=== PATIENT | male | born 1965 | race Hispanic/Latino ===

== ENCOUNTER 2018-06-22 09:31 | Emergency (ER) | payer OTHER, SELFPAY ==
--- OUTSIDE RECORDS SUMMARY | 2018-06-22 09:34 | XMS REPORT | Clinical Summary ---
:1965 Author Organization [facility] Address [address] [place] [address] Care Team Providers Name Role Phone Fadumo Primary Care Provider Allergies No Known Allergies Medications Medication Sig Dispensed Refills Start Date End Date Status calcium carbonate Take 2 tablets by 0 Active (CALCIUM CARBONATE) mouth 2 (two) times 300 mg Chew daily . lisinopril Take 2.5 mg by 0 Active (PRINIVIL,ZESTRIL) mouth daily. 2.5 MG tablet amLODIPine (NORVASC) Take 10 mg by mouth 0 Active 10 MG tablet daily. glyBURIDE (DIABETA) Take 5 mg by mouth 0 Active 1.25 MG tablet daily with breakfast. carvedilol (COREG) Take 6.25 mg by 0 Active 6.25 MG tablet mouth 2 (two) times daily with breakfast and dinner. 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, 2017 unspecified vessel or lesion type Hypertension, unspecified type 10/21/2017 ESRD (end stage renal disease) 10/21/2017 Other specified diabetes mellitus with diabetic chronic kidney disease, 2017 unspecified CKD stage, unspecified whether intermediate manager insulin use Pre-transplant evaluation for ESRD (end stage renal disease) 01/13/2017 Encounters Date Type Specialty Care Team Description 03/31/2018 Orders Only Transplant Galina Soriano, Awaiting RN transplantation of kidney (Primary Dx) 11/06/2017 Documentation Transplant Hussein Estrada 11/03/2017 Orders Only Transplant Galina Soriano, Coronary artery disease involving cabazon heart with angina pectoris, unspecified vessel or lesion type ( HCC) (Primary Dx); RN ESRD (end stage renal disease) (HCC); Pre-transplant evaluation for ESRD (end stage renal disease); Patient awaiting renal transplant 10/28/2017 Documentation Transplant Chiqui Neely 10/27/2017 [facility] Charge Visit Transplant Brianne Osorio II, MD Provider, [facility] Generic 10/27/2017 Documentation Transplant Galina Soriano RN 10/22/2017 Telephone Transplant PatrickMariel Kidney Transplant Y RN Pre-evaluation 10/22/2017 Orders Only Transplant Patrick, Mariel ESRD (end stage renal disease) (HCC) (Primary Dx); Y RN Pre-transplant evaluation for ESRD (end stage renal disease); Hypertension, unspecified type; Other specified diabetes mellitus with diabetic chronic kidney disease , unspecified CKD stage, unspecified whether intermediate manager insulin use (HCC); Coronary artery disease involving cabazon heart with angina pectoris, unspecified vessel or lesion type (HCC) 10/21/2017 Orders Only Transplant Patrick, Mariel Pre-transplant evaluation for ESRD (end stage renal disease) (Primary Dx); Y, RN Other specified diabetes mellitus with diabetic chronic kidney disease, unspecified CKD stage, unspecified whether intermediate manager insulin use (HCC); ESRD (end stage renal disease) (HCC); Hypertension, unspecified type 09/23/2017 Surgery Gastroenterology Hunter, COLONOSCOPY,POLYPECT MD JANNET Ravi 09/23/2017 Anesthesia Event Gastroenterology Vishal Jesus MD 09/23/2017 Hospital Encounter Gastroenterology Nuria Harrison MD 09/15/2017 Hospital Encounter Pre-Admission Testing Resource, [facility] Preadmit Phone 09/01/2017 Evaluation Transplant Jo, ESRD (end stage Brianne Dia II, renal disease) (HCC) (Primary Dx) 09/01/2017 Follow-Up Transplant Brianne Osorio II, MD 08/17/2017 Telephone Transplant Mich Na Y Appointment 08/14/2017 Orders Only Transplant Yovana ESRD (end stage renal disease) ( HCC) (Primary Dx); LISA Rice Pre-transplant evaluation for chronic kidney disease 07/08/2017 Orders Only Transplant Yovana ESRD (end stage renal disease) ( HCC) (Primary Dx); LISA Rice Pre-transplant evaluation for chronic kidney disease; Anemia of renal disease 07/08/2017 Telephone Transplant Sim, Na Y Follow-up after 06/21/2017 Family History Medical History Relation Name Comments Heart disease Father Diabetes Mother Hypertension Mother Liver disease Other step brother Diabetes Sister Relation Name Status Comments Father Alive Mother Alive Other step brother Alive Sister Alive Social History Tobacco Use Types Packs/Day Years Used Date Former Smoker Smokeless Tobacco: Never Used Comments: exposure to second hand smoke. Alcohol Use Drinks/Week oz/Week Comments No Sex Assigned at Date Recorded Not on file Job Start Date Occupation Industry Not on file Not on file Not on file Travel History Travel Start Travel End No recent travel history available. Last Filed Vital Signs Vital Sign Reading Time Taken Blood Pressure 139/70 09/23/2017 9:43 AM CDT Pulse 82 09/23/2017 9:43 AM CDT Temperature 36.7 C (98 F) 09/23/2017 9:43 AM CDT Respiratory Rate 18 09/23/2017 9:43 AM CDT Oxygen Saturation 97% 09/23/2017 9:43 AM CDT Inhaled Oxygen Concentration - - Weight 77.6 kg (171 lb) 09/23/2017 7:16 AM CDT Height 162.6 cm (5' 4") 09/23/2017 7:16 AM CDT Body Mass Index 29.35 09/23/2017 7:16 AM CDT Plan of Treatment Not on file Procedures Procedure Name Priority Date/Time Associated Comments Diagnosis FLOW PRA CLASS II WITH Routine 03/04/2018 11:20 Coronary artery Results for this REFLEX TO ANTIBODY AM [employer]PER disease involving procedure are in SPECIFICITY cabazon heart with the results angina pectoris, section. unspecified vessel or lesion type (HCC) ESRD (end stage renal disease) (HCC) Pre-transplant evaluation for ESRD (end stage renal disease) Patient awaiting renal transplant FLOW PRA CLASS I WITH Routine 03/04/2018 11:20 Coronary artery Results for this REFLEX TO ANTIBODY AM [employer]PER disease involving procedure are in SPECIFICITY cabazon heart with the results angina pectoris, section. unspecified vessel or lesion type (HCC) ESRD (end stage renal disease) (HCC) Pre-transplant evaluation for ESRD (end stage renal disease) Patient awaiting renal transplant FLOW PRA CLASS II WITH Routine 12/03/2017 3:17 Coronary artery Results for this REFLEX TO ANTIBODY PM CDT disease involving procedure are in SPECIFICITY cabazon heart with the results angina pectoris, section. unspecified vessel or lesion type (HCC) ESRD (end stage renal disease) (HCC) Pre-transplant evaluation for ESRD (end stage renal disease) Patient awaiting renal transplant FLOW PRA CLASS I WITH Routine 12/03/2017 3:17 Coronary artery Results for this REFLEX TO ANTIBODY PM CDT disease involving procedure are in SPECIFICITY cabazon heart with the results angina pectoris, section. unspecified vessel or lesion type (HCC) ESRD (end stage renal disease) (HCC) Pre-transplant evaluation for ESRD (end stage renal disease) Patient awaiting renal transplant FLOW PRA CLASS II WITH Routine 11/06/2017 2:08 Coronary artery Results for this REFLEX TO ANTIBODY PM CDT disease involving procedure are in SPECIFICITY cabazon heart with the results angina pectoris, section. unspecified vessel or lesion type (HCC) ESRD (end stage renal disease) (HCC) Pre-transplant evaluation for ESRD (end stage renal disease) Patient awaiting renal transplant FLOW PRA CLASS I WITH Routine 11/06/2017 2:08 Coronary artery Results for this REFLEX TO ANTIBODY PM CDT disease involving procedure are in SPECIFICITY cabazon heart with the results angina pectoris, section. unspecified vessel or lesion type (HCC) ESRD (end stage renal disease) (HCC) Pre-transplant evaluation for ESRD (end stage renal disease) Patient awaiting renal transplant REPORT OF PROCEDURE - 09/23/2017 9:21 ENDOSCOPY URL AM CDT TISSUE EXAM AP Routine 09/23/2017 9:18 Results for this AM CDT procedure are in the results section. COLONOSCOPY,POLYPECTOMY 09/23/2017 9:00 Screen for colon AM CDT cancer POCT-POTASSIUM Routine 09/23/2017 7:45 Results for this AM CDT procedure are in the results section. PSA Routine 09/01/2017 2:42 ESRD (end stage Results for this PM CDT renal disease) procedure are in (HCC) the results Pre-transplant section. evaluation for chronic kidney disease Anemia of renal disease HEPATITIS B SURFACE Routine 09/01/2017 2:42 ESRD (end stage Results for this ANTIGEN PM CDT renal disease) procedure are in (HCC) the results Pre-transplant section. evaluation for chronic kidney disease Anemia of renal disease HEPATITIS B SURFACE Routine 09/01/2017 2:42 ESRD (end stage Results for this ANTIBODY PM CDT renal disease) procedure are in (HCC) the results Pre-transplant section. evaluation for chronic kidney disease Anemia of renal disease GAMMA GLUTAMYL Routine 09/01/2017 2:42 ESRD (end stage Results for this TRANSFERASE (GGT) PM CDT renal disease) procedure are in ([facility]) the results Pre-transplant section. evaluation for chronic kidney disease Anemia of renal disease T SPOT TB Routine 09/01/2017 2:42 ESRD (end stage Results for this PM CDT renal disease) procedure are in ([facility]) the results Pre-transplant section. evaluation for chronic kidney disease Anemia of renal disease RPR Routine 09/01/2017 2:42 ESRD (end stage Results for this PM CDT renal disease) procedure are in ([facility]) the results Pre-transplant section. evaluation for chronic kidney disease Anemia of renal disease HIV-1 ANTIGEN WITH Routine 09/01/2017 2:42 ESRD (end stage Results for this HIV-1/2 ANTIBODY PM CDT renal disease) procedure are in ([facility]) the results Pre-transplant section. evaluation for chronic kidney disease Anemia of renal disease HEPATITIS C ANTIBODY Routine 09/01/2017 2:42 ESRD (end stage Results for this PM CDT renal disease) procedure are in ([facility]) the results Pre-transplant section. evaluation for chronic kidney disease Anemia of renal disease HEPATITIS B CORE Routine 09/01/2017 2:42 ESRD (end stage Results for this ANTIBODY, IGM PM CDT renal disease) procedure are in ([facility]) the results Pre-transplant section. evaluation for chronic kidney disease Anemia of renal disease EBV ANTIBODY, IGM Routine 09/01/2017 2:42 ESRD (end stage Results for this PM CDT renal disease) procedure are in ([facility]) the results Pre-transplant section. evaluation for chronic kidney disease Anemia of renal disease EBV ANTIBODY, IGG Routine 09/01/2017 2:42 ESRD (end stage Results for this PM CDT renal disease) procedure are in ([facility]) the results Pre-transplant section. evaluation for chronic kidney disease Anemia of renal disease CYTOMEGALOVIRUS Routine 09/01/2017 2:42 ESRD (end stage Results for this ANTIBODY, IGM PM CDT renal disease) procedure are in ([facility]) the results Pre-transplant section. evaluation for chronic kidney disease Anemia of renal disease CYTOMEGALOVIRUS Routine 09/01/2017 2:42 ESRD (end stage Results for this ANTIBODY, IGG PM CDT renal disease) procedure are in ([facility]) the results Pre-transplant section. evaluation for chronic kidney disease Anemia of renal disease after 06/21/2017 Results FLOW PRA CLASS II WITH REFLEX TO ANTIBODY SPECIFICITY (03/04/2018 11:20 AM [employer] HELPER) Only the most recent of3 resultswithin the time period is included. Flow Class II Percent Positive 0 [facility] Flow Class Report Comments [facility] Specimen Blood Narrative Performed At Disclaimer: [facility] This test was developed and its performance characteristics determined by the [facility]. It has not been cleared or approved by the U.S. Food and Drug Administration. The FDA has determined that such clearance or approval is not necessary. This test is used for clinical purposes. It should not be regarded as investigational or for research. This laboratory is certified under the Clinical Laboratory Improvement Amendments of 1988 (CLIA-88) as qualified to perform high complexity clinical laboratory testing. Performing Organization Address City/State/[facility] Phone Number [facility] [address] [place], [place]: ALEXA PERAZA [address] [id number], CLIA#[id number] CAP#[id number] [facility]#[id number] FLOW PRA CLASS I WITH REFLEX TO ANTIBODY SPECIFICITY (03/04/2018 11:20 AM [employer]PERSMITH HELPER) Only the most recent of3 resultswithin the time period is included. Flow Class I Percent Positive 0 [facility] Flow Class Report Comments [facility] Specimen Blood Narrative Performed At Disclaimer: [facility] This test was developed and its performance characteristics determined by the [facility]. It has not been cleared or approved by the U.S. Food and Drug Administration. The FDA has determined that such clearance or approval is not necessary. This test is used for clinical purposes. It should not be regarded as investigational or for research. This laboratory is certified under the Clinical Laboratory Improvement Amendments of 1988 (CLIA-88) as qualified to perform high complexity clinical laboratory testing. Performing Organization Address City/State/Zipcode Phone Number [facility] [place], [place]: ALEXA PERAZA [address] [id number], CLIA#[id number] CAP#[id number] [facility]#[id number] REPORT OF PROCEDURE - ENDOSCOPY URL (09/23/2017 9:21 AM CDT) Narrative Performed At Tissue Exam (09/23/2017 9:18 AM CDT) Case Report Surgical Pathology Report Case: [id number] [facility] Authorizing Provider:Nuria Harrison MD Collected: 09/23/2017 Count includes the [facility] Ordering Location: [facility] Endoscopy Received: 09/23/2017 1144 Services Pathologist: Andrea Faust MD Specimen:Polyp, Colon - Left/Descending, taken via hot snare DIAGNOSIS COLON, LEFT/DESCENDING, POLYPECTOMY [facility] - TUBULAR ADENOMA (MULTIPLE PIECES) [facility] Signing Pathologist Direct Phone Line: [phone] CPT Code(s) 85136 [facility] CLINICAL HISTORY Screening for colon cancer [facility] SPECIMEN SOURCE Left descending colon polyp [facility] GROSS DESCRIPTION The specimen is received in [facility] a formalin-filled container [facility] labeled with the patient's information and labeled "left descending colon polyp" and consists of a gann-red polyp measuring 0.5 cm in greatest dimension. The resection margin is inked blue. The specimen is bisected and submitted in A1. CG/ew MICROSCOPIC DESCRIPTION There is no high grade dysplasia or carcinoma. [facility] Specimen Tissue - Polyp, Colon - Left/Descending Performing Organization Address City/[facility]/Zipcode Phone Number [address] [address] [phone] [place] POC-Potassium (09/23/2017 7:45 AM CDT) POC-Potassium 4.8Comment: TESTED AT [facility] 3.6 - 5.5 meq/L [address] [address] Specimen Blood Performing Organization Address City/[facility]/Zipcode Phone Number [address] [address] [place] T Spot TB (09/01/2017 2:42 PM CDT) T-Spot TB Negative [facility] Neg Ctrl Spot Count 0 [facility] Panel A Spot 0 [facility] Panel B Spot 0 [facility] Pos Ctrl Spot Ct 0 [facility] Scan Result [facility] Specimen Blood Narrative Performed At Performing Organization Address City/State/Zipcode Phone Number [facility] [address] [facility], [place] [address] LABORATORIES [address] HIV-1 Antigen with HIV-1/2 Antibody (09/01/2017 2:42 PM CDT) HIV-1 Antigen with HIV 1&2 NON-REACTIVE Nonreactive [facility] Specimen Blood Performing Organization Address City/State/Zipcode Phone Number [address] [phone] CENTER Hepatitis C Antibody (09/01/2017 2:42 PM CDT) Hepatitis C Ab NON-REACTIVE Nonreactive [facility] Specimen Blood Performing Organization Address City/[facility]/Zipcode Phone Number [address] [id number] [phone] CENTER Cytomegalovirus antibody, IgM (09/01/2017 2:42 PM CDT) CMV IgM Negative [facility] Specimen Blood Performing Organization Address City/[facility]/Zipcode Phone Number [address] [address] CENTER Hepatitis B core antibody, IgM (09/01/2017 2:42 PM CDT) Hep B C IgM NON-REACTIVE Nonreactive [facility] Specimen Blood Performing Organization Address City/[facility]/Zipcode Phone Number [address] [phone] CENTER EBV-VCA antibody, IgM (09/01/2017 2:42 PM CDT) EBV VCA IgM Positive [facility] Specimen Blood Performing Organization Address City/[facility]/Zipcode Phone Number [address] [address] [phone] CENTER EBV-VCA antibody, IgG (09/01/2017 2:42 PM CDT) EBV VCA IgG Positive [facility] Specimen Blood Performing Organization Address City/[facility]/Zipcode Phone Number [address] [address] [place] RPR (09/01/2017 2:42 PM CDT) RPR Nonreactive Nonreactive [facility] Specimen Blood Performing Organization Address City/[facility]/Zipcode Phone Number [address] [address] [place] Hepatitis B surface antibody (09/01/2017 2:42 PM CDT) Hep B S Ab 22.0 (H) <8.0 mIU/mL [facility] Specimen Blood Performing Organization Address [facility] Centercode Phone Number [address] [address] [phone] [place] Hepatitis B surface antigen (09/01/2017 2:42 PM CDT) hepatitis B Surface Ag NON-REACTIVE Nonreactive [facility] Specimen Blood Performing Organization Address [facility] Centercode Phone Number [address] [address] [place] Cytomegalovirus antibody, IgG (09/01/2017 2:42 PM CDT) CMV IgG Negative [facility] Specimen Blood Performing Organization Address City/[facility] Centercode Phone Number [address] [address] CENTER PSA (09/01/2017 2:42 PM CDT) PSA 0.3 0.0 - 4.0 ng/mL [facility] Specimen Blood Performing Organization Address [facility] Centercode Phone Number [address] [address] [phone] CENTER Gamma Glutamyl Transferase (GGT) (09/01/2017 2:42 PM CDT) GGT 53 9 - 64 U/L [facility] Specimen Blood Performing Organization Address City/State/Zipcode Phone Number [facility] [address] [place] [address] CENTER after 06/21/2017 Insurance Payer Benefit Plan / Group Subscriber ID Type Phone Address MEDICARE MEDICARE A B xxxxxxxxxx Medicare Advance Directives For more information, please contact:[facility] [place], [place] [phone] Code Status Date Activated Date Inactivated Comments Full Code 01/13/2017 2:16 PM 01/13/2017 8:13 PM This code status was determined by: Patient Full Code 01/13/2017 8:44 AM 01/13/2017 2:16 PM This code status was determined by: Patient
--- OUTSIDE RECORDS SUMMARY | 2018-06-22 09:34 | XMS REPORT ---
:1965 [facility] [address] [place] [address] Care Team Providers Name Role Phone DEUCE WARNER Unavailable Unavailable TODD LOAIZA Unavailable Unavailable HOLDEN VILLEDA Unavailable Unavailable Problems This patient has no known problems. Allergies, Adverse Reactions, Alerts This patient has no known allergies or adverse reactions. Medications This patient has no known medications. Results Test Description Test Time Test Comments Text Results Atomic Results Result Comments TISSUE EXAM 2017-09-24 19:11:00 Surgical Pathology Report Case: [id number] Authorizing Provider: Deuce Warner MD Collected: 09/23/2017 0918 Ordering Location: [facility] Endoscopy Received: 09/23/2017 1144 Services Pathologist: Andrea Faust MD Specimen: Polyp, Colon - Left/Descending, taken via hot snare COLON, LEFT/DESCENDING, POLYPECTOMY- TUBULAR ADENOMA (MULTIPLE PIECES) Signing Pathologist Direct Phone Line: [phone] signed by Andrea Faust MD on 09/24/2017 at 7:11 [id number] for colon cancer Left descending colon polyp The specimen is received in a formalin-filled container labeled with the patient's information and labeled "left descending colon polyp" and consists of a gann-red polyp measuring 0.5 cm in greatest dimension. The resection margin is inked blue. The specimen is bisected and submitted in A1. CG/ew There is no high grade dysplasia or carcinoma. POCT-POTASSIUM 2017-09-23 07:55:00 Test Item Value Reference Range Comments POC-POTASSIUM (BEAKER) (test 4.8 meq/L 3.6-5.5 TESTED AT [facility] [address] brtx=[facility]) [facility] [address] CYTOMEGALOVIRUS ANTIBODY, [id number] 08:36:00 Test Item Value Reference Range Comments CYTOMEGALOVIRUS IGG ANTIBODY (BEAKER) (test Negative qmpi=482) CYTOMEGALOVIRUS ANTIBODY, [id number] 08:36:00 Test Item Value Reference Range Comments CYTOMEGALOVIRUS IGM ANTIBODY (BEAKER) (test Negative olyy=701) EBV-VCA ANTIBODY, [id number] 08:36:00 Test Item Value Reference Range Comments LANETTE-CENTENO VCA IGG (BEAKER) (test axyh=276) Positive EBV-VCA ANTIBODY, [id number] 08:36:00 Test Item Value Reference Range Comments LANETTE-CENTENO VCA IGM (BEAKER) (test csao=351) Positive [id number] 02:48:00 Test Item Value Reference Range Comments RPR SCREEN (BEAKER) (test thzf=325) Nonreactive Nonreactive [id number] 15:45:00 Test Item Value Reference Range Comments PROSTATE SPECIFIC ANTIGEN (BEAKER) (test eopq=486) 0.3 ng/mL 0.0-4.0 HEPATITIS B SURFACE [id number] 15:43:00 Test Item Value Reference Range Comments HEPATITIS B SURFACE ANTIGEN (2) (BEAKER) (test Nonreactive Nonreactive rwtq=3858) HEPATITIS B SURFACE [id number] 15:43:00 Test Item Value Reference Range Comments HEPATITIS B SURFACE ANTIBODY (BEAKER) (test 22.0 mIU/mL <8.0 zrik=279) HEPATITIS B CORE ANTIBODY, [id number] 15:43:00 Test Item Value Reference Range Comments HEPATITIS B CORE IGM ANTIBODY (BEAKER) (test Nonreactive Nonreactive svkl=396) HEPATITIS C [id number] 15:43:00 Test Item Value Reference Range Comments HEPATITIS C ANTIBODY (BEAKER) (test jsaj=657) Nonreactive Nonreactive HIV-1 ANTIGEN WITH HIV-1/2 [id number] 15:43:00 Test Item Value Reference Range Comments HIV-1 ANTIGEN WITH HIV 1\\T\\2 ANTIBODY (2) Nonreactive Nonreactive (BEAKER) (test xtaj=4036) GAMMA GLUTAMYL TRANSFERASE (GGT)2017-09-01 15:21:00 Test Item Value Reference Range Comments GAMMA GLUTAMYL TRANSFERASE (BEAKER) (test olnv=594) 53 U/L 9-64 BASIC METABOLIC [id number] 11:03:00 Test Item Value Reference Range Comments SODIUM (BEAKER) (test 140 meq/L 136-145 bjii=946) POTASSIUM (BEAKER) (test 3.4 meq/L 3.5-5.1 hfbm=965) CHLORIDE (BEAKER) (test 101 meq/L 98-107 qrde=143) CO2 (BEAKER) (test 29 meq/L 22-29 xpww=580) BLOOD UREA NITROGEN 26 mg/dL 7-21 (BEAKER) (test czdy=370) CREATININE (BEAKER) (test 5.09 mg/dL 0.57-1.25 fmyl=234) GLUCOSE RANDOM (BEAKER) 135 mg/dL 70-105 (test xkak=996) CALCIUM (BEAKER) (test 8.8 mg/dL 8.4-10.2 icad=670) EGFR (BEAKER) (test 12 mL/min/1.73 sq m ESTIMATED GFR IS NOT ylgt=9013) ACCURATE CREATININE CLEARANCE IN PREDICTING GLOMERULAR FILTRATION RATE. ESTIMATED GFR IS NOT APPLICABLE FOR DIALYSIS PATIENTS. [id number] 10:46:00 Test Item Value Reference Range Comments PROTIME (BEAKER) (test vvwz=486) 13.9 seconds 11.7-14.7 INR (BEAKER) (test bupm=685) 1.1 <=5.9 PARTIAL THROMBOPLASTIN TIME (BEAKER) (test 36.1 seconds 22.5-36.0 nqxk=488) RECOMMENDED COUMADIN/WARFARIN INR THERAPY RANGESSTANDARD DOSE: 2.0 - 3.0 Includes: PROPHYLAXIS forvenous thrombosis, systemic embolization; TREATMENT for venous thrombosis and/or pulmonary embolus.HIGH RISK: Target INR is 2.5-3.5 for patients with mechanical heart valves.CBC W/PLT COUNT & AUTO [id number] 10:36:00 Test Item Value Reference Range Comments WHITE BLOOD CELL COUNT (BEAKER) (test smzo=563) 4.9 K/ L 3.5-10.5 RED BLOOD CELL COUNT (BEAKER) (test kndm=261) 3.51 M/ L 4.63-6.08 HEMOGLOBIN (BEAKER) (test adov=706) 11.3 GM/DL 13.7-17.5 HEMATOCRIT (BEAKER) (test nulo=969) 34.0 % 40.1-51.0 MEAN CORPUSCULAR VOLUME (BEAKER) (test ilkj=896) 96.9 fL 79.0-92.2 MEAN CORPUSCULAR HEMOGLOBIN (BEAKER) (test 32.2 pg 25.7-32.2 avkm=971) MEAN CORPUSCULAR HEMOGLOBIN CONC (BEAKER) (test 33.2 GM/DL 32.3-36.5 cdho=116) RED CELL DISTRIBUTION WIDTH (BEAKER) (test 13.8 % 11.6-14.4 zkgh=452) PLATELET COUNT (BEAKER) (test jdoc=756) 190 K/CU MM 150-450 MEAN PLATELET VOLUME (BEAKER) (test eatb=876) 10.5 fL 9.4-12.4 NUCLEATED RED BLOOD CELLS (BEAKER) (test 0 /100 WBC 0-0 waoc=911) NEUTROPHILS RELATIVE PERCENT (BEAKER) (test 55 % hwoh=361) LYMPHOCYTES RELATIVE PERCENT (BEAKER) (test 23 % tifq=021) MONOCYTES RELATIVE PERCENT (BEAKER) (test 14 % hpgc=038) EOSINOPHILS RELATIVE PERCENT (BEAKER) (test 6 % xeyv=693) BASOPHILS RELATIVE PERCENT (BEAKER) (test 1 % srsj=043) NEUTROPHILS ABSOLUTE COUNT (BEAKER) (test 2.69 K/ L 1.78-5.38 twue=467) LYMPHOCYTES ABSOLUTE COUNT (BEAKER) (test 1.14 K/ L 1.32-3.57 wnlr=295) MONOCYTES ABSOLUTE COUNT (BEAKER) (test 0.70 K/ L 0.30-0.82 eihe=171) EOSINOPHILS ABSOLUTE COUNT (BEAKER) (test 0.30 K/ L 0.04-0.54 uhlg=663) BASOPHILS ABSOLUTE COUNT (BEAKER) (test 0.05 K/ L 0.01-0.08 hmuo=808) IMMATURE GRANULOCYTES-RELATIVE PERCENT (BEAKER) 0 % 0-1 (test lhnq=4526) FLOW PRA CLASS I AND [id number] 09:50:00 Test Item Value Reference Range Comments DATE OF SERUM (BEAKER) (test zbut=9237) [id number] SERUM # (BEAKER) (test selm=1787) [id number] FLOW PRA CLASS I AND II (test kqon=1886) See Scanned Report HLA [id number] 13:18:00 Test Item Value Reference Range Comments HLA RESULT (BEAKER) (test hnrn=4352) See Scanned Report HLA-A AG1 (BEAKER) (test bqqk=5419) HLA-A AG2 (BEAKER) (test tqgj=2919) HLA-B AG1 (BEAKER) (test kkcd=7907) HLA-B AG2 (BEAKER) (test nsne=4366) HLA-C AG1 (BEAKER) (test bikz=0266) HLA-C AG2 (BEAKER) (test mvlr=1500) HLA-DR AG1 (BEAKER) (test ivvu=5101) HLA-DR AG2 (BEAKER) (test tabw=0719) HLA-DQ AG1 (BEAKER) (test rgyg=8648) HLA-DQ AG2 (BEAKER) (test xwgm=7579) HLA-DRW (BEAKER) (test rims=8610) OCCULT BLOOD, [id number] 16:23:00 Test Item Value Reference Range Comments FECAL OCCULT BLOOD (BEAKER) (test jmkj=094) Positive Negative OCCULT BLOOD, [id number] 16:14:00 Test Item Value Reference Range Comments FECAL OCCULT BLOOD (BEAKER) (test zubc=445) Negative Negative HEMOGLOBIN [id number] 15:13:00 Test Item Value Reference Range Comments HEMOGLOBIN A1C (BEAKER) (test fols=929) 7.1 % 4.3-6.1 GAMMA GLUTAMYL TRANSFERASE (GGT)2016-08-14 12:11:00 Test Item Value Reference Range Comments GAMMA GLUTAMYL TRANSFERASE (BEAKER) (test bafz=177) 70 U/L 9-64 VARICELLA ZOSTER ANTIBODY, [id number] 17:30:00 Test Item Value Reference Range Comments VARICELLA ZOSTER IGG (AL) (BEAKER) (test lefk=2098) 6.3 Al VARICELLA ZOSTER RESULT INTERPRETATIONS: <=0.8 Al Nonreactive: Presumed non-immune to VZV 0.9-1.0 Al Equivocal >=1.1 Al Reactive: Presumed immune to VZV
[2018-06-22 10:22] LABS: Absolute Lymphocytes (CBC) 0.7 K/uL (0.7-4.9); Absolute Monocytes 0.6 K/uL (0.1-1.3); Basophils % 0.7 % (0-1.3); Eosinophils % 0.5 % (0-4.4); Hematocrit 36.2 % (39.6-49.0); Lymphocytes % 6.9 % (15.3-44.8); MPV 8.1 fL (7.6-11.3); Monocytes % 5.5 % (3.3-12.3); RBC Red Blood Cell Count 3.74 M/uL (4.33-5.43)
[2018-06-22 10:52] LABS: Albumin 3.6 g/dL (3.4-5.0); Bilirubin Direct 0.3 mg/dL (0-0.2); Potassium 4.1 mmol/L (3.5-5.1); Protein, Total 8.4 g/dL (6.4-8.2)
[2018-06-22 11:10] LABS: Blood Morphology Comment NOT SEEN (NOT SEEN); Platelet Estimate ADEQ; Urine White Blood Cell Casts OK
--- NOTE | 2018-06-22 11:30 | RAD REPORT ---
EXAM DESCRIPTION: RAD - Abdomen Acute Series - 06/22/2018 11:18 am CLINICAL HISTORY: ABD PAIN COMPARISON: Chest Single View dated 11/23/2015; Chest Single View dated 11/23/2015; Chest Pa And Lat ( 2 Views) dated 11/21/2015; Chest Single View dated 11/14/2015 FINDINGS: The lungs are clear. The heart is normal in size. No evidence of subdiaphragmatic free air is present. Moderate stool is present in the colon. No bowel obstruction is seen. Cholecystectomy clips evident. No fracture evident. IMPRESSION: No acute finding is evident.
--- NOTE | 2018-06-22 11:59 | ER ---
Nurse's Notes [facility] Name: Art Trinidad Jr Age: 53 yrs Sex: Male : 1965 Arrival Date: 06/22/2018 Time: 09:34 Bed 16 Private MD: Diagnosis: Unspecified abdominal pain;Nausea and vomiting;Constipation Presentation: 06/22 10:01 Presenting complaint: Patient states: i started vomiting at 430 this morning, i had tw2 dialysis yesterday and then last week after dialysis i did the same thing. Transition of care: patient was not received from another setting of care. Onset of symptoms was June 22, 2018. Risk Assessment: Do you want to hurt yourself or someone else? Patient reports no desire to harm self or others. Initial Sepsis Screen: Does the patient meet any 2 criteria? No. Patient's initial sepsis screen is negative. Does the patient have a suspected source of infection? No. Patient's initial sepsis screen is negative. Care prior to arrival: None. 10:01 Method Of Arrival: Ambulatory tw2 10:01 Acuity: DIVINA 3 tw2 10:09 Note pt has Dialysis MWF at [facility] here in [place]. tw2 Historical: - Allergies: 10:04 No Known Drug Allergies; tw2 - PMHx: 10:04 Diabetes - NIDDM; Hypertension; tw2 - PSHx: 10:04 Appendectomy; Cholecystectomy; tw2 - Immunization history:: Adult Immunizations. - Social history:: Smoking status: Patient uses tobacco products, smokes one pack cigarettes per day. - Ebola Screening: : Patient denies travel to an Ebola-affected area in the 21 days before illness onset. Screenin:05 Abuse screen: Denies threats or abuse. Nutritional screening: No deficits noted. tw2 Tuberculosis screening: No symptoms or risk factors identified. Fall Risk None identified. Assessment: 09:55 General: Appears in no apparent distress. Behavior is calm, cooperative, appropriate tw2 for age. Pain: Complains of pain in right lower quadrant and left lower quadrant. Neuro: Level of Consciousness is awake, alert, obeys commands, Oriented to person, place, time, situation. Cardiovascular: Heart tones S1 S2 Patient's skin is warm and dry. Respiratory: Airway is patent Respiratory effort is even, unlabored, Respiratory pattern is regular, symmetrical, Breath sounds are clear bilaterally. GI: Abdomen is round non-distended, Bowel sounds present X 4 quads. Abd is soft X 4 quads. : No signs and/or symptoms were reported regarding the genitourinary system. EENT: No signs and/or symptoms were reported regarding the EENT system. Derm: No signs and/or symptoms reported regarding the dermatologic system. Musculoskeletal: Range of motion: intact in all extremities. 11:38 Reassessment: Patient appears in no apparent distress at this time. No changes from tw2 previously documented assessment. Patient and/or family updated on plan of care and expected duration. Pain level reassessed. Patient is alert, oriented x 3, equal unlabored respirations, skin warm/dry/pink. 12:36 Reassessment: Patient appears in no apparent distress at this time. No changes from tw2 previously documented assessment. Patient and/or family updated on plan of care and expected duration. Pain level reassessed. Patient is alert, oriented x 3, equal unlabored respirations, skin warm/dry/pink. provider at bedside at this time. Vital Signs: 10:02 BP 173 / 90; Pulse 99; Resp 18; Temp 97.9(O); Pulse Ox 98% on R/A; Weight 79 kg (R); tw2 Pain 6/10; 10:43 BP 173 / 80; Pulse 85; Resp 17; Pulse Ox 98% on R/A; tw2 11:38 BP 159 / 79; Pulse 88; Resp 17; Pulse Ox 98% on R/A; tw2 12:36 BP 139 / 79; Pulse 88; Resp 17; Pulse Ox 97% on R/A; tw2 ED Course: 09:34 Patient arrived in ED. rg4 09:53 [facility] snw 09:53 Ismael Watson MD is Attending Physician. snw 09:56 Karishma Beltran, LISA is Primary Nurse. tw2 10:02 Triage completed. tw2 10:02 Arm band placed on. tw2 10:05 Bed in low position. Call light in reach. bingo clerk on. Pulse ox on. NIBP on. tw2 10:13 Initial lab(s) drawn, by me, sent to lab. Inserted saline lock: 22 gauge in right jb1 antecubital area, using aseptic technique. Blood collected. 11:01 EKG done, by diamond powder technician. reviewed by Carmen WHITE. at1 11:17 X-ray completed. Patient tolerated procedure well. Patient moved back from radiology. jb2 11:18 XRAY Abdomen Acute Series In Process Unspecified. EDMS 12:53 No provider procedures requiring assistance completed. IV discontinued, intact, tw2 bleeding controlled, No redness/swelling at site. Pressure dressing applied. Administered Medications: 12:05 Drug: Bisacodyl 10 mg Route: PO; tw2 12:35 Follow up: Response: No adverse reaction tw2 Outcome: 11:59 Discharge ordered by . snsanto 12:53 Discharged to home ambulatory, with family. tw2 12:53 Condition: stable 12:53 Discharge instructions given to patient, family, Instructed on discharge instructions, follow up and referral plans. medication usage, Demonstrated understanding of instructions, follow-up care, medications, Prescriptions given X 1. 12:54 Patient left the ED. tw2 Signatures: Dispatcher [employer] EDMS Moncho Deleon jb1 Carmen Gonzalez FNP-C FNP-Mickey Melendrez jb2 Judith Ramirez, certification officer EKG Tat1 Karishma Beltran RN RN tw2 Jailene Tsai rg4 Corrections: (The following items were deleted from the chart) 12:53 10:13 Inserted saline lock: 24 gauge in right antecubital area, using aseptic tw2 technique. Blood collected. jb1
--- NOTE | 2018-06-22 12:00 | EDPHYS ---
Physician Documentation [facility] Name: Art Trinidad Jr Age: 53 yrs Sex: Male : 1965 Arrival Date: 06/22/2018 Time: 09:34 Bed 16 Private MD: ED Physician Ismael Watson HPI: 06/22 10:47 This 53 yrs old Male presents to ER via Ambulatory with complaints of snw Abdominal Pain, Vomiting. 10:47 The patient presents with abdominal pain in the epigastric area. Onset: The snw symptoms/episode began/occurred suddenly, 1 week(s) ago, and improved and then recurred. The symptoms do not radiate. Associated signs and symptoms: Pertinent positives: nausea and vomiting, Pertinent negatives: fever. The symptoms are described as crampy. Severity of pain: At its worst the pain was moderate in the emergency department the pain has resolved. The patient has experienced a previous episode. dialysis Mon, Thu, Thursday. Pt states he never allows more than 2.4 removed. 1.8 removed yest, + vomiting at 0400. Historical: - Allergies: 10:04 No Known Drug Allergies; tw2 - PMHx: 10:04 Diabetes - NIDDM; Hypertension; tw2 - PSHx: 10:04 Appendectomy; Cholecystectomy; tw2 - Immunization history:: Adult Immunizations. - Social history:: Smoking status: Patient uses tobacco products, smokes one pack cigarettes per day. - Ebola Screening: : Patient denies travel to an Ebola-affected area in the 21 days before illness onset. ROS: 10:46 Constitutional: Negative for fever, chills, and weight loss, Eyes: Negative for injury, snw pain, redness, and discharge, ENT: Negative for injury, pain, and discharge, Neck: Negative for injury, pain, and swelling, Cardiovascular: Negative for chest pain, palpitations, and edema, Respiratory: Negative for shortness of breath, cough, wheezing, and pleuritic chest pain, Back: Negative for injury and pain, : Negative for injury, bleeding, discharge, and swelling, MS/Extremity: Negative for injury and deformity, Skin: Negative for injury, rash, and discoloration, Neuro: Negative for headache, weakness, numbness, tingling, and seizure, Psych: Negative for depression, anxiety, suicide ideation, homicidal ideation, and hallucinations. 10:46 Abdomen/GI: Positive for abdominal pain, nausea and vomiting. Exam: 10:44 Constitutional: This is a well developed, well nourished patient who is awake, alert, snw and in no acute distress. Head/Face: Normocephalic, atraumatic. Eyes: Pupils equal round and reactive to light, extra-ocular motions intact. Lids and lashes normal. Conjunctiva and sclera are non-icteric and not injected. Cornea within normal limits. Periorbital areas with no swelling, redness, or edema. ENT: Nares patent. No nasal discharge, no septal abnormalities noted. Tympanic membranes are normal and external auditory canals are clear. Oropharynx with no redness, swelling, or masses, exudates, or evidence of obstruction, uvula midline. Mucous membranes moist. Neck: Trachea midline, no thyromegaly or masses palpated, and no cervical lymphadenopathy. Supple, full range of motion without nuchal rigidity, or vertebral point tenderness. No Meningismus. Chest/axilla: Normal chest wall appearance and motion. Nontender with no deformity. No lesions are appreciated. Cardiovascular: Regular rate and rhythm with a normal S1 and S2. No gallops, murmurs, or rubs. Normal PMI, no JVD. No pulse deficits. Respiratory: Lungs have equal breath sounds bilaterally, clear to auscultation and percussion. No rales, rhonchi or wheezes noted. No increased work of breathing, no retractions or nasal flaring. Back: No spinal tenderness. No costovertebral tenderness. Full range of motion. Skin: Warm, dry with poorturgor. Grayish color with no rashes, no lesions, and no evidence of cellulitis. MS/ Extremity: Pulses equal, no cyanosis. Neurovascular intact. Full, normal range of motion. Neuro: Awake and alert, GCS 15, oriented to person, place, time, and situation. Cranial nerves II-XII grossly intact. Motor strength 5/5 in all extremities. Sensory grossly intact. Cerebellar exam normal. Normal gait. Psych: Awake, alert, with orientation to person, place and time. Behavior, mood, and affect are within normal limits. 10:44 Abdomen/GI: Inspection: abdomen appears normal, Bowel sounds: normal, Palpation: abdomen is soft and non-tender, in all quadrants. Vital Signs: 10:02 BP 173 / 90; Pulse 99; Resp 18; Temp 97.9(O); Pulse Ox 98% on R/A; Weight 79 kg (R); tw2 Pain 6/10; 10:43 BP 173 / 80; Pulse 85; Resp 17; Pulse Ox 98% on R/A; tw2 11:38 BP 159 / 79; Pulse 88; Resp 17; Pulse Ox 98% on R/A; tw2 12:36 BP 139 / 79; Pulse 88; Resp 17; Pulse Ox 97% on R/A; tw2 MDM: 10:44 Patient medically screened. snw 12:00 Data reviewed: vital signs, nurses notes. Data interpreted: Pulse oximetry: on room air snw is 98 %. Interpretation: normal. Counseling: I had a detailed discussion with the patient and/or guardian regarding: the historical points, exam findings, and any diagnostic results supporting the discharge/admit diagnosis, the presence of at least one elevated blood pressure reading (>120/80) during this emergency department visit, lab results, radiology results, the need for outpatient follow up, to return to the emergency department if symptoms worsen or persist or if there are any questions or concerns that arise at home. Special discussion: Based on the patient's Hx, exam, and Dx evaluation, there is no indication for emergent surgery or inpatient Tx. It is understood by the patient/guardian that if the Sx's persist or worsen they need to return immediately for re-evaluation. I have referred the patient to see his PCP for further evaluation of high blood pressure. Based on the history and exam findings, there is no indication for further emergent testing or inpatient evaluation. I discussed with the patient/guardian the need to see the primary care provider for further evaluation of the symptoms. 06/22 09:54 Order name: Basic Metabolic Panel; Complete Time: 11: snw 06/22 09:54 Order name: CBC with Diff; Complete Time: 11: snw 06/22 09:54 Order name: Creatinine for Radiology; Complete Time: 10:44 snw 06/22 09:54 Order name: Hepatic Function; Complete Time: 11: snw 06/22 09:54 Order name: Lipase; Complete Time: 11:w 06/22 09:54 Order name: EKG; Complete Time: 09:54 snw 06/22 09:54 Order name: EKG - Nurse/Tech; Complete Time: 10:27 snw 06/22 09:54 Order name: IV Saline Lock; Complete Time: 10:27 snw 06/22 09:54 Order name: Labs collected and sent; Complete Time: 10:27 snw 06/22 10:24 Order name: CBC Smear Scan; Complete Time: 11:11 EDMI 06/22 10:43 Order name: XRAY Abdomen Acute Series; Complete Time: 11:31 snw Administered Medications: 12:05 Drug: Bisacodyl 10 mg Route: PO; tw2 12:35 Follow up: Response: No adverse reaction tw2 Disposition: 18:14 Co-signature as Attending Physician, Ismael Watson MD I agree with the assessment and wa plan of care. Disposition: 06/22/18 11:59 Discharged to Home. Impression: Unspecified abdominal pain, Nausea and vomiting, Constipation. - Condition is Stable. - Discharge Instructions: Abdominal Pain, Adult, Constipation, Adult, High-Fiber Diet, Rehydration, Adult. - Prescriptions for Miralax 17 gram/dose Oral - take 1 packet by ORAL route once daily dilute powder in 8 ounces of water or juice; 1 box. - Work release form, Medication Reconciliation Form, Thank You Letter, Antibiotic Education, Prescription Opioid Use form. - Follow up: Private Physician; When: 1 - 2 days; Reason: Recheck today's complaints, Continuance of care, Re-evaluation by your physician. Follow up: Emergency Department; When: As needed; Reason: Worsening of condition. Signatures: Dispatcher [employer] [facility] Carmen Gonzalez FNP-C MEMBER OF TECHNICAL STAFF-Priscilaw Karishma Beltran, RN RN tw2 Ismael Watson MD MD wa Corrections: (The following items were deleted from the chart) 12:54 11:59 06/22/2018 11:59 Discharged to Home. Impression: Unspecified abdominal pain; tw2 Nausea and vomiting; Constipation. Condition is Stable. Forms are Medication Reconciliation Form, Thank You Letter, Antibiotic Education, Prescription Opioid Use. Follow up: Private Physician; When: 1 - 2 days; Reason: Recheck today's complaints, Continuance of care, Re-evaluation by your physician. Follow up: Emergency Department; When: As needed; Reason: Worsening of condition. snw
[2018-06-22] MEDS ORDERED: BISACODYL E.C. 5 MG TAB PO ONE (12:14)
[2018-06-22 12:59] VITALS: TEMP 97.9
[2018-06-22 13:02] VITALS: BP 139/79; O2SAT 97
--- NOTE | 2018-06-22 17:16 | EKG ---
Test Date: 2018-06-22 Test Time: 10:53:20 Fur Dry Cleaner: MONIE MEASUREMENT RESULTS: Intervals: Rate: 88 HI: 144 QRSD: 88 QT: 396 QTc: 479 [place]: P: 55 HI: 144 QRS: 64 T: 37 INTERPRETIVE STATEMENTS: Normal sinus rhythm Normal ECG Compared to ECG 11/13/2015 06:25:00 Sinus tachycardia no longer present Electronically Signed On 06-22-18 17:14:19 CDT by Juve Long
== END 2018-06-22 12:54 | disposition home or self-care (01) ==
LOC: ER 09:31
DX: R10.13 Epigastric pain (principal); R11.2 Nausea with vomiting, unspecified; K59.00 Constipation, unspecified; E11.9 Type 2 diabetes mellitus without complications; I10 Essential (primary) hypertension; F17.210 Nicotine dependence, cigarettes, uncomplicated
CPT/HCPCS: 36415; 74022; 80048; 80076; 83690; 85025; 93005; 99285

== ENCOUNTER 2018-08-11 11:52 | Observation (INO) | payer OTHER ==
--- OUTSIDE RECORDS SUMMARY | 2018-08-11 11:55 | XMS REPORT ---
:1965 [facility] Address [address] [place] [address] Care Team Providers Name Role Phone DEUCE [...] EXAM 2017-09-24 19:11:00 Surgical Pathology Report Case: [id number] Authorizing Provider: Deuce Warner MD Collected: 09/23/[id number] Ordering Location: [facility] Endoscopy Received: 09/23/2017 1144 Services Pathologist: Andrea Faust MD Specimen: Polyp, Colon - Left/Descending, taken via hot snare COLON, LEFT/DESCENDING, POLYPECTOMY- TUBULAR ADENOMA (MULTIPLE PIECES) Signing Pathologist Direct Phone Line: [phone] signed by Andrea Faust MD on 09/24/2017 at 7:11 [id number] for colon cancer Left descending colon polyp [...] (BEAKER) (test 4.8 meq/L 3.6-5.5 TESTED AT [facility] [address] [facility] gwvy[facility]) [facility] [address] CYTOMEGALOVIRUS ANTIBODY, [id number] 08:36:00 Test Item Value Reference Range Comments CYTOMEGALOVIRUS IGG ANTIBODY (BEAKER) (test Negative bdal=903) CYTOMEGALOVIRUS ANTIBODY, [id number] 08:36:00 Test Item Value Reference Range Comments CYTOMEGALOVIRUS IGM ANTIBODY (BEAKER) (test Negative mbzh=658) EBV-VCA ANTIBODY, [id number] 08:36:00 Test Item Value Reference Range Comments LANETTE-CENTENO VCA IGG (BEAKER) (test qrsc=849) Positive EBV-VCA ANTIBODY, [id number] 08:36:00 Test Item Value Reference Range Comments LANETTE-CENTENO VCA IGM (BEAKER) (test vele=332) Positive [id number] 02:48:00 Test Item Value Reference Range Comments RPR SCREEN (BEAKER) (test xduf=106) Nonreactive Nonreactive [id number] 15:45:00 Test Item Value Reference Range Comments PROSTATE SPECIFIC ANTIGEN (BEAKER) (test vzxa=979) 0.3 ng/mL 0.0-4.0 HEPATITIS B SURFACE [id number] 15:43:00 Test Item Value Reference Range Comments HEPATITIS B SURFACE ANTIGEN (2) (BEAKER) (test Nonreactive Nonreactive hetw=9168) HEPATITIS B SURFACE [id number] 15:43:00 Test Item Value Reference Range Comments HEPATITIS B SURFACE ANTIBODY (BEAKER) (test 22.0 mIU/mL <8.0 xpih=347) HEPATITIS B CORE ANTIBODY, [id number] 15:43:00 Test Item Value Reference Range Comments HEPATITIS B CORE IGM ANTIBODY (BEAKER) (test Nonreactive Nonreactive ipxk=246) HEPATITIS C [id number] 15:43:00 Test Item Value Reference Range Comments HEPATITIS C ANTIBODY (BEAKER) (test xpqg=317) Nonreactive Nonreactive HIV-1 ANTIGEN WITH HIV-1/2 [id number] 15:43:00 Test Item Value Reference Range Comments HIV-1 ANTIGEN WITH HIV 1\\T\\2 ANTIBODY (2) Nonreactive Nonreactive (BEAKER) (test xicn=2983) GAMMA GLUTAMYL TRANSFERASE (GGT)2017-09-01 15:21:00 Test Item Value Reference Range Comments GAMMA GLUTAMYL TRANSFERASE (BEAKER) (test ular=932) 53 U/L 9-64 BASIC METABOLIC [id number] 11:03:00 Test Item Value Reference Range Comments SODIUM (BEAKER) (test 140 meq/L 136-145 eeft=352) POTASSIUM (BEAKER) (test 3.4 meq/L 3.5-5.1 mijo=457) CHLORIDE (BEAKER) (test 101 meq/L 98-107 kjyz=833) CO2 (BEAKER) (test 29 meq/L 22-29 mcyw=684) BLOOD UREA NITROGEN 26 mg/dL 7-21 (BEAKER) (test vpoi=699) CREATININE (BEAKER) (test 5.09 mg/dL 0.57-1.25 vqzi=713) GLUCOSE RANDOM (BEAKER) 135 mg/dL 70-105 (test skju=659) CALCIUM (BEAKER) (test 8.8 mg/dL 8.4-10.2 bhpc=713) EGFR (BEAKER) (test 12 mL/min/1.73 sq m ESTIMATED GFR IS NOT zomi=9986) ACCURATE CREATININE CLEARANCE IN PREDICTING GLOMERULAR FILTRATION RATE. ESTIMATED GFR IS NOT APPLICABLE FOR DIALYSIS PATIENTS. [id number] 10:46:00 Test Item Value Reference Range Comments PROTIME (BEAKER) (test libu=962) 13.9 seconds 11.7-14.7 INR (BEAKER) (test kgmn=280) 1.1 <=5.9 PARTIAL THROMBOPLASTIN TIME (BEAKER) (test 36.1 seconds 22.5-36.0 uwcs=170) RECOMMENDED COUMADIN/WARFARIN INR THERAPY RANGESSTANDARD DOSE: 2.0 - 3.0 Includes: PROPHYLAXIS forvenous thrombosis, systemic embolization; TREATMENT for venous thrombosis and/or pulmonary embolus.HIGH RISK: Target INR is 2.5-3.5 for patients with mechanical heart valves.CBC W/PLT COUNT & AUTO [id number] 10:36:00 Test Item Value Reference Range Comments WHITE BLOOD CELL COUNT (BEAKER) (test ygyx=742) 4.9 K/ L 3.5-10.5 RED BLOOD CELL COUNT (BEAKER) (test vtdi=659) 3.51 M/ L 4.63-6.08 HEMOGLOBIN (BEAKER) (test bcxk=047) 11.3 GM/DL 13.7-17.5 HEMATOCRIT (BEAKER) (test vfrt=431) 34.0 % 40.1-51.0 MEAN CORPUSCULAR VOLUME (BEAKER) (test qzhp=364) 96.9 fL 79.0-92.2 MEAN CORPUSCULAR HEMOGLOBIN (BEAKER) (test 32.2 pg 25.7-32.2 zchm=787) MEAN CORPUSCULAR HEMOGLOBIN CONC (BEAKER) (test 33.2 GM/DL 32.3-36.5 rwds=856) RED CELL DISTRIBUTION WIDTH (BEAKER) (test 13.8 % 11.6-14.4 ggkq=716) PLATELET COUNT (BEAKER) (test jzqb=128) 190 K/CU MM 150-450 MEAN PLATELET VOLUME (BEAKER) (test uqxx=027) 10.5 fL 9.4-12.4 NUCLEATED RED BLOOD CELLS (BEAKER) (test 0 /100 WBC 0-0 xqym=133) NEUTROPHILS RELATIVE PERCENT (BEAKER) (test 55 % zjra=897) LYMPHOCYTES RELATIVE PERCENT (BEAKER) (test 23 % wjne=351) MONOCYTES RELATIVE PERCENT (BEAKER) (test 14 % msmg=879) EOSINOPHILS RELATIVE PERCENT (BEAKER) (test 6 % gzoa=187) BASOPHILS RELATIVE PERCENT (BEAKER) (test 1 % leir=069) NEUTROPHILS ABSOLUTE COUNT (BEAKER) (test 2.69 K/ L 1.78-5.38 ccwm=250) LYMPHOCYTES ABSOLUTE COUNT (BEAKER) (test 1.14 K/ L 1.32-3.57 yrgq=565) MONOCYTES ABSOLUTE COUNT (BEAKER) (test 0.70 K/ L 0.30-0.82 taos=134) EOSINOPHILS ABSOLUTE COUNT (BEAKER) (test 0.30 K/ L 0.04-0.54 wwjy=296) BASOPHILS ABSOLUTE COUNT (BEAKER) (test 0.05 K/ L 0.01-0.08 btte=000) IMMATURE GRANULOCYTES-RELATIVE PERCENT (BEAKER) 0 % 0-1 (test kjdx=3310) FLOW PRA CLASS I AND [id number] 09:50:00 Test Item Value Reference Range Comments DATE OF SERUM (BEAKER) (test yhut=6921) [id number] SERUM # (BEAKER) (test ppew=1128) [id number] FLOW PRA CLASS I AND II (test izpe=1113) See Scanned Report HLA [id number] 13:18:00 Test Item Value Reference Range Comments HLA RESULT (BEAKER) (test keuf=7497) See Scanned Report HLA-A AG1 (BEAKER) (test aypq=9820) HLA-A AG2 (BEAKER) (test lqhu=0479) HLA-B AG1 (BEAKER) (test zegi=1831) HLA-B AG2 (BEAKER) (test qbru=1823) HLA-C AG1 (BEAKER) (test ritb=3560) HLA-C AG2 (BEAKER) (test jcux=1306) HLA-DR AG1 (BEAKER) (test xmwk=9912) HLA-DR AG2 (BEAKER) (test qptx=9604) HLA-DQ AG1 (BEAKER) (test xffy=1110) HLA-DQ AG2 (BEAKER) (test ahoy=7061) HLA-DRW (BEAKER) (test bhyx=9828) OCCULT BLOOD, [id number] 16:23:00 Test Item Value Reference Range Comments FECAL OCCULT BLOOD (BEAKER) (test ogwi=068) Positive Negative OCCULT BLOOD, [id number] 16:14:00 Test Item Value Reference Range Comments FECAL OCCULT BLOOD (BEAKER) (test nogv=006) Negative Negative HEMOGLOBIN [id number] 15:13:00 Test Item Value Reference Range Comments HEMOGLOBIN A1C (BEAKER) (test dzrd=598) 7.1 % 4.3-6.1 GAMMA GLUTAMYL TRANSFERASE (GGT)2016-08-14 12:11:00 Test Item Value Reference Range Comments GAMMA GLUTAMYL TRANSFERASE (BEAKER) (test yztr=609) 70 U/L 9-64 VARICELLA ZOSTER ANTIBODY, [id number] 17:30:00 Test Item Value Reference Range Comments VARICELLA ZOSTER IGG (AL) (BEAKER) (test akuf=0594) 6.3 Al VARICELLA ZOSTER RESULT INTERPRETATIONS: <=0.8 Al Nonreactive: Presumed non-immune to VZV 0.9-1.0 Al Equivocal >=1.1 Al Reactive: Presumed immune to VZV
--- OUTSIDE RECORDS SUMMARY | 2018-08-11 11:55 | XMS REPORT | Clinical Summary ---
:1965 Author Organization [facility] Address [address] [place] [address] Care Team Providers Name Role Phone Fadumo [...] Problem Noted Date Coronary artery disease involving [place] heart with angina pectoris, 2017 unspecified vessel or lesion type Hypertension, unspecified type 10/21/2017 ESRD (end stage renal disease) 10/21/2017 Other specified diabetes mellitus with diabetic chronic kidney disease, 2017 unspecified CKD stage, unspecified whether residential insulin use Pre-transplant evaluation for ESRD (end stage renal disease) 01/13/2017 Encounters Date Type Specialty Care Team Description 03/31/2018 Orders Only Transplant Galina Soriano, Awaiting RN transplantation of kidney (Primary Dx) 11/06/2017 Documentation Transplant Hussein Estrada 11/03/2017 Orders Only Transplant Galina Soriano, Coronary artery disease involving [place] heart with angina pectoris, unspecified vessel or lesion type ( HCC) (Primary Dx); RN ESRD (end stage renal disease) (HCC); Pre-transplant evaluation for ESRD (end stage renal disease); Patient awaiting renal transplant 10/28/2017 Documentation Transplant Chiqui Neely 10/27/2017 [facility] Charge Visit Transplant Brianne Osorio II, MD Provider, [facility] Registry Generic 10/27/2017 Documentation Transplant Galina Soriano RN 10/22/2017 Telephone Transplant PatrickMariel Kidney Transplant Y, RN Pre-evaluation 10/22/2017 Orders Only Transplant Patrick Mariel ESRD (end stage renal disease) (HCC) (Primary Dx); Y RN Pre-transplant evaluation for ESRD (end stage renal disease); Hypertension, unspecified type; Other specified diabetes mellitus with diabetic chronic kidney disease , unspecified CKD stage, unspecified whether residential insulin use (HCC); Coronary artery disease involving [place] heart with angina pectoris, unspecified vessel or lesion type (HCC) 10/21/2017 Orders Only Transplant PatrickHarrisonva Pre-transplant evaluation for ESRD (end stage renal disease) (Primary Dx); Y, RN Other specified diabetes mellitus with diabetic chronic kidney disease, unspecified CKD stage, unspecified whether intermediate project manager insulin use (HCC); ESRD (end stage renal disease) (HCC); Hypertension, unspecified type 09/23/2017 Surgery Gastroenterology Hunter, COLONOSCOPY,POLYPECT MD JANNET Ravi 09/23/2017 Anesthesia Event Gastroenterology Vishal Jesus MD 09/23/2017 Hospital Encounter Gastroenterology Nuria Harrison MD 09/15/2017 Hospital Encounter Pre-Admission Testing Resource, [facility] Preadmit Phone 09/01/2017 Evaluation Transplant Jo, ESRD (end stage Brianne Dia II, renal disease) (HCC) (Primary Dx) 09/01/2017 Follow-Up Transplant Brianne Osorio II, MD 08/17/2017 Telephone Transplant Mich Na Y Appointment 08/14/2017 Orders Only Transplant Yovana ESRD (end stage renal disease) ( HCC) (Primary Dx); LISA Rice Pre-transplant evaluation for chronic kidney disease after 08/10/2017 Family History Medical History Relation Name Comments [...] file Procedures Procedure Name Priority Date/Time Associated Diagnosis Comments FLOW PRA CLASS II WITH Routine 06/29/2018 11:11 Awaiting Results for REFLEX TO ANTIBODY AM CDT transplantation of this procedure SPECIFICITY kidney are in the results section. FLOW PRA CLASS I WITH Routine 06/29/2018 11:11 Awaiting Results for REFLEX TO ANTIBODY AM CDT transplantation of this procedure SPECIFICITY kidney are in the results section. FLOW PRA CLASS II WITH Routine 03/04/2018 11:20 Coronary artery Results for REFLEX TO ANTIBODY AM LOSS PREVENTION OPERATIONS MANAGER disease involving this procedure SPECIFICITY [place] heart with are in the angina pectoris, results unspecified vessel or section. lesion type (HCC) ESRD (end stage renal disease) (HCC) Pre-transplant evaluation for ESRD (end stage renal disease) Patient awaiting renal transplant FLOW PRA CLASS I WITH Routine 03/04/2018 11:20 Coronary artery Results for REFLEX TO ANTIBODY AM LOSS PREVENTION OPERATIONS MANAGER disease involving this procedure SPECIFICITY [place] heart with are in the angina pectoris, results unspecified vessel or section. lesion type (HCC) ESRD (end stage renal disease) (HCC) Pre-transplant evaluation for ESRD (end stage renal disease) Patient awaiting renal transplant FLOW PRA CLASS II WITH Routine 12/03/2017 3:17 Coronary artery Results for REFLEX TO ANTIBODY PM CDT disease involving this procedure SPECIFICITY [place] heart with are in the angina pectoris, results unspecified vessel or section. lesion type (HCC) ESRD (end stage renal disease) (HCC) Pre-transplant evaluation for ESRD (end stage renal disease) Patient awaiting renal transplant FLOW PRA CLASS I WITH Routine 12/03/2017 3:17 Coronary artery Results for REFLEX TO ANTIBODY PM CDT disease involving this procedure SPECIFICITY [place] heart with are in the angina pectoris, results unspecified vessel or section. lesion type (HCC) ESRD (end stage renal disease) (HCC) Pre-transplant evaluation for ESRD (end stage renal disease) Patient awaiting renal transplant FLOW PRA CLASS II WITH Routine 11/06/2017 2:08 Coronary artery Results for REFLEX TO ANTIBODY PM CDT disease involving this procedure SPECIFICITY [place] heart with are in the angina pectoris, results unspecified vessel or section. lesion type (HCC) ESRD (end stage renal disease) (HCC) Pre-transplant evaluation for ESRD (end stage renal disease) Patient awaiting renal transplant FLOW PRA CLASS I WITH Routine 11/06/2017 2:08 Coronary artery Results for REFLEX TO ANTIBODY PM CDT disease involving this procedure SPECIFICITY [place] heart with are in the angina pectoris, results unspecified vessel or section. lesion type (HCC) ESRD (end stage renal disease) (HCC) Pre-transplant evaluation for ESRD (end stage renal disease) Patient awaiting renal transplant REPORT OF PROCEDURE - 09/23/2017 9:21 ENDOSCOPY URL AM CDT TISSUE EXAM AP Routine 09/23/2017 9:18 Results for AM CDT this procedure are in the results section. COLONOSCOPY,POLYPECTOM 09/23/2017 9:00 Screen for colon Y AM CDT cancer POCT-POTASSIUM Routine 09/23/2017 7:45 Results for AM CDT this procedure are in the results section. PSA Routine 09/01/2017 2:42 ESRD (end stage renal Results for PM CDT disease) (HCC) this procedure Pre-transplant are in the evaluation for results chronic kidney section. disease Anemia of renal disease HEPATITIS B SURFACE Routine 09/01/2017 2:42 ESRD (end stage renal Results for ANTIGEN PM CDT disease) (HCC) this procedure Pre-transplant are in the evaluation for results chronic kidney section. disease Anemia of renal disease HEPATITIS B SURFACE Routine 09/01/2017 2:42 ESRD (end stage renal Results for ANTIBODY PM CDT disease) ([facility]) this procedure Pre-transplant are in the evaluation for results chronic kidney section. disease Anemia of renal disease GAMMA GLUTAMYL Routine 09/01/2017 2:42 ESRD (end stage renal Results for TRANSFERASE (GGT) PM CDT disease) ([facility]) this procedure Pre-transplant are in the evaluation for results chronic kidney section. disease Anemia of renal disease T SPOT TB Routine 09/01/2017 2:42 ESRD (end stage renal Results for PM CDT disease) ([facility]) this procedure Pre-transplant are in the evaluation for results chronic kidney section. disease Anemia of renal disease RPR Routine 09/01/2017 2:42 ESRD (end stage renal Results for PM CDT disease) ([facility]) this procedure Pre-transplant are in the evaluation for results chronic kidney section. disease Anemia of renal disease HIV-1 ANTIGEN WITH Routine 09/01/2017 2:42 ESRD (end stage renal Results for HIV-1/2 ANTIBODY PM CDT disease) ([facility]) this procedure Pre-transplant are in the evaluation for results chronic kidney section. disease Anemia of renal disease HEPATITIS C ANTIBODY Routine 09/01/2017 2:42 ESRD (end stage renal Results for PM CDT disease) ([facility]) this procedure Pre-transplant are in the evaluation for results chronic kidney section. disease Anemia of renal disease HEPATITIS B CORE Routine 09/01/2017 2:42 ESRD (end stage renal Results for ANTIBODY, IGM PM CDT disease) ([facility]) this procedure Pre-transplant are in the evaluation for results chronic kidney section. disease Anemia of renal disease EBV ANTIBODY, IGM Routine 09/01/2017 2:42 ESRD (end stage renal Results for PM CDT disease) ([facility]) this procedure Pre-transplant are in the evaluation for results chronic kidney section. disease Anemia of renal disease EBV ANTIBODY, IGG Routine 09/01/2017 2:42 ESRD (end stage renal Results for PM CDT disease) ([facility]) this procedure Pre-transplant are in the evaluation for results chronic kidney section. disease Anemia of renal disease CYTOMEGALOVIRUS Routine 09/01/2017 2:42 ESRD (end stage renal Results for ANTIBODY, IGM PM CDT disease) ([facility]) this procedure Pre-transplant are in the evaluation for results chronic kidney section. disease Anemia of renal disease CYTOMEGALOVIRUS Routine 09/01/2017 2:42 ESRD (end stage renal Results for ANTIBODY, IGG PM CDT disease) (HCC) this procedure Pre-transplant are in the evaluation for results chronic kidney section. disease Anemia of renal disease after 08/10/2017 Results FLOW PRA CLASS II WITH REFLEX TO ANTIBODY SPECIFICITY (06/29/2018 11:11 AM CDT) Only the most recent of4 resultswithin the time period is included. Flow Class II Percent Positive 0 [facility] Flow Class Report Comments [facility] Specimen Blood Narrative Performed At Disclaimer: [facility] This test was developed and its performance characteristics determined by the [facility] Laboratory. It has not been [...] complexity clinical laboratory testing. Performing Organization Address City/State/[facility] Phone Number [facility] ONE [place], [place]: [place] [address] [id number], CLIA#[id number] CAP#[id number] [facility]#[id number] FLOW PRA CLASS I WITH REFLEX TO ANTIBODY SPECIFICITY (06/29/2018 11:11 AM CDT) Only the most recent of4 resultswithin the time period is included. Flow Class I Percent Positive 0 [facility] Flow Class Report Comments [facility] Specimen Blood Narrative Performed At Disclaimer: [facility] This test was developed and its performance characteristics determined by the [facility] Laboratory. It has not been [...] testing. Performing Organization Address City/State/Zipcode Phone Number [facility] ONE [place], [place]: [place] [address] [id number], CLIA#[id number] CAP#[id number] [facility]#[id number] REPORT OF PROCEDURE - ENDOSCOPY URL (09/23/2017 9:21 AM CDT) Narrative Performed At Tissue Exam (09/23/2017 9:18 AM CDT) Case Report Surgical Pathology Report Case: [id number] [facility] Authorizing Provider:Nuria Harrison MD Collected: 09/23/[address] [place] [address] Ordering Location: [facility] Endoscopy Received: 09/23/2017 1144 Services Pathologist: Andrea Faust MD Specimen:Polyp, Colon - Left/Descending, taken via hot snare DIAGNOSIS COLON, LEFT/DESCENDING, POLYPECTOMY [facility] - TUBULAR ADENOMA (MULTIPLE PIECES) [facility] [place] Signing Pathologist Direct Phone Line: [phone] CPT Code(s) 25521 [facility] CLINICAL HISTORY Screening for colon cancer [facility] SPECIMEN SOURCE Left descending colon polyp [facility] GROSS DESCRIPTION The specimen is received in [facility] a formalin-filled container [facility] labeled with the patient's information and labeled "left descending colon polyp" and consists of a gann-red polyp measuring 0.5 cm in greatest dimension. The resection margin is inked blue. The specimen is bisected and submitted in A1. CG/ew MICROSCOPIC DESCRIPTION There is no high grade dysplasia or carcinoma. [facility] Specimen Tissue - Polyp, Colon - Left/Descending Performing Organization Address City/[facility]/Zipcode Phone Number [address] [address] [phone] [place] POC-Potassium (09/23/2017 7:45 AM CDT) POC-Potassium 4.8Comment: TESTED AT [facility] 3.6 - 5.5 meq/L [address] [address] Specimen Blood Performing Organization Address [facility]/Zipcode Phone Number [address] [address] [phone] [place] T Spot TB (09/01/2017 2:42 PM CDT) T-Spot TB Negative [facility] Neg Ctrl Spot Count 0 [facility] Panel A Spot 0 [facility] Panel B Spot 0 [facility] Pos Ctrl Spot Ct 0 [facility] Scan Result [facility] Specimen Blood Narrative Performed At Performing Organization Address City/State/Zipcode Phone Number [facility] [address] [place] [address] LAB[address]ATOR[address] HIV-1 Antigen with HIV-1/2 Antibody (09/01/2017 2:42 PM CDT) HIV-1 Antigen with HIV 1&2 NON-REACTIVE Nonreactive [facility] Specimen Blood Performing Organization Address City/State/Zipcode Phone Number [address] [phone] CENTER Hepatitis C Antibody (09/01/2017 2:42 PM CDT) Hepatitis C Ab NON-REACTIVE Nonreactive [facility] Specimen Blood Performing Organization Address [facility] Phone Number [address] [phone] CENTER Cytomegalovirus antibody, IgM (09/01/2017 2:42 PM CDT) CMV IgM Negative [facility] Specimen Blood Performing Organization Address [facility] Phone Number [address] [phone] CENTER Hepatitis B core antibody, IgM (09/01/2017 2:42 PM CDT) Hep B C IgM NON-REACTIVE Nonreactive [facility] Specimen Blood Performing Organization Address City/[facility]/Zipcode Phone Number [address] [phone] CENTER EBV-VCA antibody, IgM (09/01/2017 2:42 PM CDT) EBV VCA IgM Positive [facility] Specimen Blood Performing Organization Address City/[facility]/Zipcode Phone Number [address] [phone] CENTER EBV-VCA antibody, IgG (09/01/2017 2:42 PM CDT) EBV VCA IgG Positive [facility] Specimen Blood Performing Organization Address [facility] Phone Number [address] [address] [phone] CENTER RPR (09/01/2017 2:42 PM CDT) RPR Nonreactive Nonreactive [facility] Specimen Blood Performing Organization Address City/[facility] Phone Number [address] [address] [place] Hepatitis B surface antibody (09/01/2017 2:42 PM CDT) Hep B S Ab 22.0 (H) <8.0 mIU/mL [facility] Specimen Blood Performing Organization Address [facility] Phone Number [address] [address] [phone] [place] Hepatitis B surface antigen (09/01/2017 2:42 PM CDT) hepatitis B Surface Ag NON-REACTIVE Nonreactive [facility] Specimen Blood Performing Organization Address [facility] Phone Number [address] [address] [place] Cytomegalovirus antibody, IgG (09/01/2017 2:42 PM CDT) CMV IgG Negative [facility] Specimen Blood Performing Organization Address City/[facility] Phone Number [address] [address] CENTER PSA (09/01/2017 2:42 PM CDT) PSA 0.3 0.0 - 4.0 ng/mL [facility] Specimen Blood Performing Organization Address [facility] Phone Number [address] [address] CENTER Gamma Glutamyl Transferase (GGT) (09/01/2017 2:42 PM CDT) GGT 53 9 - 64 U/L [facility] Specimen Blood Performing Organization Address City/State/Zipcode Phone Number [facility] [address] [place] [address] CENTER after 08/10/2017 Insurance Payer Benefit Plan / Group Subscriber ID Type Phone Address MEDICARE MEDICARE A B xxxxxxxxxx Medicare Advance Directives For more information, please contact:[facility] [place], [place] [phone] Code Status Date Activated Date Inactivated Comments Full Code 01/13/2017 2:16 PM 01/13/2017 8:13 PM This code status was determined by: Patient Full Code 01/13/2017 8:44 AM 01/13/2017 2:16 PM This code status was determined by: Patient
[2018-08-11] MEDS ORDERED: MORPHINE 2 MG/ML SYR ONE (12:37)
[2018-08-11] MEDS ORDERED: ONDANSETRON 4 MG/2 ML VIAL ONE ×2 (12:37→13:32)
[2018-08-11 12:39] LABS: Absolute Lymphocytes (CBC) 0.9 K/uL (0.7-4.9); Absolute Monocytes 0.7 K/uL (0.1-1.3); Absolute Neutrophil 9.1 K/uL (1.8-8.0); Basophils % 0.7 % (0-1.3); Hematocrit 36.8 % (39.6-49.0); Lymphocytes % 7.9 % (15.3-44.8); Monocytes % 6.3 % (3.3-12.3); RBC Red Blood Cell Count 3.73 M/uL (4.33-5.43)
[2018-08-11 12:59] LABS: Potassium 3.9 mmol/L (3.5-5.1)
--- NOTE | 2018-08-11 14:28 | RAD REPORT ---
EXAM DESCRIPTION: CT - Stone Protocol - 08/11/2018 2:10 pm CLINICAL HISTORY: Flank pain. ABD PAIN COMPARISON: Biopsy Renal dated 11/15/2015 TECHNIQUE: Axial images were obtained without oral or IV contrast. Lack of contrast limits solid org an and vascular assessment. The [id number] spans the entirety of the system partially obscuring uppermost abdomen and lung bases. Coronal reformatted images were obtained and reviewed. All CT scans are performed using dose optimization technique as appropriate and may include automated exposure control or mA/KV adjustment according to patient size. FINDINGS: The lower lung lawrence are clear. Imaged portions of the liver and spleen show no suspicious findings on non-contrast imaging.Cholecyst ectomy clips. The pancreas and adrenal glands are normal. No pathologic lymphadenopathy in the abdome n or pelvis. Mild right hydronephrosis and hydroureter is present. The ureter is dilated mildly to the level of th e right iliac vessels. The inferior aspects of the dilated right ureter show mild surrounding inflamm ation. A stone is not present seen in this region or elsewhere. No left-sided hydronephrosis or hydro ureter. No bowel obstruction, free air, free fluid or abscess. The appendix is not identified as a discrete s tructure, however, no secondary findings of appendicitis are identified. No significant bony abnormality. IMPRESSION: Mild right hydronephrosis and hydroureter is seen with caliber of change of the ureter n oted at the level of the iliac vessels on the right. This may be related to a stricture in this regio n or inflammation/debris in this region. A discrete stone is not seen.
[2018-08-11] MEDS ORDERED: PROMETHAZINE 25 MG/ML VIAL ONE ×2 (14:36→15:24)
--- NOTE | 2018-08-11 15:41 | ER ---
Nurse's Notes [facility] Name: Art Trinidad Jr Age: 53 yrs Sex: Male : 1965 Arrival Date: 08/11/2018 Time: 11:53 Bed 17 Private MD: Diagnosis: Nausea and vomiting-intractable;Lower abdominal pain, unspecified;Hydroureter Presentation: 08/11 12:03 Presenting complaint: Patient states: I tried to go to dialysis today and only barely la1 got started and then I got sick with vomiting and abd pain so they sent me here, did not complete dialysis. Transition of care: patient was not received from another setting of care. Onset of symptoms was August 11, 2018. Risk Assessment: Do you want to hurt yourself or someone else? Patient reports no desire to harm self or others. Initial Sepsis Screen: Does the patient meet any 2 criteria? No. Patient's initial sepsis screen is negative. Does the patient have a suspected source of infection? No. Patient's initial sepsis screen is negative. Care prior to arrival: None. 12:03 Method Of Arrival: Wheelchair la1 12:03 Acuity: DIVINA 3 la1 Triage Assessment: 12:46 General: Appears in no apparent distress. uncomfortable, Behavior is calm, cooperative, hj appropriate for age. Pain: Complains of pain in back and abdomen. GI: Reports lower abdominal pain, upper abdominal pain, vomiting. Historical: - Allergies: 12:04 No Known Allergies; la1 - PMHx: 12:04 Diabetes - NIDDM; Hypertension; Dialysis; la1 - Immunization history:: Adult Immunizations up to date. - Social history:: Smoking status: Patient/guardian denies using tobacco. - Ebola Screening: : No symptoms or risks identified at this time. Screenin:46 Abuse screen: Denies threats or abuse. Denies injuries from another. Nutritional hj screening: No deficits noted. Tuberculosis screening: No symptoms or risk factors identified. Fall Risk None identified. Assessment: 12:30 Reassessment: Pt ambulated to restroom, unable to obtain urine specimen at this time, aa5 pt states "It's going to be a while before I can pee again because I just went before coming here" . 12:35 Reassessment: Patient is alert, oriented x 3, equal unlabored respirations, skin aa5 warm/dry/pink. Pt vomited once, 100cc of bile noted. . 12:46 GI: Bowel sounds present X 4 quads. Abd is soft. hj 12:47 General: Appears in no apparent distress. uncomfortable, Behavior is cooperative, hj appropriate for age, agitated, anxious. Pain: Complains of pain in abdomen and back. Neuro: Level of Consciousness is awake, alert, obeys commands, Oriented to person, place, time, situation, Appropriate for age. Cardiovascular: Capillary refill < 3 seconds Patient's skin is warm and dry. Respiratory: Airway is patent Respiratory effort is even, unlabored, Respiratory pattern is regular, symmetrical. : No signs and/or symptoms were reported regarding the genitourinary system. EENT: No signs and/or symptoms were reported regarding the EENT system. Derm: No signs and/or symptoms reported regarding the dermatologic system. Musculoskeletal: No signs and/or symptoms reported regarding the musculoskeletal system. 14:14 Reassessment: Patient and/or family updated on plan of care and expected duration. Pain hj level reassessed. Patient is alert, oriented x 3, equal unlabored respirations, skin warm/dry/pink. wheeled from CT for CT stone protocol;. 15:07 Reassessment: Patient and/or family updated on plan of care and expected duration. Pain hj level reassessed. Patient is alert, oriented x 3, equal unlabored respirations, skin warm/dry/pink. awaiting POC; pt still nauseous; provider aware;. 15:48 Reassessment: Patient and/or family updated on plan of care and expected duration. Pain hj level reassessed. Patient is alert, oriented x 3, equal unlabored respirations, skin warm/dry/pink. for admit, awaiting room placement;. 15:53 Reassessment: hospitalist in room;. hj 17:53 Reassessment: Patient and/or family updated on plan of care and expected duration. Pain hj level reassessed. Patient is alert, oriented x 3, equal unlabored respirations, skin warm/dry/pink. awaiting floor nurse to call back for report;. Vital Signs: 12:04 BP 142 / 115; Pulse 97; Resp 16; Temp 97.3; Pulse Ox 98% on R/A; Weight 79 kg; Height 5 la1 ft. 3 in. (160.02 cm); Pain 6/10; 13:57 BP 155 / 94; Pulse 88; Resp 18; Pulse Ox 98% on R/A; hj 14:42 BP 154 / 81; Pulse 96; Resp 18; Pulse Ox 98% on R/A; hj 15:06 BP 173 / 105; Pulse 98; Resp 18; Pulse Ox 98% on R/A; hj 15:48 BP 170 / 95; Pulse 106; Resp 18; Pulse Ox 98% on R/A; hj 16:53 BP 130 / 76; Pulse 102; Resp 18; Pulse Ox 100% on R/A; hj 17:53 BP 139 / 85; Pulse 101; Resp 18; Pulse Ox 99% on R/A; hj 12:04 Body Mass Index 30.85 (79.00 kg, 160.02 cm) la1 ED Course: 11:53 Patient arrived in ED. rg4 11:58 Nolvia Barfield FNP-C is [facility]. kb 11:58 Zenon Galdamez MD is Attending Physician. kb 12:04 Triage completed. la1 12:05 Arm band placed on left wrist. la1 12:21 Initial lab(s) drawn, by mt, sent to lab. Inserted saline lock: 22 gauge in right jb1 antecubital area, using aseptic technique. Blood collected. 12:39 Charlie Vasquez, LISA is Primary Nurse. hj 12:46 Patient has correct armband on for positive identification. Bed in low position. Call hj light in reach. Side rails up X 1. Adult w/ patient. 14:11 CT Stone Protocol In Process Unspecified. EDMS 15:39 Mike Liz DO is Hospitalizing Provider. kb 18:18 No provider procedures requiring assistance completed. Patient admitted, IV remains in hj place. intact. Administered Medications: 12:35 Drug: Zofran 4 mg Route: IVP; Site: right antecubital; aa5 12:47 Follow up: Response: No adverse reaction hj 12:35 Drug: morphine 2 mg Route: IVP; Site: right antecubital; aa5 12:47 Follow up: Response: No adverse reaction hj 13:22 Drug: Zofran 4 mg Route: IVP; Site: right antecubital; hj 13:22 Follow up: Response: No adverse reaction; Nausea is decreased hj 14:22 Drug: Phenergan 12.5 mg Route: IVP; Site: right antecubital; 14:29 Follow up: Response: No adverse reaction; Nausea is decreased 15:15 Drug: Phenergan 12.5 mg Route: IVP; Site: right antecubital; 15:15 Follow up: Response: No adverse reaction Outcome: 15:39 Decision to Hospitalize by Provider. kb 18:18 Admitted to Tele accompanied by tech, family with patient, via stretcher, room 403, with chart, Report called to LISA Jansen 18:18 Condition: stable 18:18 Instructed on the need for admit, Demonstrated understanding of instructions. 18:24 Patient left the ED. Signatures: Dispatcher [employer] EDMS Moncho Deleon jb1 Nolvia Barfield, PAIRER INSPECTOR-C PAIRER INSPECTOR-CkBia Huizar, RN RN aa5 Juaquin Avila RN RN la1 Charlie Vasquez RN RN Jailene Tsai rg4 Corrections: (The following items were deleted from the chart) 12:41 12:35 morphine 2 mg IVP in right forearm aa5 aa5 12:41 12:35 Zofran 4 mg IVP in right forearm aa5 aa5 15:53 15:06 BP 173 / 105; Pulse 96bpm; Resp 18bpm; Pulse Ox 98% RA; [facility] 15:53 15:48 BP 170 / 95; Pulse 90bpm; Resp 18bpm; Pulse Ox 98% RA; [facility]
--- NOTE | 2018-08-11 15:42 | EDPHYS ---
Physician Documentation [facility] Name: Art Trinidad Jr Age: 53 yrs Sex: Male : 1965 Arrival Date: 08/11/2018 Time: 11:53 Bed 17 Private MD: ED Physician Zenon Galdamez HPI: 08/11 16:38 This 53 yrs old Male presents to ER via Wheelchair with complaints of kb Abdominal Pain, Back Pain, Vomiting. 16:38 The patient presents with abdominal pain in the lower abdomen. Onset: The kb symptoms/episode began/occurred today. The symptoms radiate to back. Associated signs and symptoms: Pertinent positives: nausea and vomiting, Pertinent negatives: constipation, diarrhea, fever. The symptoms are described as constant. Modifying factors: The symptoms are alleviated by nothing, the symptoms are aggravated by nothing. Severity of pain: At its worst the pain was moderate in the emergency department the pain is unchanged. The patient has not experienced similar symptoms in the past. The patient has not recently seen a physician. Pt reports he went to dialysis and started vomiting and having abd pain. STopped the dialysis to come to ER. Historical: - Allergies: 12:04 No Known Allergies; la1 - PMHx: 12:04 Diabetes - NIDDM; Hypertension; Dialysis; la1 - Immunization history:: Adult Immunizations up to date. - Social history:: Smoking status: Patient/guardian denies using tobacco. - Ebola Screening: : No symptoms or risks identified at this time. ROS: 16:38 Constitutional: Negative for fever, chills, and weight loss, ENT: Negative for injury, kb pain, and discharge, Neck: Negative for injury, pain, and swelling, Cardiovascular: Negative for chest pain, palpitations, and edema, Respiratory: Negative for shortness of breath, cough, wheezing, and pleuritic chest pain, : Negative for injury, bleeding, discharge, and swelling, MS/Extremity: Negative for injury and deformity, Skin: Negative for injury, rash, and discoloration, Neuro: Negative for headache, weakness, numbness, tingling, and seizure. 16:38 Abdomen/GI: Positive for abdominal pain, nausea and vomiting. Exam: 16:38 Constitutional: This is a well developed, well nourished patient who is awake, alert, kb and in no acute distress. Head/Face: Normocephalic, atraumatic. Chest/axilla: Normal chest wall appearance and motion. Nontender with no deformity. No lesions are appreciated. Cardiovascular: Regular rate and rhythm with a normal S1 and S2. No gallops, murmurs, or rubs. Normal PMI, no JVD. No pulse deficits. Respiratory: Lungs have equal breath sounds bilaterally, clear to auscultation and percussion. No rales, rhonchi or wheezes noted. No increased work of breathing, no retractions or nasal flaring. Back: No spinal tenderness. No costovertebral tenderness. Full range of motion. Skin: Warm, dry with normal turgor. Normal color with no rashes, no lesions, and no evidence of cellulitis. MS/ Extremity: Pulses equal, no cyanosis. Neurovascular intact. Full, normal range of motion. Neuro: Awake and alert, GCS 15, oriented to person, place, time, and situation. Cranial nerves II-XII grossly intact. Motor strength 5/5 in all extremities. Sensory grossly intact. Cerebellar exam normal. Normal gait. 16:38 Abdomen/GI: Inspection: abdomen appears normal, Bowel sounds: normal, in all quadrants, Palpation: soft, in all quadrants, moderate abdominal tenderness, in the right lower quadrant and left lower quadrant. Vital Signs: 12:04 BP 142 / 115; Pulse 97; Resp 16; Temp 97.3; Pulse Ox 98% on R/A; Weight 79 kg; Height 5 la1 ft. 3 in. (160.02 cm); Pain 6/10; 13:57 BP 155 / 94; Pulse 88; Resp 18; Pulse Ox 98% on R/A; hj 14:42 BP 154 / 81; Pulse 96; Resp 18; Pulse Ox 98% on R/A; hj 15:06 BP 173 / 105; Pulse 98; Resp 18; Pulse Ox 98% on R/A; hj 15:48 BP 170 / 95; Pulse 106; Resp 18; Pulse Ox 98% on R/A; hj 16:53 BP 130 / 76; Pulse 102; Resp 18; Pulse Ox 100% on R/A; hj 17:53 BP 139 / 85; Pulse 101; Resp 18; Pulse Ox 99% on R/A; hj 12:04 Body Mass Index 30.85 (79.00 kg, 160.02 cm) la1 MDM: 12:05 Patient medically screened. kb 15:33 Data reviewed: vital signs, nurses notes. Data interpreted: Pulse oximetry: on room air kb is 98 %. Interpretation: normal. Counseling: I had a detailed discussion with the patient and/or guardian regarding: the historical points, exam findings, and any diagnostic results supporting the discharge/admit diagnosis, lab results, radiology results, the need for further work-up and treatment in the hospital. ED course: Pt still complaining of nausea after four doses of nausea medication. Unable to tolerate PO. Will admit for intractable vomiting. 15:38 Physician consultation: Mike Liz DO was contacted at 15:38, regarding admission, kb to the medical/surgical unit. patient's condition, and will see patient in ED, shortly. 08/11 12:11 Order name: CBC with Diff; Complete Time: 12:48 kb 08/11 12:11 Order name: Basic Metabolic Panel; Complete Time: 13:51 kb 08/11 13:50 Order name: CT Stone Protocol; Complete Time: 14:29 kb 08/11 17:13 Order name: Urine Dipstick--Ancillary (enter results) bd 08/11 12:11 Order name: IV Start; Complete Time: 12:21 kb 08/11 12:11 Order name: Urine Dipstick-Ancillary (obtain specimen); Complete Time: 16:15 kb Administered Medications: 12:35 Drug: Zofran 4 mg Route: IVP; Site: right antecubital; aa5 12:47 Follow up: Response: No adverse reaction hj 12:35 Drug: morphine 2 mg Route: IVP; Site: right antecubital; aa5 12:47 Follow up: Response: No adverse reaction hj 13:22 Drug: Zofran 4 mg Route: IVP; Site: right antecubital; hj 13:22 Follow up: Response: No adverse reaction; Nausea is decreased hj 14:22 Drug: Phenergan 12.5 mg Route: IVP; Site: right antecubital; hj 14:29 Follow up: Response: No adverse reaction; Nausea is decreased hj 15:15 Drug: Phenergan 12.5 mg Route: IVP; Site: right antecubital; hj 15:15 Follow up: Response: No adverse reaction hj Disposition: 18:47 Co-signature as Attending Physician, Zenon Galdamez MD. rn Disposition: 08/11/18 15:39 Hospitalization ordered by Mike Liz for Observation. Preliminary diagnosis are Nausea and vomiting - intractable, Lower abdominal pain, unspecified, Hydroureter. - Bed requested for Telemetry/MedSurg (observation). - Status is Observation. hj - Condition is Stable. - Problem is new. - Symptoms are unchanged. UTI on Admission? No Signatures: Dispatcher [employer] EDMS Nolvia Barfield, LEATHER LEVELER-C LEATHER LEVELER-Ckb Zenon Galdamez MD MD rn Calderon, Audri RN RN aa5 Juaquin Avila RN RN la1 Charlie Vasquez RN RN hj Corrections: (The following items were deleted from the chart) 17:46 15:39 Hospitalization Ordered by Mike Liz DO for Observation. Preliminary la1 diagnosis is Nausea and vomiting - intractable; Lower abdominal pain, unspecified; Hydroureter. Bed requested for Telemetry/MedSurg (observation). Status is Observation. Condition is Stable. Problem is new. Symptoms are unchanged. UTI on Admission? No. kb 18:24 17:46 08/11/2018 15:39 Hospitalization Ordered by Mike Liz DO for Observation. hj Preliminary diagnosis is Nausea and vomiting - intractable; Lower abdominal pain, unspecified; Hydroureter. Bed requested for Telemetry/MedSurg (observation). Status is Observation. Condition is Stable. Problem is new. Symptoms are unchanged. UTI on Admission? No. la1
--- NOTE | 2018-08-11 16:41 | P.HP ---
Certification for Inpatient Patient admitted to: Observation With expected LOS: <2 Midnights Patient will require the following post-hospital care: None Practitioner: I am a practitioner with admitting privileges, knowledge of patient current condition, hospital course, and medical plan of care. Services: Services provided to patient in accordance with Admission requirements found in Title 42 Section 412.3 of the Code of Federal Regulations Patient History Date of Service: 08/11/18 Primary Care Provider: none; Nephrology-Dr. Baxter Reason for admission: Nausea, vomiting and abdominal pain History of Present Illness: 53-year-old male presented to the emergency room with nausea, vomiting and umbilical abdominal pain. Patient with history of hypertension, diabetes, end-stage renal disease on hemodialysis and GERD. Patient went to dialysis today. He reported some nausea prior to dialysis. He was only able to complete about 30 min when he start to have increasing umbilical abdominal pain with worsening nausea and vomiting. Patient denied any fever, chills. Patient still produces urine about 4 times a day. He came to the ER for further evaluate. In the ER patient evaluated. CBC and BMP reviewed. CT scan revealed right hydronephrosis and hydroureter. This appears to be new. Patient admitted for further evaluation. When I saw the patient ER, he appeared stable but reported nausea. Pain better controlled with medication. Patient reports having an evaluation for kidney transplant in the last year. Allergies No Known Drug Allergies Allergy (Verified 11/12/15 14:52) Unknown No Known Allergies Allergy (Uncoded 11/12/15 14:47) Unknown Home medications list reviewed: Yes Home Medications: Amlodipine [Norvasc*] 10 mg PO DAILY #30 tab 11/23/15 Calcitrol [Rocaltrol*] 1 mcg PO DAILY #30 cap 11/23/15 Calcium Carbonate [Oscal*] 1,000 mg PO BID #60 tab 11/23/15 Carvedilol [Coreg*] 25 mg PO BID 6AM 6PM #60 tab 11/23/15 Hydralazine [Apresoline*] 100 mg PO TID #90 tab 11/23/15 Lisinopril [Prinivil*] 20 mg PO BID #60 tab 11/23/15 Pantoprazole Sodium [Protonix] 40 mg PO DAILY #30 11/23/15 Spironolactone [Aldactone*] 50 mg PO BID #60 tab 11/23/15 cloNIDine HCl [Catapres*] 0.1 mg PO TID #90 tab 11/23/15 - Past Medical/Surgical History Diabetic: Yes -: Diabetes mellitus -: Hypertension -: End-stage renal disease on hemodialysis -: GERD -: Cholecystectomy -: Appendectomy Psychosocial/ Personal History: He is . He has 2 children. 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 - Family History Father -: Heart disease, Hypertension, Diabetes Mother -: Diabetes Sister -: Hypertension - Social History Smoking Status: Never smoker Alcohol use: Yes CD- Drugs: No Caffeine use: Yes Place of Residence: Home Review of Systems General: As per HPI Eyes: Unremarkable ENT: Unremarkable Respiratory: Unremarkable Cardiovascular: Unremarkable Gastrointestinal: Nausea, Vomiting, Abdominal Pain, As per HPI Genitourinary: Unremarkable Musculoskeletal: Unremarkable Integumentary: Unremarkable Neurological: Unremarkable Lymphatics: Unremarkable Physical Examination - Physical Exam General: Alert, In no apparent distress, Oriented x3, Cooperative HEENT: Atraumatic, Normocephalic, Mucous membr. moist/pink Neck: Supple, No Thyromegaly Respiratory: Clear to auscultation bilaterally, Normal air movement Cardiovascular: Normal pulses, Regular rate/rhythm Gastrointestinal: Normal bowel sounds, Soft and benign, No masses, No rebound, No guarding, Distended (Minimal distention noted), Tenderness (Pain to the umbilical region and to the right lower quadrant) Musculoskeletal: No erythema, No tenderness, No warmth Integumentary: No erythema, No warmth, No cyanosis Neurological: Normal speech, Normal strength at 5/5 x4 extr, Normal tone, Normal affect - Studies Laboratory Data (last 24 hrs) 08/11/18 12:10: Sodium 139, Potassium 3.9, BUN 39 H, Creatinine 6.91 H*, Glucose 204 H 08/11/18 12:10: WBC 10.8, Hgb 12.7 L, Hct 36.8 L, Plt Count 238 Assessment and Plan - Plan Impression: Nausea, vomiting with abdominal pain secondary to right hydronephrosis and hydroureter suspect stricture or inflammatory process End-stage renal disease on hemodialysis Hypertension Diabetes mellitus type 2 GERD Plan: Nausea, vomiting with abdominal pain secondary to right hydronephrosis and hydroureter suspect stricture or inflammatory process: Patient will be admitted for further evaluation. Case discussed with nephrology and urology. Urology plans for cystoscopy and ureteroscopy with possible stent placement. Will start with liquid diet. Will provide medication for pain and nausea. Will monitor closely. Suspect improvement over the next 24 hr if stent placed. Likely discharge in the next 24-48 hr End-stage renal disease on hemodialysis: Nephrology consulted. Patient will need dialysis. Hypertension: Obtain and restart home medication. Diabetes mellitus type 2: Continue sliding scale GERD: Will provide medication. - Advance Directives Does patient have a Living Will: No Does patient have a Durable POA for Healthcare: No - Code Status/Comfort Care Code Status Assessed: Yes (Patient full code.) Time Spent Managing Pts Care (In Minutes): 55
[2018-08-11 18:34] LABS: Urine Blood 2+ (NEG); Urine Glucose 2+ (NEG); Urine Protein 3+ (NEG); Urine Specific Gravity 1.015 (1.005-1.030); Urine pH 6.5 (5.0-7.0)
[2018-08-11] MEDS ORDERED: D50W 25 GM/50 ML SYRINGE IV PRN (18:41)
[2018-08-11] MEDS ORDERED: ONDANSETRON 4 MG/2 ML VIAL IV PRN (18:41)
[2018-08-11] MEDS ORDERED: GLUCAGON 1 MG/VIAL IM PRN (18:41)
[2018-08-11] MEDS ORDERED: ACETAMINOPHEN 500 MG TAB PO PRN (18:41)
[2018-08-11] MEDS ORDERED: MORPHINE 2 MG/ML SYR IV PRN (18:41)
[2018-08-11] MEDS ORDERED: HYDRALAZINE HCL 20 MG/ML VIAL IV PRN (18:41)
--- NOTE | 2018-08-11 20:14 | CON ---
A 53-year-old came in with nausea, vomiting, intractable lower midline abdominal pain, just started this morning, came into the ER. CAT scan revealed new finding, perinephric fat stranding on the right with minimal hydronephrosis , ureteronephrosis down to the right iliac vessels apparently this is a new finding as compared to CT scan done 2 or 3 years ago. He said he has seen a urologist at [facility] before, but that was for the transplantation workup. He was never told that his kidney was blocked or any hydronephrosis or any kidney issues like that. He does have end-stage renal disease and is on dialysis. Past Medical History: Non-insulin dependent diabetes, hypertension, on dialysis , analgesic abuse in the past. Allergies: NO KNOWN DRUG ALLERGIES. Immunizations: Up to date. Review of Systems: A 10-point review of systems otherwise as mentioned above. Physical Examination: Vital Signs: BP 142/115, pulse 97, respirations 16, temperature 97. HEENT: Atraumatic and normocephalic. The patient is resting in bed. Mom is present in the room. Chest: Clear. Heart: S1, S2. Abdomen: Soft, nontender, points to the suprapubic area where the pain is coming from. He has normal range of motion. Says he voids every day. Imaging: CAT scan as mentioned, findings as above, suspicious for some type of obstruction by the iliac vessel could be scar tissue, could be tumor. Laboratory: Shows white count 10.8, H and H are 12.7 and 36.8, platelet count 238. Chemistry: Sodium 139, potassium 3.9, chloride 103, carbon dioxide 24, BUN 37, creatinine 6.91. GFR estimated to be 8, glucose 204. We will make him n.p.o. after midnight. Assessment: Right hydroureter to iliac vessels, new finding. Plan: To do a cysto, retrograde, possible stent placement tomorrow. Thank you very much. ARNALDO/DEJAH Voice ID: [id number] Report ID: [id number] MTDD
[2018-08-11] MEDS ORDERED: FAMOTIDINE 20 MG/2 ML VIAL IV SCH (21:00)
[2018-08-11] MEDS: INSULIN -REGULAR HUMAN 50 UNIT/0.5 ML ML SQ SCH (21:00)
[2018-08-11 22:01] VITALS: BMI 29.0
[2018-08-12 06:40] LABS: Absolute Lymphocytes (CBC) 1.4 K/uL (0.7-4.9); Absolute Monocytes 0.7 K/uL (0.1-1.3); Absolute Neutrophil 5.1 K/uL (1.8-8.0); Basophils % 0.7 % (0-1.3); Eosinophils % 1.9 % (0-4.4); Hematocrit 33.6 % (39.6-49.0); Lymphocytes % 18.8 % (15.3-44.8); MPV 8.9 fL (7.6-11.3); Monocytes % 9.4 % (3.3-12.3); RBC Red Blood Cell Count 3.38 M/uL (4.33-5.43)
[2018-08-12 07:04] LABS: Magnesium 2.4 mg/dL (1.8-2.4); Potassium 3.8 mmol/L (3.5-5.1)
[2018-08-12] MEDS: INSULIN -REGULAR HUMAN 50 UNIT/0.5 ML ML SQ SCH ×3 (07:30→16:30)
[2018-08-12] MEDS ORDERED: NA CHLORIDE 0.9% 500 ML ONE (13:02)
--- NOTE | 2018-08-12 13:19 | P.CNS ---
Date of Consult: 08/12/18 Reason for Consult: esrd to resume HD Primary Care Provider: none; Nephrology-Dr. Baxter Chief Complaint: Nausea, vomiting and abdominal pain History of Present Illness: A 53 Y/o man with PMHx of ESRD on MWF from [facility] , HTN and DM Pt presented for Abd pain nausea and vomiting , during HD pt developed symptoms ~30minutes after starting HD no chset pain, palpitation , headache or dizziness Ct scan with rt hydronephrosis , no stone Allergies No Known Drug Allergies Allergy (Verified 11/12/15 14:52) Unknown No Known Allergies Allergy (Uncoded 11/12/15 14:47) Unknown Home Medications: Calcium Carbonate 1,000 mg PO BID 08/12/18 Clonidine HCl [Catapres] 0.1 mg PO BID 08/12/18 - Past Medical/Surgical History Diabetic: Yes -: Diabetes mellitus -: Hypertension -: End-stage renal disease on hemodialysis -: GERD -: Cholecystectomy -: Appendectomy -: cysts removal from back of neck Psychosocial/ Personal History: He is . He has 2 children. 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 - Family History Father Medical History: Heart disease, Hypertension, Diabetes Mother Medical History: Diabetes Sister Medical History: Hypertension - Social History Smoking Status: Current every day smoker Alcohol use: Yes CD- Drugs: No Caffeine use: Yes Place of Residence: Home Physical Examination Temp Pulse Resp BP Pulse Ox 98.3 F 82 18 125/66 94 08/12/18 12:00 08/12/18 12:00 08/12/18 12:00 08/12/18 12:00 08/12/18 12:00 General: In no apparent distress, Oriented x3 HEENT: Atraumatic Neck: Supple, Without JVD or thyroid abnormality Respiratory: Clear to auscultation bilaterally, Normal air movement Cardiovascular: No edema, Normal pulses, Regular rate/rhythm, Normal S1 S2, No rubs, No murmurs Gastrointestinal: Normal bowel sounds, Soft and benign Integumentary: No rashes Laboratory Data (last 24 hrs) 08/11/18 12:10: Sodium 139, Potassium 3.9, BUN 39 H, Creatinine 6.91 H*, Glucose 204 H - Problems (1) Abdominal pain Current Visit: Yes Status: Acute Conclusions/Impression: ESRD on HD MWF HD today renal dose meds HTN controlled DM as per PCP Abd pain CT with Rt hydronephrosis plan for cystoscopy today
[2018-08-12] MEDS ORDERED: FENTANYL CITR 100 MCG/2 ML ONE (13:27)
[2018-08-12] MEDS ORDERED: LIDOCAINE 1% MPF 5 ML VIAL ONE (13:27)
[2018-08-12] MEDS ORDERED: PROPOFOL 200 MG/20 ML VIAL IV ONE (13:27)
[2018-08-12] MEDS ORDERED: CEFAZOLIN/SWI 1gm 1 GM/10 ML SYR ONE (13:29)
[2018-08-12] MEDS ORDERED: MIDAZOLAM HCL 2 MG/2 ML INJ ONE (13:29)
[2018-08-12] MEDS ORDERED: ONDANSETRON 4 MG/2 ML VIAL ONE (13:52)
--- NOTE | 2018-08-12 14:10 | RAD REPORT ---
EXAM DESCRIPTION: RAD - Urethrocystogrphy Retrograde - 08/12/2018 2:02 pm CLINICAL HISTORY: ICD N 20.0 FINDINGS: Sixteen fluoroscopic spot images obtained. Fluoroscopy time 1.1 minutes Right ureter was cannulated and contrast administered. A filling defect was visualized within the mid to distal right ureter likely representing a blood clot. The filling defect resolved. Examination is formed by Dr. Trevino
[2018-08-12 14:33] VITALS: O2SAT 95
--- NOTE | 2018-08-12 14:41 | P.DS ---
Admission Date: 08/11/18 Discharge Date: 08/12/18 Primary Care Provider: none; Nephrology-Dr. Baxter Disposition: ROUTINE DISCHARGE Discharge Condition: GOOD Reason for Admission: Nausea, vomiting and abdominal pain Consultations: Nephrology-Dr. Valadez Urology-Dr. Trevino Procedures: CT scan: FINDINGS: The lower lung lawrence are clear. Imaged portions of the liver and spleen show no suspicious findings on non- contrast imaging.Cholecystectomy clips. The pancreas and adrenal glands are normal. No pathologic lymphadenopathy in the abdomen or pelvis. Mild right hydronephrosis and hydroureter is present. The ureter is dilated mildly to the level of the right iliac vessels. The inferior aspects of the dilated right ureter show mild surrounding inflammation. A stone is not present seen in this region or elsewhere. No left-sided hydronephrosis or hydroureter. No bowel obstruction, free air, free fluid or abscess. The appendix is not identified as a discrete structure, however, no secondary findings of appendicitis are identified. No significant bony abnormality. IMPRESSION: Mild right hydronephrosis and hydroureter is seen with caliber of change of the ureter noted at the level of the iliac vessels on the right. This may be related to a stricture in this region or inflammation/debris in this region. A discrete stone is not seen. Retrograde Urethrocystography and Cystoscopy: FINDINGS: Sixteen fluoroscopic spot images obtained. Fluoroscopy time 1.1 minutes Right ureter was cannulated and contrast administered. A filling defect was visualized within the mid to distal right ureter likely representing a blood clot. The filling defect resolved. Examination is formed by Dr. Trevino Medical Problem List: Nausea, vomiting with abdominal pain secondary to right hydronephrosis and hydroureter secondary to blood clot status post retrograde urethrocystography and cystoscopy with removal of clots End-stage renal disease on hemodialysis Hypertension Brief History of Present Illness: 53-year-old male presented to the emergency room with nausea, vomiting and umbilical abdominal pain. Patient with history of hypertension, diabetes, end-stage renal disease on hemodialysis and GERD. Patient went to dialysis today. He reported some nausea prior to dialysis. He was only able to complete about 30 min when he start to have increasing umbilical abdominal pain with worsening nausea and vomiting. Patient denied any fever, chills. Patient still produces urine about 4 times a day. He came to the ER for further evaluate. In the ER patient evaluated. CBC and BMP reviewed. CT scan revealed right hydronephrosis and hydroureter. This appears to be new. Patient admitted for further evaluation. When I saw the patient ER, he appeared stable but reported nausea. Pain better controlled with medication. Patient reports having an evaluation for kidney transplant in the last year. Hospital Course: Patient presented with nausea, vomiting and abdominal pain. Patient found to have right hydronephrosis and hydroureter. Patient was admitted for further evaluation. Patient seen evaluated by nephrology and urology. Cystoscopy and retrograde urethrocystography performed. Blood clots were identified in the ureter. Blood clots removed. Cytology was sent for analysis. At discharge patient will follow up with urology in 1 week to follow up cytology results and follow up this hospitalization. Patient with end-stage renal disease on hemodialysis. Patient will continue with dialysis as directed. Patient with hypertension. At discharge he will continue with clonidine 0.1 mg 1 pill twice daily. He is to hold medication if blood pressure less than 110 systolic. Further adjustment in medication can be done by nephrology. Vital Signs/Physical Exam: Temp Pulse Resp BP Pulse Ox 97.1 F 89 16 120/69 94 08/12/18 14:30 08/12/18 14:30 08/12/18 14:30 08/12/18 14:30 08/12/18 12:00 General: Alert, In no apparent distress, Oriented x3, Cooperative HEENT: Atraumatic Neck: Supple Respiratory: Clear to auscultation bilaterally, Normal air movement Cardiovascular: Normal pulses, Regular rate/rhythm Gastrointestinal: Normal bowel sounds, Soft and benign, Non-distended, No tenderness, No masses, No rebound, No guarding Musculoskeletal: No erythema, No tenderness, No warmth Integumentary: No tenderness/swelling, No erythema, No warmth, No cyanosis Neurological: Normal speech, Normal strength at 5/5 x4 extr, Normal tone, Normal affect Laboratory Data at Discharge: WBC 7.4 K/uL (4.3-10.9) D 08/12/18 05:31 Hgb 11.4 g/dL (13.6-17.9) L 08/12/18 05:31 Hct 33.6 % (39.6-49.0) L 08/12/18 05:31 Plt Count 233 K/uL (152-406) 08/12/18 05:31 Sodium 143 mmol/L (136-145) 08/12/18 05:31 Potassium 3.8 mmol/L (3.5-5.1) 08/12/18 05:31 BUN 47 mg/dL (7-18) H 08/12/18 05:31 Creatinine 8.79 mg/dL (0.55-1.3) H* D 08/12/18 05:31 Glucose 86 mg/dL (74-106) 08/12/18 05:31 Magnesium 2.4 mg/dL (1.8-2.4) 08/12/18 05:31 Home Medications: Calcium Carbonate 1,000 mg PO BID 08/12/18 Clonidine HCl [Catapres] 0.1 mg PO BID 08/12/18 Patient Discharge Instructions: 1. Recommend to establish care with a PCP to follow up this hospitalization. 2. Patient presented with nausea, vomiting and abdominal pain. Patient found to have right hydronephrosis and hydroureter. Patient was admitted for further evaluation. Patient seen evaluated by nephrology and urology. Cystoscopy and retrograde urethrocystography performed. Blood clots were identified in the ureter. Blood clots removed. Cytology was sent for analysis. At discharge patient will follow up with urology in 1 week to follow up cytology results and follow up this hospitalization. 3. Patient with end-stage renal disease on hemodialysis. Patient will continue with dialysis as directed. 4. Patient with hypertension. At discharge he will continue with clonidine 0.1 mg 1 pill twice daily. He is to hold medication if blood pressure less than 110 systolic. Further adjustment in medication can be done by nephrology. Diet: Renal Activity: Fall precautions Time spent managing pt's care (in minutes): 55
[2018-08-12 17:25] VITALS: BP 141/81; TEMP 96.8
[2018-08-12] MEDS ORDERED: CALCIUM CARBONATE CHEW 500MG TAB PO SCH (21:00)
--- NOTE | 2018-08-13 01:27 | OP ---
Date of Procedure: 08/12/2018 Surgeon: Madina Trevino MD Preoperative Diagnosis: Obstructed right ureter to the area of the iliac, unknown cause. Postoperative Diagnosis: Most likely clot formation in the area, which floated out after we placed a guidewire up to the area, a lots of dried-looking old clots. No fresh bleeding. Operation: Cystoscopy, retrograde pyelogram. Cytology Sent: Clot sent for analysis. Anesthesia: General. Ebl: Minimal. Replacement: See record. Path Specimen: Urine for cytology. Findings: Preoperatively, there was a hydroureter to the right iliac vessel. Once in the operation which was a retrograde pyelogram, it seemed that the area was opened up in fact immediately. When we did the cystoscopy, we could see 2 small dry clots appearing in the bladder, that was flushed. One of them broke up when they were touched. The other one was sent for analysis. On retrograde pyelogr am, the ureter seemed to be open. There was no hydroureter seen. We filled up the entire right uret er in the renal pelvis. It drained well. There was no further hydroureter to the iliac vessels. We could see good efflux of contrast coming from the right orifice. In case the patient is on dialysis , he does not make much urine, so mainly what we put in we saw came out. I did not see the need to l eave a stent since the ureter was open and not blocked anymore. Drains: None. Condition: Transferred to recovery room. Disposition: To the floor. Indications: A 53-year-old gentleman, who came in with the above diagnosis. He was given all the ge neral information, alternatives, and risks before proceeding with a cysto retrograde, possible stent placement and further on ureteroscopy later down the road to investigate this area. Procedure In Detail: He was taken to the operative suite, properly identified. Informed consent was verified. A time-out was performed successfully. Area was prepped and draped into the urethra with a 21-Bengali scope and 30-degree lens. The penile urethra was normal. Bulbar urethra was normal. P rostate appears to have a slightly obstructive posterior median lobe area. Bladder was scoped with a 30 and 70 degree lens. Two small clots were seen. Two dried old clots were seen in the bladder, po ssible passed from the right orifice, and doing retrograde pyelogram in the right ureter, dye went st raight up to the renal pelvis. There was no blockage seen. Once the catheter was removed, we saw a lot of dried blood coming out. We then placed a guidewire inside and then a lot more dry blood float ed up. The urethra seemed open. The contrast was able to exit the ureter easily. There was no furt her hydroureter seen to the area of the iliac vessels. Did a retrograde pyelogram 2 or 3 times confi rming the same thing. Did not see an obstruction and did not see the need to place a stent. So, nicholas e urine was collected from the bladder that came from the right ureter area, which showed a lot of da rk sediments resembling normal blood clots and this was sent for cytological examination. The proced ure was terminated. No stent was placed. No Littlejohn catheter was placed. The patient went to recover y room in stable condition. ARNALDO/DEJAH Voice ID: [id number] Report ID: [id number]
--- NOTE | 2018-08-13 08:33 | EKG ---
Test Date: 2018-08-12 Test Time: 07:57:51 Plant Wrapper: MONIE MEASUREMENT RESULTS: Intervals: Rate: 81 AR: 144 QRSD: 96 QT: 406 QTc: 471 [place]: P: 38 AR: 144 QRS: 7 T: 50 INTERPRETIVE STATEMENTS: Normal sinus rhythm Incomplete right bundle branch block Borderline ECG Compared to ECG 06/22/2018 10:53:20 Incomplete right bundle-branch block now present Electronically Signed On 08-13-18 08:32:09 CDT by Juve Long
== END 2018-08-12 17:30 | disposition home or self-care (01) ==
LOC: ER 11:52 → ERHOLD 16:21 → 4TH 18:17
PROVIDERS: ADMIT Family Medicine; ATTEND Family Medicine
PROC: BT1DYZZ Fluoroscopy of Right Kidney, Ureter and Bladder using Other Contrast (ICD-10-PCS; 2018-08-12)
PROC: 0TJB8ZZ Inspection of Bladder, Via Natural or Artificial Opening Endoscopic (ICD-10-PCS; principal; 2018-08-12 13:00)
DX: N13.30 Unspecified hydronephrosis (principal); N13.4 Hydroureter; E11.22 Type 2 diabetes mellitus with diabetic chronic kidney disease; I12.0 Hypertensive chronic kidney disease with stage 5 chronic kidney disease or end stage renal disease; N18.6 End stage renal disease; K21.9 Gastro-esophageal reflux disease without esophagitis; Z99.2 Dependence on renal dialysis
CPT/HCPCS: 93005; 87040 ×2; 85025 ×2; 80048 ×2; 36415; 88108; 83735; 82962 ×5; 88304; 81003; 76377; 74176; 74450; 51610; 96375; 96374; 99285; 52005; J2704; J2550 ×2; J2250; J3010; J2270; J0690; J2405 ×3; G0378 ×2; 88305

== ENCOUNTER 2019-09-11 12:01 | Emergency (ER) | payer OTHER ==
--- OUTSIDE RECORDS SUMMARY | 2019-09-11 12:04 | XMS REPORT | Clinical Summary ---
:1965 Author Organization [facility] Address [address] [place] [address] Care Team Providers Name Role Phone Pcp Primary Care Provider Unavailable Allergies No Known Allergies Medications Medication Sig Dispensed Refills Start Date End Date Status calcium carbonate Take 2 tablets 0 Active (CALCIUM by mouth 2 CARBONATE) 300 mg (two) times Chew daily . carvedilol (COREG) Take 6.25 mg by 0 Active 6.25 MG tablet mouth 2 (two) times daily with breakfast and dinner. atorvastatin Take 20 mg by 0 Act julián (LIPITOR) 20 MG mouth daily. tablet glipiZIDE Take 5 mg by 0 Active (GLUCOTROL) 5 MG mouth 2 (two) tablet times daily before meals. lisinopril Take 2.5 mg by 0 12/07/2018 Dis continued (PRINIVIL,ZESTRIL) mouth daily. 2.5 MG tablet amLODIPine Take 10 mg by 0 12/07/2018 Disc ontinued (NORVASC) 10 MG mouth daily. tablet glyBURIDE Take 5 mg by 0 12/07/2018 Discon tinued (DIABETA) 1.25 MG mouth daily tablet with breakfast. 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, 10/21/2017 unspecified CKD stage, unspecified whether long-term i nsulin use Pre-transplant evaluation for ESRD (end stage renal di sease) 01/13/2017 Encounters Date Type Specialty Care Team Description 08/05/2019 Orders Only Cardiology Iglesia Redmond MD Pre-transpl ant evaluation for ESRD (end stage renal disease) (Primary Dx); Coronary artery disease involving yuhaaviatam coronary artery of yuhaaviatam heart without angina pectoris; Essential hyper tension 07/06/2019 Documentation Transplant Chiqui Neely 04/12/2019 Orders Only Transplant Galina Soriano RN Awaiting tr ansplantation of kidney (Prim chuck Dx) 04/05/2019 Orders Only Elena Cortes Awaiting transplantation MD Desire of kidney (Prim chuck Dx) 01/13/2019 Documentation Transplant Galina Soriano, LISA 12/23/2018 Hospital Encounter Radiology Rianna Ambrose ESR D (end stage renal disease) on dialysis ([facility]); MD Iris Renal mass; Awaiting transp lantation of kidney 12/22/2018 Outside Orders Rianna Ambrose MD 12/09/2018 Telephone Transplant Chiqui Neely Appointment (CT Abd) 12/08/2018 Orders Only Transplant Galina Soriano RN ESRD (end s tage renal disease) on dialysis ([facility]) (Primary Dx); Renal mass; Awaiting transp lantation of kidney 12/07/2018 Evaluation Transplant Rianna Ambrose ESRD (end stage renal SMadison MD disease) on dialysis Jenise Cosby MD ([facility]) (Primary Dx) 12/07/2018 Hospital Encounter Radiology Rianna Ambrose ESR D (end stage renal disease) on dialysis ([facility]); MD Iris Awaiting transp lantation of kidney; Pre-transplant evaluation for chronic kidney disease 12/07/2018 Hospital Encounter Cardiology Rianna Ambrose ESR D (end stage renal disease) on dialysis ([facility]); MD Iris Coronary artery disease involving yuhaaviatam coronary artery of yuhaaviatam heart with angina pectoris ([facility]); Pre-transplant evaluation for chronic kidney disease; Aortic calcific ation ([facility]) 11/19/2018 Telephone Transplant Chiqui Neely Appointment 10/11/2018 Documentation Transplant Chiqui Neely 09/22/2018 Orders Only Transplant Galina Soriano RN ESRD (end s tage renal disease) on dialysis ([facility]) (Primary Dx); Awaiting transp lantation of kidney; Pre-transplant evaluation for chronic kidney disease after 09/10/2018 Family History Medical History Relation Name Comments Heart disease Father Diabetes Mother Hypertension Mother Liver disease Other step brother Diabetes Sister Relation Name Status Comments Father Alive Mother Alive Other step brother Alive Sister Alive Social History Tobacco Use Types Packs/Day Years Used Date Former Smoker 12/07/1985 - 0 12/08/1987 Smokeless Tobacco: Never Used Comments: exposure to second hand smoke. Alcohol Use Drinks/Week oz/Week Comments No Sex Assigned at Date Recorded Not on file Job Start Date Occupation Industry Not on file Not on file Not on file Travel History Travel Start Travel End No recent travel history available. Last Filed Vital Signs Vital Sign Reading Time Taken Blood Pressure 120/74 12/07/2018 1:13 PM CDT Pulse 93 12/07/2018 1:13 PM CDT Temperature 36.4 C (97.5 F) 12/07/2018 1:13 PM CDT Respiratory Rate 20 12/07/2018 1:13 PM CDT Oxygen Saturation 97% 12/07/2018 9:00 AM CDT Inhaled Oxygen Concentration - - Weight 80.9 kg (178 lb 4.8 oz) 12/07/2018 1:13 PM CDT Height 161.2 cm (5' 3.48") 12/07/2018 1:13 PM CDT Body Mass Index 31.1 12/07/2018 1:13 PM CDT Plan of Treatment Date Type Specialty Care Team Description 11/24/2019 Appointment Radiology Iglesia Redmond MD [address] [facility] [address] [place] [address] [phone] 11/24/2019 Appointment Cardiology Iglesia Redmond MD [address] [facility] [address] [place] [address] [phone] Health Maintenance Due Date Last Done Comments PNEUMOCOCCAL VACCINE 2-64 YEARS AT RISK (1 02/01/1970 of 3 - PCV13) DIABETIC EYE EXAM 02/01/1974 DIABETIC FOOT EXAM 02/01/1974 MEDICARE ANNUAL WELLNESS (YEAR 2 or FIRST 01/29/2017 YEAR if no IPPE) HEMOGLOBIN A1C 10/21/2017 08/14/2016, 05/06/2016 INFLUENZA VACCINE (Season Ended) 2019 COLON CANCER SCREENING COLONOSCOPY 09/24/2027 09/23/2017 Procedures Procedure Name Priority Date/Time Associated Diagnosis Comme nts CT ABDOMEN WITH & Routine 12/23/2018 9:40 ESRD (end stage walt al Results for this WITHOUT IV CONTRAST AM CDT disease) on dialysis procedure are in (HCC) the results Renal mass section. Awaiting transplantation of kidney FLOW PRA CLASS II Routine 12/07/2018 11:54 Awaiting Result s for this WITH REFLEX TO AM CDT transplantation of procedu re are in ANTIBODY kidney the results SPECIFICITY section. FLOW PRA CLASS I Routine 12/07/2018 11:54 Awaiting Results for this WITH REFLEX TO AM CDT transplantation of procedu re are in ANTIBODY kidney the results SPECIFICITY section. US ABDOMEN COMPLETE Routine 12/07/2018 11:09 ESRD (end stage r enal Results for this AM CDT disease) on dialysis procedu re are in (HCC) the results Awaiting section. transplantation of kidney Pre-transplant evaluation for chronic kidney disease 2D ECHO W/ DOPPLER Routine 12/07/2018 7:53 ESRD (end stage re nal Results for this (CW/PW/COLOR) AM CDT disease) on dialysis proced ure are in (HCC) the results Coronary artery disease sect ion. involving yuhaaviatam coronary artery of yuhaaviatam heart with angina pectoris (HCC) Pre-transplant evaluation for chronic kidney disease Aortic calcification (HCC) STRESS ECHO Routine 12/07/2018 7:36 ESRD (end stage renal AM CDT disease) on dialysis (HCC) Coronary artery disease involving yuhaaviatam coronary artery of yuhaaviatam heart with angina pectoris (HCC) Pre-transplant evaluation for chronic kidney disease Aortic calcification (HCC) FLOW PRA CLASS II Routine 09/28/2018 2:00 Awaiting Result s for this WITH REFLEX TO PM CDT transplantation of procedu re are in ANTIBODY kidney the results SPECIFICITY section. FLOW PRA CLASS I Routine 09/28/2018 2:00 Awaiting Results for this WITH REFLEX TO PM CDT transplantation of procedu re are in ANTIBODY kidney the results SPECIFICITY section. after 09/10/[address] abdomen without & with IV contrast (12/23/2018 9:40 AM CDT) Specimen Narrative Performed At FINAL REPORT [facility] INDICATION: Indeterminate right kidney lesion on ult rasound performed before renal transplant. COMPARISON: Abdomen ultrasound December 07, 2018 TECHNIQUE: CT of the Abdomen WITHOUT and WITH intra venous contrast. Enteric contrast was not used. The exam was performed according to our department dose-optimization protocol, which includes automated expos ure control, adjustments of mA and kV according to patient size. Ite rative reconstructions are also sometimes employed. FINDINGS: There is no renal mass. In retrospect fi nding on ultrasound was artifact. The kidneys are slightly small with cortical thinning, in keeping with chronic kidney disease. No urinary stone or hydronephrosis. Liver, pancreas, spleen, adrenal glands, and visualized bowel loops unremarkable. Calcified plaque of the di stal abdominal aorta and iliac arteries without aneurysm. Left el ng base subsegmental atelectasis noted. No suspicious osseous lesion demonstrated. IMPRESSION: No renal mass. In retrospect, ultrasound finding was artifact. Slightly small kidneys with cortical thi nning, in keeping with chronic kidney disease. Signed: Ottoniel Lee MD Report Verified Date/Time:12/23/2018 11:16:06 Reading Location: [facility] C013 CT Body [facility] Procedure Note Interface, External Ris In - 12/23/2018 11:18 AM CDT FINAL REPORT INDICATION: Indeterminate right kidney lesion on ult rasound performed before renal transplant. COMPARISON: Abdomen ultrasound December 07, 2018 TECHNIQUE: CT of the Abdomen WITHOUT and WITH intra venous contrast. Enteric contrast was not used. The exam was performed according to our department dose-optimization protocol, which includes automated expos ure control, adjustments of mA and kV according to patient size. Ite rative reconstructions are also sometimes employed. FINDINGS: There is no renal mass. In retrospect fi nding on ultrasound was artifact. The kidneys are slightly small with cortical thinning, in keeping with chronic kidney disease. No urinary stone or hydronephrosis. Liver, pancreas, spleen, adrenal glands, and visualized bowel loops unremarkable. Calcified plaque of the di stal abdominal aorta and iliac arteries without aneurysm. Left el ng base subsegmental atelectasis noted. No suspicious osseous lesion demonstrated. IMPRESSION: No renal mass. In retrospect, ultrasound finding was artifact. Slightly small kidneys with cortical thi nning, in keeping with chronic kidney disease. Signed: Ottoniel Lee MD Report Verified Date/Time: 12/23/2018 1 1:16:06 Reading Location: [facility] C013Y CT Body R [facility] Room Performing Organization Address [place]/[facility] [place] Number GE RIS FLOW PRA CLASS II WITH REFLEX TO ANTIBODY SPECIFICITY (12/07/2018 11:54 AM CDT) Only the most recent of2 resultswithin the time period is included. Flow Class II Percent Positive 0 [facility] Specimen Blood Narrative Performed At Disclaimer: [facility] This test was developed and its performance characteri stics determined by the [facility]. It has not been coleen red or approved by the U.S. Food and Drug Administration. The FDA has determined that such clearance or approval is not nece ssary. This test is used for clinical purposes. It should not be r egarded as investigational or for research. This laboratory is ce rtified under the Clinical Laboratory Improvement Amendments o f 1988 (CLIA-88) as qualified to perform high complexity clin ical laboratory testing. Performing Organization Address [facility] [place] Phone Number [facility] [address], [place]: [place] [id number], CLIA#[id number] CAP#[id number] UNOS#[id number] FLOW PRA CLASS I WITH REFLEX TO ANTIBODY SPECIFICITY (12/07/2018 11:54 AM CDT) Only the most recent of2 resultswithin the time period is included. Flow Class I Percent Positive 0 BA [facility] Specimen Blood Narrative Performed At Disclaimer: [facility] This test was developed and its performance characteri stics determined by the [facility]. It has not been coleen red or approved by the U.S. Food and Drug Administration. The FDA has determined that such clearance or approval is not nece ssary. This test is used for clinical purposes. It should not be r egarded as investigational or for research. This laboratory is ce rtified under the Clinical Laboratory Improvement Amendments o f 1988 (CLIA-88) as qualified to perform high complexity clin ical laboratory testing. Performing Organization Address City/[facility] Phone Number [facility] [address], [place]: [place] [address] [id number], CLIA#[id number] CAP#[id number] UNOS#[id number] US abdomen complete (12/07/2018 11:09 AM CDT) Specimen Narrative Performed At FINAL REPORT [facility] History: End-stage renal disease. Pretra nsplant evaluation. Findings Correlation is made with patient's previ ous study performed May 06, 2016. Real-time sonographic examination of the abdomen reveals a normal-size liver measuring up to 12.8 c m in length. Hepatic echogenicity is normal. There are no son ographically detectable masses or focal intrahepatic The gallbladder is absent, consistent wi prior cholecystectomy. There is no evidence for intra or extrah epatic biliary ductal dilatation. The common bile duct was not visualized. The portal vein measures 11 mm in diameter and appears p atent by Limited color Doppler examination. The spleen is normal size and echogenici ty measuring up to 11.3 cm in length. There are no focal splenic abnor malities. The right kidney is normal size measurin g up to 9.5 x 4.3 x 5.1 cm in greatest dimensions. There is a focal ar ea of heterogeneity in the midpole of the right kidney for which a mass cannot be completely excluded. This is a new finding since th e previous study. Contrast-enhanced CT or MRI would be use ful for further evaluation and characterization. The left kidney is normal size measuring up to 10.1 x 3.7 x 4.7 cm in greatest dimensio ns. Left renal echogenicity appears normal. There are no visible cys ts, stones or evidence for obstruction. The pancreas is not well seen secondary to overlying bowel gas. Aorta and IVC are unremarkable where vis ible. No ascites or abdominal fluid collection s. IMPRESSION: 1. Approximately 2.5 cm heterogeneously echogenic but ill-defined area in the midpole of the right kidney for which a renal mass cannot be completely excluded. This was not see n on the patient's prior examination. Contrast-enhanced CT or MRI would be useful for further evaluation. 2. Status post cholecystectomy. No acute biliary abnormalities. 3. Incomplete evaluation of the pancreas . Signed: José Jackson MD Report Verified Date/Time:12/07/2018 15:46:25 Reading Location: [address] Radiol y Reading Room Procedure Note Interface, External Ris In - 12/07/2018 3:48 PM CDT FINAL REPORT History: End-stage renal disease. Pretra nsplant evaluation. Findings Correlation is made with patient's previ ous study performed May 06, 2016. Real-time sonographic examination of the abdomen reveals a normal-size liver measuring up to 12.8 c m in length. Hepatic echogenicity is normal. There are no son ographically detectable masses or focal intrahepatic The gallbladder is absent, consistent wi prior cholecystectomy. There is no evidence for intra or extrah epatic biliary ductal dilatation. The common bile duct was not visualized. The portal vein measures 11 mm in diameter and appears p atent by Limited color Doppler examination. The spleen is normal size and echogenici ty measuring up to 11.3 cm in length. There are no focal splenic abnor malities. The right kidney is normal size measurin g up to 9.5 x 4.3 x 5.1 cm in greatest dimensions. There is a focal ar ea of heterogeneity in the midpole of the right kidney for which a mass cannot be completely excluded. This is a new finding since e previous study. Contrast-enhanced CT or MRI would be use ful for further evaluation and characterization. The left kidney is normal size measuring up to 10.1 x 3.7 x 4.7 cm in greatest dimensio ns. Left renal echogenicity appears normal. There are no visible cys ts, stones or evidence for obstruction. The pancreas is not well seen secondary to overlying bowel gas. Aorta and IVC are unremarkable where vis ible. No ascites or abdominal fluid collection s. IMPRESSION: 1. Approximately 2.5 cm heterogeneously echogenic but ill-defined area in the midpole of the right kidney for which a renal mass cannot be completely excluded. This was not see n on the patient's prior examination. Contrast-enhanced CT or MRI would be useful for further evaluation. 2. Status post cholecystectomy. No acute biliary abnormalities. 3. Incomplete evaluation of the pancreas . Signed: José Jackson MD Report Verified Date/Time: 12/07/2018 1 5:46:25 Reading Location: [address] Radiolog y Reading Room Performing Organization Address City/State/Zipcode Phone Number [facility] 2D Echo W/Doppler(CW/PW/Color) (12/07/2018 7:53 AM CDT) Ejection Fraction [facility] ECHO HEAR TLAB [facility] Specimen Narrative Performed At Transthoracic Echocardiography Report (T TE) [facility] Demographics Patient ART Hernández Date of Study12/07/2018 SCOTT WELLER Male Visit [id number] Unknown Room NumberOP Number Date of 1965Referring Halie Simmons 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 Clinical History ESRD, CAD, HTN, DM Contrast Medium: Definity. Height: 64 inches Weight: 77.56 kg (171 lbs) BSA: 1.83 m^2 BMI: 29.35 kg/m^2 HR: 82 bpm BP: 152/84 mmHg Summary Unable to estimate peak systolic PA pressure; inadequate TR velocity signal. LV endocardium is adequately visualized with IV ultrasound enhancing agent. The left ventricle is chamber size (by vol index) is normal (male - LVED vol - 34-74ml/m2). Mild concentric LV hypertrophy. All of the LV segments contract normall y . Grade 1 diastolic dysfunction (impaired relaxation and low-normal LA pressure). LVEF by Redmond's method of disk assessment is normal (55-60%) . Otherwise, essentially normal exam. Signature Findings Left Ventricle LV endocardium is adequately visualized with IV ul trasound enhancing agent. Th e left ventricle is chamber size (by vol index) is normal (male - LVED vol - 34-74ml/m2). Mi ld concentric LV hypertrophy. Al l of the LV segments contract normally . Gr leif 1 diastolic dysfunction (impaired re laxation an d low-normal LA pressure). LV EF by Redmond's method of disk assessmen t is no rmal (55-60%) . Left AtriumLA size is moderately enlarged (42-48 ml/m2) . Right VentricleNormal RV size and systolic function. Aortic Valve Mild AoV cusp thickening. Ao V cusp mobility is normal . Mitral Valve Moderate mitral annular calcification. Tr ronn mitral regurgitation. Tricuspid ValveNormal TV structure and function. Un able to estimate peak systolic PA pressu re; in adequate TR velocity signal. Pulmonic Valve Normal PV structure and function. AortaAortic root size (SInus of Valsalva diameter) i s no rmal . PericardiumNo significant pericardial effusion is visualized. IVC/SVC/PA/PV/PleuralThe estimated RA pressure by IVC dynamics 0-5mmHg . Chambers/Structures Left Atrium LA Volume: 88.55 ml LA Area: 26.06 cm^2 LA Vol. Index: 48 ml/m^2 Left Ventricle LVIDd: 3.25 cm LVIDs: 1.93 cm LV Septum Diastolic: 1.27 cm LV PW Diastolic: 1.48 cmLV FS: 40.6 % LVEDV Redmond's:116.98 ml LVESV Redmond's:48.1 ml LVEDVI: 64 ml/m^2 LVEF Redmond's: 58.9 %LVESV I: 26 ml/m^2 LVOT Diameter: 2.36 cm Aorta Ao Root S of Ailyn.: 2.95 cm Doppler/Quantitative Measurements Aortic Valve Peak Velocity: 1.78 m/sMean Velocity: 1.26 m/s Peak Gradient: 12.68 mmHgMean Gradient: 7.03 mmHg AV Area (continuity): 2.55 cm^2 AV VTI: 36.69 cm AV DVI: 0.58 LVOT Peak Velocity: 1.07 m/s Peak Gradient: 4.61 mmHg Mean Velocity: 0.8 m/sMean Gradient: 2.77 mmHg LVOT Diameter: 2.36 cmLVOT VTI: 21.4 cm LVOT Area: 4.37 cm^2LVOT SV:93.56 ml LVOT CO: 7.67 l/min LVOT CI: 4.19 l/min/m^2 Procedure Note Interface, External Ris In - 12/08/2018 6:51 AM CDT Transthoracic Echocardiography Report (TTE) Demographics Patient Name ART TRINIDAD Date of Study 12/07/2018 SCOTT WELELR Genrosa r Male Visit Number [id number] Race Unknown Room Number OP Number Date of 1965 Refer ring Halie grimm Age 53 year(s) Sonog claudine Wilkinson ANIA Inter preting Keisha Ramirez MD Procedure Type of Study TTE procedure:2DECHO W DOPPLE R(CW/PW/COLOR) (Routine) Indications:Renal transplant evaluation . Clinical History ESRD, CAD, HTN, DM Contrast Medium: Definity. Height: 64 inches Weight: 77.56 kg (171 lbs) BSA: 1.83 m^2 BMI: 29.35 kg/m^2 HR: 82 bpm BP: 152/84 mmHg Summary Unable to estimate peak systolic PA pre ssure; inadequate TR velocity signal. LV endocardium is adequately visualized with IV ultrasound enhancing agent. The left ventricle is chamber size (by vol index) is normal (male - LVED vol - 34-74ml/m2). Mild concentric LV hypertrophy. All of the LV segments contract normall y . Grade 1 diastolic dysfunction (impaired relaxation and low-normal LA pressure). LVEF by Redmond's method of disk assess ment is normal (55-60%) . Otherwise, essentially normal exam. Signature Findings Left Ventricle LV endocardium i s adequately visualized with IV ultrasound enhan cing agent. The left ventric le is chamber size (by vol index) is normal (male - LVED vol - 34-74ml/m2). Mild concentric LV hypertrophy. All of the LV se gments contract normally . Grade 1 diastoli c dysfunction (impaired relaxation and low-normal L A pressure). LVEF by Redmond' s method of disk assessment is normal (55-60%) . Left Atrium LA size is moder ately enlarged (42-48 ml/m2) . Right Ventricle Normal RV size a nd systolic function. Aortic Valve Mild AoV cusp th ickening. AoV cusp mobilit y is normal . Mitral Valve Moderate mitral annular calcification. Trace mitral reg urgitation. Tricuspid Valve Normal TV struct ure and function. Unable to estima te peak systolic PA pressure; inadequate TR ve locity signal. Pulmonic Valve Normal PV struct ure and function. Aorta Aortic root size (SInus of Valsalva diameter) is normal . Pericardium No significant p ericardial effusion is visualized. IVC/SVC/PA/PV/Pleural The estimated RA pressure by IVC dynamics 0-5mmHg . Chambers/Structures Left Atrium LA Volume: 88.55 ml LA Area: 26.06 cm^2 LA Vol. Index: 48 ml/m^2 Left Ventricle LVIDd: 3.25 cm LVIDs: 1.93 cm LV Septum Diastolic: 1.27 cm LV PW Diastolic: 1.48 cm LV FS: 40.6 % LVEDV Redmond's:116.98 ml LVESV Redmond's:48.1 ml LVEDVI: 64 ml/m^2 LVEF Redmond's: 58.9 % LVESVI: 26 ml/m^2 LVOT Diameter: 2.36 cm Aorta Ao Root S of Ailyn.: 2.95 cm Doppler/Quantitative Measurements Aortic Valve Peak Velocity: 1.78 m/s Mean Velocity: 1.26 m/s Peak Gradient: 12.68 mmHg Mean Gradient: 7.03 mmHg AV Area (continuity): 2.55 cm^2 AV VTI: 36.69 cm AV DVI: 0.58 LVOT Peak Velocity: 1.07 m/s Pea k Gradient: 4.61 mmHg Mean Velocity: 0.8 m/s Abbey n Gradient: 2.77 mmHg LVOT Diameter: 2.36 cm LVO T VTI: 21.4 cm LVOT Area: 4.37 cm^2 LVO T SV:93.56 ml LVOT CO: 7.67 l/min LVO T CI: 4.19 l/min/m^2 Performing Organization Address City/State/Zipcode Phone Number [facility] ECHO HEARTLAB [facility] CPACS after 09/10/2018 Insurance Payer Benefit Plan / Group Subscriber ID Type Phone A ddress MEDICARE MEDICARE A B xxxxxxxxxxx Medicare Advance Directives For more information, please contact:[address] [phone] Code Status Date Activated Date Inactivated Comments Full Code 01/13/2017 2:16 PM 01/13/2017 8:13 PM This code status was determined by: Patient Full Code 01/13/2017 8:44 AM 01/13/2017 2:16 PM This code status was determined by: Patient
--- OUTSIDE RECORDS SUMMARY | 2019-09-11 12:05 | XMS REPORT | Continuity of Care Document ---
:1965 Author Organization [facility] t Address [address] [place] [address] Care Team Providers Name Role Phone Pcp Primary Care Physician Unavailable Ruy BRODERICK Attending Clinician Chin Attending Clinician Unavailable Bo GONZALEZ Attending Clinician Unavailable Desire Berrios MD Attending Clinician Halie BRODERICK, S. Attending Clinician Harjeet BRODERICK Attending Clinician Guy HARRISON Attending Clinician Unavailable South LOAIZA Attending Clinician Unavailable RUY Attending Clinician Unavailable Guy HARRISON Admitting Clinician Unavailable RUY Admitting Clinician Unavailable Payers Payer Name Policy Policy Number Effective Expiration Source Type Date Date MEDICAREMEDICARE A xxxxxxxxxxx [facility] Problems Condition Condition Condition Status Onset Resolution Last Treating Co mments Source Name Details Category Date Date Treatment Clinician Date Coronary Coronary Disease [facility] disease disease [facility]:00: Medical involving involving 00 [facility] [place] [facility] [facility] with heart with angina angina pectoris, pectoris, unspecifie unspecifie d vessel d vessel or lesion or lesion type type Hypertensi Hypertensi Disease Active [facility] on, on, 10-21 [facility] - unspecifie unspecifie 00:00: Me dical d type d type 00 Center ESRD (end ESRD (end Disease Active [facility] stage stage 7-25 [facility] - renal renal 00:00: Medical disease) disease) 00 Center Other Other Disease Active [facility] specified specified 10-21 [facility] - diabetes diabetes 00:00: Medica l mellitus mellitus 00 Center with with diabetic diabetic chronic chronic kidney kidney disease, disease, unspecifie unspecifie d CKD d CKD stage, stage, unspecifie unspecifie d whether d whether fci manager terminal insulin insulin use use Pre-transp Pre-transp Disease Active 2016-[address] lant lant 0-17 [facility] - evaluation evaluation 00:00: Me dical for ESRD for ESRD 00 Center (end stage (end stage renal renal disease) disease) Allergies, Adverse Reactions, Alerts This patient has no known allergies or adverse reactions. Family History Family Member Diagnosis Comments Start Date Stop Date Source Natural father Heart disease [facility] Natural mother Diabetes [facility] Natural mother Hypertension [facility] Other Liver disease [facility] Natural sister Diabetes [facility] Social History Social Habit Start Date Stop Date Quantity Comments Source Sex Assigned At [facility] Tobacco Comment 2017-09-15 2017-09-15 exposure to [facility] 00:00:00 00:00:00 second hand Medical Cent[facility] r smoke. History of 1985-12-07 1987-12-08 Current smoker [facility] tobacco use 00:00:00 00:00:00 Medical Cente r Smoking Status Start Date Stop Date Source Former smoker 2018-12-08 00:00:00 2018-12-08 00:00:00 [facility] Medications Ordered Filled Start Stop Current Ordering Indication Dosage Frequency Signature Comments Components Source Medication Medication Date Date Medication? Clinician (SIG) Name Name glipiZIDE Yes 5mg Take [address] (GLUCOTROL) 9-10 by mouth 2 Jacinta kes - 5 MG tablet 14:30: (two) Medic al 44 times Center daily before meals. atorvastati Yes 20mg QD Take [address] n (LIPITOR) 9-10 by mouth [facility] - 20 MG 14:30: daily. Medical tablet 43 Center lisinopril 2019- No 2.5mg QD Take 2.[address] (PRINIVIL,Z 12-07-10 mg by [facility] - ESTRIL) 2.5 14:30: 00:00 mouth Medi shraddha MG tablet 41 :00 daily. [place] amLODIPine 2018- No 10mg QD Take [address] (NORVASC) 12-07 by mouth [facility] - 10 MG 14:30: 00:00 daily. Medical tablet 26 :00 [place] glyBURIDE 2018- No 5mg Take [address] (DIABETA) 12-07 by mouth [facility] - 1.25 MG 14:29: 00:00 daily with Med ical tablet 37 :00 breakfast. [place] carvedilol Yes 6.25mg Take 6.[address] (COREG) 6-19 mg by [facility] - 6.25 MG 16:59: mouth 2 Medical tablet 38 (two) Center times daily with breakfast and dinner. calcium Yes 2{tbl} Q.5D Take [address] carbonate 6-05 tablets by [facility] - (CALCIUM 14:56: mouth 2 Medica l CARBONATE) 23 (two) Center 300 mg Chew times daily . Vital Signs Vital Name Observation Time Observation Value Comments Source Systolic blood 2018-12-07 13:13:00 120 mm[Hg] [facility] Diastolic blood 2018-12-07 13:13:00 74 mm[Hg] [facility] Heart rate 2018-12-07 13:13:00 93 /min [facility] Body temperature 2018-12-07 13:13:00 36.39 Roxane [facility] Respiratory rate 2018-12-07 13:13:00 20 /min [facility] Body height 2018-12-07 13:13:00 161.2 cm [facility] Body weight Measured 2018-12-07 13:13:00 80.876 kg [facility] BMI 2018-12-07 13:13:00 31.10 kg/m2 [facility] Oxygen saturation in 2018-12-07 09:00:00 97 /min [facility] Arterial blood by Medical Ce nter Pulse oximetry Procedures Procedure Date / Time Performed Performing Clinician Sour e CT ABDOMEN WITH & 2018-12-23 09:40:[address] [facility] - WITHOUT IV CONTRAST Medical [facility] er FLOW PRA CLASS I WITH 2018-12-07 11:54:00 OElena Del Real [facility] - REFLEX [facility]TIBODY [facility] SPECIFICITY FLOW PRA CLASS II WITH 2018-12-07 11:54:[address] [facility] - REFLEX [facility] ANTIBODY [facility] SPECIFICITY US ABDOMEN COMPLETE 2018-12-07 11:09:00 Rianna Ambrose CH, I [facility] 2D ECHO W/ DOPPLER 2018-12-07 07:53:49 Rianna Ambrose [facility] (CW/PW/COLOR) [facility] STRESS ECHO 2018-12-07 07:36:[address] [facility] Center FLOW PRA CLASS I WITH 2018-09-28 14:00:00 Elena Ber[address] [facility] - REFLEX [facility] ANTIBODY [facility] SPECIFICITY FLOW PRA CLASS II WITH 2018-09-28 14:00:[address] [facility] - REFLEX TO ANTIBODY [facility] SPECIFICITY Plan of Care Planned Activity Planned Date Details Comments Source Future Scheduled 2027-09-24 COLON CANCER SCREENING [facility] Test 00:00:00 COLONOSCOPY [code = Medical Center COLON CANCER SCREENING COLONOSCOPY] Future Scheduled 2019-11-[address] [facility] - Test 00:00:00 (Season Ended) [code = [facility] INFLUENZA VACCINE (Season Ended)] Future Scheduled 2017-10-21 HEMOGLOBIN A1C [code = [facility] - Test 00:00:00 HEMOGLOBIN A1C] Medical Cent er Future Scheduled 2017-01-[address] [facility] - Test 00:00:00 WELLNESS (YEAR 2 or Medical Center FIRST YEAR if no IPPE) [code = MEDICARE ANNUAL WELLNESS (YEAR 2 or FIRST YEAR if no IPPE)] Future Scheduled 1974-02-[address] EYE EXAM [facility] - Test 00:00:00 [code = DIABETIC EYE Medical Center EXAM] Future Scheduled 1974-02-[address] [facility] - Test 00:00:00 examination Medical Center (regime/therapy) [code = 123574418] Future Scheduled 1970-02-[address] [facility] - Test 00:00:00 2-64 YEARS AT RISK (1 Medica l Center of 3 - PCV13) [code = PNEUMOCOCCAL VACCINE 2-64 YEARS AT RISK (1 of 3 - PCV13)] Results Test Description Test Time Test Comments Results Result Sour e Comments CT, ABDOMEN, 2018-11-29 Esrd,on FINAL REPORT PATIENT WITHOUT 6 dialysis, ID: [id number] 11:16:00 awaiting kidney INDICATION:Indetermin transplant. ate right kidney See ultrasound lesion on ultrasound abd 12/07/18 performed before renal transplant. COMPARISON: Abdomen ultrasound December 07, 2018 TECHNIQUE: CT of the Abdomen WITHOUT and WITH intravenous contrast. Enteric contrast was not used. The exam was performed according to our department dose-optimization protocol, which includes automated exposure control, adjustments of mA and kV according to patient size. Iterative reconstructions are also sometimes employed. FINDINGS:There is no renal mass. In retrospect finding on ultrasound was artifact. The kidneys are slightly small with cortical thinning, in keeping with chronic kidney disease. No urinary stone or hydronephrosis. Liver, pancreas, spleen, adrenal glands, and visualized bowel loops unremarkable. Calcified plaque of the distal abdominal aorta and iliac arteries without aneurysm. Left lung base subsegmental atelectasis noted. No suspicious osseous lesion demonstrated. IMPRESSION: No renal mass. In retrospect, ultrasound finding was artifact. Slightly small kidneys with cortical thinning, in keeping with chronic kidney disease. Signed: Ottoniel Lee MDReport Verified Date/Time: 12/23/2018 11:16:06 Reading Location: [address] Body Reading Room abdomen 2018-11-29 Interface, External [facility] without & with 6 Ris In - 12/23/2018 [facility] - IV contrast 11:16:00 11:18 AM CDTFINAL Medica l REPORT PATIENT ID: Center [id number] INDICATION:Indetermin ate right kidney lesion on ultrasound performed before renal transplant. COMPARISON: Abdomen ultrasound December 07, 2018 TECHNIQUE: CT of the Abdomen WITHOUT and WITH intravenous contrast. Enteric contrast was not used. The exam was performed according to our department dose-optimization protocol, which includes automated exposure control, adjustments of mA and kV according to patient size. Iterative reconstructions are also sometimes employed. FINDINGS:There is no renal mass. In retrospect finding on ultrasound was artifact. The kidneys are slightly small with cortical thinning, in keeping with chronic kidney disease. No urinary stone or hydronephrosis. Liver, pancreas, spleen, adrenal glands, and visualized bowel loops unremarkable. Calcified plaque of the distal abdominal aorta and iliac arteries without aneurysm. Left lung base subsegmental atelectasis noted. No suspicious osseous lesion demonstrated. IMPRESSION: No renal mass. In retrospect, ultrasound finding was artifact. Slightly small kidneys with cortical thinning, in keeping with chronic kidney disease. 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 LV endocardium is adequately visualized with IV ultrasound enhancing agent. The left ventricle is chamber size (by vol index) is normal (male - LVED vol - 34-74ml/m2). Mild concentric LV hypertrophy. All of the LV segments contract normally . Grade 1 diastolic dysfunction (impaired relaxation and low-normal LA pressure). LVEF by Redmond's method of disk assessment is normal (55-60%) . Otherwise, essentially normal exam. Signature - - Findings Left Ventricle LV endocardium is adequately visualized with IV ultrasound enhancing agent. The left ventricle is chamber size (by vol index) is normal (male - LVED vol - 34-74ml/m2). Mild concentric LV hypertrophy. All of the LV segments contract normally . Grade 1 diastolic dysfunction (impaired relaxation and low-normal LA pressure). LVEF by Redmond's method of disk assessment is normal (55-60%) . Left Atrium LA size is moderately enlarged (42-48 ml/m2) . Right Ventricle Normal RV size and systolic function. Aortic Valve Mild AoV cusp thickening. AoV cusp mobility is normal . Mitral Valve Moderate mitral annular calcification. Trace mitral regurgitation. Tricuspid Valve Normal TV structure and function. Unable to estimate peak systolic PA pressure; inadequate TR velocity signal. Pulmonic Valve Normal PV structure and function. Aorta Aortic root size (SInus of Valsalva diameter) is normal . Pericardium No significant pericardial effusion is visualized. IVC/SVC/PA/PV/Pleural The estimated RA [...] Peak Gradient: 4.61 mmHg Mean Velocity: 0.8 m/s Mean Gradient: 2.77 mmHg LVOT Diameter: 2.36 cm LVOT VTI: 21.4 cm LVOT Area: 4.37 cm^2 LVOT SV:93.56 ml LVOT CO: 7.67 l/min LVOT CI: 4.19 l/min/m^2 U/S, ABDOMINAL, 2018-11-28 Reason for FINAL REPORT PATIENT COMPLETE 0 Exam:->pre ID: [id number] 15:46:00 transplant History: End-stage evaluation for renal disease. kidney Pretransplant transplant evaluation. Findings Correlation is made with patient's previous study performed May 06, 2016. Real-time sonographic examination of the abdomen reveals a normal-size liver measuring up to 12.8 cm in length. Hepatic echogenicity is normal. There are no sonographically detectable masses or focal intrahepatic The gallbladder is absent, consistent with prior cholecystectomy. There is no evidence for intra or extrahepatic biliary ductal dilatation. The common bile duct was not visualized. The portal vein measures 11 mm in diameter and appears patent by Limited color Doppler examination. The spleen is normal size and echogenicity measuring up to 11.3 cm in length. There are no focal splenic abnormalities. The right kidney is normal size measuring up to 9.5 x 4.3 x 5.1 cm in greatest dimensions. There is a focal area of heterogeneity in the midpole of the right kidney for which a mass cannot be completely excluded. This is a new finding since the previous study. Contrast-enhanced CT or MRI would be useful for further evaluation and characterization. The left kidney is normal size measuring up to 10.1 x 3.7 x 4.7 cm in greatest dimensions. Left renal echogenicity appears normal. There are no visible cysts, stones or evidence for obstruction. The pancreas is not well seen secondary to overlying bowel gas. Aorta and IVC are unremarkable where visible. No ascites or abdominal fluid collections. IMPRESSION: 1. Approximately 2.5 cm heterogeneously echogenic but ill-defined area in the midpole of the right kidney for which a renal mass cannot be completely excluded. This was not seen on the patient's prior examination. Contrast-enhanced CT or MRI would be useful for further evaluation. 2. Status post cholecystectomy. No acute biliary abnormalities. 3. Incomplete evaluation of the pancreas. Signed: José Jackson MDReport Verified Date/Time: 12/07/2018 15:46:25 Reading Location: [address] Radiology Reading Room abdomen 2018-11-28 Interface, External [facility] complete 0 Ris In - 12/07/2018 [facility] 15:46:00 3:48 PM CDTFINAL Medical REPORT PATIENT ID: Center [id number] History: End-stage renal disease. Pretransplant evaluation. Findings Correlation is made with patient's previous study performed May 06, 2016. Real-time sonographic examination of the abdomen reveals a normal-size liver measuring up to 12.8 cm in length. Hepatic echogenicity is normal. There are no sonographically detectable masses or focal intrahepatic The gallbladder is absent, consistent with prior cholecystectomy. There is no evidence for intra or extrahepatic biliary ductal dilatation. The common bile duct was not visualized. The portal vein measures 11 mm in diameter and appears patent by Limited color Doppler examination. The spleen is normal size and echogenicity measuring up to 11.3 cm in length. There are no focal splenic abnormalities. The right kidney is normal size measuring up to 9.5 x 4.3 x 5.1 cm in greatest dimensions. There is a focal area of heterogeneity in the midpole of the right kidney for which a mass cannot be completely excluded. This is a new finding since the previous study. Contrast-enhanced CT or MRI would be useful for further evaluation and characterization. The left kidney is normal size measuring up to 10.1 x 3.7 x 4.7 cm in greatest dimensions. Left renal echogenicity appears normal. There are no visible cysts, stones or evidence for obstruction. The pancreas is not well seen secondary to overlying bowel gas. Aorta and IVC are unremarkable where visible. No ascites or abdominal fluid collections. IMPRESSION: 1. Approximately 2.5 cm heterogeneously echogenic but ill-defined area in the midpole of the right kidney for which a renal mass cannot be completely excluded. This was not seen on the patient's prior examination. Contrast-enhanced CT or MRI would be useful for further evaluation. 2. Status post cholecystectomy. No acute biliary abnormalities. 3. Incomplete evaluation of the pancreas. Signed: José Jackson MDReport Verified Date/Time: 12/07/2018 15:46:25 Reading Location: [address] Radiology Reading Room UE EXAM 2017-08-29 Surgical Pathology 8 Report 19:11:00 Case: [id number] Authorizing Provider: Nuria Harrison MD Collected: 09/23/2017 0918 Ordering Location: [facility] Endoscopy Received: 09/23/2017 1144 Services Pathologist: Andrea Faust MD Specimen: Polyp, Colon - Left/Descending, taken via hot snare COLON, LEFT/DESCENDING, POLYPECTOMY- TUBULAR ADENOMA (MULTIPLE PIECES) Signing Pathologist Direct Phone Line: [phone] errol signed by Andrea Faust MD on 09/24/2017 at 7:11 [id number] for colon cancer Left descending colon polyp [...] 2017-09-23 07:55:00 Test Item Value Reference Range Interpretation Comme nts POC-POTASSIUM (BEAKER) (test code = 4.8 meq/L 3.6-5.5 TESTED AT [facility] [address] [facility] 1540) [facility] 7703 0 CYTOMEGALOVIRUS ANTIBODY, [id number] 08:36:00 Test Item Value Reference Range Interpretation Comments CYTOMEGALOVIRUS IGG ANTIBODY Negative (BEAKER) (test code = 790) CYTOMEGALOVIRUS ANTIBODY, [id number] 08:36:00 Test Item Value Reference Range Interpretation Comments CYTOMEGALOVIRUS IGM ANTIBODY Negative (BEAKER) (test code = 816) EBV-VCA ANTIBODY, [id number] 08:36:00 Test Item Value Reference Range Interpretation Comments LANETTE-CENTENO VCA IGG (BEAKER) (test Positive code = 983) EBV-VCA ANTIBODY, [id number] 08:36:00 Test Item Value Reference Range Interpretation Comments LANETTE-CENTENO VCA IGM (BEAKER) (test Positive code = 984) [id number] 02:48:00 Test Item Value Reference Range Interpretation Comments RPR SCREEN (BEAKER) (test code = Nonreactive Nonreactive 420) [id number] 15:45:00 Test Item Value Reference Range Interpretation Comments PROSTATE SPECIFIC ANTIGEN (BEAKER) 0.3 ng/mL 0.0-4.0 (test code = 844) HEPATITIS B SURFACE [id number] 15:43:00 Test Item Value Reference Range Interpretation Comments HEPATITIS B SURFACE ANTIGEN (2) Nonreactive Nonreactive (BEAKER) (test code = 2585) HEPATITIS B SURFACE [id number] 15:43:00 Test Item Value Reference Range Interpretation Comments HEPATITIS B SURFACE ANTIBODY 22.0 mIU/mL <8.0 H (BEAKER) (test code = 647) HEPATITIS B CORE ANTIBODY, [id number] 15:43:00 Test Item Value Reference Range Interpretation Comments HEPATITIS B CORE IGM ANTIBODY Nonreactive Nonreactive (BEAKER) (test code = 645) HEPATITIS C [id number] 15:43:00 Test Item Value Reference Range Interpretation Comments HEPATITIS C ANTIBODY (BEAKER) Nonreactive Nonreactive (test code = 367) HIV-1 ANTIGEN WITH HIV-1/2 [id number] 15:43:00 Test Item Value Reference Range Interpretation Comments HIV-1 ANTIGEN WITH HIV 1\\T\\2 Nonreactive Nonreactive ANTIBODY (2) (BEAKER) (test code = 2586) GAMMA GLUTAMYL TRANSFERASE (GGT)2017-09-01 15:21:00 Test Item Value Reference Range Interpretation Comments GAMMA GLUTAMYL TRANSFERASE (BEAKER) 53 U/L 9-64 (test code = 364) BASIC METABOLIC [id number] 11:03:00 Test Item Value Reference Range Interpretation Comments SODIUM (BEAKER) 140 meq/L 136-145 (test code = 381) POTASSIUM (BEAKER) 3.4 meq/L 3.5-5.1 L (test code = 379) CHLORIDE (BEAKER) 101 meq/L 98-107 (test code = 382) CO2 (BEAKER) (test 29 meq/L 22-29 code = 355) BLOOD UREA NITROGEN 26 mg/dL 7-21 H (BEAKER) (test code = 354) CREATININE (BEAKER) 5.09 mg/dL 0.57-1.25 H (test code = 358) GLUCOSE RANDOM 135 mg/dL 70-105 H (BEAKER) (test code = 652) CALCIUM (BEAKER) 8.8 mg/dL 8.4-10.2 (test code = 697) EGFR (BEAKER) (test 12 mL/min/1.73 ESTIMA JAKE GFR IS code = 1092) sq m NOT ACCURATE CREATININE CLEARANCE IN PREDICTING GLOMERULAR FILTRATION RATE . ESTIMATED GFR I S NOT APPLICABLE FOR DIALYSIS PATIEN TS. [id number] 10:46:00 Test Item Value Reference Range Interpretation Comments PROTIME (BEAKER) (test code = 13.9 seconds 11.7-14.7 759) INR (BEAKER) (test code = 370) 1.1 <=5.9 PARTIAL THROMBOPLASTIN TIME 36.1 seconds 22.5-36.0 H (BEAKER) (test code = 760) RECOMMENDED COUMADIN/WARFARIN INR THERAPY RANGESSTANDARD DOSE: 2.0 - 3.0 Includes: PROPHYLAXIS forvenous thrombosis, systemic embolization; TREATMENT for venous thrombosis and/or pulmonary embolus.HIGH RISK: Target INR is 2.5-3.5 for patients with mechanical heart valves.CBC W/PLT COUNT & AUTO DIFFERENTIAL 2017-01-13 10:36:00 Test Item Value Reference Range Interpretation Comments WHITE BLOOD CELL COUNT (BEAKER) 4.9 K/ L 3.5-10.5 (test code = 775) RED BLOOD CELL COUNT (BEAKER) 3.51 M/ L 4.63-6.08 L (test code = 761) HEMOGLOBIN (BEAKER) (test code = 11.3 GM/DL 13.7-17.5 L 410) HEMATOCRIT (BEAKER) (test code = 34.0 % 40.1-51.0 L 411) MEAN CORPUSCULAR VOLUME (BEAKER) 96.9 fL 79.0-92.2 H (test code = 753) MEAN CORPUSCULAR HEMOGLOBIN 32.2 pg 25.7-32.2 (BEAKER) (test code = 751) MEAN CORPUSCULAR HEMOGLOBIN CONC 33.2 GM/DL 32.3-36.5 (BEAKER) (test code = 752) RED CELL DISTRIBUTION WIDTH 13.8 % 11.6-14.4 (BEAKER) (test code = 412) PLATELET COUNT (BEAKER) (test 190 K/CU MM 150-450 code = 756) MEAN PLATELET VOLUME (BEAKER) 10.5 fL 9.4-12.4 (test code = 754) NUCLEATED RED BLOOD CELLS 0 /100 WBC 0-0 (BEAKER) (test code = 413) NEUTROPHILS RELATIVE PERCENT 55 % (BEAKER) (test code = 429) LYMPHOCYTES RELATIVE PERCENT 23 % (BEAKER) (test code = 430) MONOCYTES RELATIVE PERCENT 14 % (BEAKER) (test code = 431) EOSINOPHILS RELATIVE PERCENT 6 % (BEAKER) (test code = 432) BASOPHILS RELATIVE PERCENT 1 % (BEAKER) (test code = 437) NEUTROPHILS ABSOLUTE COUNT 2.69 K/ L 1.78-5.38 (BEAKER) (test code = 670) LYMPHOCYTES ABSOLUTE COUNT 1.14 K/ L 1.32-3.57 L (BEAKER) (test code = 414) MONOCYTES ABSOLUTE COUNT (BEAKER) 0.70 K/ L 0.30-0.82 (test code = 415) EOSINOPHILS ABSOLUTE COUNT 0.30 K/ L 0.04-0.54 (BEAKER) (test code = 416) BASOPHILS ABSOLUTE COUNT (BEAKER) 0.05 K/ L 0.01-0.08 (test code = 417) IMMATURE GRANULOCYTES-RELATIVE 0 % 0-1 PERCENT (BEAKER) (test code = 2801) FLOW PRA CLASS I AND [id number] 09:50:00 Test Item Value Reference Range Interpretation Comments DATE OF SERUM (BEAKER) [id number] (test code = 2289) SERUM # (BEAKER) (test 288551 code = 2290) FLOW PRA CLASS I AND II See Scanned Report (test code = 2421) HLA [id number] 13:18:00 Test Item Value Reference Range Interpretation Comments HLA RESULT (BEAKER) (test See Scanned Report code = 2311) HLA-A AG1 (BEAKER) (test code = 2521) HLA-A AG2 (BEAKER) (test code = 2522) HLA-B AG1 (BEAKER) (test code = 2523) HLA-B AG2 (BEAKER) (test code = 2524) HLA-C AG1 (BEAKER) (test code = 2525) HLA-C AG2 (BEAKER) (test code = 2526) HLA-DR AG1 (BEAKER) (test code = 2518) HLA-DR AG2 (BEAKER) (test code = 2519) HLA-DQ AG1 (BEAKER) (test code = 2514) HLA-DQ AG2 (BEAKER) (test code = 2515) HLA-DRW (BEAKER) (test code = 2583) OCCULT BLOOD, [id number] 16:23:00 Test Item Value Reference Range Interpretation Comments FECAL OCCULT BLOOD (BEAKER) (test Positive Negative A code = 618) OCCULT BLOOD, [id number] 16:14:00 Test Item Value Reference Range Interpretation Comments FECAL OCCULT BLOOD (BEAKER) (test Negative Negative code = 618) HEMOGLOBIN [id number] 15:13:00 Test Item Value Reference Range Interpretation Comments HEMOGLOBIN A1C (BEAKER) (test code = 7.1 % 4.3-6.1 H 368) GAMMA GLUTAMYL TRANSFERASE (GGT)2016-08-14 12:11:00 Test Item Value Reference Range Interpretation Comments GAMMA GLUTAMYL TRANSFERASE (BEAKER) 70 U/L 9-64 H (test code = 364) VARICELLA ZOSTER ANTIBODY, [id number] 17:30:00 Test Item Value Reference Range Interpretation Comments VARICELLA ZOSTER IGG (AL) (BEAKER) 6.3 Al (test code = 3197) VARICELLA ZOSTER RESULT INTERPRETATIONS: <=0.8 Al Nonreactive: Presumed non-immune to VZV 0.9-1.0 Al Equivocal >=1.1 Al Reactive: Presumed immune to VZV
[2019-09-11] MEDS ORDERED: MORPHINE 2 MG/ML SYR ONE (13:04)
[2019-09-11] MEDS ORDERED: ONDANSETRON 4 MG/2 ML VIAL ONE (13:04)
[2019-09-11] MEDS ORDERED: NA CHLORIDE 0.9% 1,000 ML ONE (13:04)
--- NOTE | 2019-09-11 13:07 | RAD REPORT ---
EXAM DESCRIPTION: RAD - Chest Single View - 09/11/2019 12:54 pm CLINICAL HISTORY: ABDOMINAL DISTENTION COMPARISON: Chest exam May 2018 TECHNIQUE: AP portable chest image was obtained 09/11/2019 12:54 pm . FINDINGS: Lung volumes are low compared to prior study. No acute lung parenchymal process. No failur e, infiltrate or mass. Heart and vasculature are normal. No measurable pleural effusion and no pneumo thorax. No acute bony abnormality seen. No acute aortic findings suspected. IMPRESSION: No acute cardiopulmonary process. No suspicious change from comparison.
[2019-09-11 13:23] LABS: Absolute Lymphocytes (CBC) 0.6 K/uL (0.7-4.9); Basophils % 0.4 % (0-1.3); Hematocrit 34.2 % (39.6-49.0); Lymphocytes % 6.2 % (15.3-44.8); MPV 8.2 fL (7.6-11.3)
[2019-09-11 13:43] LABS: ALT/SGPT 23 U/L (12-78); AST/SGOT 9 U/L (15-37); Albumin 3.8 g/dL (3.4-5.0); Alkaline Phosphatase 135 U/L (45-117); BUN Blood Urea Nitrogen 48 mg/dL (7-18); Bicarbonate 24 mmol/L (21-32); Bilirubin Direct 0.3 mg/dL (0-0.2); Bilirubin Total 0.9 mg/dL (0.2-1.0); Glucose Level 176 mg/dL (74-106); Lipase 179 U/L (73-393); Magnesium 2.5 mg/dL (1.8-2.4); NT PRO-BNP 818 pg/mL (<125); Potassium 4.2 mmol/L (3.5-5.1); Protein, Total 8.2 g/dL (6.4-8.2); Sodium Level 137 mmol/L (136-145); Troponin (Emerg Dept Use Only) < 0.02 ng/mL (0.0-0.045)
--- NOTE | 2019-09-11 16:08 | RAD REPORT ---
EXAM DESCRIPTION: CT - Abdomen Pelvis Wo Contrast - 09/11/2019 3:58 pm CLINICAL HISTORY: ABD PAIN COMPARISON: Stone Protocol dated 08/11/2018 TECHNIQUE: Axial [address] imaging of the abdomen and pelvis was performed without IV contrast. No IV contrast was given because of allergy, abnormal renal function, patient refusal or physician re quest. Oral contrast was given. All CT scans are performed using dose optimization technique as appropriate and may include automated exposure control or mA/KV adjustment according to patient size. FINDINGS: No suspicious findings in the lung bases. The liver, spleen and pancreas show no suspicious findings on non-contrast imaging. Gallbladder and b iliary tree are also without suspicious finding. Bilateral perinephric stranding pattern is seen similar to prior imaging. No right-sided hydronephros is. Patient has mild left-sided hydronephrosis extending down to the distal ureter. No obstructing or nonobstructing calculi are identifiable. No finding on noncontrast imaging to suspect a ureter mass. No stone in the bladder. No significant adrenal finding. Isodense renal masses and pyelonephritis c annot be excluded in the absence of IV contrast. No bladder wall thickening or mass. No dilated bowel loops or bowel wall thickening. No appendicitis findings. No acute GI process is jey ntifiable. No free air, free fluid or pneumatosis. No mass or bulky lymphadenopathy. Phleboliths are present. No suspicious bony findings. IMPRESSION: Mild left-sided hydronephrosis down to the distal ureter near the UVJ. No obstructing ca lculus in the ureter or bladder. Etiology for the hydronephrosis is not evident. Patient may have recently passed a stone. Blood, smal l mass or inflammatory debris in the ureter can cause a non calculus obstruction. Isodense masses and pyelonephritis are not excluded on noncontrast protocol imaging.
--- NOTE | 2019-09-11 16:53 | EDPHYS ---
Physician Documentation [facility] Name: Art Trinidad Jr Age: 54 yrs Sex: Male : 1965 Arrival Date: 09/11/2019 Time: 12:02 Bed 7 Private MD: ED Physician Edmund Moeller HPI: 09/10 12:39 This 54 yrs old Male presents to ER via Ambulatory with complaints of hero Abdominal Problem, Nausea/Vomiting, Weakness. 12:39 The patient presents to the emergency department with nausea, vomiting, abdominal pain, hero of the right lower quadrant and left lower quadrant. Onset: The symptoms/episode began/occurred 1 day(s) ago. Possible causes: unknown. The symptoms are aggravated by. Associated signs and symptoms: The patient has no apparent associated signs or symptoms. Severity of symptoms: At their worst the symptoms were mild in the emergency department the symptoms are unchanged. The patient has not experienced similar symptoms in the past. Historical: - Allergies: 12:21 No Known Allergies; iw - PMHx: 12:21 Diabetes - NIDDM; Dialysis; Hypertension; iw - Immunization history:: Adult Immunizations up to date. - Social history:: Smoking status: Patient denies any tobacco usage or history of. ROS: 12:40 Constitutional: Negative for fever, chills, and weight loss, Eyes: Negative for injury, hero pain, redness, and discharge, ENT: Negative for injury, pain, and discharge, Neck: Negative for injury, pain, and swelling, Cardiovascular: Negative for chest pain, palpitations, and edema, Respiratory: Negative for shortness of breath, cough, wheezing, and pleuritic chest pain, Back: Negative for injury and pain, : Negative for injury, bleeding, discharge, and swelling, MS/Extremity: Negative for injury and deformity, Skin: Negative for injury, rash, and discoloration, Neuro: Negative for headache, weakness, numbness, tingling, and seizure, Psych: Negative for depression, anxiety, suicide ideation, homicidal ideation, and hallucinations, Allergy/Immunology: Negative for hives, rash, and allergies, Endocrine: Negative for neck swelling, polydipsia, polyuria, polyphagia, and marked weight changes, Hematologic/Lymphatic: Negative for swollen nodes, abnormal bleeding, and unusual bruising. 12:40 Abdomen/GI: Positive for abdominal pain, nausea and vomiting, of the right lower quadrant and left lower quadrant. Exam: 12:40 Constitutional: This is a well developed, well nourished patient who is awake, alert, hero and in no acute distress. Head/Face: Normocephalic, atraumatic. Eyes: Pupils equal round and reactive to light, extra-ocular motions intact. Lids and lashes normal. Conjunctiva and sclera are non-icteric and not injected. Cornea within normal limits. Periorbital areas with no swelling, redness, or edema. ENT: Nares patent. No nasal discharge, no septal abnormalities noted. Tympanic membranes are normal and external auditory canals are clear. Oropharynx with no redness, swelling, or masses, exudates, or evidence of obstruction, uvula midline. Mucous membranes moist. Neck: Trachea midline, no thyromegaly or masses palpated, and no cervical lymphadenopathy. Supple, full range of motion without nuchal rigidity, or vertebral point tenderness. No Meningismus. Chest/axilla: Normal chest wall appearance and motion. Nontender with no deformity. No lesions are appreciated. Cardiovascular: Regular rate and rhythm with a normal S1 and S2. No gallops, murmurs, or rubs. Normal PMI, no JVD. No pulse deficits. Respiratory: Lungs have equal breath sounds bilaterally, clear to auscultation and percussion. No rales, rhonchi or wheezes noted. No increased work of breathing, no retractions or nasal flaring. Back: No spinal tenderness. No costovertebral tenderness. Full range of motion. Male : Normal genitalia with no discharge or lesions. Skin: Warm, dry with normal turgor. Normal color with no rashes, no lesions, and no evidence of cellulitis. MS/ Extremity: Pulses equal, no cyanosis. Neurovascular intact. Full, normal range of motion. Neuro: Awake and alert, GCS 15, oriented to person, place, time, and situation. Cranial nerves II-XII grossly intact. Motor strength 5/5 in all extremities. Sensory grossly intact. Cerebellar exam normal. Normal gait. Psych: Awake, alert, with orientation to person, place and time. Behavior, mood, and affect are within normal limits. 12:40 Abdomen/GI: Inspection: distension, Bowel sounds: normal, Palpation: mild abdominal tenderness, in the suprapubic area, left upper quadrant and left lower quadrant, Liver: no appreciated palpable abnormalities, Hernia: not appreciated. 12:59 ECG was reviewed by the Attending Physician. [facility] Vital Signs: 12:19 BP 165 / 87; Pulse 88; Resp 18; Temp 97.8; Pulse Ox 98% on R/A; iw 13:09 BP 168 / 84; Pulse 95; Resp 17; Pulse Ox 94% ; bp 13:58 BP 166 / 86; Pulse 95; Resp 16; Pulse Ox 98% ; bp 14:56 BP 162 / 84; Pulse 96; Resp 15; Pulse Ox 98% ; bp 16:07 BP 139 / 85; Pulse 95; Resp 13; Pulse Ox 97% ; bp 17:17 BP 141 / 82; Pulse 94; Resp 15; Pulse Ox 97% ; jl7 MDM: 12:32 Patient medically screened. hero 12:41 Differential diagnosis: Nonspecific abd pain, gastritis, pancreatitis, diverticulitis, hero viral gastroenteritis, gastroenteritis. Data interpreted: case monitor: rate is 88 beats/min, Pulse oximetry: on room air is 98 %. Test interpretation: by ED physician or midlevel provider: ECG, plain radiologic studies. Counseling: I had a detailed discussion with the patient and/or guardian regarding: the historical points, exam findings, and any diagnostic results supporting the discharge/admit diagnosis, the presence of at least one elevated blood pressure reading (>120/80) during this emergency department visit, lab results, radiology results. Medication response: Zofran markedly relieved the patient's nausea. 12:42 Data reviewed: vital signs, nurses notes, lab test result(s), EKG, radiologic studies, [facility] CT scan, plain films. 16:47 ED course: ct left hydronephrosis, mild , no stone see,, patient is without fever, non hero toxic. will cover with augmentin and follow up dr chapin and dr trevino. 09/10 12:39 Order name: Basic Metabolic Panel; Complete Time: 13:48 [facility] 09/10 12:39 Order name: CBC with Diff [facility] 09/10 12:39 Order name: LFT's; Complete Time: 13:48 [facility] 09/10 12:39 Order name: Magnesium; Complete Time: 13:48 [facility] 09/10 12:39 Order name: NT PRO-BNP; Complete Time: 13:48 [facility] 09/10 12:39 Order name: Troponin (emerg Dept Use Only); Complete Time: 13:48 [facility] 09/10 12:39 Order name: XRAY Chest (1 view); Complete Time: 13:08 [facility] 09/10 12:39 Order name: Lipase; Complete Time: 13:48 [facility] 09/10 15:58 Order name: Abdomen ; Complete Time: 16:13 EDMS 09/10 16:45 Order name: Urine Culture [facility] 09/10 16:48 Order name: Urine Dipstick--Ancillary (enter results) 09/10 12:39 Order name: EKG; Complete Time: 12:40 [facility] 09/10 12:39 Order name: Cardiac monitoring; Complete Time: 12:47 [facility] 09/10 12:39 Order name: EKG - Nurse/Tech; Complete Time: 12:47 [facility] 09/10 12:39 Order name: IV Saline Lock; Complete Time: 13:08 [facility] 09/10 12:39 Order name: Labs collected and sent; Complete Time: 13:08 [facility] 09/10 12:39 Order name: O2 Per Protocol; Complete Time: 12:46 [facility] 09/10 12:39 Order name: O2 Sat Monitoring; Complete Time: 12:46 [facility] 09/10 12:39 Order name: Urine Dipstick-Ancillary (obtain specimen); Complete Time: 16:38 [facility] EC:59 Rate is 98 beats/min. QRS [place] is Normal. [place] interval is normal. QRS interval is hero normal. QT interval is prolonged at 392 msec. No Q waves. T waves are Normal. No ST changes noted. Clinical impression: NSR w/ Non-specific ST/T Changes. Interpreted by me. Reviewed by me. Administered Medications: 13:05 Drug: NS 0.9% 1000 ml Route: IV; Rate: 75 ml/hr; Site: right forearm; bp 13:05 Drug: morphine 2 mg Route: IVP; Site: right forearm; bp 13:59 Follow up: Response: Pain is decreased bp 13:05 Drug: Zofran (Ondansetron) 4 mg Route: IVP; Site: right forearm; bp 13:59 Follow up: Response: Nausea is decreased bp 16:56 CANCELLED (Duplicate Order): Rocephin - (cefTRIAXone) 2 grams IVPB once over 30 mins; hero (mix in 100 mL NS) 17:09 Drug: Rocephin 1 grams Route: IV; Rate: per protocol; Site: right antecubital; [facility] 17:12 Follow up: Response: No adverse reaction; IV Status: Completed infusion [facility] 17:10 Drug: Flomax 0.4 mg Route: PO; [facility] 17:17 Follow up: Response: Medication administered at discharge. [facility] Disposition: 09/11/19 16:52 Discharged to Home. Impression: Vomiting, End stage renal disease - on hd, Hydronephrosis with ureteral stricture, not elsewhere classified - uvj, no stone seen, Abdominal tenderness - resolved. - Condition is Stable. - Discharge Instructions: Abdominal Pain, Adult, Kidney Stones, Kidney Stones, [id number], Nausea and Vomiting, Adult, Diyq-dx-Hbax, Abdominal Pain, Adult, Jegh-kv-Mqgb, Dialysis, Hydronephrosis, Dialysis Diet, Gptm-jj-Nqgp. - Prescriptions for Cipro 250 mg Oral Tablet - take 1 tablet by ORAL route every 12 hours; 4 tablet. Zofran 4 mg Oral Tablet - take 1 tablet by ORAL route every 12 hours As needed; 20 tablet. Flomax 0.4 mg Oral Capsule, Sust. Release 24 hr - take 1 capsule by ORAL route once daily 1/2 hour following the same meal each day; 14 capsule. - Medication Reconciliation Form, Thank You Letter, Antibiotic Education, Prescription Opioid Use form. - Follow up: Private Physician; When: 1 - 2 days; Reason: Recheck today's complaints, Continuance of care, Re-evaluation by your physician. Follow up: Veronica Baxter MD; When: Tomorrow; Reason: Recheck today's complaints, Continuance of care, Re-evaluation by your physician. Follow up: Madina Trevino MD; When: 1 - 2 days; Reason: Recheck today's complaints, Re-evaluation by your physician. - Problem is new. - Symptoms have improved. Signatures: Dispatcher [employer] EDEdmund Garcia MD MD cha Williams, Irene, LISA GONZALEZ iw Benny Page RN RN jl7 Royal Clark, LISA RN bp Corrections: (The following items were deleted from the chart) 15:58 12:40 Abdomen Pelvis W Con+CT.RAD.BRZ ordered. EDOH EDOH 16:56 16:45 Rocephin - (cefTRIAXone) 2 grams IVPB once over 30 mins; (mix in 100 mL NS) hero ordered. hero 17:18 16:52 09/11/2019 16:52 Discharged to Home. Impression: Vomiting; End stage renal jl7 disease - on hd; Hydronephrosis with ureteral stricture, not elsewhere classified - uvj, no stone seen; Abdominal tenderness - resolved. Condition is Stable. Forms are Medication Reconciliation Form, Thank You Letter, Antibiotic Education, Prescription Opioid Use. Follow up: Private Physician; When: 1 - 2 days; Reason: Recheck today's complaints, Continuance of care, Re-evaluation by your physician. Follow up: Veronica Baxter; When: Tomorrow; Reason: Recheck today's complaints, Continuance of care, Re-evaluation by your physician. Follow up: Madina Trevino; When: 1 - 2 days; Reason: Recheck today's complaints, Re-evaluation by your physician. Problem is new. Symptoms have improved. hero
--- NOTE | 2019-09-11 16:53 | ER ---
Nurse's Notes [facility] Name: Art Trinidad Jr Age: 54 yrs Sex: Male : 1965 Arrival Date: 09/11/2019 Time: 12:02 Bed 7 Private MD: Diagnosis: Vomiting;End stage renal disease-on hd;Hydronephrosis with ureteral stricture, not elsewhere classified-uvj, no stone seen;Abdominal tenderness-resolved Presentation: 09/10 12:19 Chief complaint: Patient states: lower abd pain this morning, took stool softener, had iw BM last night was normal, today had trouble going, also vomited 5 times, and feels tired and weak. Coronavirus screen: Proceed with normal triage. Patient denies a cough. Patient denies shortness of breath or difficulty breathing. Patient denies measured and/or subjective temperature greater than 100.4F prior to today's visit. Patient denies travel on a cruise ship or to a country the [facility] currently lists as an affected area. Patient denies contact with known and/or suspected case of COVID-19. Ebola Screen: Patient negative for fever greater than or equal to 101.5 degrees Fahrenheit, and additional compatible Ebola Virus Disease symptoms Patient denies exposure to infectious person. Patient denies travel to an Ebola-affected area in the 21 days before illness onset. No symptoms or risks identified at this time. Initial Sepsis Screen: Does the patient meet any 2 criteria? No. Patient's initial sepsis screen is negative. Does the patient have a suspected source of infection? No. Patient's initial sepsis screen is negative. Risk Assessment: Do you want to hurt yourself or someone else? Patient reports no desire to harm self or others. Onset of symptoms was September 11, 2019. 12:19 Method Of Arrival: Ambulatory iw 12:19 Acuity: DIVINA 3 iw Triage Assessment: 12:20 General: Appears in no apparent distress. uncomfortable, Behavior is cooperative, bp appropriate for age, anxious. Pain: Complains of pain in abdomen. EENT: No deficits noted. Neuro: No deficits noted. Cardiovascular: Rhythm is sinus rhythm. Respiratory: No deficits noted. GI: Reports lower abdominal pain, nausea, vomiting. : No signs and/or symptoms were reported regarding the genitourinary system. Derm: No deficits noted. Musculoskeletal: No deficits noted. Historical: - Allergies: 12:21 No Known Allergies; iw - PMHx: 12:21 Diabetes - NIDDM; Dialysis; Hypertension; iw - Immunization history:: Adult Immunizations up to date. - Social history:: Smoking status: Patient denies any tobacco usage or history of. Screenin:25 Abuse screen: Denies threats or abuse. Denies injuries from another. Nutritional bp screening: No deficits noted. Tuberculosis screening: No symptoms or risk factors identified. Fall Risk None identified. Assessment: 12:25 General: SEE TRIAGE NOTE. bp 13:09 Reassessment: PT DRINKING PO CONTRAST, MEDICATED FOR NAUSEA. bp 13:58 Reassessment: PO CONTRAST COMPLETED, CT NOTIFIED. bp 14:56 Reassessment: CT PENDING. VS STABLE, S/S LARGELY IMPROVED. bp 16:07 Reassessment: PT RETURNED FROM CT, ALL CURRENT ORDERS COMPLETED. bp Vital Signs: 12:19 BP 165 / 87; Pulse 88; Resp 18; Temp 97.8; Pulse Ox 98% on R/A; iw 13:09 BP 168 / 84; Pulse 95; Resp 17; Pulse Ox 94% ; bp 13:58 BP 166 / 86; Pulse 95; Resp 16; Pulse Ox 98% ; bp 14:56 BP 162 / 84; Pulse 96; Resp 15; Pulse Ox 98% ; bp 16:07 BP 139 / 85; Pulse 95; Resp 13; Pulse Ox 97% ; bp 17:17 BP 141 / 82; Pulse 94; Resp 15; Pulse Ox 97% ; jl7 ED Course: 12:02 Patient arrived in ED. ag5 12:20 Triage completed. iw 12:21 Royal Clark, RN is Primary Nurse. bp 12:25 Patient has correct armband on for positive identification. Bed in low position. Call bp light in reach. Side rails up X2. 12:30 Arm band placed on. bp 12:32 Edmund Moeller MD is Attending Physician. hero 12:54 XRAY Chest (1 view) In Process Unspecified. EDMS 12:58 Warm blanket given. radiation monitor on. Pulse ox on. NIBP on. mh5 12:58 EKG done, by ED staff, reviewed by Edmund Moeller MD. 5 13:05 Inserted saline lock: 20 gauge in right forearm, using aseptic technique. Blood bp collected. 15:58 CT completed. Patient tolerated procedure well. Patient moved back from CT. bq 15:59 Abdomen In Process Unspecified. EDMS 16:50 Veronica Baxter MD is Referral Physician. [facility] 16:50 Madina Trevino MD is Referral Physician. hero 17:17 No provider procedures requiring assistance completed. IV discontinued, intact, jl7 bleeding controlled, No redness/swelling at site. Pressure dressing applied. Administered Medications: 13:05 Drug: NS 0.9% 1000 ml Route: IV; Rate: 75 ml/hr; Site: right forearm; bp 13:05 Drug: morphine 2 mg Route: IVP; Site: right forearm; bp 13:59 Follow up: Response: Pain is decreased bp 13:05 Drug: Zofran (Ondansetron) 4 mg Route: IVP; Site: right forearm; bp 13:59 Follow up: Response: Nausea is decreased bp 16:56 CANCELLED (Duplicate Order): Rocephin - (cefTRIAXone) 2 grams IVPB once over 30 mins; hero (mix in 100 mL NS) 17:09 Drug: Rocephin 1 grams Route: IV; Rate: per protocol; Site: right antecubital; jl7 17:12 Follow up: Response: No adverse reaction; IV Status: Completed infusion jl7 17:10 Drug: Flomax 0.4 mg Route: PO; jl7 17:17 Follow up: Response: Medication administered at discharge. jl7 Outcome: 16:52 Discharge ordered by . hero 17:17 Discharged to home ambulatory. jl7 17:17 Condition: stable 17:17 Discharge instructions given to patient, Instructed on discharge instructions, follow up and referral plans. medication usage, Demonstrated understanding of instructions, follow-up care, medications, Prescriptions given X 3. 17:18 Patient left the ED. jl7 Signatures: Dispatcher [employer] EDMS Edmund Moeller MD MD cha Quilty, Betty bq Williams, Irene, Cherry Echavarria RN 5 Bneny Page RN RN jlRoyal Farfan RN RN Ariel Mart 5
[2019-09-11 17:00] LABS: Urine Blood 2+ (NEG); Urine Glucose TRACE (NEG); Urine Protein 3+ (NEG)
[2019-09-11] MEDS ORDERED: CEFTRIAXONE/SWI 1gm 1 GM/10 ML SYR ONE (17:17)
[2019-09-11] MEDS ORDERED: TAMSULOSIN 0.4 MG SR CAP ONE (17:17)
[2019-09-11 17:24] VITALS: TEMP 97.8
[2019-09-11 17:29] VITALS: O2SAT 97
[2019-09-11 17:30] VITALS: BP 141/82
[2019-09-11 18:03] LABS: Anisocytosis 1+; Blood Morphology Comment NOTED (NOT SEEN); Platelet Estimate ADEQ; Urine White Blood Cell Casts OK
[2019-09-11 18:04] LABS: Poikilocytosis 1+
== END 2019-09-11 17:18 | disposition home or self-care (01) ==
LOC: ER 12:01
DX: N13.1 Hydronephrosis with ureteral stricture, not elsewhere classified (principal); E11.22 Type 2 diabetes mellitus with diabetic chronic kidney disease; I12.0 Hypertensive chronic kidney disease with stage 5 chronic kidney disease or end stage renal disease; N18.6 End stage renal disease; Z99.2 Dependence on renal dialysis
CPT/HCPCS: 93005; 87088; 85025; 87086; 80048; 36415; 83735; 80076; 81003; 84484; 83690; 83880; 74176; 71045; 99285; J2270; J0696; J7030; J2405

== ENCOUNTER 2020-04-17 12:07 | Inpatient (IN) | payer MEDICARE, OTHER ==
--- OUTSIDE RECORDS SUMMARY | 2020-04-17 12:15 | XMS REPORT | Clinical Summary ---
:1965 Author Organization [facility] Address [address] [place] [address] Care Team Providers Name Role Phone Pcp, Primary Care Provider Unavailable Allergies No Known Allergies Medications Medication Sig Dispensed Refills Start Date End Date Status carvedilol Take 6.25 mg 0 Active (COREG) 6.25 MG by mouth 2 tablet (two) times daily with breakfast and dinner. atorvastatin Take 20 mg by 0 Act julián (LIPITOR) 20 MG mouth daily. tablet glipiZIDE Take 5 mg by 0 Active (GLUCOTROL) 5 MG mouth 2 (two) tablet times daily before meals. sevelamer Take 1,600 mg 0 Active (RENAGEL) 800 MG by mouth 2 tablet (two) times daily with breakfast and dinner. calcium carbonate Take 2 tablets 0 02 Discontinued (CALCIUM by mouth 2 0 (Alternat e CARBONATE) 300 mg (two) times therapy) Chew daily . 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, 10/21/2017 unspecified CKD stage, unspecified whether usp i nsulin use Pre-transplant evaluation for ESRD (end stage renal di sease) 01/13/2017 Encounters Date Type Specialty Care Team Description 01/10/2020 Evaluation Transplant Iglesia Redmond MD ESRD (end stage renal [place], disease) on jeff lysis Rianna Simmons MD ([facility]) (Prim chuck Dx) 01/10/2020 Hospital Encounter Cardiology Iglesia Redmond MD Pre-t ransplant evaluation for ESRD (end stage renal disease); Coronary artery disease involving yomba shoshone coronary artery of yomba shoshone heart without angina pectoris; Essential hyper tension 01/10/2020 Hospital Encounter Radiology Iglesia Redmond MD Pre-t ransplant evaluation for ESRD (end stage renal disease); Coronary artery disease involving yomba shoshone coronary artery of yomba shoshone heart without angina pectoris; Essential hyper tension 01/10/2020 Documentation Transplant Beatrice Del Cid RN 01/10/2020 Documentation Transplant Beatrice Del Cid RN 01/10/2020 Orders Only General Internal Medicine 01/09/2020 Telephone Transplant Chiqui Neely COVID-19 Pre screening 01/09/2020 Telephone Transplant Chiqui Neely COVID-19 Pre screening 01/09/2020 Documentation Transplant Chin Chiqui 01/05/2020 Social Work Transplant Hussein Rizvi LCSW 12/20/2019 Telephone Transplant Chiqui Neely Appointment 12/20/2019 Documentation Transplant Hussein Estrada 12/20/2019 Documentation Transplant Chin Chiqui 12/02/2019 Telephone Transplant Chin Chiqui Appointment 12/02/2019 Telephone Transplant Chin Chiqui Appointment 11/29/2019 Orders Only Transplant Galina Soriano, LISA Prostate ca ncer screening (Primary Dx); ESRD (end stage renal disease) on dialysis ([facility]); Awaiting transp lantation of kidney; Pre-transplant evaluation for chronic kidney disease 08/05/2019 Orders Only Cardiology Iglesai Redmond MD Pre-transpl ant evaluation for ESRD (end stage renal disease) (Primary Dx); Coronary artery disease involving yomba shoshone coronary artery of yomba shoshone heart without angina pectoris; Essential hyper tension 07/06/2019 Documentation Transplant Lor Neelyinda after 04/17/2019 Family History Medical History Relation Name Comments [...] Assigned at Date Recorded Not on file Last Filed Vital Signs Vital Sign Reading Time Taken Comments Blood Pressure 145/60 01/10/2020 12:49 PM CDT Pulse 88 01/10/2020 12:49 PM CDT Temperature 36.4 C (97.5 F) 01/10/2020 12:49 PM CDT Respiratory Rate 20 01/10/2020 12:49 PM CDT Oxygen Saturation - - Inhaled Oxygen Concentration - - Weight 80.8 kg (178 lb 3.2 oz) 01/10/2020 12:49 PM CDT Height 160 cm (5' 3") 01/10/2020 12:49 PM CDT Body Mass Index 31.57 01/10/2020 12:49 PM CDT Plan of Treatment Health Maintenance Due Date Last Done Comments PNEUMOCOCCAL VACCINE 0-64 YRS (1 of - 02/01/1970 PPSV23) DIABETIC EYE EXAM 02/01/1974 DIABETIC FOOT EXAM 02/01/1974 URINE MICROALBUMIN 02/01/1974 MEDICARE ANNUAL WELLNESS (YEAR 2 or FIRST 01/29/2017 YEAR if no IPPE) COLON CANCER SCREENING ANNUAL FOBT 08/14/2017 08/14/2016, 0 08/14/2016 HEMOGLOBIN A1C 10/21/2017 08/14/2016, 05/06/2016 LIPID PANEL 05/06/2019 05/06/2016 INFLUENZA VACCINE (#1) 2019 DEPRESSION SCREENING (12+) 03/30/2020 Procedures Procedure Name Priority Date/Time Associated Diagnosis Comme nts PSA Routine 01/10/2020 11:37 Prostate cancer Results for this AM CDT screening procedure are i n the results section. HC LAB HIV-1 AG Routine 01/10/2020 11:37 ESRD (end stage renal Results for this W/HIV-1&2 AB AM CDT disease) on dialysis procedu re are in ([facility]) the results Awaiting section. transplantation of kidney Pre-transplant evaluation for chronic kidney disease HEPATITIS C ANTIBODY Routine 01/10/2020 11:37 ESRD (end stage renal Results for this AM CDT disease) on dialysis procedu re are in ([facility]) the results Awaiting section. transplantation of kidney Pre-transplant evaluation for chronic kidney disease CYTOMEGALOVIRUS Routine 01/10/2020 11:37 ESRD (end stage renal Results for this ANTIBODY, IGG AM CDT disease) on dialysis proced ure are in ([facility]) the results Awaiting section. transplantation of kidney Pre-transplant evaluation for chronic kidney disease FLOW PRA CLASS II WITH Routine 01/10/2020 11:37 Awaiting R esults for this REFLEX TO ANTIBODY AM CDT transplantation of pro cedure are in SPECIFICITY kidney the results section. FLOW PRA CLASS I WITH Routine 01/10/2020 11:37 Awaiting Re sults for this REFLEX TO ANTIBODY AM CDT transplantation of pro cedure are in SPECIFICITY kidney the results section. 2D ECHO W/ DOPPLER Routine 01/10/2020 10:31 Pre-transplant Res ults for this (CW/PW/COLOR) AM CDT evaluation for ESRD procedu re are in (end stage renal the results disease) section. Coronary artery disease involving yomba shoshone coronary artery of yomba shoshone heart without angina pectoris Essential hypertension NM MYOCARDIAL Routine 01/10/2020 9:39 Pre-transplant Results for this PERFUSION PET/CT (REST AM CDT evaluation for ESR D procedure are in & STRESS) (end stage renal the results disease) section. Coronary artery disease involving yomba shoshone coronary artery of yomba shoshone heart without angina pectoris Essential hypertension TREADMILL Routine 01/10/2020 9:18 Results for this TOLERANCE(NON-NUCLEAR AM CDT proced ure are in TREADMILL) the results section. ECG 12-LEAD Routine 01/10/2020 9:11 Results for this AM CDT procedure are i n the results section. ECG 12-LEAD Routine 01/10/2020 9:11 AM CDT Procedure Note - Interface, External Ris In - 01/10/2020 9:30 AM CDT Ventricular Rate 84 BPM Atrial Rate 84 BPM P-R Interval 142 ms QRS Duration 96 ms Q-T Interval 414 ms QTC Calculation(Bazett) 489 ms P [place] 65 degrees R [place] 62 degrees T [place] 67 degrees Normal sinus rhythm Prolonged QT Abnormal ECG REPORT OF PROCEDURE - ENDOSCOPY 01/10/2020 Results for this procedure are in SCAN the results sec tion. after 04/17/2019 Results FLOW PRA CLASS II WITH REFLEX TO ANTIBODY SPECIFICITY (01/10/2020 11:37 AM CDT) Pathologist Sig nature Flow Class II Percent 4 [facility] HLA TESTING Positive Specimen Blood Performing Organization Address City/State/Zipcode Phone Number [facility] HLA TESTING ONE [facility] Fer, [place]: [place] [address] [id number], CLIA#[id number] CAP#[id number] UNOS#[id number] FLOW PRA CLASS I WITH REFLEX TO ANTIBODY SPECIFICITY (01/10/2020 11:37 AM CDT) Pathologist Sig nature Flow Class I Percent 0 [facility] HLA TESTING Positive Specimen Blood Performing Organization Address City/State/Zipcode Phone Number [facility] HLA TESTING ONE [place], [place]: [place] [address] [id number], CLIA#[id number] CAP#[id number] UNOS#[id number] HIV-1 Antigen with HIV-1/2 Antibody (01/10/2020 11:37 AM CDT) Pathologist Sig nature HIV-1 Antigen with Nonreactive Nonreactive [facility] HIV 1&2 Antibody [facility] Specimen Blood Narrative Performed At [employer] Registrar [facility] Performing Organization Address City/[facility] Phone Number [address] [address] [place] Hepatitis C antibody (01/10/2020 11:37 AM CDT) Pathologist Sig [facility] Hepatitis C Ab Nonreactive Nonreactive [facility] Specimen Blood Narrative Performed At [employer] Registrar [facility] Performing Organization Address City/[facility] Phone Number [facility] [address] [place] [address] [place] Cytomegalovirus antibody, IgG (01/10/2020 11:37 AM CDT) CYTOMEGALOVIRUS, Negative Negative, Equivocal [facility] Specimen Blood Narrative Performed At CMV IgG Result Interpretation: [facility] </= 0.8 Al Negative 0.9-1.0 Al Equivocal >/=1.1 Al Positive Performing Organization Address City/[facility] Phone Number [facility] [address] [place] [address] CENTER PSA (01/10/2020 11:37 AM CDT) Pathologist Sig nature PSA 0.3 0.0 - 4.0 ng/mL [facility] Specimen Blood Narrative Performed At [employer] Registrar ID - ROSIANG [facility] Performing Organization Address City/State/Zipcode Phone Number [facility] [address] [place] [address] CENTER 2D Echo W/Doppler(CW/PW/Color) (01/10/2020 10:31 AM CDT) Pathologist Sig nature Ejection Fraction [facility] ECHO [facility] Specimen Narrative Performed At Transthoracic Echocardiography Report (T TE) [facility] ECHO [facility] Demographics Patient Name ART TRINIDAD Date of Study 01/10/2020 SCOTT WELLER Gender Male Visit Number [id number] Race Room Number OP Number Date of 1965 Referring Ruy Parekh MD 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 Clinical History CAD, DM, ESRD, HTN s/P L Cath/angio (01/13/2017) Contrast Medium: Definity. Amount - 2 ml Height: 63 inches Weight: 66.68 kg (147 lbs) BSA: 1.7 m^2 BMI: 26.04 kg/m^2 HR: 85 bpm BP: 112/57 mmHg Summary Global LV systolic function normal . LV endocardium is adequately visualized with IV ultrasound enhancing agent. Mild concentric LV hypertrophy. Grade 1 diastolic dysfunction (impaired relaxation and low-normal LA pressure). LA size is moderately enlarged (42-48 m l/m2) . Moderate mitral annular calcification. Unable to estimate peak systolic PA pressure; inadequate TR velocity signal. The estimated RA pressure by IVC dynamics 5-10mmHg . Previous Study In comparison with the prior exam on 12/07/2018 there are no significant changes. Signature Findings Technical Quality: Technically adequate exam. Left Ventricle Global LV systolic function normal . LVEF by Redmond's method of disk assessment is normal (>60%) . Mild concentric LV hypertrophy. Grade 1 diastolic dysfunction (impaired relaxati on and low-normal LA pressure). The left ventricle is chamber size (by vol index) is normal (male - LVED vol - 34-74ml/m2). All of the LV segments contract normally . LV endocardium is adequately visualized with IV ultrasound enhancing agent. Left Atrium LA size is moderately enlarged (42-48 ml/m2) . Right Ventricle The right ventricular chamber size and systolic function are within normal limits. Right Atrium RA size is normal. Aortic Valve Mild AoV cusp thickening. Mitral Valve Moderate mitral annular calcification. Mild MV leaflet thickening. Tricuspid Valve TV structure is normal. Unable to estimate peak systolic PA pressure; inadequate TR velocity signal. Pulmonic Valve Normal PV structure appears normal by available view s. Aorta Aortic root size (SInus of Valsalva diameter) is norm al . Proximal ascending aorta size is normal . Pericardium No significant pericardial effusion is visualized. IVC/SVC/PA/PV/Pleural The estimated RA pressure by IVC dynamics 5-10mmHg . Chambers/Structures Left Atrium LA Volume: 72.15 ml LA Area: 18.38 cm^2 LA Vol. Index: 42 ml/m^2 Left Ventricle LVIDd: 4.67 cm LVEDV:98.46 ml LVIDs: 3.22 cm LVESV:27.61 ml LV Septum Diastolic: 1.27 cm LVEF 2D Cube: 72.1 % LV PW Diastolic: 1.25 cm LVEDV Redmond's:94.3 ml LV FS: 31.1 % LVESV Redmond's:24.7 ml LVEF Redmond's: 73.8 % LVEDVI: 55 ml/m^2 LVESVI: 15 ml/m^2 LVOT Diameter: 2.22 cm LVEF: 72 % Aorta Ascending Aorta: 2.67 cm Doppler/Quantitative Measurements Mitral Valve MV Peak E-Wave: 0.97 m/s MV Peak A-Wave: 1.1 m/s E/A Ratio: 0.88 Mean Velocity: 0.75 m/s Peak Gradient: 3.75 mmHg Mean Gradient: 2.6 mmHg Deceleration Time: 226.5 msec Area (continuity): 4.39 cm^2 MV VTI: 21.41 cm MV Ernie. Peak: 1.22 m/s Tissue Doppler E' Septal Velocity: 0.07 m/s E' Lateral Velocity: 0.09 m/s Aortic Valve Peak Velocity: 1.77 m/s Mean Velocity: 1.31 m/s Peak Gradient: 12.51 mmHg Mean Gradient: 7.78 mmHg AV Area (continuity): 2.28 cm^2 AV VTI: 41.26 cm AV DVI: 0.59 LVOT Peak Velocity: 1.17 m/s Peak Gradient: 5.47 mmHg Mean Velocity: 0.73 m/s Mean Gradient: 2.56 mmHg LVOT Diameter: 2.22 cm LVOT VTI: 24.31 cm LVOT Area: 3.87 cm^2 LVOT SV:94.05 ml LVOT CO: 7.99 l/min LVOT CI: 4.7 l/min/m^2 Procedure Note Interface, External Ris In - 01/10/2020 4:21 PM CDT Transthoracic Echocardiography Report (TTE) Demographics Patient Name ART TRINIDAD Date of Study 01/10/2020 SCOTT WELLER Gende r Male Visit Number [id number] Race Room Number OP Number Date of 1965 Refer ring Ruy grimm Age 54 year(s) Sonog rapheritika Stevenson, [facility] Inter preting MD Keisha Ruvalcaba Procedure Type of Study TTE procedure:2DECHO W DOPPLE R(CW/PW/COLOR) (Routine) Indications:Pre-surgical evaluation of o rgan transplant. Clinical History CAD, DM, ESRD, HTN s/P L Cath/angio (01/13/2017) Contrast Medium: Definity. Amount - 2 ml Height: 63 inches Weight: 66.68 kg (147 lbs) BSA: 1.7 m^2 BMI: 26.04 kg/m^2 HR: 85 bpm BP: 112/57 mmHg Summary Global LV systolic function normal . LV endocardium is adequately visualized with IV ultrasound enhancing agent. Mild concentric LV hypertrophy. Grade 1 diastolic dysfunction (impaired relaxation and low-normal LA pressure). LA size is moderately enlarged (42-48 m l/m2) . Moderate mitral annular calcification. Unable to estimate peak systolic PA pre ssure; inadequate TR velocity signal. The estimated RA pressure by IVC dynami cs 5-10mmHg . Previous Study In comparison with the prior exam on 12/2018 there are no significant changes. Signature Findings Technical Quality: Technically adequate exam. Left Ventricle Global LV systol ic function normal . LVEF by Redmond' s method of disk assessment is normal (>60%) . Mild concentric LV hypertrophy. Grade 1 diastoli c dysfunction (impaired relaxation and low-normal L A pressure). The left ventric le is chamber size (by vol index) is normal (male - LVED vol - 34-74ml/m2). All of the LV se gments contract normally . LV endocardium i s adequately visualized with IV ultrasound enhan cing agent. Left Atrium LA size is moder ately enlarged (42-48 ml/m2) . Right Ventricle The right ventri cular chamber size and systolic function are wit hin normal limits. Right Atrium RA size is sky l. Aortic Valve Mild AoV cusp th ickening. Mitral Valve Moderate mitral annular calcification. Mild MV leaflet thickening. Tricuspid Valve TV structure is normal. Unable to estima te peak systolic PA pressure; inadequate TR ve locity signal. Pulmonic Valve Normal PV struct ure appears normal by available views. Aorta Aortic root size (SInus of Valsalva diameter) is normal . Proximal ascendi ng aorta size is normal . Pericardium No significant p ericardial effusion is visualized. IVC/SVC/PA/PV/Pleural The estimated RA pressure by IVC dynamics 5-10mmHg . Chambers/Structures Left Atrium LA Volume: 72.15 ml LA Area: 18.38 cm^2 LA Vol. Index: 42 ml/m^2 Left Ventricle LVIDd: 4.67 cm LVEDV:98.46 ml LVIDs: 3.22 cm LVESV:27.61 ml LV Septum Diastolic: 1.27 cm LVEF 2D Cube: 72.1 % LV PW Diastolic: 1.25 cm LVEDV Redmond's:94.3 ml LV FS: 31.1 % LVESV Redmond's:24.7 ml LVEF Redmond's: 73.8 % LVEDVI: 55 ml/m^2 LVESVI: 15 ml/m^2 LVOT Diameter: 2.22 cm LVEF: 72 % Aorta Ascending Aorta: 2.67 cm Doppler/Quantitative Measurements Mitral Valve MV Peak E-Wave: 0.97 m/s M V Peak A-Wave: 1.1 m/s E /A Ratio: 0.88 Mean Velocity: 0.75 m/s P eak Gradient: 3.75 mmHg Mean Gradient: 2.6 mmHg D eceleration Time: 226.5 msec A kelsea (continuity): 4.39 cm^2 M V VTI: 21.41 cm MV Ernie. Peak: 1.22 m/s Tissue Doppler E' Septal Velocity: 0.07 m/s E' Lateral Velocity: 0.09 m/s Aortic Valve Peak Velocity: 1.77 m/s Mean Velocity: 1.31 m/s Peak Gradient: 12.51 mmHg Mean Gradient: 7.78 mmHg AV Area (continuity): 2.28 cm^2 AV VTI: 41.26 cm AV DVI: 0.59 LVOT Peak Velocity: 1.17 m/s Pea k Gradient: 5.47 mmHg Mean Velocity: 0.73 m/s Abbey n Gradient: 2.56 mmHg LVOT Diameter: 2.22 cm LVO T VTI: 24.31 cm LVOT Area: 3.87 cm^2 LVO T SV:94.05 ml LVOT CO: 7.99 l/min LVO T CI: 4.7 l/min/m^2 Performing Organization Address City/State/Zipcode Phone Number [facility] Myocardial Perfusion Pet/CT (Rest & Stress) (01/10/2020 9:39 AM CDT) Specimen Narrative Performed At FINAL REPORT [facility] PROCEDURE: MYOCARDIAL PERFUSION PET/CT I MAAME (Rest/Stress) CPT CODE: 25025 INDICATION: Pre-operative evaluation for renal transplant, history of CAD, risk stratification CARDIOVASCULAR PROFILE: CAD History: CAD Symptoms: Dyspnea Risk Factors: Diabetes, hypertension, hy perlipidemia, obesity BMI: 31.6 Medications: Atorvastatin, carvedilol STRESS PROTOCOL: Pharmacologic stress was achieved with a 10-second intravenous infusion of regadenoson 0.4 mg. The radi opharmaceutical was administered 30 seconds after the start of the regadenoson infusion. IMAGING PROTOCOL: Limited low-dose CT imaging was performe d for attenuation correction. 40.2 mCi of Rb-82 chloride was injected intravenously at rest, and gated PET images were obtained. Then, 40 .1 mCi of Rb-82 chloride was injected intravenously at peak stress, a nd gated PET images were obtained. Image quality is good. REST FINDINGS: HR: 83/min BP: 140/61 mmHg Prelim. EKG: Normal sinus rhythm. Perfusion: Normal. Wall Motion: Normal (LVEF 67%). LV Volume: Normal. STRESS FINDINGS: HR: 85/min (51% of MPHR) BP: 127/57 mmHg Prelim. EKG: No ischemic changes. Symptoms: None (treatment not required). Perfusion: Normal. Wall Motion: Normal (LVEF 69%). LV Volume: Not significantly changed fro m rest. IMPRESSION: 1. Normal study. 2. Normal myocardial perfusion. 3. Normal resting LVEF, which does not d eteriorate with pharmacologic stress. 4. Normal extracardiac tracer distributi on. 5. There is no prior study for compariso n. Signed: Ayan Ly MD Report Verified Date/Time: 01/10/2020 14:32:02 Reading Location: [address] Reading Room Procedure Note Interface, External Ris In - 01/10/2020 2:34 PM CDT FINAL REPORT PROCEDURE: MYOCARDIAL PERFUSION PET/CT Kymberly ISABEL (Rest/Stress) CPT CODE: 32144 INDICATION: Pre-operative evaluation for renal transplant, history of CAD, risk stratification CARDIOVASCULAR PROFILE: CAD History: CAD Symptoms: Dyspnea Risk Factors: Diabetes, hypertension, hy perlipidemia, obesity BMI: 31.6 Medications: Atorvastatin, carvedilol STRESS PROTOCOL: Pharmacologic stress was achieved with a 10-second intravenous infusion of regadenoson 0.4 mg. The radi opharmaceutical was administered 30 seconds after the start of the regadenoson infusion. IMAGING PROTOCOL: Limited low-dose CT imaging was performe d for attenuation correction. 40.2 mCi of Rb-82 chloride was injected intravenously at rest, and gated PET images were obtained. Then, 40 .1 mCi of Rb-82 chloride was injected intravenously at peak stress, a nd gated PET images were obtained. Image quality is good. REST FINDINGS: HR: 83/min BP: 140/61 mmHg Prelim. EKG: Normal sinus rhythm. Perfusion: Normal. Wall Motion: Normal (LVEF 67%). LV Volume: Normal. STRESS FINDINGS: HR: 85/min (51% of MPHR) BP: 127/57 mmHg Prelim. EKG: No ischemic changes. Symptoms: None (treatment not required). Perfusion: Normal. Wall Motion: Normal (LVEF 69%). LV Volume: Not significantly changed fro m rest. IMPRESSION: 1. Normal study. 2. Normal myocardial perfusion. 3. Normal resting LVEF, which does not d eteriorate with pharmacologic stress. 4. Normal extracardiac tracer distributi on. 5. There is no prior study for compariso n. Signed: Ayan Ly MD Report Verified Date/Time: 01/10/2020 1 4:32:02 Reading Location: [address] Reading Room Performing Organization Address City/State/Zipcode Phone Number GE RIS Treadmill tolerance(Non-Nuclear Treadmill) (01/10/2020 9:18 AM CDT) Specimen Narrative Performed At Protocol Name Janneth GE MUSE Time In Exercise Phase 00:01:00 Max. Systolic BP 127 mmHg Max Diastolic BP 57 mmHg Max Heart Rate 85 BPM Max Predicted Heart Rate 165 BPM Reason For Termination Predetermined end point Reason for Test CAD EVAL RENAL TRANSPLANT EVAL Target HR Formula (220 - Age)*100% Arrhythmias none Resting ECG Normal sinus rhythm ST Changes No Significant Changes Overall Impression Indeterminate due to pharmacological stress* Chest Pain none HR Response To Exercise BP Response To Exercise Atervastatin, Coreg Confirmed by fellow Minesh Howard ([id number]) on 01/10/2020 1:35:06 PM Confirmed by Ran Lovett [id number]) on 01/11/2020 5:19:04 PM Procedure Note Interface, External Ris In - 01/11/2020 5:19 PM CDT Protocol Name Regadenoson Time In Exercise Phase 00:01:00 Max. Systolic BP 127 mmHg Max Diastolic BP 57 mmHg Max Heart Rate 85 BPM Max Predicted Heart Rate 165 BPM Reason For Termination Predetermined end point Reason for Test CAD EVAL RENAL TRANSPLANT EVAL Target HR Formula (220 - Age)*100% Arrhythmias none Resting ECG Normal sinus rhythm ST Changes No Significant Changes Overall Impression Indeterminate due to pharmacological stress* Chest Pain none HR Response To Exercise BP Response To Exercise Atervastatin, Coreg Confirmed by fellow Minesh Howard ([id number]) on 01/10/2020 1:35:06 PM Confirmed by Ran Lovett [id number]) on 12/28 5:19:04 PM Performing Organization Address [place] Phone Number GE MUSE ECG 12 lead (01/10/2020 9:11 AM CDT) Specimen Narrative Performed At Ventricular Rate 84 BPM GE MUSE Atrial Rate 84 BPM P-R Interval 142 ms QRS Duration 96 ms Q-T Interval 414 ms QTC Calculation(Bazett) 489 ms P [place] 65 degrees R [place] 62 degrees T [place] 67 degrees Normal sinus rhythm RSR' pattern in V1 Prolonged QT Abnormal ECG 13 Jan 2017 R wave amplitude decreased in V2 Confirmed by MD XAVIER YOCHAI ([id number]) on 01/10/2020 1:35:53 PM Procedure Note Interface, External Ris In - 01/10/2020 1:36 PM CDT Ventricular Rate 84 BPM Atrial Rate 84 BPM P-R Interval 142 ms QRS Duration 96 ms Q-T Interval 414 ms QTC Calculation(Bazett) 489 ms P [place] 65 degrees R [place] 62 degrees T [place] 67 degrees Normal sinus rhythm RSR' pattern in V1 Prolonged QT Abnormal ECG 13 Jan 2017 R wave amplitude decreased in V2 Confirmed by MD XAVIER YOCHAI ([id number]) on 01/10/2020 1:35:53 PM Performing Organization Address City/State/Zipcode Phone Number GE MUSE EKG-SCANNED (01/10/2020) Narrative Performed At This result has an attachment that is no t available. Ordered by an unspecified provider. after 04/17/2019 Advance Directives For more information, please contact: [phone] Code Status Date Activated Date Inactivated Comments Full Code 01/13/2017 2:16 PM 01/13/2017 8:13 PM This code status was determined by: Patient Full Code 01/13/2017 8:44 AM 01/13/2017 2:16 PM This code status was determined by: Patient
--- OUTSIDE RECORDS SUMMARY | 2020-04-17 12:15 | XMS REPORT | Continuity of Care Document ---
:1965 Author Organization [facility] t Address [address] [place] [address] Care Team Providers Name Role Phone Pcp Primary Care Physician Unavailable Ruy BRODERICK Attending Clinician Halie BRODERICK SMadison Attending Clinician ANTONY ROBERTS Attending Clinician Unavailable Nehemias GONZALEZ Attending Clinician Unavailable Chin Attending Clinician Unavailable Dmitri FINNEY Attending Clinician Unavailable Natalie Attending Clinician Unavailable Bo GONZALEZ Attending Clinician Unavailable Guy HARRISON Attending Clinician Unavailable South LOAIZA Attending Clinician Unavailable RUY Attending Clinician Unavailable Guy HARRISON Admitting Clinician Unavailable RUY Admitting Clinician Unavailable Payers Payer Name Policy Type Policy Effective Date Expiration Date Sour ce Number MEDICAREMEDICARE A [id number] 2016 MACARIO Blanchard [id number] 2016- 00:00:00 - Medical PresentMedicare Center Problems Condition Condition Condition Status Onset Resolution Last Treating Co mments Source Name Details Category Date Date Treatment Clinician Date Coronary Coronary Disease Active MACARIO broussard artery artery 10-22 [place] - disease disease 00:00: Medical involving involving 00 [facility] with heart with angina angina pectoris, pectoris, unspecifie unspecifie d vessel d vessel or lesion or lesion type type Hypertensi Hypertensi Disease Active [facility], on, 10-21 [facility] unspecifie unspecifie 00:00: Me dical d type d type 00 Center ESRD (end ESRD (end Disease Active [facility] stage stage 7-25 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 - evaluation evaluation 00:00: Me dical for ESRD for ESRD 00 Center (end stage (end stage renal renal disease) disease) Allergies, Adverse Reactions, Alerts This patient has no known allergies or adverse reactions. Family History Family Member Diagnosis Comments Start Date Stop Date Source Natural father Heart disease [facility] Natural mother Diabetes [facility] Natural mother Hypertension [facility] Other Liver disease [facility] Natural sister Diabetes [facility] Social History Social Habit Start Date Stop Date Quantity Comments Source Sex Assigned At [facility] Tobacco use and 2020-01-10 2020-01-10 Never used [facility] - exposure 00:00:00 00:00:00 [facility] Alcohol intake 2020-01-10 2020-01-[address] [facility] - 00:00:00 00:00:00 non-drinker of Medical Ce nter alcohol (finding) Tobacco Comment 2017-09-15 2017-09-15 exposure to [facility] - 00:00:00 00:00:00 second hand Medical Cente r smoke. History of 1985-12-07 1987-12-08 Current smoker [facility] - tobacco use 00:00:00 00:00:00 Medical Cente r Smoking Status Start Date Stop Date Source Former smoker 2020-01-10 00:00:00 2020-01-10 00:00:00 [facility] Medications Ordered Filled Start Stop Current Ordering Indication Dosage Frequency Signature Comments Components Source Medication Medication Date Date Medication? Clinician (SIG) Name Name sevelamer 2019-03 Yes 1600mg Take 1,[address] (RENAGEL) 0-13 mg by [facility] - 800 MG 13:13: mouth 2 Medical tablet 47 (two) Center times daily with breakfast and dinner. calcium 2019-03 2020- No 2{tbl} Q.5D Take 2 [facility] carbonate 0-13 10-13 tablets by Dusty es - (CALCIUM 13:13: 00:00 mouth 2 Medic al CARBONATE) 02 :00 (two) Center 300 mg Chew times daily . carvedilol 2019-0 Yes 6.25mg Take 6.[address] (COREG) 9-10 mg by [facility] - 6.25 MG 14:30: mouth 2 Medical tablet 44 (two) Center times daily with breakfast and dinner. atorvastati 2019-0 Yes 20mg QD Take [address] n (LIPITOR) 9-10 by mouth Luke s - 20 MG 14:30: daily. Medical tablet 44 Center glipiZIDE 2019-0 Yes 5mg Take [address] (GLUCOTROL) 9-10 by mouth 2 Jacinta kes - 5 MG tablet 14:30: (two) Medic al 44 times Center daily before meals. Vital Signs Vital Name Observation Time Observation Value Comments Source Systolic blood 2020-01-10 12:49:00 145 mm[Hg] [facility] Diastolic blood 2020-01-10 12:49:00 60 mm[Hg] [facility] Heart rate 2020-01-10 12:49:00 88 /min [facility] Body temperature 2020-01-10 12:49:00 36.39 Roxane [facility] Respiratory rate 2020-01-10 12:49:00 20 /min [facility] Body height 2020-01-10 12:49:00 160 cm [facility] Body weight 2020-01-10 12:49:00 80.831 kg [facility] BMI 2020-01-10 12:49:00 31.57 kg/m2 [facility] Procedures Procedure Date / Time Performing Clinician Source Performed FLOW PRA CLASS I WITH 2020-01-10 11:37:[address] [facility] FLOW PRA CLASS II WITH 2020-01-10 11:37:[address] [facility] - REFLEX TO ANTIBODY Antony [facility] SPECIFICITY CYTOMEGALOVIRUS ANTIBODY, 2020-01-10 11:37:00 Rianna Ambrose [facility] - IGG [facility] HEPATITIS C ANTIBODY 2020-01-10 11:37:00 Rianna Ambrose [facility] HC LAB HIV-1 AG W/HIV-1&2 2020-01-10 11:37:00 Rianna Ambrose [facility] AB [facility] PSA 2020-01-10 11:37:00 Rianna Ambrose [facility] 2D ECHO W/ DOPPLER 2020-01-10 10:31:00 Iglesia Redmond [facility] k[facility] - (CW/PW/COLOR) [facility] NM MYOCARDIAL PERFUSION 2020-01-10 09:39:00 Iglesia Redmond [facility] - PET/CT (REST & STRESS) Medical C enter TREADMILL 2020-01-10 09:18:34 Unknown, Hl7 Doctor MACARIO Parkeres - TOLERANCE(NON-NUCLEAR Medical Ce nter TREADMILL) ECG 12-LEAD 2020-01-10 09:11:48 Unknown, Hl7 Doctor MACARIO Guerrero L ukes - [facility] REPORT OF PROCEDURE - 2020-01-10 00:00:00 Provider, Default [facility] St Workmankes - ENDOSCOPY SCAN Scanning [facility] Plan of Care Planned Activity Planned Date Details Comments Source Future Scheduled 2020-03-[address] [facility] - Test 00:00:00 (12+) [code = [facility] DEPRESSION SCREENING (12+)] Future Scheduled 2019-11-29 INFLUENZA VACCINE (#1) [facility] - Test 00:00:00 [code = INFLUENZA Medical Ce nter VACCINE (#1)] Future Scheduled 2019-05-[address] [facility] - Test 00:00:00 (procedure) [code = [facility] [id number]] Future Scheduled 2017-10-[address] Jacinta kes - Test 00:00:00 measurement [facility] (procedure) [code = [id number]] Future Scheduled 2017-08-[address] [facility] - Test 00:00:00 [facility] colon (procedure) [code = 444469275] Future Scheduled 2017-01-[address] [...] 00:00:00 examination Medical Center (regime/therapy) [code = 258235086] Future Scheduled 1974-02-01 Urine screening for [facility] - Test 00:00:00 protein (procedure) Medical Center [code = 218895556] Future Scheduled 1970-02-[address] [facility] - Test 00:00:00 0-64 YRS (1 of 1 - Medical C enter PPSV23) [code = PNEUMOCOCCAL VACCINE 0-64 YRS (1 of 1 - PPSV23)] Results Test Description Test Time Test Comments Results Result Sourc e Comments Treadmill 2019-12-29 Interface, External Ris C [facility] tolerance(Non-Nu 4 In - 01/11/2020 5:19 PM [facility] - clear Treadmill) 17:19:13 CDTProtocol Name Az azalia Regadenoson Time In Cente r Exercise Phase 00:01:00 Max. Systolic BP 127 mmHgMax Diastolic BP 57 mmHgMax Heart Rate 85 BPMMax Predicted Heart Rate 165 BPMReason For Termination Predetermined end point Reason for Test CAD EVAL RENAL TRANSPLANT EVALTarget HR Formula (220 - Age)*100% Arrhythmias none Resting ECG Normal sinus rhythm ST Changes No Significant Changes Overall Impression Indeterminate due to pharmacological stress* Chest Pain none HR Response To Exercise BP Response To Exercise Atervastatin, CoregConfirmed by fellow Minesh Gann ([id number]) on 01/10/2020 1:35:06 PMConfirmed by Ran Lovett ([id number]) on 01/11/2020 5:19:04 PM 2D Echo 2019-12-[address] W/Doppler(CW/PW/ 3 ECHO HEARTLAB MKCKESSON [facility] - Color) 16:21:40 CPACSInterface, External Medical Ris In - 01/10/2020 Cente r 4:21 PM CDTTransthoracic Echocardiography Report (TTE) Demographics Patient Name AMOS GUILLERMINA Date of Study 01/10/2020 SCOTT MORALESN [id number] Gender Male Visit Number [id number] Race Room Number OP Number Date of 1965 Referring Ruy Parekh MD Physician 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 Amount - 2 mlHeight: 63 inches Weight: 66.68 kg (147 lbs) BSA: 1.7 m^2 BMI: 26.04 kg/m^2HR: 85 bpm BP: 112/57 mmHg Summary Global LV systolic function normal . LV endocardium is adequately visualized with IV ultrasound enhancing agent. Mild concentric LV hypertrophy. Grade 1 diastolic dysfunction (impaired relaxation and low-normal LA pressure). LA size is moderately enlarged (42-48 ml/m2) . Moderate mitral annular calcification. Unable to [...] dysfunction (impaired relaxation and low-normal LA pressure). The left ventricle [...] Normal PV structure appears normal by available views. Aorta Aortic root size (SInus of Valsalva diameter) is normal . Proximal ascending aorta size is normal [...] CO: 7.99 l/min LVOT CI: 4.7 l/min/m^2 PET/CT, CARDIAC 2019-12-29 Reason for FINAL REPORT PATIENT ID: PERF REST AND 3 Exam:->renal [id number] PROCEDURE: STRESS 14:32:00 tx eval; cad MYOCARDIAL PERFUSION PET/CT IMAGING (Rest/Stress)CPT CODE: 84268 INDICATION: Pre-operative evaluation for renal transplant, history of CAD, risk stratification CARDIOVASCULAR PROFILE:CAD History: CADSymptoms: DyspneaRisk Factors: Diabetes, hypertension, hyperlipidemia, obesityBMI: 31.6Medications: Atorvastatin, carvedilol STRESS PROTOCOL:Pharmacologic stress was achieved with a 10-second intravenous infusion of regadenoson 0.4 mg. The radiopharmaceutical was administered 30 seconds after the start of the regadenoson infusion. IMAGING PROTOCOL:Limited low-dose CT imaging was performed for attenuation correction. 40.2 mCi of Rb-82 chloride was injected intravenously at rest, and gated PET images were obtained. Then, 40.1 mCi of Rb-82 chloride was injected intravenously at peak stress, and gated PET images were obtained. Image quality is good. REST FINDINGS:HR: 83/minBP: 140/61 mmHgPrelim. EKG: Normal sinus rhythm.Perfusion: Normal.Wall Motion: Normal (LVEF 67%).LV Volume: Normal. STRESS FINDINGS:HR: 85/min (51% of MPHR)BP: 127/57 mmHgPrelim. EKG: No ischemic changes.Symptoms: None (treatment not required).Perfusion: Normal.Wall Motion: Normal (LVEF 69%).LV Volume: Not significantly changed from rest. IMPRESSION:1. Normal study.2. Normal myocardial perfusion.3. Normal resting LVEF, which does not deteriorate with pharmacologic stress.4. Normal extracardiac tracer distribution.5. There is no prior study for comparison. Signed: Ayan Ly MDReport Verified Date/Time: 01/10/2020 14:32:02 Reading Location: [address] [facility] Reading Room Myocardial 2019-12-29 Interface, External Ris [facility] Perfusion Pet/CT 3 In - 01/10/2020 2:34 PM [facility] - (Rest & Stress) 14:32:00 CDTFINAL REPORT PATIENT Medical ID: [id number] Center PROCEDURE: MYOCARDIAL PERFUSION PET/CT IMAGING (Rest/Stress)CPT CODE: 59109 INDICATION: Pre-operative evaluation for renal transplant, history of CAD, risk stratification CARDIOVASCULAR PROFILE:CAD History: CADSymptoms: DyspneaRisk Factors: Diabetes, hypertension, hyperlipidemia, obesityBMI: 31.6Medications: Atorvastatin, carvedilol STRESS PROTOCOL:Pharmacologic stress was achieved with a 10-second intravenous infusion of regadenoson 0.4 mg. The radiopharmaceutical was administered 30 seconds after the start of the regadenoson infusion. IMAGING PROTOCOL:Limited low-dose CT imaging was performed for attenuation correction. 40.2 mCi of Rb-82 chloride was injected intravenously at rest, and gated PET images were obtained. Then, 40.1 mCi of Rb-82 chloride was injected intravenously at peak stress, and gated PET images were obtained. Image quality is good. REST FINDINGS:HR: 83/minBP: 140/61 mmHgPrelim. EKG: Normal sinus rhythm.Perfusion: Normal.Wall Motion: Normal (LVEF 67%).LV Volume: Normal. STRESS FINDINGS:HR: 85/min (51% of MPHR)BP: 127/57 mmHgPrelim. EKG: No ischemic changes.Symptoms: None (treatment not required).Perfusion: Normal.Wall Motion: Normal (LVEF 69%).LV Volume: Not significantly changed from rest. IMPRESSION:1. Normal study.2. Normal myocardial perfusion.3. Normal resting LVEF, which does not deteriorate with pharmacologic stress.4. Normal extracardiac tracer distribution.5. There is no prior study for comparison. Signed: Ayan Ly MDReport Verified Date/Time: 01/10/2020 14:32:02 Reading Location: [address] [facility] Med Reading Room MEGALOVIRUS ANTIBODY, IGG 2020-01-10 14:19:00 Test Item Value Reference Range Interpretation Comme nts CYTOMEGALOVIRUS, IGG (CLEMENTE) (test code = 3429) Negative Negat julián, Equivocal CMV IgG Result Interpretation: </= 0.8 Al Negative 0.9-1.0 Al Equivocal >/=1.1 Al PositiveECG 12 [id number] 13:35:58Interface, External Ris In - 01/10/2020 1:36 PM CDTVentricular Rate 84 BPMAtrial Rate 84 BPMP-R Interval 142 msQRS Duration 96 msQ-T Interval 414 msQTC Calculation(Bazett) 489 msP [place] 65 degreesR [place] 62 degreesT [place] 67 degreesNormal sinus rhythmRSR' pattern in D8Nzmpnyuvv QTAbnormal ECG13 Jan 2017R wave amplitude decreased in B6Gvrphtrow by MD DUC, [facility] ([id number]) on 01/10/2020 1:35:53 [facility] 13:20:00 Test Item Value Reference Range Interpretation Comments PROSTATE SPECIFIC ANTIGEN (CLEMENTE) 0.3 ng/mL 0.0-4.0 (test code = 844) Farm Crew Member ID - ROSIANGHEPATITIS C [id number] 13:20:00 Test Item Value Reference Range Interpretation Comments HEPATITIS C ANTIBODY (CLEMENTE) Nonreactive Nonreactive (test code = 367) Farm Crew Member ID - SAMANTHAGHIV-1 ANTIGEN WITH HIV-1/2 [id number] 13:20:00 Test Item Value Reference Range Interpretation Comments HIV-1 ANTIGEN WITH HIV 1\\T\\2 Nonreactive Nonreactive ANTIBODY (2) (CLEMENTE) (test code = 2586) Farm Crew Member ID - SAMANTHAGCT, ABDOMEN, [id number] 11:16:00Esrd,on dialysis, awaiting kidney transplant. See ultrasound abd 12/07/18FINAL REPORT INDICATION:Indeterminate right kidney lesion on ultrasound performed before renal transplant. COMPARISON: Abdomen ultrasound December 07, 2018 TECHNIQUE: CT of the Abdomen WITHOUT and WITH intravenous contrast. Enteric contrast was not used. The exam was performed according to our department dose- optimization protocol, which includes automated exposure control, adjustments [...] Slightly small kidneys with cortical thinning, in keepingwith chronic kidney disease. Signed: Ottoniel Lee MDReport Verified Date/Time: 12/23/2018 11:16:06 Reading Location: [facility] C013Y CT Body Reading Room U/S, ABDOMINAL, [id number] 15:46:00Reason for Exam:- >pre transplant evaluation for kidney transplantFINAL REPORT History: End-stage renal disease. Pretransplant evaluation. Findings Correlation is made with patient's previous study performed May 06, 2016. Real-time sonographic examination of the abdomen reveals a normal-size liver measuring up to 12.8 cm in length. Hepaticechogenicity is normal. There are no sonographically detectable masses or focal intrahepatic The gallbladder is absent, consistent with prior cholecystectomy. There is no evidence for intra or extrahepatic biliary ductal dilatation. The common bile duct was not visualized. The portal vein measures 11 mm in diameter and appears patent by Limited color Doppler examination. The spleen is normal size andechogenicity measuring up to 11.3 cm in length. There are no focal splenic abnormalities. The right kidney is normal size measuring up to 9.5 x 4.3 x 5.1 cm in greatest dimensions. There is a focal area of heterogeneity in the midpole of the right kidney for which a mass cannot be completely excluded.This is a new finding since the previous study. Contrast-enhanced CT or MRI would be useful for further evaluation and characterization. The left kidney is normal size measuring up to 10.1 x 3.7 x 4.7 cm in greatest dimensions. Left renal echogenicity appears normal. There are no visible cysts, stonesor evidence for obstruction. The pancreas is not [...] MDReport Verified Date/Time: 12/07/2018 15:46:25 Reading Location: [address] Radiology Reading Room TISSUE [id number] 19:11:00Surgical Pathology Report Case: [id number] Authorizing Provider: Nuria Harrison MD Collected: 09/23/2017 0918 Ordering Location: [facility] Endoscopy Received: 09/23/2017 1144 Services Pathologist: Andrea Faust MD Specimen: Polyp, Colon - Left/Descending, taken via hot snare COLON, LEFT/DESCENDING, POLYPECTOMY- TUBULAR ADENOMA (MULTIPLE PIECES) Signing Pathologist Direct Phone Line: [phone] signed by Andrea Faust MD on 09/24/2017 at 7:11 [id number] for colon cancer Left descending colon polyp The specimen is received in a formalin-filled container labeled with the patient's information and labeled "left descending colon polyp" and consists of a gann-red polyp measuring 0.5 cm in greatest dimension. The resection margin is inked blue. The specimen is bisected and submitted in A1. CG/ew There is no high grade dysplasia or carcinoma.[id number] 07:55:00 Test Item Value Reference Range Interpretation Comments POC-POTASSIUM 4.8 meq/L 3.6-5.5 TESTED AT [facility] C 6720 (BEANGÉLICA) (test code [facility] [address]31 = 1540) CYTOMEGALOVIRUS ANTIBODY, [id number] 08:36:00 Test Item Value Reference Range Interpretation Comments CYTOMEGALOVIRUS IGG ANTIBODY Negative (BEAKER) (test code = 790) CYTOMEGALOVIRUS ANTIBODY, [id number] 08:36:00 Test Item Value Reference Range Interpretation Comments CYTOMEGALOVIRUS IGM ANTIBODY Negative (BEAKER) (test code = 816) EBV-VCA ANTIBODY, [id number] 08:36:00 Test Item Value Reference Range Interpretation Comments LANETTE-CENTENO VCA IGG (BEAKER) (test Positive code = 983) EBV-VCA ANTIBODY, [id number] 08:36:00 Test Item Value Reference Range Interpretation Comments LANETTE-CENTENO VCA IGM (BEAKER) (test Positive code = 984) [id number] 02:48:00 Test Item Value Reference Range Interpretation Comments RPR SCREEN (BEAKER) (test code = Nonreactive Nonreactive 420) [id number] 15:45:00 Test Item Value Reference Range Interpretation Comments PROSTATE SPECIFIC ANTIGEN (BEAKER) 0.3 ng/mL 0.0-4.0 (test code = 844) HEPATITIS B SURFACE [id number] 15:43:00 Test Item Value Reference Range Interpretation Comments HEPATITIS B SURFACE ANTIGEN (2) Nonreactive Nonreactive (BEAKER) (test code = 2585) HEPATITIS B SURFACE [id number] 15:43:00 Test Item Value Reference Range Interpretation Comments HEPATITIS B SURFACE ANTIBODY 22.0 mIU/mL <8.0 H (BEAKER) (test code = 647) HEPATITIS B CORE ANTIBODY, [id number] 15:43:00 Test Item Value Reference Range Interpretation Comments HEPATITIS B CORE IGM ANTIBODY Nonreactive Nonreactive (BEAKER) (test code = 645) HEPATITIS C [id number] 15:43:00 Test Item Value Reference Range Interpretation Comments HEPATITIS C ANTIBODY (BEAKER) Nonreactive Nonreactive (test code = 367) HIV-1 ANTIGEN WITH HIV-1/2 [id number] 15:43:00 Test Item Value Reference Range Interpretation Comments HIV-1 ANTIGEN WITH HIV 1\\T\\2 Nonreactive Nonreactive ANTIBODY (2) (BEAKER) (test code = 2586) GAMMA GLUTAMYL TRANSFERASE (GGT)2017-09-01 15:21:00 Test Item Value Reference Range Interpretation Comments GAMMA GLUTAMYL TRANSFERASE (BEAKER) 53 U/L 9-64 (test code = 364) BASIC METABOLIC [id number] 11:03:00 Test Item Value Reference Range Interpretation [...] S NOT APPLICABLE FOR DIALYSIS PATIEN TS. [id number] 10:46:00 Test Item Value Reference Range Interpretation [...] = 2801) FLOW PRA CLASS I AND [id number] 09:50:00 Test Item Value Reference Range Interpretation Comments DATE OF SERUM (BEAKER) [id number] (test code = 2289) SERUM # (BEAKER) (test 963733 code = 2290) FLOW PRA CLASS I AND II See Scanned Report (test code = 2421) HLA [id number] 13:18:00 Test Item Value Reference Range Interpretation [...] (BEAKER) (test code = 2583) OCCULT BLOOD, [id number] 16:23:00 Test Item Value Reference Range Interpretation Comments FECAL OCCULT BLOOD (BEAKER) (test Positive Negative A code = 618) OCCULT BLOOD, [id number] 16:14:00 Test Item Value Reference Range Interpretation Comments FECAL OCCULT BLOOD (BEAKER) (test Negative Negative code = 618) HEMOGLOBIN [id number] 15:13:00 Test Item Value Reference Range Interpretation Comments HEMOGLOBIN A1C (BEAKER) (test code = 7.1 % 4.3-6.1 H 368) GAMMA GLUTAMYL TRANSFERASE (GGT)2016-08-14 12:11:00 Test Item Value Reference Range Interpretation Comments GAMMA GLUTAMYL TRANSFERASE (BEAKER) 70 U/L 9-64 H (test code = 364) VARICELLA ZOSTER ANTIBODY, [id number] 17:30:00 Test Item Value Reference Range Interpretation Comments VARICELLA ZOSTER IGG (AL) (BEAKER) 6.3 Al (test code = 3197) VARICELLA ZOSTER RESULT INTERPRETATIONS: <=0.8 Al Nonreactive: Presumed non-immune to VZV 0.9-1.0 Al Equivocal >=1.1 Al Reactive: Presumed immune to VZV
[2020-04-17 13:21] LABS: Absolute Lymphocytes (CBC) 0.6 K/uL (0.7-4.9); Basophils % 0.4 % (0-1.3); Hematocrit 28.9 % (39.6-49.0); Lymphocytes % 4.3 % (15.3-44.8); MPV 8.7 fL (7.6-11.3); RBC Red Blood Cell Count 2.94 M/uL (4.33-5.43)
[2020-04-17 13:35] LABS: Albumin 2.8 g/dL (3.4-5.0); Bilirubin Total 1.1 mg/dL (0.2-1.0); Potassium 3.4 mmol/L (3.5-5.1); Protein, Total 8.3 g/dL (6.4-8.2)
--- NOTE | 2020-04-17 13:39 | RAD REPORT ---
EXAM DESCRIPTION: RAD - Foot Right 3 View - 04/17/2020 12:59 pm CLINICAL HISTORY: pain, swelling COMPARISON: No comparisons FINDINGS: Soft tissue swelling is present in the distal third toe, site of known wound. Cortical dis ruption in bone loss changes are present in the third distal phalanx. The third middle and proximal p halanges are intact. IP joint space narrowing is seen with minimal spurring and no erosive change. Fi rst MTP joint space narrowing is present. Cortical bone loss changes present involving the base of th e first and second metatarsals and the medial and middle cuneiform bones. The lateral cuneiform third metatarsal joint space is narrowed with early lucent changes seen at the base of the third metatarsa l. Lateral view shows flattened plantar arch. Small plantar spur is present. Arterial tree calcificat ions are seen. No foreign body in the soft tissues. No air in the soft tissues. IMPRESSION: Osteomyelitis involving the third distal phalanx. No air in the soft tissues. Charcot joint changes involving extensively the first and second tarsal - metatarsal joint spaces wit h early changes developing in the third tarsal- metatarsal joint space.
--- NOTE | 2020-04-17 15:15 | EDPHYS ---
Physician Documentation [facility] [place] Name: Art Trinidad Jr Age: 55 yrs Sex: Male : 1965 Arrival Date: 04/17/2020 Time: 12:09 Bed 26 Private MD: ED Physician Edmund Moeller HPI: 04/17 12:56 This 55 yrs old Male presents to ER via Ambulatory with complaints of Foot jmm Pain, Wound Infection. 12:56 The patient presents with pain. Onset: The symptoms/episode began/occurred gradually. jmm Modifying factors: The symptoms are alleviated by nothing. the symptoms are aggravated by nothing. Associated signs and symptoms: Pertinent negatives fever. This is a 55 year old male with a history of DM, ESRD, HTN that presents to the ED with complaints of of swelling to the right 3rd toe beginning approx 3 week ago. Denies fever. . Historical: - Allergies: 12:22 No Known Allergies; aa5 - PMHx: 12:22 Diabetes - NIDDM; Dialysis; Hypertension; aa5 - PSHx: 12:22 L arm fistula; aa5 - Immunization history:: Adult Immunizations unknown. - Social history:: Smoking status: Patient denies any tobacco usage or history of. ROS: 12:56 Constitutional: Negative for fever, chills, and weight loss, Cardiovascular: Negative jmm for chest pain, palpitations, and edema, Respiratory: Negative for shortness of breath, cough, wheezing, and pleuritic chest pain. 12:56 MS/extremity: Positive for swelling. 12:56 All other systems are negative. Exam: 12:56 Constitutional: This is a well developed, well nourished patient who is awake, alert, jmm and in no acute distress. Head/Face: atraumatic. Eyes: EOMI, no conjunctival erythema appreciated ENT: Moist Mucus Membranes Neck: Trachea midline, Supple Chest/axilla: Normal chest wall appearance and motion. Cardiovascular: Regular rate and rhythm. No edema appreciated Respiratory: Normal respirations, no respiratory distress appreciated Abdomen/GI: Non distended, soft Back: Normal ROM Skin: General appearance color normal 12:56 Musculoskeletal/extremity: swelling noted to the right 3rd phalanx. Purulent drainage noted. 12:56 Skin: mild erythema noted to the right 3rd phalanx. 12:56 Neuro: Orientation: is normal, Mentation: is normal, Memory: is normal. 12:56 Psych: Behavior/mood is pleasant, cooperative. Vital Signs: 12:22 BP 119 / 69; Pulse 82; Resp 16; Temp 98.9(O); Pulse Ox 97% on R/A; Weight 73.94 kg (R); aa5 Height 5 ft. 3 in. (160.02 cm) (R); 13:50 BP 146 / 79; Pulse 85; Resp 16; Pulse Ox 99% on R/A; zb 14:52 BP 162 / 78; Pulse 81; Resp 16; Pulse Ox 100% on R/A; zb 15:50 BP 156 / 76; Pulse 82; Resp 18; Pulse Ox 98% on R/A; zb 16:30 BP 129 / 73; Pulse 81; Resp 16; Pulse Ox 99% on R/A; zb 17:30 BP 141 / 67; Pulse 83; Resp 16; Pulse Ox 98% on R/A; zb 18:30 BP 130 / 68; Pulse 81; Resp 16; Pulse Ox 99% ; zb 19:30 BP 132 / 72; Pulse 83; Resp 16; Pulse Ox 99% on R/A; zb 20:20 BP 132 / 59; Pulse 84; Resp 15; Pulse Ox 98% on R/A; zb 21:09 BP 132 / 65; Pulse 83; Resp 16; Pulse Ox 98% on R/A; zb 12:22 Body Mass Index 28.87 (73.94 kg, 160.02 cm) aa5 MDM: 12:36 Patient medically screened. [facility] 15:12 Data reviewed: vital signs, nurses notes. Counseling: I had a detailed discussion with [facility] the patient and/or guardian regarding: the historical points, exam findings, and any diagnostic results supporting the discharge/admit diagnosis, lab results, radiology results. ED course: I discussed the patient with Dr. Mackay and Dr. Liz whom accepted the admission. . 04/17 12:41 Order name: CBC with Diff; Complete Time: 17:18 [facility] 04/17 12:41 Order name: CMP; Complete Time: 13:49 [facility] 04/17 12:41 Order name: Procalcitonin; Complete Time: 13:49 [facility] 04/17 12:41 Order name: Lactate; Complete Time: 13:31 [facility] 04/17 12:51 Order name: Wound Culture [facility] 04/17 12:51 Order name: Blood Culture Adult (2) [facility] 04/17 12:41 Order name: Saline Lock; Complete Time: 13:11 [facility] 04/17 12:43 Order name: Foot Right 3 View XRAY; Complete Time: 13:49 [facility] 04/17 13:23 Order name: CBC Smear Scan; Complete Time: 17:18 [facility] 04/17 16:19 Order name: COVID-19 bd 04/17 18:18 Order name: CORONAVIRUS [facility] 04/17 19:12 Order name: SARS-COV-2 RT PCR; Complete Time: 19:16 EDMS Administered Medications: No medications were administered Disposition: 04/18 06:33 Co-signature as Attending Physician, Edmund Moeller MD I agree with the assessment and [facility] plan of care. Disposition: 04/17/20 15:14 Hospitalization ordered by Mike Liz for Inpatient Admission. Preliminary diagnosis is Osteomyelitis, unspecified. - Bed requested for Telemetry/MedSurg (Inpatient). - Status is Inpatient Admission. la1 - Condition is Stable. - Problem is new. - Symptoms are unchanged. Signatures: Dispatcher [employer] EDMS Julisa Newton Diana, RN Edmund Galeas MD MD cha Mickail, Joel, PA PA Bia Cortez RN RN aa5 Juaquin Avila, MANAGER USER INTERFACE-C MANAGER USER INTERFACE-Cla1 Corrections: (The following items were deleted from the chart) 04/17 18:54 15:14 Hospitalization Ordered by Mike Liz DO for Inpatient Admission. Preliminary bd diagnosis is Osteomyelitis, unspecified. Bed requested for Telemetry/MedSurg (Inpatient). Status is Inpatient Admission. Condition is Stable. Problem is new. Symptoms are unchanged. [facility] 20:10 18:54 04/17/2020 15:14 Hospitalization Ordered by Mike Liz DO for Inpatient dw Admission. Preliminary diagnosis is Osteomyelitis, unspecified. Bed requested for [facility] ER HOLD. Status is Inpatient Admission. Condition is Stable. Problem is new. Symptoms are unchanged. bd 22:28 20:10 04/17/2020 15:14 Hospitalization Ordered by Mike Liz DO for Inpatient la1 Admission. Preliminary diagnosis is Osteomyelitis, unspecified. Bed requested for Telemetry/MedSurg (Inpatient). Status is Inpatient Admission. Condition is Stable. Problem is new. Symptoms are unchanged. dw
--- NOTE | 2020-04-17 15:15 | ER ---
Nurse's Notes [facility] Name: Art Trinidad Jr Age: 55 yrs Sex: Male : 1965 Arrival Date: 04/17/2020 Time: 12:09 Bed 26 Private MD: Diagnosis: Osteomyelitis, unspecified Presentation: 04/17 12:20 Chief complaint: Patient states: wound to right foot x 3 weeks ago and getting worse. aa5 Pt c/o pain to right foot. Coronavirus screen: Client denies travel out of the [place] in the last 14 days. At this time, the client does not indicate any symptoms associated with coronavirus-19. Ebola Screen: Patient negative for fever greater than or equal to 101.5 degrees Fahrenheit, and additional compatible Ebola Virus Disease symptoms. Initial Sepsis Screen: Does the patient meet any 2 criteria? No. Patient's initial sepsis screen is negative. Does the patient have a suspected source of infection? No. Patient's initial sepsis screen is negative. Risk Assessment: Do you want to hurt yourself or someone else? Patient reports no desire to harm self or others. Onset of symptoms was March 2020. 12:20 Acuity: DIVINA 3 aa5 12:20 Method Of Arrival: Ambulatory aa5 Historical: - Allergies: 12:22 No Known Allergies; aa5 - PMHx: 12:22 Diabetes - NIDDM; Dialysis; Hypertension; aa5 - PSHx: 12:22 L arm fistula; aa5 - Immunization history:: Adult Immunizations unknown. - Social history:: Smoking status: Patient denies any tobacco usage or history of. Screenin:43 Abuse screen: Denies threats or abuse. Denies injuries from another. Nutritional zb screening: No deficits noted. Tuberculosis screening: No symptoms or risk factors identified. Fall Risk No fall in past 12 months (0 pts). Secondary diagnosis (15 points) impaired mobility, IV access (20 points). Ambulatory Aid- None/Bed Rest/Nurse Assist (0 pts). Gait- Impaired (20 pts.). Mental Status- Oriented to own ability (0 pts). Total Renteria Fall Scale indicates High Risk Score (45 or more points). Fall prevention measures have been instituted. Side Rails Up X 2 Placed Close to Nursing Station Frequent Obs/Assessments Occuring As available patient and family educated on Fall Prevention Program and Strategies. Assessment: 12:39 General: Appears in no apparent distress. uncomfortable, Behavior is calm, cooperative, zb appropriate for age, Denies fever, feeling ill, chills. Pain: Complains of pain in instep of right foot, arch of right foot and dorsum of right foot Pain does not radiate. Pain currently is 8 out of 10 on a pain scale. Quality of pain is described as pressure, piercing, Pain began about three weeks ago Aggravated by repositioning, weight bearing. Neuro: Level of Consciousness is awake, alert, obeys commands, Oriented to person, place, time, situation. Cardiovascular: Capillary refill < 3 seconds in bilateral fingers Patient's skin is warm and dry. Edema is 2+ to right foot. Respiratory: Airway is patent Respiratory effort is even, unlabored, Respiratory pattern is regular, symmetrical, Breath sounds are clear bilaterally. GI: Abdomen is round non-distended, Bowel sounds present X 4 quads. : No signs and/or symptoms were reported regarding the genitourinary system. EENT: No signs and/or symptoms were reported regarding the EENT system. Derm: Skin is dry, Skin is normal, Skin temperature is warm Wound noted plantar aspect of right third toe and Right third toenail Wound is eschar and purulent drainage present at the bottom of 3rd digit. area is swollen, hot to touch, and bruised. Bruising that is dark purple, on dorsum of right foot. Musculoskeletal: Swelling present in right foot, right ankle and lateral aspect of right foot. 13:30 Reassessment: Patient appears in no apparent distress at this time. Patient and/or zb family updated on plan of care and expected duration. Pain level reassessed. Patient is alert, oriented x 3, equal unlabored respirations, skin warm/dry/pink. light dimmed. patient appears to have eyes closed. no c/o at this time. 14:30 Reassessment: Patient appears in no apparent distress at this time. Patient and/or zb family updated on plan of care and expected duration. Pain level reassessed. Patient is alert, oriented x 3, equal unlabored respirations, skin warm/dry/pink. light dimmed patient appears to be asleep. 14:52 Reassessment: ECP at bedside discussing POC. zb 15:48 Reassessment: Patient appears in no apparent distress at this time. Patient and/or zb family updated on plan of care and expected duration. Pain level reassessed. Patient is alert, oriented x 3, equal unlabored respirations, skin warm/dry/pink. patient lying down. no c/o of pain at this time. 16:42 Reassessment: Patient appears in no apparent distress at this time. Patient and/or zb family updated on plan of care and expected duration. Pain level reassessed. Patient is alert, oriented x 3, equal unlabored respirations, skin warm/dry/pink. 17:30 Reassessment: Patient appears in no apparent distress at this time. Patient and/or zb family updated on plan of care and expected duration. Pain level reassessed. Patient is alert, oriented x 3, equal unlabored respirations, skin warm/dry/pink. no c/o at this time. 18:30 Reassessment: Patient appears in no apparent distress at this time. Patient and/or zb family updated on plan of care and expected duration. Pain level reassessed. Patient is alert, oriented x 3, equal unlabored respirations, skin warm/dry/pink. pt denies pain at this. nothing needed. 19:30 Reassessment: Patient appears in no apparent distress at this time. Patient and/or zb family updated on plan of care and expected duration. Pain level reassessed. Patient is alert, oriented x 3, equal unlabored respirations, skin warm/dry/pink. pt eating food from family. aware that he is to be NPO at midnight. 20:00 Reassessment: Patient appears in no apparent distress at this time. Patient and/or zb family updated on plan of care and expected duration. Pain level reassessed. Patient is alert, oriented x 3, equal unlabored respirations, skin warm/dry/pink. advised pt that he tested POSITIVE for covid. 21:08 Reassessment: Patient appears in no apparent distress at this time. Patient and/or zb family updated on plan of care and expected duration. Pain level reassessed. Patient is alert, oriented x 3, equal unlabored respirations, skin warm/dry/pink. no changes at this time. notified patient that I have called report to his nurse LISA Guardado on 4th floor. Vital Signs: 12:22 BP 119 / 69; Pulse 82; Resp 16; Temp 98.9(O); Pulse Ox 97% on R/A; Weight 73.94 kg (R); aa5 Height 5 ft. 3 in. (160.02 cm) (R); 13:50 BP 146 / 79; Pulse 85; Resp 16; Pulse Ox 99% on R/A; zb 14:52 BP 162 / 78; Pulse 81; Resp 16; Pulse Ox 100% on R/A; zb 15:50 BP 156 / 76; Pulse 82; Resp 18; Pulse Ox 98% on R/A; zb 16:30 BP 129 / 73; Pulse 81; Resp 16; Pulse Ox 99% on R/A; zb 17:30 BP 141 / 67; Pulse 83; Resp 16; Pulse Ox 98% on R/A; zb 18:30 BP 130 / 68; Pulse 81; Resp 16; Pulse Ox 99% ; zb 19:30 BP 132 / 72; Pulse 83; Resp 16; Pulse Ox 99% on R/A; zb 20:20 BP 132 / 59; Pulse 84; Resp 15; Pulse Ox 98% on R/A; zb 21:09 BP 132 / 65; Pulse 83; Resp 16; Pulse Ox 98% on R/A; zb 12:22 Body Mass Index 28.87 (73.94 kg, 160.02 cm) aa5 ED Course: 12:09 Patient arrived in ED. ag5 12:20 Arm band placed on. aa5 12:21 Triage completed. aa5 12:32 Isiah Varma PA is PHCP. jmm 12:32 Edmund Moeller MD is Attending Physician. jmm 12:38 Nelida Chavez RN is Primary Nurse. zb 12:44 Patient has correct armband on for positive identification. Bed in low position. Call zb light in reach. Pulse ox on. NIBP on. Door closed. Warm blanket given. 12:59 Foot Right 3 View XRAY In Process Unspecified. EDMS 13:10 Inserted saline lock: 20 gauge in right antecubital area, using aseptic technique. dh4 Blood collected. 13:11 Wound Culture Sent. 4 15:13 Mike Liz DO is Hospitalizing Provider. [facility] 21:16 No provider procedures requiring assistance completed. Patient admitted, IV remains in zb place. Administered Medications: No medications were administered Outcome: 15:14 Decision to Hospitalize by Provider. makayla 21:16 Admitted to Med/surg accompanied by nurse, via wheelchair, room 405, with chart, Report zb called to LISA Guardado 21:16 Condition: stable 21:16 Instructed on the need for admit. 22:28 Patient left the ED. la1 Signatures: Dispatcher [employer] EDMS Isiah Varma PA PA jmm Calderon, Audri, RN RN aa5 Juaquin Avila, WHITE WASHER PILER-C WHITE WASHER PILER-Cla1 Ariel Arriaga 5 Juan Alberto Espinosa 4 Nelida Chavez RN RN zb
--- NOTE | 2020-04-17 16:06 | P.HP ---
Certification for Inpatient Patient admitted to: Inpatient With expected LOS: >2 Midnights Patient will require the following post-hospital care: Home Health Services Practitioner: I am a practitioner with admitting privileges, knowledge of patient current condition, hospital course, and medical plan of care. Services: Services provided to patient in accordance with Admission requirements found in Title 42 Section 412.3 of the Code of Federal Regulations Patient History Date of Service: 04/17/20 Primary Care Provider: none; Nephrology-Dr. Baxter Reason for admission: Right 3rd toe infection History of Present Illness: 55-year-old male with history of hypertension, diabetes mellitus type 2, hyperlipidemia, and end-stage renal disease on hemodialysis. Patient presented to the ER with right 3rd toe swelling, pain. Patient developed an infection over several days. He has been trying to treat this at home. He has reported some neuropathy. Patient denies any significant fever, chills. Patient had increasing pain with drainage. He came to the ER for further evaluation. In the ER patient was evaluated. Vital signs stable. White count 13.7, procalcitonin 4.07 with a lactic acid that was normal. Hemoglobin 9.7. Platelet count 252. Sodium 135, potassium 3.4, BUN of 5, creatinine 8.91 with a GFR of 6. Glucose 112. X-ray shows osteomyelitis of the right 3rd distal toe. Patient was admitted for further evaluation and treatment. ER physician spoke to surgery. When I saw the patient ER, patient appeared stable. Patient reports no prior history of foot surgeries. Allergies No Known Drug Allergies Allergy (Verified 11/12/15 14:52) Unknown No Known Allergies Allergy (Uncoded 11/12/15 14:47) Unknown Home medications list reviewed: Yes Home Medications: Calcium Carbonate 1,000 mg PO BID 08/12/18 Clonidine HCl [Catapres] 0.1 mg PO BID 08/12/18 - Past Medical/Surgical History Diabetic: Yes -: Diabetes mellitus type 2 [id number] -: Hypertension -: End-stage renal disease on hemodialysis -: GERD -: Hyperlipidemia -: Cholecystectomy -: Appendectomy -: cysts removal from back of neck Psychosocial/ Personal History: He is . He has 2 children. 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 - Family History Father -: Heart disease, Hypertension, Diabetes Mother -: Diabetes Sister -: Hypertension - Social History Smoking Status: Never smoker Alcohol use: Yes CD- Drugs: No Caffeine use: Yes Place of Residence: Home Review of Systems General: As per HPI Eyes: Unremarkable ENT: Unremarkable Respiratory: Unremarkable Cardiovascular: Unremarkable Gastrointestinal: Unremarkable Genitourinary: Unremarkable Musculoskeletal: Foot Pain, As per HPI Integumentary: As per HPI Neurological: Unremarkable Lymphatics: Unremarkable Physical Examination - Physical Exam General: Alert, In no apparent distress, Oriented x3, Cooperative HEENT: Atraumatic, Normocephalic, Mucous membr. moist/pink Neck: Supple Respiratory: Clear to auscultation bilaterally, Normal air movement Cardiovascular: Normal pulses, Regular rate/rhythm Gastrointestinal: Normal bowel sounds, Soft and benign, Non-distended, No tenderness, No masses, No rebound, No guarding Musculoskeletal: Other (Mild erythema noted to the right distal 3rd toe. Some necrosis and drainage noted. Swelling noted to the 3rd toe noted. Some swelling also noted to the dorsal aspect of the right foot.) Neurological: Normal speech, Normal strength at 5/5 x4 extr, Normal tone, Normal affect - Studies Laboratory Data (last 24 hrs) 04/17/20 13:05: Sodium 135 L, Potassium 3.4 L, BUN 51 H, Creatinine 8.91 H*, Glucose 152 H, Total Bilirubin 1.1 H, AST 21, ALT 28, Alkaline Phosphatase 145 H 04/17/20 13:05: WBC 13.7 H, Hgb 9.7 L, Hct 28.9 L, Plt Count 252 Assessment and Plan - Plan Impression: Right distal 3rd toe osteomyelitis with cellulitis of the foot Diabetes mellitus type 2 [id number] End-stage renal disease on hemodialysis Hypertension Hyperlipidemia Anemia of chronic disease Plan: Right distal 3rd toe osteomyelitis with cellulitis of the foot: Patient will be admitted for further evaluation and treatment. Will start IV vancomycin and cefepime. Blood cultures obtained. Surgery has been consulted. Surgery has evaluated patient. Surgery is planning for surgical intervention tomorrow. Patient may require partial amputation of the distal 3rd toe. Will continue monitor closely. Will also consult nephrology as the patient will require dialysis. Patient goes to dialysis every Thursday, Thursday and Thursday. Pharmacy consulted to further adjust medication. Will restart home medication. Will continue monitor closely. Will provide DVT prophylaxis. Anticipate improvement over the next 3-5 days Diabetes mellitus type 2 [id number]: Will check A1c. Monitor Accu- Cheks sliding scale. End-stage renal disease on hemodialysis: Nephrology consulted to continue dialysis. Hypertension: Restart home medication of carvedilol Hyperlipidemia: Restart home medication of Lipitor Anemia of chronic disease: This appears stable. Will monitor closely. Discharge Plan: Home Plan to discharge in: Greater than 2 days - Advance Directives Does patient have a Living Will: No Does patient have a Durable POA for Healthcare: No - Code Status/Comfort Care Code Status Assessed: Yes (Patient is full code) Time Spent Managing Pts Care (In Minutes): 55
[2020-04-17 17:11] LABS: Blood Morphology Comment NOT SEEN (NOT SEEN); Platelet Estimate ADEQ; White Blood Cell Scan OK (OK)
[2020-04-17] MEDS: ATORVASTATIN 20 MG TAB PO SCH (23:24)
[2020-04-17] MEDS: INSULIN -REGULAR HUMAN 50 UNIT/0.5 ML ML SQ SCH (23:24)
[2020-04-17] MEDS: HEPARIN 5000 UNIT/ML 1 ML VIAL SQ SCH (23:24)
[2020-04-17] MEDS: carvediloL 6.25 MG TAB PO SCH (23:24)
[2020-04-17] MEDS ORDERED: ONDANSETRON 4 MG/2 ML VIAL IV PRN (23:24)
[2020-04-17] MEDS: SEVELAMER CARBONATE 800 MG TABLET PO SCH (23:24)
[2020-04-17] MEDS ORDERED: TRAMADOL HCL 50 MG TAB PO PRN (23:24)
[2020-04-17] MEDS ORDERED: ACETAMINOPHEN 500 MG TAB PO PRN (23:24)
[2020-04-17] MEDS ORDERED: CEFEPIME 1 GM/VIAL IV SCH (23:24)
[2020-04-17] MEDS: HYDROCODONE/APAP 7.5/325 MG TAB PO PRN (23:45)
[2020-04-18] MEDS ORDERED: CEFEPIME/SWI 1gm 10 ML IV SCH ×2 (00:30→21:00)
[2020-04-18] MEDS ORDERED: CEFEPIME/SWI 1gm 10 ML ONE (00:32)
[2020-04-18 03:04] VITALS: BMI 30.4
[2020-04-18 04:06] LABS: Absolute Lymphocytes (CBC) 1.1 K/uL (0.7-4.9); Basophils % 0.4 % (0-1.3); Hematocrit 24.3 % (39.6-49.0); Lymphocytes % 9.6 % (15.3-44.8); MPV 8.9 fL (7.6-11.3); RBC Red Blood Cell Count 2.48 M/uL (4.33-5.43)
[2020-04-18 04:23] LABS: Magnesium 2.4 mg/dL (1.8-2.4); Potassium 3.1 mmol/L (3.5-5.1)
[2020-04-18] MEDS ORDERED: D50W 25 GM/50 ML SYRINGE IV ONE ×2 (04:45→06:39)
[2020-04-18] MEDS ORDERED: D50W 25 GM/50 ML SYRINGE IV PRN (06:31)
[2020-04-18 07:05] LABS: Urine Appearance CLOUDY; Urine Bilirubin NEGATIVE (NEG); Urine Blood 2+ (NEG); Urine Color YELLOW; Urine Glucose TRACE (NEG); Urine Protein 3+ (NEG); Urine Specific Gravity 1.015 (1.005-1.030); Urine Urobilinogen 0.2 mg/dL (0.2-1.0)
[2020-04-18 07:06] LABS: Urine Microscopic Reflex ORDER UMIC
[2020-04-18] MEDS: INSULIN -REGULAR HUMAN 50 UNIT/0.5 ML ML SQ SCH ×4 (07:30→21:00)
[2020-04-18] MEDS: SEVELAMER CARBONATE 800 MG TABLET PO SCH ×3 (08:00→17:18)
[2020-04-18 08:09] LABS: Urine Bacteria 20-50 /HPF (NONE SEEN)
[2020-04-18] MEDS ORDERED: VANCOMYCIN 1.5 GM in NA CHLORIDE 0.9% 500 ML IVPB ONE (09:00)
[2020-04-18] MEDS: carvediloL 6.25 MG TAB PO SCH ×2 (09:00→21:52)
[2020-04-18] MEDS: HEPARIN 5000 UNIT/ML 1 ML VIAL SQ SCH ×2 (09:00→21:53)
[2020-04-18] MEDS ORDERED: VANCOMYCIN 2 GM in NA CHLORIDE 0.9% 500 ML IVPB ONE (09:00)
[2020-04-18] MEDS ORDERED: VANCOMYCIN 1 GM in NA CHLORIDE 0.9% 500 ML IVPB SCH (09:00)
--- NOTE | 2020-04-18 09:48 | CON ---
Date of Consultation: 04/17/2020 Brief History Of Present Illness: The patient is a 55-year-old male with history of hyperte nsion, diabetes, hyperlipidemia, end-stage renal disease, on hemodialysis, who presents to the ER wit h complaints of pain of his right foot middle toe. It got progressively worse, larger, swelling, ten derness, and started to drain pus out beginning several days ago. He tried to treat it at home, but it continued to get worse and worse and the swelling and redness advanced up to his midfoot area and as such he came to the emergency room with above-stated complaints. Past Medical History: Significant for diabetes, hypertension, end-stage renal disease, GERD, hyperli pidemia. Past Surgical History: Cholecystectomy, appendectomy, cyst removal from his neck and back. 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 His father fernandez s hypertension, diabetes. His mother has diabetes. Sister had hypertension. He denies smoking. inks alcohol recreationally. Denies recreational drug use. Allergies: NO KNOWN DRUG ALLERGIES. Home Medications: Include Lipitor, folic acid, Coreg, glipizide. Review of Systems: His 10-point review of systems other than HPI, denies. Physical Examination: Vital Signs: Blood pressure 112/60, pulse of 75, respiratory rate 16, temperature 97.6, SpO2 of 98% on room air. General: He is awake, alert, oriented. Psychiatric: He is appropriate and conversive. HEENT: He is normocephalic. Sclerae icteric. Mucous membranes are moist. Oropharynx clear. Neck: Supple without JVD. Chest: Normal expansion and excursion. Cardiovascular: Regular rate and rhythm. Pulmonary: Clear to auscultation bilaterally. Abdomen: Soft. Extremities: Focused examination of the right lower extremity shows cellulitis and tenderness with d rainage and necrosis to the tip of the third toe with redness and cellulitis extending up to the midf oot. Laboratory Data: He had a laboratory exam which reveals a white blood cell count of 13.7, hemoglobin 9.7, hematocrit 28.9, platelet count of 252, neutrophils 85%. His sodium is 135, potassium 3.4, chl oride 100, carbon dioxide 26, BUN 51, creatinine 8.9, glucose 152, lactic acid is 1.4, magnesium was not checked at this point. His total bilirubin 1.1, AST 20, ALT 20, alkaline phosphatase is 145. He had UA, which was pending. His COVID was positive. He had imaging performed, which included an x-r ay of the right foot, which is officially read as osteomyelitis involving the third distal phalanx, n o air in the soft tissues, Charcot joint changes involving the extensively first and second metatarsa l and tarsal joint space, early changes developing in the third tarsometatarsal joint space. Assessment And Plan: This is a 55-year-old male who comes in with osteomyelitis of the right middle toe: 1.IV fluid hydration. 2.Antibiotic coverage. 3.I have explained risks, benefits, and alternatives of amputation of this toe, including but not li mited to bleeding, infection, damage to surrounding tissues, need for ongoing wound care. Patient ag chante to proceed as indicated. Thank you for this interesting consult. NEDA/DEJAH Voice ID: [id number] Report ID: [id number]
[2020-04-18] MEDS ORDERED: VANCOMYCIN/NS 1 gm 1 GM/250 ML BAG IV SCH (11:15)
[2020-04-18] MEDS ORDERED: propofoL 200 MG/20 ML VIAL IV ONE (11:38)
[2020-04-18] MEDS ORDERED: MIDAZOLAM HCL 2 MG/2 ML INJ ONE (11:38)
[2020-04-18] MEDS ORDERED: ONDANSETRON 4 MG/2 ML VIAL ONE (11:39)
[2020-04-18] MEDS ORDERED: LIDOCAINE 2% MPF 5 ML VIAL ONE (11:39)
[2020-04-18] MEDS ORDERED: FENTANYL CITR 100 MCG/2 ML ONE (11:39)
[2020-04-18] MEDS ORDERED: dexAMETHasone 10 MG/ML VIAL ONE (11:39)
[2020-04-18] MEDS ORDERED: KETOROLAC 30 MG/ML INJ ONE (11:39)
[2020-04-18] MEDS ORDERED: BUPIVACAINE 0.25% PF 10 ML VIAL ONE (12:41)
[2020-04-18] MEDS ORDERED: NA CHLORIDE 0.9% 500 ML ONE (13:00)
--- NOTE | 2020-04-18 13:17 | P.PN ---
Subjective Date of Service: 04/18/20 Primary Care Provider: none; Nephrology-Dr. Baxter Chief Complaint: Right 3rd toe infection Subjective: Other (Patient doing well. Patient was found to be positive for COVID. He is asymptomatic. Patient with hypoglycemia but improved after treatment.) Physical Examination - Vital Signs Temperature: 98 F Blood Pressure: 144/67 Pulse: 77 Respirations: 16 Pulse Ox (%): 98 - Physical Exam General: Alert, In no apparent distress, Oriented x3, Cooperative HEENT: Atraumatic Neck: Supple Respiratory: Clear to auscultation bilaterally, Normal air movement Cardiovascular: Normal pulses, Regular rate/rhythm Gastrointestinal: Normal bowel sounds, No masses, No rebound, No guarding Integumentary: Other (No changes from yesterday to the foot) - Studies Laboratory Data (last 24 hrs) 04/17/20 13:05: Sodium 135 L, Potassium 3.4 L, BUN 51 H, Creatinine 8.91 H*, Glucose 152 H, Total Bilirubin 1.1 H, AST 21, ALT 28, Alkaline Phosphatase 145 H 04/17/20 13:05: WBC 13.7 H, Hgb 9.7 L, Hct 28.9 L, Plt Count 252 Microbiology Data (last 24 hrs): 04/17/20 13:05 Wound - Right Foot Gram Stain - Final Medications List Reviewed: Yes Assessment & Plan Discharge Plan: Home Plan to discharge in: Greater than 2 days Physician Review Additional Text: Impression: Right distal 3rd toe osteomyelitis with cellulitis of the foot Diabetes mellitus type 2 [id number] End-stage renal disease on hemodialysis Hypertension Hyperlipidemia Anemia of chronic disease Asymptomatic positive COVID Plan: Right distal 3rd toe osteomyelitis with cellulitis of the foot: Patient currently NPO in anticipation for surgery. Case discussed with surgery this morning. Continue IV antibiotic therapy. Await findings after surgery. Continue with dialysis. Patient with hypoglycemia this morning. Will check A1c and monitor closely. Anticipate possible discharge in the next couple a days after surgery. Diabetes mellitus type 2 [id number] with hypoglycemia: Will check A1c. Will treat hypoglycemia. Monitor Accu-Cheks sliding scale. End-stage renal disease on hemodialysis: Nephrology consulted to continue dialysis. Hypertension: Continue carvedilol Hyperlipidemia: Continued Lipitor Anemia of chronic disease: This appears stable. Will monitor closely. Asymptomatic positive COVID: Stable. Will monitor closely. Time Spent Managing Pts Care (In Minutes): 55
--- NOTE | 2020-04-18 13:43 | P.OP ---
Preoperative diagnosis: Osteomyelitis to RIGHT middle Toe Postoperative diagnosis: Osteomyelitis to RIGHT middle Toe Primary procedure: Amputation of RIGHT middle phalanx to MP joint Anesthesia: GETA + Local Estimated blood loss: <1cc Specimen: toe and debridement tissue, cultures sent Findings: abscess extended to MTP joint Complications: None Transferred to: Recovery Room Condition: Good
--- NOTE | 2020-04-18 14:33 | OP ---
Date of Procedure: 04/18/2020 Surgeon: Adonay Mackay MD, Preoperative Diagnosis: Osteomyelitis of the middle phalanx of the Right foot. Postoperative Diagnosis: Osteomyelitis of the middle phalanx of the Right foot. Procedure Performed: Amputation of right middle phalanx to the metatarsophalangeal joint. Anesthesia: General endotracheal plus local with 0.5% Marcaine without epinephrine. Estimated Blood Loss: Less than 1 mL. Specimen: Toe and debridement tissue culture sent for both aerobic and anaerobic speciation. Findings: Abscess extended almost to the metatarsophalangeal joint. Complications: None. Disposition: The patient was transferred to the recovery room in good condition. Procedure In Detail: After informed consent was obtained, the patient was brought to the operating room, prepped and draped in the usual sterile fashion. After adequate anesthesia achieved, I placed a regional block in the area around the middle toe of the right foot. After appropriately anesthetizing the area, I made an incision based on a dorsal flap as the plantar surface had significant necrosis and abscess emanating from the surface with spontaneous pus drainage. Cultures were sent at this time for both aerobic and anaerobic speciation. After I circumferentially dissected through the skin and subcutaneous planes, using a 15 blade, I dissected using electrocautery down to expose the phalanx. I dissected back using periosteal elevator with a combination of sharp and blunt dissection to the metatarsophalangeal joint. Ultimately, this was ligated using a combination of electrocautery and sharp dissection circumferentially around to remove the bone. At this point, the toe was sent off for pathologic examination. There was some additional debridement of necrotic tissue circumferentially around this area until I got down to good bleeding tissue. At this point, the area was copiously irrigated multiple times until complete clear. I closed the deep planes over the metatarsal head using interrupted 3-0 Vicryl sutures and irrigated the area once again and closed the skin layers using interrupted 2-0 nylon sutures with good apposition of the tissue and a sterile dressing placed over top. The patient tolerated the procedure well without evidence of complication and transferred to PACU in good condition. All counts were correct at the end of the case. TK/MODL Voice ID: [id number] Report ID: [id number] [facility] HEALTHSeamus
[2020-04-18] MEDS: HYDROCODONE/APAP 7.5/325 MG TAB PO PRN (15:23)
[2020-04-18] MEDS ORDERED: PNEUMOCOCCAL VACCINE 0.5 ML IMVAC ONE (16:00)
[2020-04-18] MEDS ORDERED: LIDOCAINE VISCOUS 2% SOLN 15 ML UDC ONE (19:38)
[2020-04-18] MEDS: ATORVASTATIN 20 MG TAB PO SCH (21:53)
--- NOTE | 2020-04-18 23:30 | CON ---
Date of Consultation: 04/18/2020 Reason For Consultation: Elevated BUN and creatinine, end-stage renal disease. History Of Present Illness: This is a 55-year-old gentleman with diabetes complicated with neuropathy and nephropathy, hyperlipidemia, end-stage renal disease, on hemodialysis, Thursday, Thursday, Thursday. Last dialysis Thursday, patient came to the hospital complaining from swelling in middle toe, found to have osteomyelitis after trauma. The patient denied any fevers, any chills. Past Medical History: Includes, 1. End-stage renal disease, hemodialysis on Thursday, Thursday, Thursday. 2. Hypertension. 3. Hyperlipidemia. 4. Diabetes. Past Surgical History: Includes, 1. AV fistula placement. 2. Cholecystectomy. 3. Appendectomy. 4. Cyst removal. Home Medications: Include, 1. PhosLo. 2. Clonidine. Allergies: NO KNOWN DRUGS ALLERGIES. Family History: Positive for diabetes, coronary artery disease, end-stage renal disease. Social History: Denies smoking, active alcohol. Denies drugs abuse. Review of Systems: Head and Neck: No red eye. No ear pain. GI: No nausea, no vomiting. : No polyuria, no dysuria, no hematuria. BAG TESTER: Not applicable. Respiratory: No shortness of breath. Cardiovascular: No chest pain. Endocrine: No polydipsia. Skin: No rash. Neuro: Has neuropathy. Musculoskeletal: Has foot pain. Physical Examination: Vital Signs: When I saw the patient, blood pressure 110/50, pulse of 84. Chest: Clear to auscultation. Heart: S1, S2 regular. Abdomen: Soft, nontender. Extremities: No edema, swelling with black gangrene on the second toe. Neuro: Alert and oriented, nonfocal. Laboratory Data: WBC 11.5, H and H 8.3/24.3, platelets 215. Sodium 136, potassium 3.1, bicarb 24, BUN 62, creatinine 10, calcium 9.2. Current Medications: In the hospital include, 1. Vancomycin. 2. Cefepime. 3. Heparin. 4. Atorvastatin. 5. Carvedilol. 6. Renvela. 7. Hydrocodone. Assessment And Plan: 1. End-stage renal disease. We will dialyze the patient on a high potassium bath. Continue Thursday, Thursday, Thursday. 2. SHPT Continue Renvela. 3. Anemia of chronic kidney disease. Continue CONCHIS. 4. Osteomyelitis. Plan for amputation. We will continue antibiotic for the time being. 5. Hypokalemia. The patient is going to be dialyzed on high potassium bath. time spend discussing with the patient face to face , placing order , discusse with the patient and other security team lead including hospitalist 55 min. ARIANNE Voice ID: [id number] Report ID: [id number] MTDSeamus
[2020-04-18] MEDS ORDERED: LIDOCAINE JELLY 2%- 5 ML TUBE TOP PRN (23:37)
[2020-04-19 04:31] LABS: Absolute Lymphocytes (CBC) 0.3 K/uL (0.7-4.9); Basophils % 0.1 % (0-1.3); Hematocrit 25.9 % (39.6-49.0); Lymphocytes % 2.5 % (15.3-44.8); MPV 8.8 fL (7.6-11.3); RBC Red Blood Cell Count 2.65 M/uL (4.33-5.43)
[2020-04-19 05:14] LABS: Magnesium 2.3 mg/dL (1.8-2.4); Potassium 3.7 mmol/L (3.5-5.1)
[2020-04-19] MEDS: INSULIN -REGULAR HUMAN 50 UNIT/0.5 ML ML SQ SCH ×2 (08:31→12:05)
[2020-04-19] MEDS: carvediloL 6.25 MG TAB PO SCH (08:32)
[2020-04-19] MEDS: SEVELAMER CARBONATE 800 MG TABLET PO SCH ×2 (08:32→12:06)
[2020-04-19] MEDS: HEPARIN 5000 UNIT/ML 1 ML VIAL SQ SCH (08:32)
[2020-04-19 08:33] VITALS: BP 128/67
--- NOTE | 2020-04-19 08:58 | P.DS ---
Admission Date: 04/17/20 Discharge Date: 04/19/20 Primary Care Provider: none; Nephrology-Dr. Baxter Disposition: ROUTINE DISCHARGE Discharge Condition: GOOD Reason for Admission: Right 3rd toe infection Consultations: Surgery-Dr. Mackay Nephrology-Dr. Baxter Procedures: Xray: FINDINGS: Soft tissue swelling is present in the distal third toe, site of known wound. Cortical disruption in bone loss changes are present in the third distal phalanx. The third middle and proximal phalanges are intact. IP joint space narrowing is seen with minimal spurring and no erosive change. First MTP joint space narrowing is present. Cortical bone loss changes present involving the base of the first and second metatarsals and the medial and middle cuneiform bones. The lateral cuneiform third metatarsal joint space is narrowed with early lucent changes seen at the base of the third metatarsal. Lateral view shows flattened plantar arch. Small plantar spur is present. Arterial tree calcifications are seen. No foreign body in the soft tissues. No air in the soft tissues. IMPRESSION: Osteomyelitis involving the third distal phalanx. No air in the soft tissues. Charcot joint changes involving extensively the first and second tarsal - metatarsal joint spaces with early changes developing in the third tarsal- metatarsal joint space. Surgery: Date of Procedure: 04/18/2020 Surgeon: Adonay Mackay MD Preoperative Diagnosis: Osteomyelitis of the right middle phalanx. Postoperative Diagnosis: Osteomyelitis of the right middle phalanx. Procedure Performed: Amputation of right middle phalanx to the metatarsophalangeal joint. Anesthesia: General endotracheal plus local with 0.5% Marcaine without epineph rine. Estimated Blood Loss: Less than 1 mL. Specimen: Toe and debridement tissue culture sent for both aerobic and anaerobic speciation. Findings: Abscess extended almost to the metatarsophalangeal joint. Complications: None. Medical Problem List: Right distal 3rd toe osteomyelitis with cellulitis of the foot status post amputation of the right middle phalanx to the metatarsopharyngeal joint, wound culture positive for Enterococcus cloacae and Streptococcus pyogenes Diabetes mellitus type 2 [id number] End-stage renal disease on hemodialysis Hypertension Hyperlipidemia Anemia of chronic disease Asymptomatic positive COVID Brief History of Present Illness: 55-year-old male with history of hypertension, diabetes mellitus type 2, hyperlipidemia, and end-stage renal disease on hemodialysis. Patient presented to the ER with right 3rd toe swelling, pain. Patient developed an infection over several days. He has been trying to treat this at home. He has reported some neuropathy. Patient denies any significant fever, chills. Patient had increasing pain with drainage. He came to the ER for further evaluation. In the ER patient was evaluated. Vital signs stable. White count 13.7, procalcitonin 4.07 with a lactic acid that was normal. Hemoglobin 9.7. Platelet count 252. Sodium 135, potassium 3.4, BUN of 5, creatinine 8.91 with a GFR of 6. Glucose 112. X-ray shows osteomyelitis of the right 3rd distal toe. Patient was admitted for further evaluation and treatment. ER physician spoke to surgery. When I saw the patient ER, patient appeared stable. Patient reports no prior history of foot surgeries. Hospital Course: Patient presented with right distal 3rd toe osteomyelitis with cellulitis of the foot. Patient was admitted for further evaluation and treatment. Patient was seen by surgery. Surgical intervention was required. Patient had amputation of the right middle phalanx to the metatarsopharyngeal joint. Patient did well post operatively. Wound culture positive for Enterococcus cloacae and Streptococcus pyogenes. At discharge patient without significant pain. Case discussed in detail with surgery. At discharge patient will continue with Levaquin 250 mg every 48 hr for 4 more doses. At discharge patient will continue with current wound care as recommended by surgery. Recommend follow up with surgery within 1 week to follow up this hospitalization and continue his care. Fall precautions in place. Education on osteomyelitis provided. Patient with diabetes mellitus type 2 [id number]-[id number]. Hemoglobin A1c well controlled at 5.3. At discharge patient will continue with glipizide 5 mg daily. Recommend to maintain blood sugars less 140 fasting and less than 200 after meals. Further adjustment in his medication may be required. This can be done with the help of his meter calibrator or PCP. Will provide a list of PCPs in the area to establish care if he desires. Patient with hypertension. This remained stable. At discharge patient will continue with carvedilol 6.25 mg 1 pill twice daily. Recommend to maintain blood pressure less than 130/80. Further adjustment can be done by his PCP or nephrology. Patient with hyperlipidemia. At discharge patient will continue with Lipitor 20 mg daily. Patient with end-stage renal disease on hemodialysis. Patient normally has dialysis every Thursday, Thursday and Thursday. Patient was found to be positive for COVID. Patient was asymptomatic. No respiratory findings were noted. Because of his positivity his dialysis will change to every Thursday, and Thursday. Case discussed in detail with nephrology. Arrangements for change in his dialysis will be done. Patient will continue with his current medications of Dialyvite daily. Vital Signs/Physical Exam: Temp Pulse Resp BP Pulse Ox 97.5 F 79 17 128/67 96 04/19/20 04:00 04/19/20 08:32 04/19/20 04:00 04/19/20 08:32 04/19/20 04:00 General: Alert, In no apparent distress, Oriented x3, Cooperative HEENT: Atraumatic Neck: Supple Respiratory: Normal air movement Cardiovascular: Normal pulses Gastrointestinal: Normal bowel sounds, No tenderness, No masses, No rebound, No guarding Integumentary: Other (Right foot bandaged.) Neurological: Normal speech, Normal strength at 5/5 x4 extr, Normal tone, Normal affect Laboratory Data at Discharge: WBC 13.1 K/uL (4.3-10.9) H 04/19/20 03:40 Hgb 9.0 g/dL (13.6-17.9) L 04/19/20 03:40 Hct 25.9 % (39.6-49.0) L 04/19/20 03:40 Plt Count 278 K/uL (152-406) D 04/19/20 03:40 Sodium 135 mmol/L (136-145) L 04/19/20 03:40 Potassium 3.7 mmol/L (3.5-5.1) 04/19/20 03:40 BUN 38 mg/dL (7-18) H D 04/19/20 03:40 Creatinine 6.15 mg/dL (0.55-1.3) H* D 04/19/20 03:40 Glucose 337 mg/dL (74-106) H 04/19/20 03:40 Magnesium 2.3 mg/dL (1.8-2.4) 04/19/20 03:40 Total Bilirubin 1.1 mg/dL (0.2-1.0) H 04/17/20 13:05 AST 21 U/L (15-37) 01/19/21 13:05 ALT 28 U/L (12-78) 04/17/20 13:05 Alkaline Phosphatase 145 U/L (45-117) H 04/17/20 13:05 Home Medications: Atorvastatin Calcium [Lipitor*] 20 mg PO BEDTIME 04/17/20 Folic Acid/Vit B Complex and C [Dialyvite 800 Chewable Wafer] 800 mcg PO DAILY 04/17/20 carvediloL [Coreg*] 6.25 mg PO BID 04/17/20 glipiZIDE [Glucotrol*] 5 mg PO DAILY 04/17/20 levoFLOXacin [Levaquin*] 250 mg PO SEECOM #4 tab 04/19/20 New Medications: levoFLOXacin [Levaquin*] 250 mg PO SEECOM #4 tab Patient Discharge Instructions: Patient presented with right distal 3rd toe osteomyelitis with cellulitis of the foot. Patient was admitted for further evaluation and treatment. Patient was seen by surgery. Surgical intervention was required. Patient had amputation of the right middle phalanx to the metatarsopharyngeal joint. Patient did well post operatively. Wound culture positive for Enterococcus cloacae and Streptococcus pyogenes. At discharge patient without significant pain. Case discussed in detail with surgery. At discharge patient will continue with Levaquin 250 mg every 48 hr for 4 more doses. At discharge patient will continue with current wound care as recommended by surgery. Recommend follow up with surgery within 1 week to follow up this hospitalization and continue his care. Fall precautions in place. Education on osteomyelitis provided. Patient with diabetes mellitus type 2 [id number]. Hemoglobin A1c well controlled at 5.3. At discharge patient will continue with glipizide 5 mg daily. Recommend to maintain blood sugars less 140 fasting and less than 200 after meals. Further adjustment in his medication may be required. This can be done with the help of his meter calibrator or PCP. Will provide a list of PCPs in the area to establish care if he desires. Patient with hypertension. This remained stable. At discharge patient will continue with carvedilol 6.25 mg 1 pill twice daily. Rec ommend to maintain blood pressure less than 130/80. Further adjustment can be done by his PCP or nephrology. Patient with hyperlipidemia. At discharge patient will continue with Lipitor 20 mg daily. Patient with end-stage renal disease on hemodialysis. Patient normally has dialysis every Thursday, Thursday and Thursday. Patient was found to be positive for COVID. Patient was asymptomatic. No respiratory findings were noted. Because of his positivity his dialysis will change to every Thursday, and Thursday. Case discussed in detail with nephrology. Arrangements for change in his dialysis will be done. Patient will continue with his current medications of Dialyvite daily. Diet: ADA Activity: Fall precautions Followup: Unknown,U [Primary Care Provider] - Time spent managing pt's care (in minutes): 55
[2020-04-19 08:59] VITALS: TEMP 97.1
[2020-04-19] MEDS ORDERED: MULTIVITAMINS,THERAPEUT 1 TAB PO SCH (09:00)
[2020-04-19] MEDS ORDERED: levoFLOXacin 250 MG TAB PO SCH (09:00)
[2020-04-19] MEDS ORDERED: glipiZIDE 5 MG TAB PO SCH (09:00)
[2020-04-19 10:24] VITALS: O2SAT 94
--- NOTE | 2020-04-19 12:52 | PN ---
Date of Progress Note: 04/19/2020 Subjective: The patient was admitted with osteomyelitis on the right middle toe, status post toe amputation. The patient tolerated the procedure very well. The patient is comfortable. Objective: Vital signs: Blood pressure 128/67, pulse of 79. Chest: Clear to auscultation. Heart: S1, S2 regular. Abdomen: Soft, nontender. Extremities: No edema, dressing on the right leg. Laboratory Data: H and H 12/22.9. Sodium 135, potassium 3.7, bicarb 28, BUN 38, creatinine 6, calcium 9.1, magnesium 2.3. Current Medications: The patient is on include Levaquin 250 after each dialysis, vancomycin, heparin, atorvastatin, carvedilol 6.25, Renvela. Assessment And Plan: 1. End-stage renal disease. We will continue the patient on dialysis. The patient COVID positive, so going to be switched to TTS. I spoke to the dialysis unit, will be able to accommodate him starting today at 4 o'clock. We communicated to the patient. The patient verbalized understanding. We will agree with discharge planning to start the dialysis today at the dialysis center. 2. Hypertension, controlled, optimal. Continue current treatment. 3. Anemia of chronic kidney disease. Continue CONCHIS. 4. Secondary hyperparathyroidism, stable. Continue current treatment. 5. Osteomyelitis secondary to enterococcus and streptococcus pyogen sensitive to Levaquin. I agree with current dose of Levaquin. We will follow up. time spend discussing with the patient face to face , placing order , discusse with the patient and other store team leader including hospitalist 45 min. ARIANNE Voice ID: [id number] Report ID: [id number] MARIA R
== END 2020-04-19 12:51 | disposition home or self-care (01) | DRG 616 ==
LOC: ER 12:07 → ERHOLD 15:40 → 4TH 21:09
PROVIDERS: ADMIT Family Medicine; ATTEND Family Medicine
PROC: 0Y6M0Z6 Detachment at Right Foot, Complete 3rd Ray, Open Approach (ICD-10-PCS; principal; 2020-04-18 12:15)
DX: E11.69 Type 2 diabetes mellitus with other specified complication (principal); U07.1 COVID-19; E11.52 Type 2 diabetes mellitus with diabetic peripheral angiopathy with gangrene; I96 Gangrene, not elsewhere classified; M86.8X8 Other osteomyelitis, other site; I12.0 Hypertensive chronic kidney disease with stage 5 chronic kidney disease or end stage renal disease; L03.115 Cellulitis of right lower limb; N18.6 End stage renal disease; E11.22 Type 2 diabetes mellitus with diabetic chronic kidney disease; E11.40 Type 2 diabetes mellitus with diabetic neuropathy, unspecified; E11.649 Type 2 diabetes mellitus with hypoglycemia without coma; K21.9 Gastro-esophageal reflux disease without esophagitis; E87.6 Hypokalemia; N25.81 Secondary hyperparathyroidism of renal origin; D63.1 Anemia in chronic kidney disease; E78.5 Hyperlipidemia, unspecified; B95.2 Enterococcus as the cause of diseases classified elsewhere; B95.0 Streptococcus, group A, as the cause of diseases classified elsewhere; Z99.2 Dependence on renal dialysis; Z79.899 Other long term (current) drug therapy; Z90.49 Acquired absence of other specified parts of digestive tract; Z79.84 Long term (current) use of oral hypoglycemic drugs
CPT/HCPCS: 36415; 80048; 80053; 81003; 81015; 82947; 83036; 83605; 83735; 84145; 85025; 87040; 87070; 87075; 87077; 87086; 87088; 87186; 87205; 88305; 88311; 90935; 99285; J0692; J1100; J1644; J2250; J2405; J2704; J3010; J3370; J7040; U0003

== ENCOUNTER 2020-08-21 15:50 | Emergency (ER) | payer MEDICARE ==
--- OUTSIDE RECORDS SUMMARY | 2020-08-21 15:53 | XMS REPORT | Continuity of Care Document ---
:1965 Author Organization [facility] t Address [address] [place] [address] Care Team Providers Name Role Phone Pcp Primary Care Physician Unavailable Mary Attending Clinician Unavailable Ruy BRODERICK Attending Clinician Halie BRODERICK [...] Expiration Date Sour ce Number MEDICAREMEDICARE A [id number] 2016 MACARIO Blanchard [id number] 2015- 00:00:00 - Medical PresentMedicare Center [facility] - [id number] 2020 MACARIO Blanchard MEDICARE MGD 00:00:00 - [facility] [id number]/03/31 021-Present Problems Condition Condition Condition Status Onset Resolution Last Treating Co mments Source Name Details Category Date Date Treatment Clinician Date Coronary Coronary Disease Active MACARIO broussard artery artery 10-22 [place] - disease disease 00:00: Medical involving involving 00 [facility] [place] [facility] with heart with angina angina pectoris, pectoris, unspecifie unspecifie d vessel d vessel or lesion or lesion type type Hypertensi Hypertensi Disease Active C [facility] on, on, 10-[address] [facility] - unspecifie unspecifie 00:00: Me dical d type d type 00 Center ESRD (end ESRD (end Disease Active [facility]21 [facility] - renal renal 00:00: Medical disease) disease) 00 Center Other Other Disease Active [facility] St specified specified 10-21 [facility] - diabetes diabetes 00:00: Medica l mellitus mellitus 00 Center with with diabetic diabetic chronic chronic kidney kidney disease, disease, unspecifie unspecifie d CKD d CKD stage, stage, unspecifie unspecifie d whether d whether custodial emt intermediate insulin insulin use use Pre-transp Pre-transp Disease [...] Stop Date Source Natural father Heart disease [facility] Natural mother Diabetes [facility] Natural mother Hypertension [facility] Other Liver disease [facility] Natural sister Diabetes [facility] Social History Social Habit Start Date Stop Date Quantity Comments Source Sex Assigned At [facility] Tobacco use and 2020-01-10 2020-01-10 Never used [facility] - exposure 00:00:00 00:00:00 [facility] Alcohol intake 2020-01-10 2020-01-10 Current [facility] - 00:00:00 00:00:00 non-drinker of Medical Ce nter alcohol (finding) Tobacco Comment 2017-09-15 2017-09-15 exposure to [facility] 00:00:00 00:00:00 second hand Medical Cente r smoke. History of 1985-12-07 1987-12-08 Current smoker [facility] - tobacco use 00:00:00 00:00:00 Medical Cente r Smoking Status Start Date Stop Date Source Former smoker 2020-01-10 00:00:00 2020-01-10 00:00:[address] [facility] Medications Ordered Filled Start Stop Current Ordering Indication Dosage Frequency Signature Comments Components Source Medication Medication Date Date Medication? Clinician (SIG) Name Name marisela 2019-03 Yes 1600mg Take 1,[address] [...] 300 mg Chew times daily . carvedilol Yes 6.25mg Take 6.[address] (COREG) 9-10 mg by [facility] - 6.25 MG 14:30: mouth 2 Medical tablet 44 (two) Center times daily with breakfast and dinner. atorvastati Yes 20mg QD Take [address] [facility] (LIPITOR) 9-10 by mouth Luke s - 20 MG 14:30: daily. Medical tablet 44 Center glipiZIDE Yes 5mg Take [address] (GLUCOTROL) 9-10 by mouth 2 [facility]inta kes - 5 MG tablet 14:30: (two) Medic al 44 times Center daily before meals. Vital Signs Vital Name Observation Time Observation Value Comments Source Systolic blood 2020-01-10 12:49:00 145 mm[Hg] [facility] Diastolic blood 2020-01-10 12:49:00 60 mm[Hg] [facility] S t [facility] Heart rate 2020-01-10 12:49:00 88 /min [facility] Body temperature 2020-01-10 12:49:00 36.39 Roxane [facility] Respiratory rate 2020-01-10 12:49:00 20 /min [facility] Body height 2020-01-10 12:49:00 160 cm [facility] Body weight 2020-01-10 12:49:00 80.831 kg [facility] BMI 2020-01-10 12:49:00 31.57 kg/m2 [facility] Procedures Procedure Date / Time Performing Clinician Source Performed FLOW PRA CLASS I WITH 2020-01-10 11:37:[address] [facility]CIFICITY FLOW PRA CLASS II WITH 2020-01-10 11:37:[address] [facility]ODY [facility] SPECIFICITY CYTOMEGALOVIRUS ANTIBODY, 2020-01-10 11:37:00 Rianna Ambrose [facility] IGG [facility] HEPATITIS C ANTIBODY 2020-01-10 11:37:00 Rianna Ambrose [facility] HC LAB HIV-1 AG W/HIV-1&2 2020-01-10 11:37[facility] AB [facility] PSA 2020-01-10 11:37:00 Rianna Ambrose [facility] 2D ECHO W/ DOPPLER 2020-01-10 10:31:00 [facility] Red[facility] - (CW/PW/COLOR) [facility] NM MYOCARDIAL PERFUSION 2020-01-10 09:39:00 Iglesia Redmond [facility] - PET/CT (REST & STRESS) Medical C enter TREADMILL 2020-01-10 09:18:34 Unknown, Hl7 Doctor MACARIO Breen - TOLERANCE(NON-NUCLEAR Medical Ce nter TREADMILL) ECG 12-LEAD 2020-01-10 09:11:48 Unknown, Hl7 Doctor MACARIO Breen - [facility] REPORT OF PROCEDURE - 2020-01-10 00:00:00 Provider, Snehal Nunez - ENDOSCOPY SCAN Scanning [facility] Plan of Care Planned Activity Planned Date Details Comments Source Future Scheduled 2020-11-[address] [facility] - Test 00:00:00 (Season Ended) [code = [facility] INFLUENZA VACCINE (Season Ended)] Future Scheduled 2020-03-[address] [facility] - Test 00:00:00 (12+) [code = [facility] DEPRESSION SCREENING (12+)] Future Scheduled 2019-05-[address] [facility] - Test 00:00:00 (procedure) [code = [facility] 30484165] Future Scheduled 2017-10-[address] [facility] - Test 00:00:00 [facility] (procedure) [code = 51978821] Future Scheduled 2017-08-[address] [facility] - Test 00:00:00 malignant neoplasm of Medica l Center colon (procedure) [code = 422541007] Future Scheduled 2017-01-[address] [facility] - Test 00:00:00 WELLNESS (YEAR 2 or Medical Center FIRST YEAR if no IPPE) [code = MEDICARE ANNUAL WELLNESS (YEAR 2 or FIRST YEAR if no IPPE)] Future Scheduled 2014-02-01 SHINGLES VACCINES ([address] [facility] - Test 00:00:00 of 2) [code = SHINGLES Medic al Center VACCINES (1 of 2)] Future Scheduled 1983-02-01 DTAP/TDAP/TD VACCINES [facility] - Test 00:00:00 (1 - Tdap) [code = Medical C enter DTAP/TDAP/TD VACCINES (1 - Tdap)] Future Scheduled 1976 COVID-19 VACCINE (1) [facility] - Test 00:00:00 [code = COVID-[address] VACCINE (1)] Future Scheduled 1974-02-[address] DIABETIC EYE EXAM [facility] - Test 00:00:00 [code = DIABETIC EYE Medical Center EXAM] Future Scheduled 1974-02-[address] [facility] - Test 00:00:00 examination Medical Center (regime/therapy) [code = 068373226] Future Scheduled 1974-02-01 Urine screening for [facility] - Test 00:00:00 protein (procedure) Medical Center [code = 796668311] Future Scheduled 1970-02-[address] [facility] - Test 00:00:00 0-64 YRS (1 of 1 - Medical C enter PPSV23) [code = PNEUMOCOCCAL VACCINE 0-64 YRS (1 of 1 - PPSV23)] Results Test Description Test Time Test Comments Results Result Sour e Comments Treadmill 2019-12-29 Interface, External Ris C HI St tolerance(Non-Nu 4 In - 01/11/2020 5:19 [facility] - clear Treadmill) 17:19:13 CDTProtocol Name Me dical Regadenoson Time In Cente r Exercise Phase [...] CDTTransthoracic Echocardiography Report (TTE) Demographics Patient Name GUILLERMINA PEREA Date of Study 01/10/2020 SCOTT WELLER Gender Male Visit Number [id number] Race Room Number OP Number Date of 1965 Referring Ruy Parekh MD Physician Age 54 year(s) Osteopathic Physician Lily Stevenson, [facility] Interpreting Lupe Hartley MD Physician Procedure [...] PATIENT ID: PERF REST AND 3 Exam:->renal [id number] PROCEDURE: STRESS 14:32:00 tx eval; cad MYOCARDIAL PERFUSION PET/CT IMAGING (Rest/Stress)CPT CODE: [id number] INDICATION: Pre-operative evaluation for renal transplant, history [...] MDReport Verified Date/Time: 01/10/2020 14:32:02 Reading Location: [address] Reading Room Myocardial 2019-12-29 Interface, External [facility] St Perfusion Pet/CT 3 In - 01/10/2020 2:34 [facility] - (Rest & Stress) 14:32:00 CDTFINAL REPORT PATIENT Medical ID: [id number] Center PROCEDURE: MYOCARDIAL PERFUSION PET/CT IMAGING (Rest/Stress)CPT CODE: [id number] INDICATION: Pre-operative evaluation for renal transplant, history [...] MDReport Verified Date/Time: 01/10/2020 14:32:02 Reading Location: [address] Reading Room MEGALOVIRUS ANTIBODY, IGG 2020-01-10 14:19:00 Test Item Value Reference Range Interpretation Comme nts CYTOMEGALOVIRUS, IGG (CLEMENTE) (test code = 3429) Negative Negat julián, Equivocal CMV IgG Result Interpretation: </= 0.8 Al Negative 0.9-1.0 Al Equivocal >/=1.1 Al PositiveECG 12 [id number] 13:35:58Interface, External Ris In - 01/10/2020 1:36 PM CDTVentricular Rate 84 BPMAtrial Rate 84 BPMP-R Interval 142 msQRS Duration 96 msQ-T Interval 414 msQTC Calculation(Bazett) 489 msP [place] 65 degreesR [place] 62 degreesT [place] 67 degreesNormal sinus rhythmRSR' pattern in T2Iaamarxlc QTAbnormal ECG17 Dec 2016R wave amplitude decreased in H2Agvbqpart by MD [facility] ([id number]) on 01/10/2020 1:35:53 [facility] 13:20:00 Test Item Value Reference Range Interpretation Comments PROSTATE SPECIFIC ANTIGEN (JESIKAAKER) 0.3 ng/mL 0.0-4.0 (test code = 844) Leather Craftsman ID - SAMANTHAGHEPATITIS C [id number] 13:20:00 Test Item Value Reference Range Interpretation Comments HEPATITIS C ANTIBODY (CLEMENTE) Nonreactive Nonreactive (test code = 367) Leather Craftsman ID - ELOISAIV-1 ANTIGEN WITH HIV-1/2 [id number] 13:20:00 Test Item Value Reference Range Interpretation Comments HIV-1 ANTIGEN WITH HIV 1\\T\\2 Nonreactive Nonreactive ANTIBODY (2) (CLEMENTE) (test code = 2586) Leather Craftsman ID - NILES, ABDOMEN, [id number] 11:16:00Esrd,on dialysis, awaiting kidney transplant. See ultrasound [...] keepingwith chronic kidney disease. Signed: Ottoniel Lee [facility] Verified Date/Time: 12/23/2018 11:16:06 Reading Location: [facility] B1 C013Y CT Body Reading Room U/S, ABDOMINAL, [id number] 15:46:00Reason for Exam:- >pre transplant evaluation for [...] evaluation of the pancreas. Signed: José Jackson [facility] Verified Date/Time: 12/07/2018 15:46:25 Reading Location: [address] Radiology Reading Room TISSUE [id number] 19:11:00Surgical Pathology Report Case: [id number] Authorizing Provider: Nuria Harrison MD Collected: 09/23/2017 0918 Ordering Location: [facility] Endoscopy Received: 09/23/2017 1144 Services Pathologist: Andrea Faust MD Specimen: Polyp, Colon - Left/Descending, taken via hot snare COLON, LEFT/DESCENDING, POLYPECTOMY- TUBULAR ADENOMA (MULTIPLE PIECES) Signing Pathologist Direct Phone Line: [phone] signed by Andrea Faust MD on 09/24/2017 at 7:11 [id number] for colon cancer Left descending colon polyp The specimen is received in a formalin-filled container labeled with the patient's information and labeled "left descending colon polyp" and consists of a gann-red polyp measuring 0.5 cm in greatest dimension. The resection margin is inked blue. The specimen is bisected and submitted in A1. CG/ew There is no high grade dysplasia or carcinoma.[id number] 07:55:00 Test Item Value Reference Range Interpretation Comments POC-POTASSIUM 4.8 meq/L 3.6-5.5 TESTED AT [facility] C 67[address] ([place]) (test code [facility] [address] = 1540) CYTOMEGALOVIRUS ANTIBODY, [id number] 08:36:00 Test Item Value Reference Range Interpretation Comments CYTOMEGALOVIRUS IGG ANTIBODY Negative (BEAKER) (test code = 790) CYTOMEGALOVIRUS ANTIBODY, [id number] 08:36:00 Test Item Value Reference Range Interpretation Comments CYTOMEGALOVIRUS IGM ANTIBODY Negative (BEAKER) (test code = 816) EBV-VCA ANTIBODY, [id number] 08:36:00 Test Item Value Reference Range Interpretation Comments LANETTE-CENTENO VCA IGG (AKER) (test Positive code = 983) EBV-VCA ANTIBODY, [id number] 08:36:00 Test Item Value Reference Range Interpretation Comments LANETTE-CENTEON VCA IGM (BEAKER) (test Positive code = 984) [id number] 02:48:00 Test Item Value Reference Range Interpretation Comments RPR SCREEN (BEAKER) (test code = Nonreactive Nonreactive 420) [id number] 15:45:00 Test Item Value Reference Range Interpretation Comments PROSTATE SPECIFIC ANTIGEN (BEAKER) 0.3 ng/mL 0.0-4.0 (test code = 844) HEPATITIS B SURFACE [id number] 15:43:00 Test Item Value Reference Range Interpretation Comments HEPATITIS B SURFACE ANTIGEN (2) Nonreactive Nonreactive (BEAKER) (test code = 2585) HEPATITIS B SURFACE [id number] 15:43:00 Test Item Value Reference Range Interpretation Comments HEPATITIS B SURFACE ANTIBODY 22.0 mIU/mL <8.0 H (BEAKER) (test code = 647) HEPATITIS B CORE ANTIBODY, [id number] 15:43:00 Test Item Value Reference Range Interpretation Comments HEPATITIS B CORE IGM ANTIBODY Nonreactive Nonreactive (BEAKER) (test code = 645) HEPATITIS C [id number] 15:43:00 Test Item Value Reference Range Interpretation Comments HEPATITIS C ANTIBODY (BEAKER) Nonreactive Nonreactive (test code = 367) HIV-1 ANTIGEN WITH HIV-1/2 [id number] 15:43:00 Test Item Value Reference Range Interpretation Comments HIV-1 ANTIGEN WITH HIV 1\\T\\2 Nonreactive Nonreactive ANTIBODY (2) (BEAKER) (test code = 2586) GAMMA GLUTAMYL TRANSFERASE (GGT)2017-09-01 15:21:00 Test Item Value Reference Range Interpretation Comments GAMMA GLUTAMYL TRANSFERASE (BEAKER) 53 U/L 9-64 (test code = 364) BASIC METABOLIC [id number] 11:03:00 Test Item Value Reference Range Interpretation [...] S NOT APPLICABLE FOR DIALYSIS PATIEN TS. [id number] 10:46:00 Test Item Value Reference Range Interpretation [...] = 2801) FLOW PRA CLASS I AND [id number] 09:50:00 Test Item Value Reference Range Interpretation Comments DATE OF SERUM (BEAKER) [id number] (test code = 2289) SERUM # (BEAKER) (test 362092 code = 2290) FLOW PRA CLASS I AND II See Scanned Report (test code = 2421) HLA [id number] 13:18:00 Test Item Value Reference Range Interpretation [...] (BEAKER) (test code = 2583) OCCULT BLOOD, [id number] 16:23:00 Test Item Value Reference Range Interpretation Comments FECAL OCCULT BLOOD (BEAKER) (test Positive Negative A code = 618) OCCULT BLOOD, [id number] 16:14:00 Test Item Value Reference Range Interpretation Comments FECAL OCCULT BLOOD (BEAKER) (test Negative Negative code = 618) HEMOGLOBIN [id number] 15:13:00 Test Item Value Reference Range Interpretation Comments HEMOGLOBIN A1C ([employer]) (test code = 7.1 % 4.3-6.1 H 368) GAMMA GLUTAMYL TRANSFERASE (GGT)2016-08-14 12:11:00 Test Item Value Reference Range Interpretation Comments GAMMA GLUTAMYL TRANSFERASE ([employer]) 70 U/L 9-64 H (test code = 364) VARICELLA ZOSTER ANTIBODY, [id number] 17:30:00 Test Item Value Reference Range Interpretation Comments VARICELLA ZOSTER IGG (AL) ([employer]) 6.3 Al (test code = 3197) VARICELLA ZOSTER RESULT INTERPRETATIONS: <=0.8 Al Nonreactive: Presumed non-immune to VZV 0.9-1.0 Al Equivocal >=1.1 Al Reactive: Presumed immune to VZV
[2020-08-21 16:17] LABS: Absolute Lymphocytes (CBC) 1.3 K/uL (0.7-4.9); Basophils % 0.8 % (0-1.3); Lymphocytes % 17.5 % (15.3-44.8); MPV 8.7 fL (7.6-11.3); RBC Red Blood Cell Count 3.53 M/uL (4.33-5.43)
[2020-08-21 16:24] LABS: Protime INR 0.98
[2020-08-21] MEDS ORDERED: D50W 50 ML IV ONE (16:33)
[2020-08-21 16:35] LABS: Magnesium 2.3 mg/dL (1.8-2.4); Troponin (Emerg Dept Use Only) < 0.02 ng/mL (0.0-0.045)
[2020-08-21 16:42] LABS: Albumin 3.4 g/dL (3.4-5.0); Bilirubin Total 0.8 mg/dL (0.2-1.0); Protein, Total 7.2 g/dL (6.4-8.2)
--- NOTE | 2020-08-21 17:04 | RAD REPORT ---
EXAM DESCRIPTION: RAD - Chest Single View - 08/21/2020 4:35 pm CLINICAL HISTORY: CHEST PAIN COMPARISON: August 2019 TECHNIQUE: AP portable chest image was obtained 08/21/2020 4:35 pm . FINDINGS: Lung volumes are low. No peripheral mass or consolidation. Interstitial pattern matches co mparison. Heart and vasculature are normal. No measurable pleural effusion and no pneumothorax. No ac [place] bony abnormality seen. No acute aortic findings suspected. IMPRESSION: No acute cardiopulmonary process. Prominent interstitial pattern is stable but could mask early edema or infiltrate.
--- NOTE | 2020-08-21 18:15 | ER ---
Nurse's Notes [facility] Name: Art Trinidad Jr Age: 55 yrs Sex: Male : 1965 Arrival Date: 08/21/2020 Time: 15:52 Bed 4 Private MD: Diagnosis: Hypoglycemia, unspecified Presentation: 08/21 15:54 Chief complaint: Patient states: Cold sweats, one episode on Thursday then today. HX of ca1 diabetes, NIDDM. Reports chest tightness x 2 days BGL in triage 49. Coronavirus screen: Client denies travel out of the [place] in the last 14 days. At this time, the client does not indicate any symptoms associated with coronavirus-19. Ebola Screen: Patient negative for fever greater than or equal to 101.5 degrees Fahrenheit, and additional compatible Ebola Virus Disease symptoms Patient denies exposure to infectious person. Patient denies travel to an Ebola-affected area in the 21 days before illness onset. No symptoms or risks identified at this time. Initial Sepsis Screen: Does the patient meet any 2 criteria? No. Patient's initial sepsis screen is negative. Does the patient have a suspected source of infection? No. Patient's initial sepsis screen is negative. Risk Assessment: Do you want to hurt yourself or someone else? Patient reports no desire to harm self or others. Onset of symptoms was August 21, 2020. 15:54 Method Of Arrival: Ambulatory ca1 15:54 Acuity: DIVINA 2 ca1 Triage Assessment: 16:35 General: Appears in no apparent distress. Behavior is calm, cooperative. Pain: Denies ak2 pain. 16:59 General: Appears. ak2 18:03 General: b, physician aware. ak2 Historical: - Allergies: 16:09 No Known Allergies; ca1 - Home Meds: 16:09 carvedilol 6.25 mg oral tab [Active]; glipizide 5 mg Oral tab 1 tab [Active]; sevelamer ca1 HCl oral oral [Active]; atorvastatin oral oral [Active]; Dialyvite oral oral [Active]; - PMHx: 16:09 Diabetes - NIDDM; Dialysis; Hypertension; ca1 - PSHx: 16:09 L arm fistula; Appendectomy; Cholecystectomy; R toe amputation; ca1 - Immunization history:: Client reports receiving the 2nd dose of the Covid vaccine, Client reports receiving the 1st dose of the Covid vaccine, Flu vaccine is not up to date. - Social history:: Smoking status: Patient denies any tobacco usage or history of. Screenin:34 Abuse screen: Denies threats or abuse. Denies injuries from another. Nutritional ak2 screening: No deficits noted. Tuberculosis screening: No symptoms or risk factors identified. Fall Risk None identified. Assessment: 16:59 General: b, physician aware. pt given food.. ak2 17:01 General: phone#:[phone]. ak2 Vital Signs: 15:54 BP 169 / 78; Pulse 81; Resp 16 S; Temp 97.1(TE); Pulse Ox 99% on R/A; Weight 81.5 kg ca1 (M); Height 5 ft. 3 in. (160.02 cm) (R); Pain 0/10; 17:07 BP 171 / 84; Pulse 89; Resp 18; Pulse Ox 97% on R/A; tr6 17:30 BP 161 / 79; Pulse 86; Resp 18; Pulse Ox 100% ; tr6 18:21 BP 159 / 77; Pulse 84; Resp 18; Pulse Ox 98% on R/A; ak2 15:54 Body Mass Index 31.83 (81.50 kg, 160.02 cm) ca1 ED Course: 15:52 Patient arrived in ED. rg4 15:56 Ayan Colin NP is PHCP. pm1 15:56 Zenon Galdamez MD is Attending Physician. pm1 16:07 Triage completed. ca1 16:09 Arm band placed on left wrist. ca1 16:12 Joel Armas is Primary Nurse. ak2 16:34 Patient has correct armband on for positive identification. Bed in low position. Call ak2 light in reach. 16:34 No provider procedures requiring assistance completed. Inserted saline lock: 20 gauge ak2 in right antecubital area, using aseptic technique. 16:35 XRAY Chest (1 view) In Process Unspecified. EDMS Administered Medications: 16:26 Drug: D50W 50 ml Route: IVP; Site: right antecubital; ak2 Outcome: 18:14 Discharge ordered by . pm1 18:21 Discharged to home ambulatory. ak2 18:21 Condition: good 18:21 Discharge instructions given to patient, family. 18:54 Patient left the ED. ak2 Signatures: Dispatcher [employer] EDMS Ayan Colin, AYAD WEB SITE ADMINISTRATOR pm1 Jailene Tsai rg4 Ysabel Al RN RN ca1 Demi Thapa RN RN tr6 Joel Armas ak2
--- NOTE | 2020-08-21 18:15 | EDPHYS ---
Physician Documentation [facility] Name: Art Trinidad Jr Age: 55 yrs Sex: Male : 1965 Arrival Date: 08/21/2020 Time: 15:52 Bed 4 Private MD: ED Physician Zenon Galdamez HPI: 08/21 16:11 This 55 yrs old Male presents to ER via Ambulatory with complaints of Hot pm1 Flashes, Sweats. 16:11 The patient or guardian reports hot flashes and sweating that was potentially pm1 precipitated by not eating lunch, Treatment prior to arrival includes: ingestion of sugary substance. Onset: The symptoms/episode began/occurred 3 day(s) ago. Associated signs and symptoms: Pertinent positives: chest pain for 2 days, Pertinent negatives: diarrhea, nausea, vomiting. Current symptoms: In the emergency department the patient's symptoms have improved. The patient has not experienced similar symptoms in the past. The patient has not recently seen a physician. Patient with onset of hot flashes and sweating on Thursday and Thursday that he resolved with eating and drinking sugary substances. Thursday he had no symptoms. Today he had the same sensation of hot flashes and sweating this AM. Patient gonzalez not check his blood sugar levels because he does not have a machine and he does not want to prick his fingers. Takes glipizide daily around 1000. Historical: - Allergies: 16:09 No Known Allergies; ca1 - Home Meds: 16:09 carvedilol 6.25 mg oral tab [Active]; glipizide 5 mg Oral tab 1 tab [Active]; sevelamer ca1 HCl oral oral [Active]; atorvastatin oral oral [Active]; Dialyvite oral oral [Active]; - PMHx: 16:09 Diabetes - NIDDM; Dialysis; Hypertension; ca1 - PSHx: 16:09 L arm fistula; Appendectomy; Cholecystectomy; R toe amputation; ca1 - Immunization history:: Client reports receiving the 2nd dose of the Covid vaccine, Client reports receiving the 1st dose of the Covid vaccine, Flu vaccine is not up to date. - Social history:: Smoking status: Patient denies any tobacco usage or history of. ROS: 16:11 Constitutional: Negative for fever, chills, and weight loss, Eyes: Negative for injury, pm1 pain, redness, and discharge, ENT: Negative for injury, pain, and discharge, Neck: Negative for injury, pain, and swelling, Cardiovascular: Negative for chest pain, palpitations, and edema, Respiratory: Negative for shortness of breath, cough, wheezing, and pleuritic chest pain, Abdomen/GI: Negative for abdominal pain, nausea, vomiting, diarrhea, and constipation, Back: Negative for injury and pain, MS/Extremity: Negative for injury and deformity, Skin: Negative for injury, rash, and discoloration, Neuro: Negative for headache, weakness, numbness, tingling, and seizure. Exam: 16:11 Constitutional: This is a well developed, well nourished patient who is awake, alert, pm1 and in no acute distress. Head/Face: Normocephalic, atraumatic. 16:11 Cardiovascular: Regular rate and rhythm with a normal S1 and S2. No gallops, murmurs, or rubs. Normal PMI, no JVD. No pulse deficits. Respiratory: Lungs have equal breath sounds bilaterally, clear to auscultation and percussion. No rales, rhonchi or wheezes noted. No increased work of breathing, no retractions or nasal flaring. 16:11 Back: No spinal tenderness. No costovertebral tenderness. Full range of motion. Skin: Warm, dry with normal turgor. Normal color with no rashes, no lesions, and no evidence of cellulitis. MS/ Extremity: Pulses equal, no cyanosis. Neurovascular intact. Full, normal range of motion. 16:11 Eyes: Exam is negative for acute changes, Extraocular movements: intact throughout, Conjunctiva: normal, no injection, no abnormal tearing, Sclera: no acute changes, icterus, is not appreciated. 16:11 ENT: Mouth: no acute changes, Lips: normal, Oral mucosa: normal, pink and intact, moist. 16:11 Abdomen/GI: Inspection: abdomen appears normal, Palpation: abdomen is soft and non-tender, in all quadrants. 16:11 Neuro: Exam negative for acute changes, Orientation: is normal, Mentation: is normal, Motor: is normal, moves all fours, Sensation: is normal, no obvious gross deficits. Vital Signs: 15:54 BP 169 / 78; Pulse 81; Resp 16 S; Temp 97.1(TE); Pulse Ox 99% on R/A; Weight 81.5 kg ca1 (M); Height 5 ft. 3 in. (160.02 cm) (R); Pain 0/10; 17:07 BP 171 / 84; Pulse 89; Resp 18; Pulse Ox 97% on R/A; tr6 17:30 BP 161 / 79; Pulse 86; Resp 18; Pulse Ox 100% ; tr6 18:21 BP 159 / 77; Pulse 84; Resp 18; Pulse Ox 98% on R/A; ak2 15:54 Body Mass Index 31.83 (81.50 kg, 160.02 cm) ca1 MDM: 15:56 Patient medically screened. pm1 18:07 ED course: Patient's blood sugar wnls and patient said that he feels ready to go home. pm1 Educated the patient on the need to check his blood sugars on a regular basis and to eat more meals throughout the day, especially lunch. 18:09 Data reviewed: vital signs. Data interpreted: Pulse oximetry: on room air is 100 %. pm1 Interpretation: normal. Counseling: I had a detailed discussion with the patient and/or guardian regarding: the historical points, exam findings, and any diagnostic results supporting the discharge/admit diagnosis, lab results, radiology results, the need for outpatient follow up, to return to the emergency department if symptoms worsen or persist or if there are any questions or concerns that arise at home. 08/21 16:03 Order name: CBC with Diff pm08/21 16:03 Order name: CMP pm1 08/21 16:04 Order name: CBC with Automated Diff; Complete Time: 16:35 EDMS 08/21 16:04 Order name: Comprehensive Metabolic Panel; Complete Time: 16:57 EDMS 08/21 16:06 Order name: Magnesium; Complete Time: 16:44 pm1 08/21 16:06 Order name: PT-INR; Complete Time: 16:35 pm1 08/21 16:06 Order name: Troponin (emerg Dept Use Only); Complete Time: 16:44 pm1 08/21 16:06 Order name: XRAY Chest (1 view); Complete Time: 17:09 pm1 08/21 16:06 Order name: EKG; Complete Time: 16:06 pm1 08/21 16:28 Order name: Glucose, Ancillary Testing; Complete Time: 16:35 EDMS 08/21 16:31 Order name: Glucose, Ancillary Testing; Complete Time: 16:35 EDWV 08/21 17:08 Order name: Glucose, Ancillary Testing; Complete Time: 17:09 EDWV 08/21 18:15 Order name: Glucose, Ancillary Testing; Complete Time: 18:15 EDWV 08/21 16:03 Order name: IV Saline Lock; Complete Time: 17:06 pm1 08/21 16:06 Order name: Cardiac monitoring; Complete Time: 17:06 pm1 08/21 16:06 Order name: EKG - Nurse/Tech; Complete Time: 17:06 pm1 08/21 16:06 Order name: Labs collected and sent; Complete Time: 17:06 pm1 08/21 16:06 Order name: O2 Per Protocol; Complete Time: 17:06 pm1 08/21 16:06 Order name: O2 Sat Monitoring; Complete Time: 17:06 pm1 08/21 16:07 Order name: Diet Renal; Complete Time: 16:07 pm1 Administered Medications: 16:26 Drug: D50W 50 ml Route: IVP; Site: right antecubital; ak2 Disposition: 08/21/20 18:14 Discharged to Home. Impression: Hypoglycemia, unspecified. - Condition is Stable. - Discharge Instructions: Hypoglycemia, Blood Glucose Monitoring, Adult. - Medication Reconciliation Form, Thank You Letter, Antibiotic Education, Prescription Opioid Use form. - Follow up: Emergency Department; When: As needed; Reason: Worsening of condition. Follow up: Private Physician; When: 2 - 3 days; Reason: Recheck today's complaints, Continuance of care, Re-evaluation by your physician. - Problem is new. - Symptoms have improved. Addendum: 08/27/2020 07:57 Co-signature as Attending Physician, Zenon Galdamez MD. r n Signatures: Dispatcher [employer] [facility] Zenon Galdamez MD MD rn Marinas, Patrick, INTERIOR BLOCK WIRER INTERIOR BLOCK WIRER pm1 Ysabel Al RN RN ca1 [place], Anthony ak2 Corrections: (The following items were deleted from the chart) 08/21 18:54 18:14 08/21/2020 18:14 Discharged to Home. Impression: Hypoglycemia, unspecified. ak2 Condition is Stable. Forms are Medication Reconciliation Form, Thank You Letter, Antibiotic Education, Prescription Opioid Use. Follow up: Emergency Department; When: As needed; Reason: Worsening of condition. Follow up: Private Physician; When: 2 - 3 days; Reason: Recheck today's complaints, Continuance of care, Re-evaluation by your physician. Problem is new. Symptoms have improved. pm1 20:27 16:11 This 55 yrs old Male presents to ER via Ambulatory with complaints of pm1 Hot Flashes, Sweats. pm1
[2020-08-21 19:19] VITALS: TEMP 97.1
[2020-08-21 19:24] VITALS: BP 159/77; O2SAT 98
--- NOTE | 2020-08-22 11:59 | EKG ---
Test Date: 2020-08-21 Test Time: 16:24:22 Chainstitch Seat Joiner: . MEASUREMENT RESULTS: Intervals: Rate: 88 WA: 174 QRSD: 96 QT: 396 QTc: 479 [place]: P: 54 WA: 174 QRS: 6 T: 43 INTERPRETIVE STATEMENTS: Normal sinus rhythm Incomplete right bundle branch block Borderline ECG Compared to ECG 09/11/2019 12:52:27 Prolonged QT interval no longer present Electronically Signed On 08-22-20 11:57:04 CDT by Paddy Soliman
== END 2020-08-21 18:54 | disposition home or self-care (01) ==
LOC: ER 15:50
DX: E11.649 Type 2 diabetes mellitus with hypoglycemia without coma (principal); I10 Essential (primary) hypertension; Z99.2 Dependence on renal dialysis
CPT/HCPCS: 36415; 71045; 80053; 82947; 83735; 84484; 85025; 85610; 93005; 96374; 99284

== ENCOUNTER 2020-09-16 19:24 | Emergency (ER) | payer MEDICARE ==
--- OUTSIDE RECORDS SUMMARY | 2020-09-16 19:28 | XMS REPORT | Continuity of Care Document ---
:1965 Author Organization [facility] t Address [address] [place] [address] Care Team Providers Name Role Phone Pcp Primary Care Physician Unavailable Mary Attending Clinician Unavailable Ruy BRODERICK Attending Clinician Halie BRODERICK SMadison Attending Clinician ATNONY ROBERTS Attending Clinician Unavailable Nehemias GONZALEZ Attending Clinician Unavailable Chin Attending Clinician Unavailable Dmitri FINNEY Attending Clinician Unavailable Natalie Attending Clinician Unavailable Bo GONZALEZ Attending Clinician Unavailable Guy HARRISON Attending Clinician Unavailable South LOAIZA Attending Clinician Unavailable RUY Attending Clinician Unavailable Guy HARRISON Admitting Clinician Unavailable RUY Admitting Clinician Unavailable Payers Payer Name Policy Type Policy Effective Date Expiration Date Sour ce Number [facility] [id number] 2016 MACARIO Blanchard [id number] 2015- 00:00:00 - Medical PresentMedicare Center [facility] - [id number] 2020 MACARIO Blanchard MEDICARE MGD 00:00:00 - Medical [facility] OIAETMSKuhsok24808/03/31 021-Present Problems Condition Condition Condition Status Onset Resolution Last Treating Co mments Source Name Details Category Date Date Treatment Clinician Date Coronary Coronary Disease Active MACARIO broussard artery artery 10-22 [place] - disease disease 00:00: Medical involving involving 00 [facility] jena jena heart with heart with angina angina pectoris, pectoris, unspecifie unspecifie d vessel d vessel or lesion or lesion type type Hypertensi Hypertensi Disease Active [facility] on, on, 10-[address] [facility] - unspecifie unspecifie 00:00: Me dical d type d type 00 Center ESRD (end ESRD (end Disease Active [facility] stage stage 10-21 [facility] - renal renal 00:00: Medical disease) disease) 00 Center Other Other Disease Active [facility] St specified specified 10-21 [facility] - diabetes diabetes 00:00: Medica l mellitus mellitus 00 Center with with diabetic diabetic chronic chronic kidney kidney disease, disease, unspecifie unspecifie d CKD d CKD stage, stage, unspecifie unspecifie d whether d whether medical terminologist halfway insulin insulin use use Pre-transp Pre-transp Disease Active 2016-[address] lant lant 0-17 [facility] - evaluation evaluation 00:00: Me dical for ESRD for ESRD 00 Center (end stage (end stage renal renal disease) disease) Allergies, Adverse Reactions, Alerts This patient has no known allergies or adverse reactions. Family History Family Member Diagnosis Comments Start Date Stop Date Source Natural father Heart disease [facility] Natural mother Diabetes [facility] Natural mother Hypertension [facility] Other Liver disease [facility] Natural sister Diabetes [facility] Social History Social Habit Start Date Stop Date Quantity Comments Source Sex Assigned At [facility] Tobacco use and 2020-01-10 2020-01-10 Never used [facility] - exposure 00:00:00 00:00:00 [facility] Alcohol intake 2020-01-10 2020-01-10 Current [facility] - 00:00:00 00:00:00 non-drinker of Medical Ce nter alcohol (finding) Tobacco Comment 2017-09-15 2017-09-15 exposure to [facility] 00:00:00 00:00:00 second hand [facility] Cent[facility] r smoke. History of 1985-12-07 1987-12-08 Current smoker [facility] - tobacco use 00:00:00 00:00:00 Medical [...] Source Systolic blood 2020-01-10 12:49:00 145 mm[Hg] [facility] Diastolic blood 2020-01-10 12:49:00 60 mm[Hg] [facility] S t [facility] Heart rate 2020-01-10 12:49:00 88 /min [facility] Body temperature 2020-01-10 12:49:00 36.39 Roxane [facility] Respiratory rate 2020-01-10 12:49:00 20 /min [facility] Body height 2020-01-10 12:49:00 160 cm [facility] Body weight 2020-01-10 12:49:00 80.831 kg [facility] BMI 2020-01-10 12:49:00 31.57 kg/m2 [facility] Procedures Procedure Date / Time Performing Clinician Source Performed FLOW PRA CLASS I WITH 2020-01-10 11:37:[address] [facility]IFIC[facility] FLOW PRA CLASS II WITH 2020-01-10 11:37:[address] [facility]FLEX [facility]TIBODY [facility] r SPECIFICITY CYTOMEGALOVIRUS ANTIBODY, 2020-01-10 11:37:00 Rianna Ambrose [facility] IGG [facility] HEPATITIS C ANTIBODY 2020-01-10 11:37:00 Rianna Ambrose HI [facility] HC LAB HIV-1 AG W/HIV-1&2 2020-01-10 11:37:00 [facility] AB [facility] PSA 2020-01-10 11:37:00 Rianna Ambrose [facility] 2D ECHO W/ DOPPLER 2020-01-10 10:31:00 [facility] - (CW/PW/COLOR) [facility] NM MYOCARDIAL PERFUSION 2020-01-10 09:39:00 [facility] - PET/CT (REST & STRESS) Medical C enter TREADMILL 2020-01-10 09:18:34 Unknown, Hl7 Doctor MACARIO Breen - TOLERANCE(NON-NUCLEAR Medical Ce nter TREADMILL) ECG 12-LEAD 2020-01-10 09:11:48 Unknown, Hl7 Doctor MACARIO Breen - [facility] REPORT OF PROCEDURE - 2020-01-10 00:00:00 Provider, Snehal Nunez - ENDOSCOPY SCAN Scanning [facility] Plan of Care Planned Activity Planned Date Details Comments Source Future Scheduled 2020-11-[address] [facility] - Test 00:00:00 (Season Ended) [code = [facility] INFLUENZA VACCINE (Season Ended)] Future Scheduled 2020-03-[address] [facility] - Test 00:00:00 (12+) [code = [facility] DEPRESSION SCREENING (12+)] Future Scheduled 2019-05-[address] [facility] - Test 00:00:00 (procedure) [code = [facility] 95696303] Future Scheduled 2017-10-[address] [facility] - Test 00:00:00 [facility] (procedure) [code = 99918444] Future Scheduled 2017-08-[address] [facility] - Test 00:00:00 malignant neoplasm of Medica l Center colon (procedure) [code = 597681313] Future Scheduled 2017-01-[address] [...] Ila ter VACCINE (1)] Future Scheduled 1974-02-01 Urine screening for [facility] - Test 00:00:00 protein (procedure) Medical Center [code = 891106285] Future Scheduled 1974-02-[address] DIABETIC EYE EXAM [facility] - Test 00:00:00 [code = DIABETIC EYE Medical Center EXAM] Future Scheduled 1974-02-[address] [facility] - Test 00:00:00 examination Medical Center (regime/therapy) [code = 774804944] Future Scheduled 1970-02-[address] [facility] - Test 00:00:00 0-64 YRS (1 of 1 - Medical C enter PPSV23) [code = PNEUMOCOCCAL VACCINE 0-64 YRS (1 of 1 - PPSV23)] Results Test Description Test Time Test Comments Results Result [facility] e Comments Treadmill 2019-12-29 Interface, External Ris [...] 01/10/2020 SCOTT WELLER Gender Male Visit Number [id number] Race Room Number OP Number Date of 1965 Referring Ruy Parekh MD Physician Age 54 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, [facility] Interpreting Lupe Hartley MD Physician Procedure Type [...] PATIENT ID: PERF REST AND 3 Exam:->renal [id number] PROCEDURE: STRESS 14:32:00 tx eval; cad MYOCARDIAL PERFUSION PET/CT IMAGING (Rest/Stress)CPT CODE: 91802 INDICATION: Pre-operative evaluation for renal transplant, history [...] MDReport Verified Date/Time: 01/10/2020 14:32:02 Reading Location: [address] Reading Room Myocardial 2019-12-29 Interface, External [facility] St Perfusion Pet/CT 3 In - 01/10/2020 2:34 [facility] - (Rest & Stress) 14:32:00 CDTFINAL REPORT PATIENT Medical ID: [id number] Center PROCEDURE: MYOCARDIAL PERFUSION PET/CT IMAGING (Rest/Stress)CPT CODE: 31995 INDICATION: Pre-operative evaluation for renal transplant, history [...] MDReport Verified Date/Time: 01/10/2020 14:32:02 Reading Location: [address] Reading Room MEGALOVIRUS ANTIBODY, IGG 2020-01-10 14:19:00 Test Item Value Reference Range Interpretation Comme nts CYTOMEGALOVIRUS, IGG (CLEMENTE) (test code = 3429) Negative Negat julián, Equivocal CMV IgG Result Interpretation: </= 0.8 Al Negative 0.9-1.0 Al Equivocal >/=1.1 Al PositiveECG 12 [id number] 13:35:58Interface, External Ris In - 01/10/2020 1:36 PM CDTVentricular Rate 84 BPMAtrial Rate 84 BPMP-R Interval 142 msQRS Duration 96 msQ-T Interval 414 msQTC Calculation(Bazett) 489 msP [place] 65 degreesR [place] 62 degreesT [place] 67 degreesNormal sinus rhythmRSR' pattern in B4Pihqdlljm QTAbnormal ECG17 Dec 2016R wave amplitude decreased in G3Hszpqakzu by MD DUC, [facility] ([id number]) on 01/10/2020 1:35:53 [facility] 13:20:00 Test Item Value Reference Range Interpretation Comments PROSTATE SPECIFIC ANTIGEN (JESIKAAKER) 0.3 ng/mL 0.0-4.0 (test code = 844) Ip Litigation Associate ID - SAMANTHAGHEPATITIS C [id number] 13:20:00 Test Item Value Reference Range Interpretation Comments HEPATITIS C ANTIBODY (CLEMENTE) Nonreactive Nonreactive (test code = 367) Ip Litigation Associate ID - ELOISAIV-1 ANTIGEN WITH HIV-1/2 [id number] 13:20:00 Test Item Value Reference Range Interpretation Comments HIV-1 ANTIGEN WITH HIV 1\\T\\2 Nonreactive Nonreactive ANTIBODY (2) (CLEMENTE) (test code = 2586) Ip Litigation Associate ID - NILES, ABDOMEN, [id number] 11:16:00Esrd,on dialysis, awaiting kidney transplant. See ultrasound [...] keepingwith chronic kidney disease. Signed: Ottoniel Lee [facility] Verified Date/Time: 12/23/2018 11:16:06 Reading Location: [facility] B1 C013Y CT Body Reading Room U/S, ABDOMINAL, [id number] 15:46:00Reason for Exam:- >pre transplant evaluation for [...] evaluation of the pancreas. Signed: José Jackson [facility] Verified Date/Time: 12/07/2018 15:46:25 Reading Location: [address] Radiology Reading Room TISSUE [id number] 19:11:00Surgical Pathology Report Case: [id number] Authorizing Provider: Nuria Harrison MD Collected: 09/23/2017 0918 Ordering Location: [facility] Endoscopy Received: 09/23/2017 1144 Services Pathologist: Andrea Faust MD Specimen: Polyp, Colon - Left/Descending, taken via hot snare COLON, LEFT/DESCENDING, POLYPECTOMY- TUBULAR ADENOMA (MULTIPLE PIECES) Signing Pathologist Direct Phone Line: [phone] signed by Andrea Faust MD on 09/24/2017 at 7:11 [id number] for colon cancer Left descending colon polyp The specimen is received in a formalin-filled container labeled with the patient's information and labeled "left descending colon polyp" and consists of a gann-red polyp measuring 0.5 cm in greatest dimension. The resection margin is inked blue. The specimen is bisected and submitted in A1. CG/ew There is no high grade dysplasia or carcinoma.[id number] 07:55:00 Test Item Value Reference Range Interpretation Comments POC-POTASSIUM 4.8 meq/L 3.6-5.5 TESTED AT [facility] C 6720 ([facility]) (test code [facility] [address] = 1540) CYTOMEGALOVIRUS ANTIBODY, [id number] 08:36:00 Test Item Value Reference Range Interpretation Comments CYTOMEGALOVIRUS IGG ANTIBODY Negative (BEAKER) (test code = 790) CYTOMEGALOVIRUS ANTIBODY, [id number] 08:36:00 Test Item Value Reference Range Interpretation Comments CYTOMEGALOVIRUS IGM ANTIBODY Negative (BEAKER) (test code = 816) EBV-VCA ANTIBODY, [id number] 08:36:00 Test Item Value Reference Range Interpretation Comments LANETTE-CENTENO VCA IGG (AKER) (test Positive code = 983) EBV-VCA ANTIBODY, [id number] 08:36:00 Test Item Value Reference Range Interpretation Comments LANETTE-CENTENO VCA IGM (BEAKER) (test Positive code = 984) [id number] 02:48:00 Test Item Value Reference Range Interpretation Comments RPR SCREEN (BEAKER) (test code = Nonreactive Nonreactive 420) [id number] 15:45:00 Test Item Value Reference Range Interpretation Comments PROSTATE SPECIFIC ANTIGEN (BEAKER) 0.3 ng/mL 0.0-4.0 (test code = 844) HEPATITIS B SURFACE [id number] 15:43:00 Test Item Value Reference Range Interpretation Comments HEPATITIS B SURFACE ANTIGEN (2) Nonreactive Nonreactive (BEAKER) (test code = 2585) HEPATITIS B SURFACE [id number] 15:43:00 Test Item Value Reference Range Interpretation Comments HEPATITIS B SURFACE ANTIBODY 22.0 mIU/mL <8.0 H (BEAKER) (test code = 647) HEPATITIS B CORE ANTIBODY, [id number] 15:43:00 Test Item Value Reference Range Interpretation Comments HEPATITIS B CORE IGM ANTIBODY Nonreactive Nonreactive (BEAKER) (test code = 645) HEPATITIS C [id number] 15:43:00 Test Item Value Reference Range Interpretation Comments HEPATITIS C ANTIBODY (BEAKER) Nonreactive Nonreactive (test code = 367) HIV-1 ANTIGEN WITH HIV-1/2 [id number] 15:43:00 Test Item Value Reference Range Interpretation Comments HIV-1 ANTIGEN WITH HIV 1\\T\\2 Nonreactive Nonreactive ANTIBODY (2) (BEAKER) (test code = 2586) GAMMA GLUTAMYL TRANSFERASE (GGT)2017-09-01 15:21:00 Test Item Value Reference Range Interpretation Comments GAMMA GLUTAMYL TRANSFERASE (BEAKER) 53 U/L 9-64 (test code = 364) BASIC METABOLIC [id number] 11:03:00 Test Item Value Reference Range Interpretation [...] S NOT APPLICABLE FOR DIALYSIS PATIEN TS. [id number] 10:46:00 Test Item Value Reference Range Interpretation [...] = 2801) FLOW PRA CLASS I AND [id number] 09:50:00 Test Item Value Reference Range Interpretation Comments DATE OF SERUM (BEAKER) [id number] (test code = 2289) SERUM # (BEAKER) (test 177837 code = 2290) FLOW PRA CLASS I AND II See Scanned Report (test code = 2421) HLA [id number] 13:18:00 Test Item Value Reference Range Interpretation [...] (BEAKER) (test code = 2583) OCCULT BLOOD, [id number] 16:23:00 Test Item Value Reference Range Interpretation Comments FECAL OCCULT BLOOD (BEAKER) (test Positive Negative A code = 618) OCCULT BLOOD, [id number] 16:14:00 Test Item Value Reference Range Interpretation Comments FECAL OCCULT BLOOD (BEAKER) (test Negative Negative code = 618) HEMOGLOBIN [id number] 15:13:00 Test Item Value Reference Range Interpretation Comments HEMOGLOBIN A1C (InEnTec) (test code = 7.1 % 4.3-6.1 H 368) GAMMA GLUTAMYL TRANSFERASE (GGT)2016-08-14 12:11:00 Test Item Value Reference Range Interpretation Comments GAMMA GLUTAMYL TRANSFERASE (InEnTec) 70 U/L 9-64 H (test code = 364) VARICELLA ZOSTER ANTIBODY, [id number] 17:30:00 Test Item Value Reference Range Interpretation Comments VARICELLA ZOSTER IGG (AL) (InEnTec) 6.3 Al (test code = 3197) VARICELLA ZOSTER RESULT INTERPRETATIONS: <=0.8 Al Nonreactive: Presumed non-immune to VZV 0.9-1.0 Al Equivocal >=1.1 Al Reactive: Presumed immune to VZV
[2020-09-16 21:33] LABS: Urine Blood 3+ (Negative); Urine Glucose 2+ (Negative); Urine Protein 3+ (Negative); Urine pH 7.5 (5.0-7.0)
[2020-09-16 22:14] LABS: Absolute Lymphocytes (CBC) 1.3 K/uL (0.7-4.9); Basophils % 0.9 % (0-1.3); Hematocrit 30.4 % (39.6-49.0); Lymphocytes % 21.4 % (15.3-44.8); MPV 9.2 fL (7.6-11.3); RBC Red Blood Cell Count 3.12 M/uL (4.33-5.43)
[2020-09-16 22:37] LABS: Albumin 3.6 g/dL (3.4-5.0); Bilirubin Direct 0.3 mg/dL (0-0.2); Bilirubin Total 0.9 mg/dL (0.2-1.0); Potassium 4.4 mmol/L (3.5-5.1); Protein, Total 7.4 g/dL (6.4-8.2)
[2020-09-16] MEDS ORDERED: CEFTRIAXONE/SWI 1gm 1 GM/10 ML SYR ONE (23:21)
--- NOTE | 2020-09-16 23:45 | ER ---
Nurse's Notes [facility] Name: Art Trinidad Jr Age: 55 yrs Sex: Male : 1965 Arrival Date: 09/16/2020 Time: 19:43 Bed 8 Private MD: Diagnosis: Cystitis, unspecified with hematuria Presentation: 09/16 20:19 Chief complaint: Patient states: Reports he passed a clot about an hour while trying to ea urinate reports he had been passing blood tinged urine since 4 pm. Coronavirus screen: At this time, the client does not indicate any symptoms associated with coronavirus-19. Ebola Screen: No symptoms or risks identified at this time. Initial Sepsis Screen: Does the patient meet any 2 criteria? No. Patient's initial sepsis screen is negative. Does the patient have a suspected source of infection? No. Patient's initial sepsis screen is negative. Risk Assessment: Do you want to hurt yourself or someone else? Patient reports no desire to harm self or others. Onset of symptoms was September 16, 2020. 20:19 Method Of Arrival: Ambulatory ea 20:19 Acuity: DIVINA 3 ea Triage Assessment: 20:24 General: Appears in no apparent distress. Behavior is appropriate for age. Pain: Denies ea pain. Neuro: Level of Consciousness is awake, alert, obeys commands, Oriented to person, place, time. Respiratory: No deficits noted. Historical: - Allergies: 20:24 No Known Allergies; ea - Home Meds: 20:24 sevelamer HCl Oral [Active]; glipizide 5 mg Oral tab 1 tab [Active]; Dialyvite Oral ea [Active]; carvedilol 6.25 mg Oral tab [Active]; atorvastatin Oral [Active]; - PMHx: 20:24 Hypertension; Dialysis; Diabetes - NIDDM; ea - PSHx: 20:24 L arm fistula; R toe amputation; Cholecystectomy; Appendectomy; ea - Immunization history:: Adult Immunizations up to date. - Social history:: Smoking status: unknown. Screenin:22 Abuse screen: Denies threats or abuse. Nutritional screening: No deficits noted. ea Tuberculosis screening: No symptoms or risk factors identified. Fall Risk None identified. Assessment: 20:50 General: Appears in no apparent distress. Behavior is calm, cooperative. Pain: Denies lp1 pain. Neuro: Level of Consciousness is awake, alert, obeys commands, Oriented to person, place, time, situation. Cardiovascular: Patient's skin is warm and dry. Dialysis shunt: in the left arm. Respiratory: Respiratory effort is even, unlabored. GI: Abdomen is non-distended. : Reports x1 episode of passing blood clot while urinating Denies burning with urination, pain. EENT: No signs and/or symptoms were reported regarding the EENT system. Derm: Skin is pink, warm \T\ dry. Musculoskeletal: No deficits noted. 22:15 Reassessment: Patient appears in no apparent distress at this time. Patient and/or lp1 family updated on plan of care and expected duration. Pain level reassessed. Patient is alert, oriented x 3, equal unlabored respirations, skin warm/dry/pink. Vital Signs: 20:19 BP 161 / 92; Pulse 86; Resp 18; Temp 97.5; Pulse Ox 99% ; Weight 81.5 kg; Height 5 ft. ea 3 in. (160.02 cm); 22:00 BP 141 / 79; Pulse 81; Resp 18; Pulse Ox 97% on R/A; lp1 23:00 BP 138 / 74; Pulse 81; Resp 18; Pulse Ox 97% on R/A; lp1 20:19 Body Mass Index 31.83 (81.50 kg, 160.02 cm) ea ED Course: 19:43 Patient arrived in ED. am4 20:22 Triage completed. ea 20:38 Desirae Alfaro, RN is Primary Nurse. lp1 20:38 Keyshawn Hurt MD is Attending Physician. mh7 21:00 Arm band placed on. lp1 21:32 CT Stone Protocol In Process Unspecified. EDMS 21:40 Missed attempt(s): 20 gauge antecubital area. Bleeding controlled, band aid applied, oe catheter tip intact. 21:43 Patient has correct armband on for positive identification. Placed in gown. Bed in low mh5 position. Call light in reach. Side rails up X 1. Warm blanket given. Pillow given. Pulse ox on. NIBP on. 21:43 Urine collected: clean catch specimen, blood tinged. mh5 21:45 Inserted saline lock: 20 gauge in right wrist, using aseptic technique. Blood collected.oe 23:44 Dipak Alejandra MD is Referral Physician. [facility] 23:57 No provider procedures requiring assistance completed. IV discontinued, No lp1 redness/swelling at site. Pressure dressing applied. Administered Medications: 23:00 Drug: Rocephin (cefTRIAXone) 1 grams Route: IV; Rate: per protocol; Site: right wrist; lp1 23:59 Follow up: IV Status: Completed infusion; IV Intake: 10ml lp1 Intake: 23:59 IV: 10ml; Total: 10ml. lp1 Outcome: 23:45 Discharge ordered by . [facility] 23:58 Discharged to home ambulatory. lp1 23:58 Condition: good 23:58 Discharge instructions given to patient, Instructed on discharge instructions, follow up and referral plans. medication usage, Demonstrated understanding of instructions, follow-up care, medications, Prescriptions given X 2. 23:59 Patient left the ED. lp1 Signatures: Dispatcher [employer] EDMS Desirae Alfaro RN RN lp1 Henri Moreno Maria 5 Naomi Mann RN RN ea Holmes, Maurice, MD MD 7 Lyla Varela 4 Corrections: (The following items were deleted from the chart) 20:22 20:22 Arm band placed on right wrist. Patient placed in an exam room, on a stretcher, ea on pulse oximetry, ea
--- NOTE | 2020-09-16 23:46 | EDPHYS ---
Physician Documentation [facility] Name: Art Trinidad Jr Age: 55 yrs Sex: Male : 1965 Arrival Date: 09/16/2020 Time: 19:43 Bed 8 Private MD: ED Physician Keyshawn Hurt HPI: 09/16 21:23 This 55 yrs old Male presents to ER via Ambulatory with complaints of Urinary mh7 Problem. 21:26 The patient presents with urinary symptoms, Blood in urine. Onset: The symptoms/episode mh7 began/occurred today, at 16:00. Modifying factors: The symptoms are alleviated by nothing, the symptoms are aggravated by nothing. 21:27 Associated signs and symptoms: Pertinent positives: hematuria, Pertinent negatives: mh7 abdominal pain, constipation, diarrhea, dysuria, fever, nausea, vomiting. Severity of symptoms: At their worst the symptoms were moderate, earlier today, in the emergency department the symptoms have improved, moderately. The patient has experienced a previous episode, many years ago. Historical: - Allergies: 20:24 No Known Allergies; ea - Home Meds: 20:24 sevelamer HCl Oral [Active]; glipizide 5 mg Oral tab 1 tab [Active]; Dialyvite Oral ea [Active]; carvedilol 6.25 mg Oral tab [Active]; atorvastatin Oral [Active]; - PMHx: 20:24 Hypertension; Dialysis; Diabetes - NIDDM; ea - PSHx: 20:24 L arm fistula; R toe amputation; Cholecystectomy; Appendectomy; ea - Immunization history:: Adult Immunizations up to date. - Social history:: Smoking status: unknown. ROS: 21:27 Constitutional: Negative for fever, chills, and weight loss, Eyes: Negative for injury, mh7 pain, redness, and discharge, ENT: Negative for injury, pain, and discharge, Neck: Negative for injury, pain, and swelling, Cardiovascular: Negative for chest pain, palpitations, and edema, Respiratory: Negative for shortness of breath, cough, wheezing, and pleuritic chest pain, Abdomen/GI: Negative for abdominal pain, nausea, vomiting, diarrhea, and constipation, Back: Negative for injury and pain, MS/Extremity: Negative for injury and deformity, Skin: Negative for injury, rash, and discoloration, Neuro: Negative for headache, weakness, numbness, tingling, and seizure, Psych: Negative for depression, anxiety, suicide ideation, homicidal ideation, and hallucinations, Allergy/Immunology: Negative for hives, rash, and allergies, Endocrine: Negative for neck swelling, polydipsia, polyuria, polyphagia, and marked weight changes, Hematologic/Lymphatic: Negative for swollen nodes, abnormal bleeding, and unusual bruising. 21:27 : Negative for urinary frequency, small amounts, pelvic pain, flank pain, burning with urination, difficulty urinating, bladder incontinence, foul smelling urine, penile discharge, penile pain, testicular pain Exam: 21:27 Constitutional: This is a well developed, well nourished patient who is awake, alert, mh7 and in no acute distress. Head/Face: Normocephalic, atraumatic. Eyes: Pupils equal round and reactive to light, extra-ocular motions intact. Lids and lashes normal. Conjunctiva and sclera are non-icteric and not injected. Cornea within normal limits. Periorbital areas with no swelling, redness, or edema. Neck: Trachea midline, no thyromegaly or masses palpated, and no cervical lymphadenopathy. Supple, full range of motion without nuchal rigidity, or vertebral point tenderness. No Meningismus. Chest/axilla: Normal chest wall appearance and motion. Nontender with no deformity. No lesions are appreciated. Cardiovascular: Regular rate and rhythm with a normal S1 and S2. No gallops, murmurs, or rubs. Normal PMI, no JVD. No pulse deficits. Respiratory: Lungs have equal breath sounds bilaterally, clear to auscultation and percussion. No rales, rhonchi or wheezes noted. No increased work of breathing, no retractions or nasal flaring. 21:27 Skin: Warm, dry with normal turgor. Normal color with no rashes, no lesions, and no evidence of cellulitis. MS/ Extremity: Pulses equal, no cyanosis. Neurovascular intact. Full, normal range of motion. Neuro: Awake and alert, GCS 15, oriented to person, place, time, and situation. Cranial nerves II-XII grossly intact. Motor strength 5/5 in all extremities. Sensory grossly intact. Cerebellar exam normal. Normal gait. Psych: Awake, alert, with orientation to person, place and time. Behavior, mood, and affect are within normal limits. 21:27 Abdomen/GI: Inspection: abdomen appears normal, Bowel sounds: normal, in all quadrants, Palpation: mild abdominal tenderness, in the suprapubic area, mass, is not appreciated, rebound tenderness, is not appreciated, voluntary guarding, is not appreciated, involuntary guarding, is not appreciated, no appreciated organomegaly, Rectal exam: the exam is deferred, because of patient request, Indicators: McBurney's point is not tender, Mayfield's sign is negative, Rovsing's sign is negative, Obturator sign is negative, Psoas sign is negative, Liver: no appreciated palpable abnormalities, Hernia: not appreciated. 21:27 Back: normal spinal alignment noted, CVA tenderness, is absent, vertebral tenderness, is not appreciated, muscle spasm, is not present. 21:27 : CVA tenderness, is absent, Male external genitalia: normal, Bladder: tenderness, that is mild. Vital Signs: 20:19 BP 161 / 92; Pulse 86; Resp 18; Temp 97.5; Pulse Ox 99% ; Weight 81.5 kg; Height 5 ft. ea 3 in. (160.02 cm); 22:00 BP 141 / 79; Pulse 81; Resp 18; Pulse Ox 97% on R/A; lp1 23:00 BP 138 / 74; Pulse 81; Resp 18; Pulse Ox 97% on R/A; lp1 20:19 Body Mass Index 31.83 (81.50 kg, 160.02 cm) ea MDM: 23:43 Differential diagnosis: nonspecific abdominal pain, UTI, urinary retention, urethritis. [facility] Data reviewed: vital signs, nurses notes, lab test result(s), CBC, electrolytes, urinalysis, radiologic studies, CT scan. Data interpreted: Pulse oximetry: on room air is 97 %. Interpretation: normal. Counseling: I had a detailed discussion with the patient and/or guardian regarding: the historical points, exam findings, and any diagnostic results supporting the discharge/admit diagnosis, the presence of at least one elevated blood pressure reading (>120/80) during this emergency department visit, lab results, radiology results, the need for outpatient follow up, to return to the emergency department if symptoms worsen or persist or if there are any questions or concerns that arise at home. Response to treatment: the patient's symptoms have markedly improved after treatment. 23:45 Patient medically screened. [facility] 09/16 21:09 Order name: Basic Metabolic Panel [facility] 09/16 21:09 Order name: CBC with Diff [facility] 09/16 21:09 Order name: Hepatic Function [facility] 09/16 21:09 Order name: Lipase [facility] 09/16 21:10 Order name: Basic Metabolic Panel; Complete Time: 22:46 EDMS 09/16 21:10 Order name: Liver (Hepatic) Function; Complete Time: 22:46 EDOR 09/16 21:09 Order name: IV Saline Lock; Complete Time: 22:21 [facility] 09/16 21:09 Order name: Labs collected and sent; Complete Time: 22:21 [facility] 09/16 21:09 Order name: CT Stone Protocol [facility] 09/16 21:10 Order name: CBC with Automated Diff; Complete Time: 22:46 EDOR 09/16 21:10 Order name: Lipase; Complete Time: 22:46 EDOR 09/16 21:33 Order name: Urine Dipstick-Ancillary; Complete Time: 22:08 EDOR 09/16 21:09 Order name: Urine Dipstick-Ancillary (obtain specimen); Complete Time: 21:43 [facility] Administered Medications: 23:00 Drug: Rocephin (cefTRIAXone) 1 grams Route: IV; Rate: per protocol; Site: right wrist; lp1 23:59 Follow up: IV Status: Completed infusion; IV Intake: 10ml lp1 Disposition: 09/16/20 23:45 Discharged to Home. Impression: Cystitis, unspecified with hematuria. - Condition is Stable. - Discharge Instructions: Hematuria, Adult, Urinary Tract Infection, Adult, [id number]. - Prescriptions for Keflex 500 mg Oral Capsule - take 1 capsule by ORAL route every 12 hours for 7 days; 14 capsule. Pyridium 200 mg Oral Tablet - take 1 tablet by ORAL route every 8 hours for 2 days; 6 tablet. - Medication Reconciliation Form, Thank You Letter, Antibiotic Education, Prescription Opioid Use form. - Follow up: Private Physician; When: 1 - 2 days; Reason: Worsening of condition, Recheck today's complaints, Continuance of care, Re-evaluation by your physician. Follow up: Dipak Alejandra MD; When: 1 - 2 days; Reason: Worsening of condition, Recheck today's complaints. - Problem is new. - Symptoms have improved. Signatures: Dispatcher [employer] EDDesirae Charles RN RN lp1 Naomi Mann RN RN ea Keyshawn Hurt MD MD 7 Corrections: (The following items were deleted from the chart) 21:27 21:23 The patient presents with urinary symptoms, [place] [id number] 23:59 23:45 09/16/2020 23:45 Discharged to Home. Impression: Cystitis, unspecified with lp1 hematuria. Condition is Stable. Forms are Medication Reconciliation Form, Thank You Letter, Antibiotic Education, Prescription Opioid Use. Follow up: Private Physician; When: 1 - 2 days; Reason: Worsening of condition, Recheck today's complaints, Continuance of care, Re-evaluation by your physician. Follow up: Dipak Alejandra; When: 1 - 2 days; Reason: Worsening of condition, Recheck today's complaints. Problem is new. Symptoms have improved. [facility]
[2020-09-17 01:30] VITALS: TEMP 97.5
[2020-09-17 01:31] VITALS: O2SAT 97
[2020-09-17 01:33] VITALS: BP 138/74
--- NOTE | 2020-09-17 11:20 | RAD REPORT ---
EXAM DESCRIPTION: CT - Stone Protocol - 09/17/2020 7:07 am CLINICAL HISTORY: HEMATURIA. COMPARISON: CT of the abdomen/pelvis without contrast from September 11, 2019. TECHNIQUE: Serial axial CT images were obtained from above the diaphragm through the pubic symphysis without administration of intravenous or oral contrast. All CT scans are performed using dose optimization techniques as appropriate, including automated exp osure control and/or standardized protocols, where dose is adjusted for indication for exam and body habitus. FINDINGS: Thoracic: No significant abnormality. Hepatobiliary: No obvious concerning hepatic lesion identified in the absence of intravenous contrast . The gallbladder is surgically absent. No biliary ductal dilatation. Pancreas: Unremarkable. Spleen: Unremarkable. Gastrointestinal: No evidence of bowel obstruction or perienteric inflammation. The appendix is nonvi sualized, but there are no pericecal inflammatory changes. Small amount of fecal material and gas thr oughout the colon. Adrenals: No abnormality identified in either adrenal gland. Renal: Similar appearance of moderate bilateral perinephric fat stranding. No obvious parenchymal abn ormality in either kidney in the absence of intravenous contrast. No hydronephrosis or urolithiasis. Bladder/Reproductive: Mild diffuse wall thickening of the urinary bladder with trace surrounding fat stranding. Mild prostatomegaly. Bilateral vas deferens calcifications. Vascular/Lymphatics: No lymphadenopathy identified by CT size criteria. Abdominal aorta is normal in caliber. Moderate calcific atherosclerosis. Musculoskeletal: No concerning osseous lesion identified. Chronic mild anterior wedge compression def ormity at T12. Fluid / peritoneum: No significant free fluid. No free intraperitoneal air identified. IMPRESSION: 1. Mild diffuse wall thickening of the urinary bladder with trace surrounding fat stra nding. Correlate for cystitis. 2. No hydronephrosis or urolithiasis. Similar appearance of moderate bilateral perinephric fat stra nding. Electronically signed by: Jesusita Hernandez MD 09/16/2020 10:13 PM CDT Due to temporary technical issues with the PACS/Fluency reporting system, reports are being signed by the in house radiologists without review as a courtesy to insure prompt reporting. The interpreting radiologist is fully responsible for the content of the report.
== END 2020-09-16 23:59 | disposition home or self-care (01) ==
LOC: ER 19:24
DX: N30.91 Cystitis, unspecified with hematuria (principal); I10 Essential (primary) hypertension; E11.9 Type 2 diabetes mellitus without complications
CPT/HCPCS: 85025; 80048; 36415; 80076; 81003; 83690; 76377; 74176; J0696

== ENCOUNTER 2021-09-22 14:38 | Emergency (ER) | payer OTHER ==
--- OUTSIDE RECORDS SUMMARY | 2021-09-22 14:41 | XMS REPORT | Continuity of Care Document ---
:1965 Author Organization [facility] t Address [address] [place] [place] [address] Care Team Providers Name Role Phone Iris ARNOLD Attending Clinician Unavailable ANTONY ROBERTS Attending Clinician Unavailable CHRISTIANA Attending Clinician Unavailable Guy HARRISON Attending Clinician Unavailable South LOAIZA Attending Clinician Unavailable Guy HARRISON Admitting Clinician Unavailable CHRISTIANA Admitting Clinician Unavailable Payers Payer Name Policy Type Policy Number Effective Date Ex[place] [facility] [place] [id number] 2020 COMPLETE 00:00:00 [facility] [id number] 2020 MCR REPL 00:00:00 MEDICARE A B [id number] 2016 00:00:00 Problems This patient has no known problems. Allergies, Adverse Reactions, Alerts Allergy Allergy Status Severity Reaction(s) Onset Inactive Treating Comm ents Source Name Type Date Date Clinician NO KNOWN Allergy Active [facility] Medications This patient has no known medications. Vital Signs Vital Name Observation Time Observation Value Comments Source HEIGHT 2020-01-10 12:49:00 160 cm WEIGHT 2020-01-10 12:49:00 80.831 kg HEIGHT 2020-01-10 08:45:00 160 cm WEIGHT 2020-01-10 08:45:00 66.679 kg Procedures This patient has no known procedures. Encounters Start End Encounter Admission Attending Care Care Encounter Source Date/Time Date/Time Type Type Clinicians Facility Department ID 2021-09-12 2021-09-12 Outpatient EL TIMMINDamon, [facility] [id number] [facility] 07:33:42 23:59:00 [place] 2021-09-12 2021-09-12 Outpatient EL TIMMINS, [facility] [id number] [facility] 00:00:00 23:59:00 [place] 2021-09-12 2021-09-12 Outpatient EL [facility] [id number] [facility] 10:57:23 10:57:23 2021-09-12 2021-09-12 Outpatient EL TIMMINDamon, [facility]H SLE [id number] [facility] 07:41:42 07:32:00 [place] 2021-09-12 2021-09-12 Outpatient EL [facility] [id number] [facility] 00:00:00 00:00:00 2021-09-12 2021-09-12 Outpatient EL [facility] [id number] [facility] 00:00:00 00:00:00 2021-09-03 2021-09-03 Outpatient SLEH SLEH [id number] [facility]H 09:42:24 09:42:24 2021-07-31 2021-07-31 Outpatient SLEH SLE[facility] [id number] [facility] 09:00:15 09:00:15 2021-06-05 2021-06-05 Outpatient EL [facility] [id number] [facility] 06:47:28 06:47:28 2021-05-30 2021-05-30 Outpatient EL [facility] [id number] [facility] 00:00:00 00:00:00 2021-05-30 2021-05-30 Outpatient EL [facility] [id number] [facility] 00:00:00 00:00:00 2021-05-30 2021-05-30 Outpatient EL [facility] [id number] [facility] 00:00:00 00:00:00 2021-05-30 2021-05-30 Outpatient EL CLAYTON, [facility] SLEH [id number] [facility] 00:00:00 00:00:00 [place] 2021-05-30 2021-05-30 Outpatient EL CLAYTON SLE[facility] SLE [id number] [facility] 00:00:00 00:00:00 [place] 2021-05-30 2021-05-30 Outpatient EL TIMMINS, [facility] SLEH [id number] [facility] 00:00:00 00:00:00 [place] 2021-05-30 2021-05-30 Outpatient TIMMINS, [facility] [id number] [facility] 00:00:00 00:00:00 [place] 2021-05-14 2021-05-14 Outpatient SLEH SLEH [id number] [facility]H 07:01:18 07:01:18 2021-04-23 2021-04-23 Outpatient EL [facility] [id number] [facility] 00:00:00 00:00:00 2021-04-23 2021-04-23 Outpatient EL [facility] [id number] [facility] 00:00:00 00:00:00 2021-04-23 2021-04-23 Outpatient EL [facility] [id number] [facility] 00:00:00 00:00:00 2021-04-23 2021-04-23 Outpatient EL TIMMINS, [facility]H [id number] [facility] 00:00:00 00:00:00 [place] 2021-04-23 2021-04-23 Outpatient EL TIMMINS, [facility] SLEH [id number] [facility] 00:00:00 00:00:00 [place] 2021-03-07 2021-03-07 Outpatient EL [facility] [id number] [facility]H 00:00:00 00:00:00 2021-03-07 2021-03-07 Outpatient EL [facility] [id number] [facility]H 00:00:00 00:00:00 2021-03-07 2021-03-07 Outpatient EL [facility] [id number] [facility] 00:00:00 00:00:00 2021-03-07 2021-03-07 Outpatient EL TIMMINS, [facility] [id number] [facility] 00:00:00 00:00:00 [place] 2021-03-07 2021-03-07 Outpatient EL TIMMINS, [facility] SLEH [id number] [facility] 00:00:00 00:00:00 [place] 2020-12-14 2020-12-14 Outpatient SLEH SLEH [id number] SLEH 00:00:00 00:00:00 2020-11-16 2020-11-16 Outpatient SLEH SLEH [id number] SLEH 07:43:34 07:43:34 2020-09-12 2020-09-12 Outpatient SLEH SLEH [id number] SLEH 00:00:00 00:00:00 2020-08-03 2020-08-03 Outpatient SLEH SLEH [id number] SLEH 08:25:45 08:25:45 2020-05-30 2020-05-30 Outpatient SLEH SLEH [id number] [facility] 00:00:00 00:00:00 2020-05-08 2020-05-08 Outpatient EL [facility] [id number] SLEH 08:52:53 08:52:53 2020-03-14 2020-03-14 Outpatient SLEH SLEH [id number] [facility]H 10:45:40 10:45:40 2020-02-07 2020-02-07 Outpatient SLEH SLEH [id number] SLEH 00:00:00 00:00:00 2020-01-10 2020-01-10 Outpatient SLEH SLEH [id number] [facility]H 00:00:00 00:00:00 2020-01-10 2020-01-10 Outpatient SLEH SLEH [id number] SLEH 00:00:00 00:00:00 2020-01-10 2020-01-10 Outpatient VILLEDA, SLE SLEH [id number] SLE[facility] 00:00:00 00:00:00 HOLDEN 2020-01-10 2020-01-10 Outpatient EL CHRISTIANA, SLEH SLEH [id number] [facility] 00:00:00 00:00:00 HOLDEN 2020-01-10 2020-01-10 Outpatient SLEH SLEH [id number] [facility]H 00:00:00 00:00:00 2020-01-03 2020-01-03 Outpatient SLEH SLEH [id number] SLEH 07:41:49 07:41:49 2019-11-24 2019-11-24 Outpatient IVLLEDA, SLEH SLE [id number] SLE[facility] 00:00:00 00:00:00 HOLDEN 2019-11-24 2019-11-24 Outpatient EL VILLEDA, [facility] [id number] [facility] 00:00:00 00:00:00 HOLDEN 2019-11-02 2019-11-[address] [facility] [id number] [facility] 08:30:20 08:30:20 2019-10-10 2019-10-[address] [facility] [id number] [facility] 15:19:26 15:19:26 2019-07-06 2019-07-[address] [facility] [id number] [facility] 10:49:21 10:49:21 [id number] Results Test Description Test Time Test Comments Results Result Comments Source CYTOMEGALOVIRUS ANTIBODY, IGG 2021-09-13 08:41:26 Test Item Value Reference Range Interpretation Comme nts CYTOMEGALOVIRUS, IGG ([employer]) (test code = 3429) Negative Negat julián, Equivocal CMV IgG Result Interpretation: </= 0.8 Al Negative 0.9-1.0 Al Equivocal >/=1.1 Al PositiveHEMOGLOBIN [id number] 13:45:42 Test Item Value Reference Range Interpretation Comments HEMOGLOBIN A1C 5.3 % See_Comment [Automated m essage] ELECTROPHORESIS ([facility]) The system which (test code = 3811) generated this result transmitted ref erence range: <=5.6%. The reference range was not used to int erpret this result as normal/abnormal . "The A1c is measured using a [facility]-certified method. HbA1c value equal to or greater than 6.5% as thediagnosis cutoff for diabetes. An HbA1c value of 5.7- 6.4% indicates increased risk for diabetes (prediabetes)."Network Contract Manager ID - ADMOperator ID - ADMHEPATITIS C [id number] 13:12:33 Test Item Value Reference Range Interpretation Comments HEPATITIS C ANTIBODY ([employer]) Nonreactive Nonreactive (test code = 367) Network Contract Manager ID - DBHEPATITIS B CORE ANTIBODY, [id number] 13:12:33 Test Item Value Reference Range Interpretation Comments HEPATITIS B CORE TOTAL ANTIBODY Nonreactive Nonreactive ([employer]) (test code = 497) Network Contract Manager ID - DBHIV-1 ANTIGEN WITH HIV-1/2 [id number] 13:12:33 Test Item Value Reference Range Interpretation Comments HIV-1 ANTIGEN WITH HIV 1\\T\\2 Nonreactive Nonreactive ANTIBODY (2) (CLEMENTE) (test code = 2586) Network Contract Manager ID - [id number] 13:12:28 Test Item Value Reference Range Interpretation Comments PROSTATE SPECIFIC ANTIGEN (CLEMENT[employer]) 0.2 ng/mL 0.0-4.0 (test code = 844) Network Contract Manager ID - DBHEPATITIS B SURFACE [id number] 13:12:28 Test Item Value Reference Range Interpretation Comments HEPATITIS B SURFACE ANTIBODY 20.9 mIU/mL <8.0 H (CLEMENTE) (test code = 647) Network Contract Manager ID - DBU/S, ABDOMINAL, [id number] 11:01:00Assess for acquired renal cystic diseaseReason for Exam:->pre transplant evaluation for [facility] transplantKA[facility] RON PEREAGABRIELA CHAVEZ : 1965 Sex: MFINAL REPORT TECHNIQUE: Grayscale ultrasound of the abdomen. INDICA TION: pre transplant evaluation for kidney transplant. COMPARISON: Ultrasound from 12/07/2018 FINDINGS: MIDLINE VASCULATURE: The visualized inferior vena cava is unremarkable. The maximum visualized aortic diameter is 2.3 cm. LIVER: Smooth liver contour. No focal lesions. The main portal vein is patent and measures 1 cm in diameter. BILIARY:Gallbladder: Surgically absentCommon bile duct measures 0.6 cm, within normal limits. No intrahepatic biliary ductal dilatation. PANCREAS: Not well visualized due to overlying bowel gas. SPLEEN: No splenomegaly. The spleen measures 11.9 cm in length. PERITONEUM:No free fluid. KIDNEYS: Normal in size bilaterally. No hydronephrosis. No sonographically evident solid mass lesion. IMPRESSION: This is a normal abdominal ultrasound. No renal cysts. Signed: Horn, Vishal MDReport Verified Date/Time: 09/12/2021 11:01:08 PET/CT, CARDIAC PERF REST AND [id number] 14:32:00Reason for Exam:- >renal tx eval; cadFINAL REPORT PROCEDURE: MYOCARDIAL PERFUSION PET/CT IMAGING (Rest/Stress)CPT CODE: 35434 INDICATION: Pre-operative evaluation for renal transplant, history [...] mmHgPrelim. EKG: Normal sinus rhythm.Perfusion: Normal.Wall Motion: Normal(LVEF 67%).LV Volume: Normal. STRESS FINDINGS:HR: 85/min (51% of MPHR)BP: 127/57 mmHgPrelim. EKG: Noischemic changes.Symptoms: None (treatment not required).Perfusion: Normal.Wall Motion: Normal (LVEF69%).LV Volume: Not significantly changed from rest. IMPRESSION:1. Normal study.2. Normal myocardialperfusion.3. Normal resting LVEF, which does not deteriorate with pharmacologic stress.4. Normal extracardiac tracer distribution.5. There is no prior study for comparison. Signed: Ayan Ly Verified Date/Time: 01/10/2020 14:32:02 Reading Location: [address] Reading Room CYTOMEGALOVIRUS ANTIBODY, [id number] 14:19:00 Test Item Value Reference Range Interpretation Comments CYTOMEGALOVIRUS, IGG (BEAKER) Negative Negative, Equivocal (test code = 3429) CMV IgG Result Interpretation: </= 0.8 Al Negative 0.9-1.0 Al Equivocal >/=1.1 Al [id number] 13:20:00 Test Item Value Reference Range Interpretation Comments PROSTATE SPECIFIC ANTIGEN (BEAKER) 0.3 ng/mL 0.0-4.0 (test code = 844) Network Contract Manager ID - SAMANTHAGHEPATITIS C [id number] 13:20:00 Test Item Value Reference Range Interpretation Comments HEPATITIS C ANTIBODY (BEAKER) Nonreactive Nonreactive (test code = 367) Network Contract Manager ID - SAMANTHAGHIV-1 ANTIGEN WITH HIV-1/2 [id number] 13:20:00 Test Item Value Reference Range Interpretation Comments HIV-1 ANTIGEN WITH HIV 1\\T\\2 Nonreactive Nonreactive ANTIBODY (2) (BEAKER) (test code = 2586) Network Contract Manager ID - SAMANTHAGCT, ABDOMEN, [id number] 11:16:00Esrd,on dialysis, awaiting kidney transplant. See ultrasound [...] in keepingwith chronic kidney disease. Signed: Ottoniel Leeeport Verified Date/Time: 12/23/2018 11:16:06 Reading Location: [facility] C0[facility] CT Body Reading Room U/S, ABDOMINAL, [id number] 15:46:00Reason for Exam:- >pre transplant evaluation for [...] MDReport Verified Date/Time: 12/07/2018 15:46:25 Reading Location: [address] Radiology Reading Room TISSUE [id number] 19:11:00Surgical Pathology Report Case: [id number] Authorizing Provider: Nuria Harrison MD Collected: 09/23/2017917 Ordering Location: [facility] Endoscopy Received: 09/23/2017 1144 Services Pathologist: Andrea Faust MD Specimen: Polyp, Colon - Left/Descending, taken via hot snare COLON, LEFT/DESCENDING, POLYPECTOMY- TUBULAR ADENOMA (MULTIPLE PIECES) Signing Pathologist Direct Phone Line: [phone] signed by Andrea Faust MD on 09/24/2017 at 7:11 [id number] for colon cancer Left descending colon polyp The specimen is received in a formalin-filled container labeled with the patient's information and labeled "left descending colon polyp" and consists of a gann-red polyp measuring 0.5 cm in greatest dimension. The resection margin is inked blue. The specimen is bisected and submitted in A1. CG/ew There is no high grade dysplasia or carcinoma.[id number] 07:55:00 Test Item Value Reference Range Interpretation Comments POC-POTASSIUM 4.8 meq/L 3.6-5.5 TESTED AT [facility] C 6720 ([facility]) (test code [facility] [address] = 1540) CYTOMEGALOVIRUS ANTIBODY, [id number] 08:36:00 Test Item Value Reference Range Interpretation Comments CYTOMEGALOVIRUS IGG ANTIBODY Negative ([facility]) (test code = 790) CYTOMEGALOVIRUS ANTIBODY, [id number] 08:36:00 Test Item Value Reference Range Interpretation Comments CYTOMEGALOVIRUS IGM ANTIBODY Negative ([facility]) (test code = 816) EBV-VCA ANTIBODY, [id number] 08:36:00 Test Item Value Reference Range Interpretation Comments LANETTE-CENTENO VCA IGG ([facility]) (test Positive code = 983) EBV-VCA ANTIBODY, [id number] 08:36:00 Test Item Value Reference Range Interpretation Comments LANETTE-CENTENO VCA IGM ([facility]) (test Positive code = 984) [id number] 02:48:00 Test Item Value Reference Range Interpretation Comments RPR SCREEN ([facility]) (test code = Nonreactive Nonreactive 420) [id number] 15:45:00 Test Item Value Reference Range Interpretation Comments PROSTATE SPECIFIC ANTIGEN (BEAKER) 0.3 ng/mL 0.0-4.0 (test code = 844) HEPATITIS B SURFACE [id number] 15:43:00 Test Item Value Reference Range Interpretation Comments HEPATITIS B SURFACE ANTIGEN (2) Nonreactive Nonreactive (BEAKER) (test code = 2585) HEPATITIS B SURFACE [id number] 15:43:00 Test Item Value Reference Range Interpretation Comments HEPATITIS B SURFACE ANTIBODY 22.0 mIU/mL <8.0 H (BEAKER) (test code = 647) HEPATITIS B CORE ANTIBODY, [id number] 15:43:00 Test Item Value Reference Range Interpretation Comments HEPATITIS B CORE IGM ANTIBODY Nonreactive Nonreactive (BEAKER) (test code = 645) HEPATITIS C [id number] 15:43:00 Test Item Value Reference Range Interpretation Comments HEPATITIS C ANTIBODY (BEAKER) Nonreactive Nonreactive (test code = 367) HIV-1 ANTIGEN WITH HIV-1/2 [id number] 15:43:00 Test Item Value Reference Range Interpretation Comments HIV-1 ANTIGEN WITH HIV 1\\T\\2 Nonreactive Nonreactive ANTIBODY (2) (BEAKER) (test code = 2586) GAMMA GLUTAMYL TRANSFERASE (GGT)2017-09-01 15:21:00 Test Item Value Reference Range Interpretation Comments GAMMA GLUTAMYL TRANSFERASE (BEAKER) 53 U/L 9-64 (test code = 364) BASIC METABOLIC [id number] 11:03:00 Test Item Value Reference Range Interpretation [...] S NOT APPLICABLE FOR DIALYSIS PATIEN TS. [id number] 10:46:00 Test Item Value Reference Range Interpretation [...] = 2801) FLOW PRA CLASS I AND [id number] 09:50:00 Test Item Value Reference Range Interpretation Comments DATE OF SERUM (BEAKER) [id number] (test code = 2289) SERUM # (BEAKER) (test [id number] code = 2290) FLOW PRA CLASS I AND II See Scanned Report (test code = 2421) HLA [id number] 13:18:00 Test Item Value Reference Range Interpretation [...] (BEAKER) (test code = 2583) OCCULT BLOOD, [id number] 16:23:00 Test Item Value Reference Range Interpretation Comments FECAL OCCULT BLOOD (BEAKER) (test Positive Negative A code = 618) OCCULT BLOOD, [id number] 16:14:00 Test Item Value Reference Range Interpretation Comments FECAL OCCULT BLOOD (BEAKER) (test Negative Negative code = 618) HEMOGLOBIN [id number] 15:13:00 Test Item Value Reference Range Interpretation Comments HEMOGLOBIN A1C (BEAKER) (test code = 7.1 % 4.3-6.1 H 368) GAMMA GLUTAMYL TRANSFERASE (GGT)2016-08-14 12:11:00 Test Item Value Reference Range Interpretation Comments GAMMA GLUTAMYL TRANSFERASE (BEAKER) 70 U/L 9-64 H (test code = 364) VARICELLA ZOSTER ANTIBODY, [id number] 17:30:00 Test Item Value Reference Range Interpretation Comments VARICELLA ZOSTER IGG (AL) (BEAKER) 6.3 Al (test code = 3197) VARICELLA ZOSTER RESULT INTERPRETATIONS: <=0.8 Al Nonreactive: Presumed non-immune to VZV 0.9-1.0 Al Equivocal >=1.1 Al Reactive: Presumed immune to VZV
--- NOTE | 2021-09-22 17:23 | ER ---
Nurse's Notes [facility] Name: Art Trinidad Jr Age: 56 yrs Sex: Male : 1965 Arrival Date: 09/22/2021 Time: 14:40 Bed Treatment Private MD: Diagnosis: SARS-associated coronavirus as the cause of diseases classified elsewhere Presentation: 09/22 15:03 Chief complaint: Patient states: nasal drainage, congestion, and dry cough x 3 days, vg1 states [place] on thursday. Coronavirus screen: Vaccine status: Patient reports receiving the 2nd dose of the covid vaccine. Client denies travel out of the [place] in the last 14 days. Ebola Screen: Patient denies exposure to infectious person. Patient denies travel to an Ebola-affected area in the 21 days before illness onset. Initial Sepsis Screen: Does the patient meet any 2 criteria? No. Patient's initial sepsis screen is negative. Does the patient have a suspected source of infection? No. Patient's initial sepsis screen is negative. Risk Assessment: Do you want to hurt yourself or someone else? Patient reports no desire to harm self or others. Onset of symptoms was September 19, 2021. 15:03 Method Of Arrival: Ambulatory vg1 15:03 Acuity: DIVINA 4 vg1 Triage Assessment: 15:05 General: Appears comfortable, Behavior is calm, cooperative. Pain: Denies pain. vg1 Respiratory: Airway is patent Respiratory effort is even, unlabored. Historical: - Allergies: 15:05 No Known Allergies; vg1 - Home Meds: 15:05 sevelamer HCl Oral [Active]; carvedilol 6.25 mg Oral tab [Active]; glipizide 5 mg Oral vg1 tab 1 tab [Active]; atorvastatin Oral [Active]; Dialyvite Oral [Active]; - PMHx: 15:05 Diabetes - NIDDM; Dialysis; Hypertension; vg1 - Immunization history:: Client reports receiving the 2nd dose of the Covid vaccine. - Social history:: Smoking status: Patient denies any tobacco usage or history of. Screenin:06 Abuse screen: Denies threats or abuse. Nutritional screening: No deficits noted. jd3 Tuberculosis screening: No symptoms or risk factors identified. Fall Risk IV access (20 points). Ambulatory Aid- None/Bed Rest/Nurse Assist (0 pts). Gait- Normal/Bed Rest/Wheelchair (0 pts) Mental Status- Oriented to own ability (0 pts). Total Renteria Fall Scale indicates No Risk (0-24 pts). Assessment: 17:05 General: Appears in no apparent distress. comfortable, Behavior is calm, cooperative, jd3 appropriate for age. Pain: Denies pain. Neuro: Mcmahan Agitation-Sedation Scale (RASS): 0 - Alert and Calm Level of Consciousness is awake, alert, obeys commands, Oriented to person, place, time, situation. Cardiovascular: Capillary refill < 3 seconds Patient's skin is warm and dry. Respiratory: Reports cough that is dry, persistent Airway is patent Respiratory effort is even, unlabored, Respiratory pattern is regular, symmetrical. GI: Reports nausea. : No signs and/or symptoms were reported regarding the genitourinary system. EENT: Reports nasal congestion. Derm: Skin is intact, Skin is dry, Skin is normal, Skin temperature is warm. Musculoskeletal: Circulation, motion, and sensation intact. Range of motion: intact in all extremities. 17:36 Reassessment: Patient appears in no apparent distress at this time. Patient and/or jd3 family updated on plan of care and expected duration. Pain level reassessed. Patient is alert, oriented x 3, equal unlabored respirations, skin warm/dry/pink. reporting continued nausea. provider notified. no new orders at this time. pt reported understanding of discharge instructions. Vital Signs: 15:03 BP 159 / 79; Pulse 76; Resp 16; Temp 98.3; Pulse Ox 100% ; Weight 81.5 kg; Height 5 ft. vg1 3 in. (160.02 cm); Pain 0/10; 17:37 Pulse 75; Resp 16 S; Pulse Ox 100% on R/A; jd3 15:03 Body Mass Index 31.83 (81.50 kg, 160.02 cm) vg1 ED Course: 14:40 Patient arrived in ED. as 14:58 Edmund Rendon PA is PHCP. cp 14:58 Ailyn Bland MD is Attending Physician. cp 15:05 Triage completed. vg1 15:05 Arm band placed on. vg1 15:12 COVID swab sent to lab. Flu and/or RSV swab sent to lab. Strep swab sent to lab. vg1 17:04 Freddy Dennis, RN is Primary Nurse. jd3 17:06 Patient has correct armband on for positive identification. Bed in low position. Call jankit light in reach. Side rails up X 1. Pulse ox on. NIBP on. 17:37 No provider procedures requiring assistance completed. Patient did not have IV access jd3 during this emergency room visit. Administered Medications: 17:29 Drug: Zofran (Ondansetron) 4 mg Route: PO; jd3 17:29 Follow up: Response: Medication administered at discharge. jd3 17:29 Drug: Tessalon Perle (benzonatate) 100 mg Route: PO; jd3 17:29 Follow up: Response: Medication administered at discharge. jd3 Medication: 17:06 VIS not applicable for this client. jd3 Outcome: 17:22 Discharge ordered by . cp 17:37 Discharged to home ambulatory. jd3 17:37 Condition: stable 17:37 Discharge instructions given to patient, Instructed on discharge instructions, follow up and referral plans. medication usage, Demonstrated understanding of instructions, follow-up care, medications, Prescriptions given X 2. 17:38 Patient left the ED. jd3 Signatures: Pilar Varela Corey, PA PA cp Freddy Dennis, RN RN jAviva Rya RN RN vg1 Corrections: (The following items were deleted from the chart) 17:37 17:05 GI: No signs and/or symptoms were reported involving the gastrointestinal system. jd3 jd3
--- NOTE | 2021-09-22 17:23 | EDPHYS ---
Physician Documentation [facility] Name: Art Trinidad Jr Age: 56 yrs Sex: Male : 1965 Arrival Date: 09/22/2021 Time: 14:40 Bed Treatment Private MD: ED Physician Ailyn Bland HPI: 09/22 15:20 This 56 yrs old Male presents to ER via Ambulatory with complaints of Cough, cp Congestion. 15:20 The patient or guardian reports cough, that is intermittent, with no sputum. cp 15:20 Onset: The symptoms/episode began/occurred 3 day(s) ago. Associated signs and symptoms: cp Pertinent positives: rhinorrhea, sore throat, Pertinent negatives: diarrhea, fever, vomiting. Patient reports receiving COVID-19 vaccination. Historical: - Allergies: 15:05 No Known Allergies; vg1 - Home Meds: 15:05 sevelamer HCl Oral [Active]; carvedilol 6.25 mg Oral tab [Active]; glipizide 5 mg Oral vg1 tab 1 tab [Active]; atorvastatin Oral [Active]; Dialyvite Oral [Active]; - PMHx: 15:05 Diabetes - NIDDM; Dialysis; Hypertension; vg1 - Immunization history:: Client reports receiving the 2nd dose of the Covid vaccine. - Social history:: Smoking status: Patient denies any tobacco usage or history of. ROS: 15:25 Constitutional: Negative for body aches, chills, fever, poor PO intake. cp 15:25 Eyes: Negative for injury, pain, redness, and discharge. cp 15:25 ENT: Positive for sore throat, Negative for drainage from ear(s), ear pain, difficulty swallowing, difficulty handling secretions. 15:25 Cardiovascular: Negative for chest pain, edema, palpitations. 15:25 Respiratory: Positive for cough, with no reported sputum, Negative for shortness of breath, wheezing. 15:25 Abdomen/GI: Negative for abdominal pain, vomiting, diarrhea, constipation. 15:25 Neuro: Negative for altered mental status, headache, weakness. 15:25 All other systems are negative. Exam: 15:30 Constitutional: The patient appears in no acute distress, alert, awake, cp non-diaphoretic, non-toxic, well developed, well nourished. 15:30 Head/Face: Normocephalic, atraumatic. cp 15:30 Eyes: Periorbital structures: appear normal, Conjunctiva: normal, no exudate, no injection, Sclera: no appreciated abnormality, Lids and lashes: appear normal, bilaterally. 15:30 ENT: External ear(s): are unremarkable, Ear canal(s): are normal, clear, TM's: dullness, bilaterally, Nose: is normal, Mouth: Lips: moist, Oral mucosa: moist, Posterior pharynx: Airway: no evidence of obstruction, patent, Tonsils: no enlargement, no exudate, swelling, is not appreciated, erythema, that is mild, exudate, is not appreciated. 15:30 Neck: ROM/movement: is normal, is supple, without pain, no range of motions limitations, no meningismus. 15:30 Chest/axilla: Inspection: normal. 15:30 Cardiovascular: Rate: normal, Rhythm: regular, Edema: is not appreciated, JVD: is not appreciated. 15:30 Respiratory: the patient does not display signs of respiratory distress, Respirations: normal, no use of accessory muscles, no retractions, labored breathing, is not present, Breath sounds: decreased breath sounds, are not appreciated, stridor, is not appreciated, + upper airway congestion. wheezing: is not appreciated. 15:30 Abdomen/GI: Exam negative for discomfort, distension, guarding, Inspection: abdomen appears normal. 15:30 Neuro: Orientation: to person, place \\T\\ time. Mentation: is normal. Vital Signs: 15:03 BP 159 / 79; Pulse 76; Resp 16; Temp 98.3; Pulse Ox 100% ; Weight 81.5 kg; Height 5 ft. vg1 3 in. (160.02 cm); Pain 0/10; 17:37 Pulse 75; Resp 16 S; Pulse Ox 100% on R/A; jd3 15:03 Body Mass Index 31.83 (81.50 kg, 160.02 cm) vg1 MDM: 16:41 Patient medically screened. cp 17:22 Data reviewed: vital signs, nurses notes, lab test result(s). cp 17:22 Differential Diagnosis: Bronchitis Influenza Pneumonia Other COVID-19. Counseling: I cp had a detailed discussion with the patient and/or guardian regarding: the historical points, exam findings, and any diagnostic results supporting the discharge/admit diagnosis, lab results, to return to the emergency department if symptoms worsen or persist or if there are any questions or concerns that arise at home. 17:22 ED course: VSS. Patient appears non-toxic and no signs of respiratory distress. Patient cp declined IV Covid -19 antibodies at this time. Will discharge to home to quarantine and continued monitoring. 09/22 15:07 Order name: Flu; Complete Time: 17:17 vg1 09/22 17:17 Interpretation: Reviewed. cp 09/22 15:07 Order name: SARS-COV-2 RT PCR (Document "Date of Onset" if Symptomatic); Complete Time: vg1 17:24 09/22 15:07 Order name: Strep; Complete Time: 17:17 vg1 09/22 17:17 Interpretation: Reviewed. cp 09/22 17:02 Order name: Throat Culture EDMS Administered Medications: 17:29 Drug: Zofran (Ondansetron) 4 mg Route: PO; jd3 17:29 Follow up: Response: Medication administered at discharge. jd3 17:29 Drug: Tessalon Perle (benzonatate) 100 mg Route: PO; jd3 17:29 Follow up: Response: Medication administered at discharge. jd3 Disposition: 18:05 Co-signature as Attending Physician, Ailyn Balnd MD. ma2 Disposition Summary: 09/22/21 17:22 Discharge Ordered Location: Home cp Problem: new cp Symptoms: have improved cp Condition: Stable cp Diagnosis - SARS-associated coronavirus as the cause of diseases classified elsewhere cp Followup: cp - With: Private Physician - When: 1 - 2 days - Reason: Worsening of condition Discharge Instructions: - Discharge Summary Sheet cp - Aspirin and Your Heart cp - COVID-19 cp - Things to Know about the COVID-19 Pandemic - [facility] cp - 10 Things You Can Do to Manage Your COVID-19 Symptoms at Home - [facility] cp - COVID-19: Quarantine vs. Isolation - [facility] cp - Prevent the Spread of COVID-19 if You Are Sick - [facility] cp Forms: - Medication Reconciliation Form cp - Thank You Letter cp - Antibiotic Education cp - Prescription Opioid Use cp Prescriptions: - Zofran 4 mg Oral Tablet - take 1 tablet by ORAL route every 12 hours As needed; 20 tablet; Refills: 0, cp Product Selection Permitted - Tessalon Perles 100 mg Oral Capsule - take 1 capsule by ORAL route every 8 hours As needed; 15 capsule; Refills: 0, cp Product Selection Permitted Signatures: Dispatcher [employer] Edmund Ramírez PA PA cp Davies, Jonathon, RN RN jd3 Ailyn Bland MD MD ma2 Aviva Tsai RN RN vg1
[2021-09-22] MEDS ORDERED: ONDANSETRON 4 MG (ODT) TAB ONE (17:33)
[2021-09-22] MEDS ORDERED: BENZONATATE 100 MG CAP PO ONE (17:33)
[2021-09-22 17:49] VITALS: BP 159/79; TEMP 98.3; O2SAT 100
== END 2021-09-22 17:38 | disposition home or self-care (01) ==
LOC: ER 14:38
DX: U07.1 COVID-19 (principal); R09.81 Nasal congestion; R05.8 Other specified cough; J02.9 Acute pharyngitis, unspecified; E11.9 Type 2 diabetes mellitus without complications; I10 Essential (primary) hypertension
CPT/HCPCS: 87070; 87081; 87804 ×2; U0003; Q0162; 99284

== ENCOUNTER 2021-10-20 15:48 | Emergency (ER) | payer OTHER ==
--- OUTSIDE RECORDS SUMMARY | 2021-10-20 15:51 | XMS REPORT | Continuity of Care Document ---
:1965 Author Organization [facility] t Address [address] [place] [address] Care Team Providers Name Role Phone Iris ARNOLD Attending Clinician Unavailable ANTONY ROBERTS Attending Clinician Unavailable CHRISTIANA Attending Clinician Unavailable Guy HARRISON Attending Clinician Unavailable South LOAIZA Attending Clinician Unavailable Guy HARRISON Admitting Clinician Unavailable CHRISTIANA Admitting Clinician Unavailable Payers Payer Name Policy Type Policy Number Effective Date Expiration Date S doreen AARP/MEDICARE [id number] 2020 COMPLETE 00:00:00 [employer] ONLY [id number] 2020 MCR REPL 00:00:00 MEDICARE A B [id number] 2016 00:00:00 Problems This patient has no known problems. Allergies, Adverse Reactions, Alerts Allergy Allergy Status Severity Reaction(s) Onset Inactive Treating Comm ents Source Name Type Date Date Clinician NO KNOWN Allergy Active [facility] Medications This patient has no known medications. Vital Signs Vital Name Observation Time Observation Value Comments Source HEIGHT 2020-01-10 12:49:00 160 cm WEIGHT 2020-01-10 12:49:00 80.831 kg HEIGHT 2020-01-10 08:45:00 160 cm WEIGHT 2020-01-10 08:45:00 66.679 kg Procedures This patient has no known procedures. Encounters Start End Encounter Admission Attending Care Care Encounter Source Date/Time Date/Time Type Type Clinicians Facility Department ID 2021-12-10 2021-12-10 Outpatient EL [facility] [id number] [facility] 00:00:00 00:00:00 2021-12-10 2021-12-10 Outpatient EL [facility] [id number] [facility] 00:00:00 00:00:00 2021-12-10 2021-12-10 Outpatient EL [facility] SLE [id number] [facility] 00:00:00 00:00:00 2021-12-10 2021-12-10 Outpatient EL [facility] SLE [id number] [facility] 00:00:00 00:00:00 2021-12-10 2021-12-10 Outpatient [facility] SLE [id number] [facility] 00:00:00 00:00:00 2021-10-09 2021-10-09 Outpatient SLE SLE [id number] [facility] 09:10:49 09:10:49 2021-09-12 2021-09-12 Outpatient EL CLAYTON, [facility] [id number] [facility] 07:33:42 23:59:00 [place] 2021-09-12 2021-09-12 Outpatient EL CLAYTON SLE SLE [id number] [facility] 00:00:00 23:59:00 [place] 2021-09-12 2021-09-12 Outpatient EL [facility] SLE [id number] [facility] 10:57:23 10:57:23 2021-09-12 2021-09-12 Outpatient EL CLAYTON [facility] [id number] [facility] 07:41:42 07:32:00 [place] 2021-09-12 2021-09-12 Outpatient EL [facility] SLE [id number] [facility] 00:00:00 00:00:00 2021-09-12 2021-09-12 Outpatient EL [facility] SLE [id number] [facility] 00:00:00 00:00:00 2021-09-03 2021-09-03 Outpatient [facility] SLE [id number] [facility] 09:42:24 09:42:24 2021-07-31 2021-07-31 Outpatient SLEH [facility] [id number] [facility] 09:00:15 09:00:15 2021-06-05 2021-06-05 Outpatient EL [facility] [id number] [facility] 06:47:28 06:47:28 2021-05-30 2021-05-30 Outpatient EL [facility] [id number] [facility] 00:00:00 00:00:00 2021-05-30 2021-05-30 Outpatient EL [facility] [id number] [facility] 00:00:00 00:00:00 2021-05-30 2021-05-30 Outpatient EL [facility] [id number] [facility] 00:00:00 00:00:00 2021-05-30 2021-05-30 Outpatient EL TIMMINS, SLEH [facility] [id number] [facility] 00:00:00 00:00:00 [place] 2021-05-30 2021-05-30 Outpatient EL TIMMINS, SLE SLE [id number] [facility] 00:00:00 00:00:00 [place] 2021-05-30 2021-05-30 Outpatient EL TIMMINS, SLEH SLE [id number] [facility] 00:00:00 00:00:00 [place] 2021-05-30 2021-05-30 Outpatient TIMMINS, SLE SLE [id number] [facility] 00:00:00 00:00:00 [place] 2021-05-14 2021-05-14 Outpatient SLEH SLEH [id number] [facility] 07:01:18 07:01:18 2021-04-23 2021-04-23 Outpatient EL [facility] [id number] [facility] 00:00:00 00:00:00 2021-04-23 2021-04-23 Outpatient EL [facility] [id number] [facility] 00:00:00 00:00:00 2021-04-23 2021-04-23 Outpatient EL [facility] [id number] [facility] 00:00:00 00:00:00 2021-04-23 2021-04-23 Outpatient EL TIMMINS, SLEH SLE [id number] [facility] 00:00:00 00:00:00 [place] 2021-04-23 2021-04-23 Outpatient EL TIMMINDamon, SLEH SLE [id number] [facility] 00:00:00 00:00:00 [place] 2021-03-07 2021-03-07 Outpatient EL [facility] [id number] [facility] 00:00:00 00:00:00 2021-03-07 2021-03-07 Outpatient EL [facility] [id number] [facility] 00:00:00 00:00:00 2021-03-07 2021-03-07 Outpatient EL [facility] [id number] [facility] 00:00:00 00:00:00 2021-03-07 2021-03-07 Outpatient EL ANJELMINDamon, SLEH SLE [id number] [facility] 00:00:00 00:00:00 [place] 2021-03-07 2021-03-07 Outpatient JULIA ARNOLD, SLE[facility] SLE [id number] [facility] 00:00:00 00:00:00 [place] 2020-12-14 2020-12-14 Outpatient SLEH SLE [id number] [facility] 00:00:00 00:00:00 2020-11-16 2020-11-16 Outpatient SLEH SLEH [id number] [facility] 07:43:34 07:43:34 2020-09-12 2020-09-12 Outpatient SLEH SLEH [id number] [facility] 00:00:00 00:00:00 2020-08-03 2020-08-03 Outpatient SLEH SLEH [id number] [facility]H 08:25:45 08:25:45 2020-05-30 2020-05-30 Outpatient SLEH SLEH [id number] [facility] 00:00:00 00:00:00 2020-05-08 2020-05-08 Outpatient EL [facility] SLEH [id number] [facility] 08:52:53 08:52:53 2020-03-14 2020-03-14 Outpatient SLEH SLEH [id number] [facility] 10:45:40 10:45:40 2020-02-07 2020-02-07 Outpatient SLEH SLEH [id number] [facility] 00:00:00 00:00:00 2020-01-10 2020-01-10 Outpatient SLE SLE [id number] [facility]H 00:00:00 00:00:00 2020-01-10 2020-01-10 Outpatient SLE SLE [id number] [facility] 00:00:00 00:00:00 2020-01-10 2020-01-10 Outpatient MARBIN VILLEDA SLE [id number] [facility] 00:00:00 00:00:00 [place] 2020-01-10 2020-01-10 Outpatient EL CHRISTIANA SLE SLE [id number] [facility] 00:00:00 00:00:00 HOLDEN 2020-01-10 2020-01-10 Outpatient SLE SLE [id number] [facility] 00:00:00 00:00:00 2020-01-03 2020-01-03 Outpatient SLE SLE [id number] SLEH 07:41:49 07:41:49 2019-11-24 2019-11-24 Outpatient DANIELLE VILLEDA SLE [id number] SLE[facility] 00:00:00 00:00:00 HOLDEN 2019-11-24 2019-11-24 Outpatient JULIA VILLEDA [facility] SLE [id number] [facility] 00:00:00 00:00:00 HOLDEN 2019-11-02 2019-11-02 Outpatient SLE SLE [id number] SLEH 08:30:20 08:30:20 2019-10-10 2019-10-10 Outpatient SLE SLE [id number] [facility]H 15:19:26 15:19:26 2019-07-06 2019-07-06 [id number] [facility] 10:49:21 10:49:21 [id number] Results Test Description Test Time Test Comments Results Result Comments Source CYTOMEGALOVIRUS ANTIBODY, IGG 2021-09-13 08:41:26 Test Item Value Reference Range Interpretation Comme nts CYTOMEGALOVIRUS, IGG ([employer] (test code = 3429) Negative Negat julián, Equivocal CMV IgG Result Interpretation: </= 0.8 Al Negative 0.9-1.0 Al Equivocal >/=1.1 Al PositiveHEMOGLOBIN [id number] 13:45:42 Test Item Value Reference Range Interpretation Comments HEMOGLOBIN A1C 5.3 % See_Comment [Automated m essage] ELECTROPHORESIS (AidinANGÉLICA) The system which (test code = 3811) generated this result transmitted ref erence range: <=5.6%. The reference range was not used to int erpret this result as normal/abnormal . "The A1c is measured using a [facility]-certified method. HbA1c value equal to or greater than 6.5% as thediagnosis cutoff for diabetes. An HbA1c value of 5.7- 6.4% indicates increased risk for diabetes (prediabetes)."Account Administrator ID - ADMOperator ID - ADMHEPATITIS C [id number] 13:12:33 Test Item Value Reference Range Interpretation Comments HEPATITIS C ANTIBODY (BEAKER) Nonreactive Nonreactive (test code = 367) Account Administrator ID - DBHEPATITIS B CORE ANTIBODY, [id number] 13:12:33 Test Item Value Reference Range Interpretation Comments HEPATITIS B CORE TOTAL ANTIBODY Nonreactive Nonreactive (BEAKER) (test code = 497) Account Administrator ID - DBHIV-1 ANTIGEN WITH HIV-1/2 [id number] 13:12:33 Test Item Value Reference Range Interpretation Comments HIV-1 ANTIGEN WITH HIV 1\\T\\2 Nonreactive Nonreactive ANTIBODY (2) (BEAKER) (test code = 2586) Account Administrator ID - [id number] 13:12:28 Test Item Value Reference Range Interpretation Comments PROSTATE SPECIFIC ANTIGEN (BEAKER) 0.2 ng/mL 0.0-4.0 (test code = 844) Account Administrator ID - DBHEPATITIS B SURFACE [id number] 13:12:28 Test Item Value Reference Range Interpretation Comments HEPATITIS B SURFACE ANTIBODY 20.9 mIU/mL <8.0 H (BEAKER) (test code = 647) Account Administrator ID - DBU/S, ABDOMINAL, [id number] 11:01:00Assess for acquired renal cystic diseaseReason for Exam:->pre transplant [facility] : 1965 Sex: MFINAL REPORT TECHNIQUE: Grayscale [...] normal abdominal ultrasound. No renal cysts. Signed: Vishal Caraballo MDReport Verified Date/Time: 09/12/2021 11:01:08 PET/CT, CARDIAC PERF REST AND [id number] 14:32:00Reason for Exam:- >renal tx eval; cadFINAL REPORT PROCEDURE: MYOCARDIAL PERFUSION PET/CT IMAGING (Rest/Stress)CPT CODE: 20606 INDICATION: Pre-operative evaluation for renal transplant, history [...] Ly Verified Date/Time: 01/10/2020 14:32:02 Reading Location: [address] Reading Room CYTOMEGALOVIRUS ANTIBODY, [id number] 14:19:00 Test Item Value Reference Range Interpretation Comments CYTOMEGALOVIRUS, IGG (BEAKER) Negative Negative, Equivocal (test code = 3429) CMV IgG Result Interpretation: </= 0.8 Al Negative 0.9-1.0 Al Equivocal >/=1.1 Al [id number] 13:20:00 Test Item Value Reference Range Interpretation Comments PROSTATE SPECIFIC ANTIGEN (AidinAKER) 0.3 ng/mL 0.0-4.0 (test code = 844) Account Administrator ID - ROSIANGHEPATITIS C [id number] 13:20:00 Test Item Value Reference Range Interpretation Comments HEPATITIS C ANTIBODY (BEAKER) Nonreactive Nonreactive (test code = 367) Account Administrator ID - ROSIANGHIV-1 ANTIGEN WITH HIV-1/2 [id number] 13:20:00 Test Item Value Reference Range Interpretation Comments HIV-1 ANTIGEN WITH HIV 1\\T\\2 Nonreactive Nonreactive ANTIBODY (2) (BEAKER) (test code = 2586) Account Administrator ID - ROSIANGCT, ABDOMEN, [id number] 11:16:00Esrd,on dialysis, awaiting kidney transplant. See ultrasound [...] MDReport Verified Date/Time: 12/23/2018 11:16:06 Reading Location: [facility] C013Y CT Body Reading Room U/S, ABDOMINAL, [id number] 15:46:00Reason for Exam:- >pre transplant evaluation for [...] MDReport Verified Date/Time: 12/07/2018 15:46:25 Reading Location: [address] Radiology Reading Room TISSUE [id number] 19:11:00Surgical Pathology Report Case: [id number] Authorizing Provider: Nuria Harrison MD Collected: 09/23/2017 0918 Ordering Location: [facility] Endoscopy Received: 09/23/2017 1144 Services Pathologist: Andrea Faust MD Specimen: Polyp, Colon - Left/Descending, taken via hot snare COLON, LEFT/DESCENDING, POLYPECTOMY- TUBULAR ADENOMA (MULTIPLE PIECES) Signing Pathologist Direct Phone Line: [phone] signed by Andrea Faust MD on 09/24/2017 at 7:11 [id number] for colon cancer Left descending colon polyp The specimen is received in a formalin-filled container labeled with the patient's information and labeled "left descending colon polyp" and consists of a gann-red polyp measuring 0.5 cm in greatest dimension. The resection margin is inked blue. The specimen is bisected and submitted in A1. CG/ew There is no high grade dysplasia or carcinoma.[id number] 07:55:00 Test Item Value Reference Range Interpretation Comments POC-POTASSIUM 4.8 meq/L 3.6-5.5 TESTED AT [facility] C 6720 (BEAKER) ([facility] [address] = 1540) CYTOMEGALOVIRUS ANTIBODY, [id number] 08:36:00 Test Item Value Reference Range Interpretation Comments CYTOMEGALOVIRUS IGG ANTIBODY Negative (BEAKER) (test code = 790) CYTOMEGALOVIRUS ANTIBODY, [id number] 08:36:00 Test Item Value Reference Range Interpretation Comments CYTOMEGALOVIRUS IGM ANTIBODY Negative (BEAKER) (test code = 816) EBV-VCA ANTIBODY, [id number] 08:36:00 Test Item Value Reference Range Interpretation Comments LANETTE-CENTENO VCA IGG (BEAKER) (test Positive code = 983) EBV-VCA ANTIBODY, [id number] 08:36:00 Test Item Value Reference Range Interpretation Comments LANETTE-CENTENO VCA IGM (BEAKER) (test Positive code = 984) [id number] 02:48:00 Test Item Value Reference Range Interpretation Comments RPR SCREEN (BEAKER) (test code = Nonreactive Nonreactive 420) [id number] 15:45:00 Test Item Value Reference Range Interpretation Comments PROSTATE SPECIFIC ANTIGEN (BEAKER) 0.3 ng/mL 0.0-4.0 (test code = 844) HEPATITIS B SURFACE [id number] 15:43:00 Test Item Value Reference Range Interpretation Comments HEPATITIS B SURFACE ANTIGEN (2) Nonreactive Nonreactive (BEAKER) (test code = 2585) HEPATITIS B SURFACE [id number] 15:43:00 Test Item Value Reference Range Interpretation Comments HEPATITIS B SURFACE ANTIBODY 22.0 mIU/mL <8.0 H (BEAKER) (test code = 647) HEPATITIS B CORE ANTIBODY, [id number] 15:43:00 Test Item Value Reference Range Interpretation Comments HEPATITIS B CORE IGM ANTIBODY Nonreactive Nonreactive (BEAKER) (test code = 645) HEPATITIS C [id number] 15:43:00 Test Item Value Reference Range Interpretation Comments HEPATITIS C ANTIBODY (BEAKER) Nonreactive Nonreactive (test code = 367) HIV-1 ANTIGEN WITH HIV-1/2 [id number] 15:43:00 Test Item Value Reference Range Interpretation Comments HIV-1 ANTIGEN WITH HIV 1\\T\\2 Nonreactive Nonreactive ANTIBODY (2) (BEAKER) (test code = 2586) GAMMA GLUTAMYL TRANSFERASE (GGT)2017-09-01 15:21:00 Test Item Value Reference Range Interpretation Comments GAMMA GLUTAMYL TRANSFERASE (BEAKER) 53 U/L 9-64 (test code = 364) BASIC METABOLIC [id number] 11:03:00 Test Item Value Reference Range Interpretation [...] S NOT APPLICABLE FOR DIALYSIS PATIEN TS. [id number] 10:46:00 Test Item Value Reference Range Interpretation [...] = 2801) FLOW PRA CLASS I AND [id number] 09:50:00 Test Item Value Reference Range Interpretation Comments DATE OF SERUM (BEAKER) [id number] (test code = 2289) SERUM # (BEAKER) (test [id number] code = 2290) FLOW PRA CLASS I AND II See Scanned Report (test code = 2421) HLA [id number] 13:18:00 Test Item Value Reference Range Interpretation [...] (BEAKER) (test code = 2583) OCCULT BLOOD, [id number] 16:23:00 Test Item Value Reference Range Interpretation Comments FECAL OCCULT BLOOD (BEAKER) (test Positive Negative A code = 618) OCCULT BLOOD, [id number] 16:14:00 Test Item Value Reference Range Interpretation Comments FECAL OCCULT BLOOD (BEAKER) (test Negative Negative code = 618) HEMOGLOBIN [id number] 15:13:00 Test Item Value Reference Range Interpretation Comments HEMOGLOBIN A1C (BEAKER) (test code = 7.1 % 4.3-6.1 H 368) GAMMA GLUTAMYL TRANSFERASE (GGT)2016-08-14 12:11:00 Test Item Value Reference Range Interpretation Comments GAMMA GLUTAMYL TRANSFERASE (BEAKER) 70 U/L 9-64 H (test code = 364) VARICELLA ZOSTER ANTIBODY, [id number] 17:30:00 Test Item Value Reference Range Interpretation Comments VARICELLA ZOSTER IGG (AL) (BEAKER) 6.3 Al (test code = 3197) VARICELLA ZOSTER RESULT INTERPRETATIONS: <=0.8 Al Nonreactive: Presumed non-immune to VZV 0.9-1.0 Al Equivocal >=1.1 Al Reactive: Presumed immune to VZV
--- NOTE | 2021-10-20 17:02 | ER ---
Nurse's Notes [facility] Name: Art Trinidad Jr Age: 56 yrs Sex: Male : 1965 Arrival Date: 10/20/2021 Time: 15:50 Bed Waiting Private MD: Diagnosis: Otitis media, unspecified, right ear Presentation: 10/20 16:48 Chief complaint: Patient states: Feels like something is in right ear x 4 days. jl7 Coronavirus screen: At this time, the client does not indicate any symptoms associated with coronavirus-19. Ebola Screen: No symptoms or risks identified at this time. Initial Sepsis Screen: Does the patient meet any 2 criteria? No. Patient's initial sepsis screen is negative. Does the patient have a suspected source of infection? No. Patient's initial sepsis screen is negative. Risk Assessment: Do you want to hurt yourself or someone else? Patient reports no desire to harm self or others. Onset of symptoms was October 17, 2021. 16:48 Method Of Arrival: Ambulatory jl7 16:48 Acuity: DIVINA 4 jl7 Triage Assessment: 16:49 General: Appears in no apparent distress. uncomfortable, Behavior is calm, cooperative, jl7 appropriate for age. Pain: Complains of pain in right ear Pain currently is 5 out of 10 on a pain scale. Historical: - Allergies: 16:49 No Known Allergies; jl7 - PMHx: 16:49 Diabetes - NIDDM; Dialysis; Hypertension; End stage renal disease; jl7 - PSHx: 16:49 Left Upper Arm Fistula; jl7 - Immunization history:: Client reports receiving the 2nd dose of the Covid vaccine. - Social history:: Smoking status: Patient denies any tobacco usage or history of. Screenin:55 Abuse screen: Denies threats or abuse. Denies injuries from another. Nutritional jl7 screening: No deficits noted. Tuberculosis screening: No symptoms or risk factors identified. Fall Risk None identified. Assessment: 16:55 Reassessment: MICHELLE Garnett in triage assessing pt. jl7 Vital Signs: 16:48 BP 187 / 78; Pulse 83; Resp 17; Temp 98.2; Pulse Ox 97% ; Weight 81.5 kg; Height 5 ft. jl7 3 in. (160.02 cm); Pain 5/10; 17:08 BP 187 / 93; Pulse 79; Resp 17; Pulse Ox 98% ; jl7 16:48 Body Mass Index 31.83 (81.50 kg, 160.02 cm) jl7 17:08 Pt reports BP always high, he will take his medication when he gets home jl7 ED Course: 15:50 Patient arrived in ED. mr 15:53 Edmund Rendon PA is PHCP. cp 15:53 Isela Perry is Attending Physician. cp 16:49 Triage completed. jl7 16:49 Arm band placed on right wrist. Patient placed in waiting room, Patient notified of jl7 wait time. 16:55 Patient has correct armband on for positive identification. jl7 17:08 No provider procedures requiring assistance completed. Patient did not have IV access jl7 during this emergency room visit. Administered Medications: No medications were administered Medication: 16:55 VIS not applicable for this client. jl7 Outcome: 17:02 Discharge ordered by MD. cp 17:08 Discharged to home ambulatory. jl7 17:08 Condition: stable 17:08 Discharge instructions given to patient, Instructed on discharge instructions, follow up and referral plans. medication usage, Demonstrated understanding of instructions, follow-up care, medications, Prescriptions given X 1. 17:09 Patient left the ED. jl7 Signatures: Tomeka Dupont mr Edmund Rendon PA PA cp Leal, Jahala, RN RN jl7
--- NOTE | 2021-10-20 17:02 | EDPHYS ---
Physician Documentation [facility] Name: Art Trinidad Jr Age: 56 yrs Sex: Male : 1965 Arrival Date: 10/20/2021 Time: 15:50 Bed Waiting Private MD: ED Physician Isela Perry HPI: 10/20 16:55 This 56 yrs old Male presents to ER via Ambulatory with complaints of Foreign cp Body In Ear. 16:55 The patient presents with pain, that is acute, foreign body sensation. cp 16:55 The complaints affect the right ear. Onset: The symptoms/episode began/occurred 3 cp day(s) ago. Associated signs and symptoms: The patient has no apparent associated signs or symptoms. Historical: - Allergies: 16:49 No Known Allergies; jl7 - PMHx: 16:49 Diabetes - NIDDM; Dialysis; Hypertension; End stage renal disease; jl7 - PSHx: 16:49 Left Upper Arm Fistula; jl7 - Immunization history:: Client reports receiving the 2nd dose of the Covid vaccine. - Social history:: Smoking status: Patient denies any tobacco usage or history of. ROS: 16:59 ENT: Positive for ear pain, foreign body sensation of right ear, Negative for drainage cp from ear(s), sore throat, difficulty swallowing, difficulty handling secretions. 16:59 Respiratory: Negative for cough, shortness of breath, wheezing. 16:59 Abdomen/GI: Negative for abdominal pain. 16:59 Neuro: Negative for altered mental status, headache, weakness. Exam: 17:00 Head/Face: Normocephalic, atraumatic. cp 17:00 Constitutional: The patient appears in no acute distress, alert, awake, non-toxic, well developed, well nourished. 17:00 Eyes: Periorbital structures: appear normal, Conjunctiva: normal, no exudate, no injection, Sclera: no appreciated abnormality, Lids and lashes: appear normal, bilaterally. 17:00 ENT: External ear(s): are unremarkable, Ear canal(s): are normal, clear, TM's: erythema, that is mild, on the right, Nose: is normal, Mouth: Lips: moist, Oral mucosa: moist. 17:00 Neck: ROM/movement: is normal, is supple, without pain, no range of motions limitations, Lymph nodes: no appreciated lymphadenopathy. 17:00 Chest/axilla: Inspection: normal. 17:00 Cardiovascular: Rate: normal. 17:00 Respiratory: the patient does not display signs of respiratory distress, Respirations: normal, no use of accessory muscles, no retractions, labored breathing, is not present. Vital Signs: 16:48 BP 187 / 78; Pulse 83; Resp 17; Temp 98.2; Pulse Ox 97% ; Weight 81.5 kg; Height 5 ft. jl7 3 in. (160.02 cm); Pain 5/10; 17:08 BP 187 / 93; Pulse 79; Resp 17; Pulse Ox 98% ; jl7 16:48 Body Mass Index 31.83 (81.50 kg, 160.02 cm) jl7 17:08 Pt reports BP always high, he will take his medication when he gets home jl7 MDM: 17:02 Patient medically screened. cp 17:02 Data reviewed: vital signs, nurses notes. cp 17:02 Counseling: I had a detailed discussion with the patient and/or guardian regarding: the cp historical points, exam findings, and any diagnostic results supporting the discharge/admit diagnosis, the presence of at least one elevated blood pressure reading (>120/80) during this emergency department visit, to return to the emergency department if symptoms worsen or persist or if there are any questions or concerns that arise at home. ED course: Patient reports not taking blood pressure medication. Will discharge to home for continued monitoring. Administered Medications: No medications were administered Disposition Summary: 10/20/21 17:02 Discharge Ordered Location: Home cp Problem: new cp Symptoms: are unchanged cp Condition: Stable cp Diagnosis - Otitis media, unspecified, right ear cp Followup: cp - With: Private Physician - When: 2 - 3 days - Reason: Recheck today's complaints Discharge Instructions: - Discharge Summary Sheet cp - Otitis Media, Adult cp Forms: - Medication Reconciliation Form cp - Thank You Letter cp - Antibiotic Education cp - Prescription Opioid Use cp Prescriptions: - Amoxicillin 875 mg Oral Tablet - take 1 tablet by ORAL route every 12 hours for 10 days; 20 tablet; Refills: 0, cp Product Selection Permitted Signatures: Edmund Rendon PA PA cp Leal, Jahala, RN RN jl7
[2021-10-20 17:21] VITALS: TEMP 98.2
[2021-10-20 17:24] VITALS: BP 187/93; O2SAT 98
== END 2021-10-20 17:09 | disposition home or self-care (01) ==
LOC: ER 15:48
DX: H66.91 Otitis media, unspecified, right ear (principal)
CPT/HCPCS: 99282

== ENCOUNTER 2022-03-02 19:06 | Emergency (ER) | payer OTHER ==
--- OUTSIDE RECORDS SUMMARY | 2022-03-02 19:12 | XMS REPORT | Continuity of Care Document ---
:1965 Author Organization [facility] t Address [address] [place] [address] Care Team Providers Name Role Phone Nelida Chavez Primary Care Physician [phone] Rianna Ambrose MD Attending Clinician Jenise Garcia MD Attending Clinician JENISE GARCIA Attending Clinician Unavailable Hussein Rizvi LCSW Attending Clinician Unavailable Bo GONZALEZ, Galina Attending Clinician Unavailable Madalyn Hernandez Attending Clinician Unavailable Paula Scales Attending Clinician Unavailable Chiqui Neely Attending Clinician Unavailable Jey Aguilera Attending Clinician Unavailable RIANNA AMBROSE Attending Clinician Unavailable VEE ROBERTS Attending Clinician Unavailable HOLDEN VILLEDA Attending Clinician Unavailable NURIA HARRISON Attending Clinician Unavailable TODD LOAIZA Attending Clinician Unavailable NURIA HARRISON Admitting Clinician Unavailable HOLDEN VILLEDA Admitting Clinician Unavailable Payers Payer Name Policy Type Policy Number Effective Date Expiration Date S doreen AARP/MEDICARE [id number] 2020 COMPLETE 00:00:00 [employer] UNITED ONLY [id number] 2020 MCR REPL 00:00:00 MEDICARE A B [id number] 2016 00:00:00 Problems Condition Condition Condition Status Onset Resolution Last Treating Co mments Source Name Details Category Date Date Treatment Clinician Date Coronary Coronary Disease Active [facility] disease disease 00:00: Medical involving involving 00 Cent er algaaciq algaaciq heart with heart with angina angina pectoris, pectoris, unspecifie unspecifie d vessel d vessel or lesion or lesion type type Hypertensi Hypertensi Disease Active [facility], on, 10-21 [facility] unspecifie unspecifie 00:00: Me dical d type d type 00 Center ESRD (end ESRD (end Disease Active [facility] stage stage 10-21 [facility] renal renal 00:00: Medical disease) disease) 00 Center Other Other Disease Active [facility] specified specified 10-21 [facility] diabetes diabetes 00:00: Medica l mellitus mellitus 00 Center with with diabetic diabetic chronic chronic kidney kidney disease, disease, unspecifie unspecifie d CKD d CKD stage, stage, unspecifie unspecifie d whether d whether longterm longterm insulin insulin use use Pre-transp Pre-transp Disease Active 2016-[address] lant lant 0-17 [facility] evaluation evaluation 00:00: Me dical for ESRD for ESRD 00 Center (end stage (end stage renal renal disease) disease) Allergies, Adverse Reactions, Alerts Allergy Allergy Status Severity Reaction(s) Onset Inactive Treating Comm ents Source Name Type Date Date Clinician NO KNOWN Allergy Active [facility] Family History Family Member Diagnosis Comments Start Date Stop Date Source Natural father Heart disease [facility] Natural mother Diabetes [facility] Natural mother Hypertension [facility] Other Liver disease [facility] Natural sister Diabetes [facility] Social History Social Habit Start Date Stop Date Quantity Comments Source Exposure to 2021-11-30 2021-12-10 Not sure [facility] SARS-CoV-2 00:00:00 08:13:00 Medical Center (event) Alcohol intake 2021-12-05 2021-12-05 Current [facility] 00:00:00 00:00:00 non-drinker of Medical Ce nter alcohol (finding) Tobacco Comment 2017-09-15 2017-09-15 exposure to [facility] 00:00:00 00:00:00 second hand Medical Cente r smoke. Tobacco use and 2017-09-01 2017-09-[address] [address] [facility] exposure 00:00:00 00:00:00 Medical Center History of 1985-12-07 1987-12-[address] [facility] tobacco use 00:00:00 00:00:00 [facility] Josselin yost Sex [birth year] At [birth year] [facility] 00:00:00 00:00:00 Medical Center Smoking Status Start Date Stop Date Source Former smoker 2017-09-01 00:00:00 2017-09-01 00:00:00 [facility] Medications Ordered Filled Start Stop Current Ordering Indication Dosage Frequency Signature Comments Components Source Medication Medication Date Date Medication? Clinician (SIG) Name Name CARVEDILOL 0 No 12.5MG 9-21 Tablets 00:00: 00 AMLODIPINE 2021-0 No 5MG Tablets 12-18 00:00: 00 CARVEDILOL 2021-0 No 12.5MG 9-21 Tablets 00:00: 00 AMLODIPINE 2021-0 No 5MG Tablets 21 00:00: 00 carvedilol 2021-0 Yes 6.25mg Take 6.[address] [facility] (COREG) 9-13 mg by [facility] 6.25 MG 15:05: mouth 2 Medical tablet 30 (two) Center times daily with breakfast and dinner. atorvastati Yes 20mg QD Take [address] n (LIPITOR) 9-13 by mouth Luke s 20 MG 15:05: daily. Medical tablet 30 Center glipiZIDE Yes 5mg Take [address] [address] (GLUCOTROL) 9-13 by mouth 2 [facility] 5 MG tablet 15:05: (two) Medic al 30 times Center daily before meals. sevelamer Yes 800mg Take [address] (RENAGEL) 9-13 mg by [facility]ukes 800 MG 15:05: mouth 3 Medical tablet 30 (three) Center times daily with meals 3 tabs TId. gabapentin 0 Yes 300mg QD Take [address] (NEURONTIN) 9-13 mg by [facility] 300 MG 15:05: mouth Medical capsule 30 daily. Center folic Yes 1{tbl} QD Take [address] acid-vitami 9-13 tablet by Dusty es n b 15:05: mouth Medical complex-vit 30 daily. [place] [facility] c-selenium- zinc (DIALYTE) tablet carvedilol 2021-0 Yes 6.25mg Take 6.[address] (COREG) 9-13 mg by [facility]ukes 6.25 MG 15:05: mouth 2 Medical tablet 30 (two) Center times daily with breakfast and dinner. atorvastati 2022-0 Yes 20mg QD Take [address] [facility] (LIPITOR) 9-13 by mouth Luke s 20 MG 15:05: daily. Medical tablet 30 Center glipiZIDE 2-0 Yes 5mg Take [address] [address] (GLUCOTROL) 9-13 by mouth 2 [facility]inta kes 5 MG tablet 15:05: (two) Medic al 30 times Center daily before meals. sevelamer 2-0 Yes 800mg Take [address] (RENAGEL) 9-13 mg by [facility] 800 MG 15:05: mouth 3 Medical tablet 30 (three) Center times daily with meals 3 tabs TId. gabapentin 2021-0 Yes 300mg QD Take [address] (NEURONTIN) 9-13 mg by [facility] 300 MG 15:05: mouth Medical capsule 30 daily. [place] folic 2021-0 Yes 1{tbl} QD Take [address] acid-vitami 9-13 tablet by Dusty es n b 15:05: mouth Medical complex-vit 30 daily. [facility] c-selenium- zinc (DIALYTE) tablet carvedilol 2021-0 Yes 6.25mg Take 6.[address] (COREG) 9-13 mg by [facility]ukes 6.25 MG 15:05: mouth 2 Medical tablet 30 (two) Center times daily with breakfast and dinner. atorvastati 2022-0 Yes 20mg QD Take [address] n (LIPITOR) 9-13 by mouth Luke s 20 MG 15:05: daily. Medical tablet 30 Center glipiZIDE 2-0 Yes 5mg Take [address] (GLUCOTROL) 9-13 by mouth 2 [facility]inta kes 5 MG tablet 15:05: (two) Medic al 30 times Center daily before meals. sevelamer 2022-0 Yes 800mg Take [address] (RENAGEL) 9-13 mg by [facility] 800 MG 15:05: mouth 3 Medical tablet 30 (three) Center times daily with meals 3 tabs TId. gabapentin Yes 300mg QD Take [address] (NEURONTIN) 9-13 mg by [facility]ukes 300 MG 15:05: mouth Medical capsule 30 daily. [place] folic Yes 1{tbl} QD Take [address] acid-vitami 9-13 tablet by Dusty es n b 15:05: mouth Medical complex-vit 30 daily. [place] keys c-selenium- zinc (DIALYTE) tablet carvedilol Yes 6.25mg Take 6.[address] (COREG) 9-13 mg by [facility]ukes 6.25 MG 15:05: mouth 2 Medical tablet 30 (two) Center times daily with breakfast and dinner. atorvastati Yes 20mg QD Take [address] [facility] (LIPITOR) 9-13 by mouth Luke s 20 MG 15:05: daily. Medical tablet 30 [place] glipiZIDE Yes 5mg Take [address] (GLUCOTROL) 9-13 by mouth 2 [facility]inta kes 5 MG tablet 15:05: (two) Medic al 30 times Center daily before meals. sevelamer Yes 800mg Take [address] (RENAGEL) 9-13 mg by [facility] 800 MG 15:05: mouth 3 Medical tablet 30 (three) Center times daily with meals 3 tabs TId. gabapentin Yes 300mg QD Take [address] (NEURONTIN) 9-13 mg by [facility] 300 MG 15:05: mouth Medical capsule 30 daily. [place] folic Yes 1{tbl} QD Take [address] acid-vitami 9-13 tablet by Dusty es n b 15:05: mouth Medical complex-vit 30 daily. [place] keys c-selenium- zinc (DIALYTE) tablet Vital Signs Vital Name Observation Time Observation Value Comments Source HEIGHT 2021-12-10 13:18:00 160 cm WEIGHT 2021-12-10 13:18:00 85.594 kg HEIGHT 2021-12-10 13:18:00 160 cm WEIGHT 2021-12-10 13:18:00 85.594 kg HEIGHT 2021-12-10 13:18:00 160 cm WEIGHT 2021-12-10 13:18:00 85.594 kg HEIGHT 2020-01-10 08:45:00 160 cm WEIGHT 2020-01-10 08:45:00 66.679 kg HEIGHT 2020-01-10 12:49:00 160 cm WEIGHT 2020-01-10 12:49:00 80.831 kg BP Systolic 2022-01-09 09:22:00 167 mm[Hg] BP Diastolic 2022-01-09 09:22:00 94 mm[Hg] Weight Measured 2022-01-09 09:22:00 185.60 pounds Height Measured 2022-01-09 09:22:00 63.00 inches Body Temperature 2022-01-09 09:22:00 98.30 degrees Heart Rate 2022-01-09 09:22:00 75.00 /min Respiratory Rate 2022-01-09 09:22:00 18.00 /min Heart Rate 2021-12-19 15:00:00 78.00 /min Respiratory Rate 2021-12-19 15:00:00 18.00 /min BP Systolic 2021-12-19 15:00:00 172 mm[Hg] BP Diastolic 2021-12-19 15:00:00 88 mm[Hg] Weight Measured 2021-12-19 15:00:00 190.60 pounds Height Measured 2021-12-19 15:00:00 63.00 inches Body Temperature 2021-12-19 15:00:00 98.20 degrees Systolic blood 2021-12-10 13:18:00 159 mm[Hg] [facility] Diastolic blood 2021-12-10 13:18:00 91 mm[Hg] [facility] Heart rate 2021-12-10 13:18:00 80 /min [facility] Body temperature 2021-12-10 13:18:00 36.72 Roxane [facility] Respiratory rate 2021-12-10 13:18:00 18 /min [facility] Body height 2021-12-10 13:18:00 160 cm [facility] Body weight 2021-12-10 13:18:00 85.594 kg [facility] BMI 2021-12-10 13:18:00 33.43 kg/m2 [facility] Oxygen saturation in 2021-12-10 10:03:00 98 /min [facility] Arterial blood by Medical Ce nter Pulse oximetry Procedures Procedure Date / Time Performing Clinician Source Performed NM MYOCARDIAL PERFUSION 2021-12-10 10:12:[address] [facility] PET/CT (REST & STRESS) Medical C enter TREADMILL 2021-12-10 09:49:39 Unknown, Hl7 Doctor [facility] TOLERANCE(NON-NUCLEAR Medical Ce nter TREADMILL) ECG 12-LEAD 2021-12-10 09:46:08 Unknown, Hl7 Doctor [facility] FLOW PRA CLASS I WITH 2021-12-10 08:37:00 TimRianna mcbride [facility] REFLEX TO ANTIBODY Medical Cente r SPECIFICITY FLOW PRA CLASS II WITH 2021-12-10 08:37:00 Rianna Ambrose I [facility] REFLEX TO ANTIBODY Medical Cente r SPECIFICITY AB SPECIFICITY CLASS I 2021-12-10 08:37:00 Rianna Ambrose CH I [facility] AB SPECIFICITY CLASS II 2021-12-10 08:37:00 Rianna Ambrose [facility] CYTOMEGALOVIRUS ANTIBODY, 2021-09-12 11:06:00 ShiraRianna [facility] IGG [facility] T SPOT TB 2021-09-12 11:06[facility]00 [facility] FL[facility]A CLASS I WITH 2021-09-12 11:06:00 Rianna Ambrose [facility] REFLEX TO ANTIBODY Medical Cente r SPECIFICITY FLOW PRA CLASS II WITH 2021-09-12 11:06:00 Rianna Ambrose [facility] REFLEX TO ANTIBODY Medical Cente r SPECIFICITY HC LAB HIV-1 AG W/HIV-1&2 2021-09-12 11:06[facility]00 [facility] HEPATITIS C ANTIBODY 2021-09-12 11:06:00 [facility] HEMOGLOBIN A1C 2021-09-12 11:06:00 [facility] HEPATITIS B SURFACE 2021-09-12 11:06:00 [facility], [facility] ANTIBODY Medical Center HEPATITIS B CORE ANTIBODY, 2021-09-12 11:06:00 [facility] TOTAL [facility] PSA 2021-09-12 11:06:00 [facility] Rianna [facility] AB SPECIFICITY CLASS I 2021-09-12 11:06:00 [facility] 2D ECHO W/ DOPPLER 2021-09-12 09:15:45 [facility] (CW/PW/COLOR) [facility] US ABDOMEN COMPLETE 2021-09-12 08:28:00 [facility] Plan of Care Planned Activity Planned Date Details Comments Source Future Scheduled 2027-09-24 Screening [facility] 00:00:00 neoplasm of colon Medical Ce nter (procedure) [code = 328161712] Future Scheduled 2027-09-24 Screening for malignant [facility] Test 00:00:00 neoplasm of colon Medical Ce nter (procedure) [code = 846906629] Future Scheduled 2027-09-24 Screening for malignant [facility] Test 00:00:00 neoplasm of colon Medical Ce nter (procedure) [code = 128931417] Future Scheduled 2027-09-24 Screening for malignant [facility] Test 00:00:00 neoplasm of colon Medical Ce nter (procedure) [code = 936044123] Future Scheduled 2027-09-24 Screening for malignant [facility] Test 00:00:00 neoplasm of colon Medical Ce nter (procedure) [code = 143998810] Future Scheduled 2027-09-24 Screening for malignant [facility] Test 00:00:00 neoplasm of colon Medical Ce nter (procedure) [code = 628405070] Future Scheduled 2027-09-24 Screening for malignant [facility] Test 00:00:00 neoplasm of colon Medical Ce nter (procedure) [code = 717125105] Future Scheduled 2027-09-24 Screening for malignant [facility] Test 00:00:00 neoplasm of colon Medical Ce nter (procedure) [code = 775417541] Future Scheduled 2021-11-28 INFLUENZA VACCINE (#1) [facility] 00:00:00 [code = INFLUENZA Medical Ce nter VACCINE (#1)] Future Scheduled 2021-11-28 INFLUENZA VACCINE (#1) [facility] 00:00:00 [code = INFLUENZA Medical Ce nter VACCINE (#1)] Future Scheduled 2021-11-28 INFLUENZA VACCINE (#1) [facility] 00:00:00 [code = INFLUENZA Medical Ce nter VACCINE (#1)] Future Scheduled 2021-11-28 INFLUENZA VACCINE (#1) [facility] 00:00:00 [code = INFLUENZA Medical Ce nter VACCINE (#1)] Future Scheduled 2021-05-[address] [facility] 00:00:00 WELLNESS (YEAR 2 or Medical Center FIRST YEAR if no IPPE) [code = MEDICARE ANNUAL WELLNESS (YEAR 2 or FIRST YEAR if no IPPE)] Future Scheduled 2021-05-[address] [facility] 00:00:00 WELLNESS (YEAR 2 or Medical Center FIRST YEAR if no IPPE) [code = MEDICARE ANNUAL WELLNESS (YEAR 2 or FIRST YEAR if no IPPE)] Future Scheduled 2021-05-[address] [facility] 00:00:00 WELLNESS (YEAR 2 or Medical Center FIRST YEAR if no IPPE) [code = MEDICARE ANNUAL WELLNESS (YEAR 2 or FIRST YEAR if no IPPE)] Future Scheduled 2021-05-[address] [facility] Test 00:00:00 WELLNESS (YEAR 2 or Medical Center FIRST YEAR if no IPPE) [code = MEDICARE ANNUAL WELLNESS (YEAR 2 or FIRST YEAR if no IPPE)] Future Scheduled 2021-03-[address] [facility] 00:00:00 (12+) [code = Medical Center DEPRESSION SCREENING (12+)] Future Scheduled 2021-03-[address] [facility] 00:00:00 (12+) [code = Medical Center DEPRESSION SCREENING (12+)] Future Scheduled 2021-03-[address] [facility] 00:00:00 (12+) [code = Medical Center DEPRESSION SCREENING (12+)] Future Scheduled 2021-03-[address] [facility] 00:00:00 (12+) [code = Medical Center DEPRESSION SCREENING (12+)] Future Scheduled 2019-05-06 Lipid panel (procedure) [facility] 00:00:00 [code = 66641731] Medical Ce nter Future Scheduled 2019-05-06 Lipid panel (procedure) [facility] 00:00:00 [code = 08626883] Medical Ce nter Future Scheduled 2019-05-06 Lipid panel (procedure) [facility] 00:00:00 [code = 28750789] Medical Ce nter Future Scheduled 2019-05-06 Lipid panel (procedure) [facility] 00:00:00 [code = 85918506] Medical Ce nter Future Scheduled 2017-10-[address] [facility] 00:00:00 [facility] (procedure) [facility] [code = 87003448] Future Scheduled 2017-10-[address] [facility] Test 00:00:00 measurement (procedure) [facility] [code = 15669709] Future Scheduled 2017-10-[address] [facility] Test 00:00:00 measurement (procedure) [facility] [code = 40375114] Future Scheduled 2017-10-[address] [facility] Test 00:00:00 measurement (procedure) [facility] [code = 22186432] Future Scheduled 2017-08-14 Screening for malignant [facility] 00:00:00 neoplasm of colon Medical Ce nter (procedure) [code = 061627202] Future Scheduled 2017-08-14 Screening for malignant [facility] 00:00:00 neoplasm of colon Medical Ce nter (procedure) [code = 674547002] Future Scheduled 2017-08-14 Screening for malignant [facility] 00:00:00 neoplasm of colon Medical Ce nter (procedure) [code = 217872845] Future Scheduled 2017-08-14 Screening for malignant [facility] 00:00:00 neoplasm of colon Medical Ce nter (procedure) [code = 219664329] Future Scheduled 2014-02-01 SHINGLES VACCINES ([address] [facility] 00:00:00 2) [code = SHINGLES [facility] VACCINES (1 of 2)] Future Scheduled 2014-02-01 SHINGLES VACCINES ([address] [facility] 00:00:00 2) [code = SHINGLES [facility] VACCINES (1 of 2)] Future Scheduled 2014-02-01 SHINGLES VACCINES ([address] [facility] 00:00:00 2) [code = SHINGLES [facility] VACCINES (1 of 2)] Future Scheduled 2014-02-01 SHINGLES VACCINES ([address] [facility] 00:00:00 2) [code = SHINGLES [facility] VACCINES (1 of 2)] Future Scheduled 1983-02-01 DTAP/TDAP/TD [facility]ACCINES [facility] 00:00:00 (1 - Tdap) [code = Medical C enter DTAP/TDAP/TD VACCINES (1 - Tdap)] Future Scheduled 1983-02-01 DTAP/TDAP/TD VACCINES [facility] 00:00:00 (1 - Tdap) [code = Medical C enter DTAP/TDAP/TD VACCINES (1 - Tdap)] Future Scheduled 1983-02-01 DTAP/TDAP/TD VACCINES [facility] 00:00:00 (1 - Tdap) [code = Medical C enter DTAP/TDAP/TD VACCINES (1 - Tdap)] Future Scheduled 1983-02-01 DTAP/TDAP/TD VACCINES [facility] 00:00:00 (1 - Tdap) [code = Medical C enter DTAP/TDAP/TD VACCINES (1 - Tdap)] Future Scheduled [address] [facility] 00:00:00 Counseling and Medical Cente r Screening (12+) [code = Tobacco Cessation Counseling and Screening (12+)] Future Scheduled [address] [facility] 00:00:00 Counseling and Medical Cente r Screening (12+) [code = Tobacco Cessation Counseling and Screening (12+)] Future Scheduled 1974-02-01 DIABETIC EYE EXAM [code [facility] 00:00:00 = DIABETIC EYE EXAM] Medical Center Future Scheduled 1974-02-[address] [facility] Test 00:00:00 examination Medical Center (regime/therapy) [code = 769251470] Future Scheduled 1974-02-01 Urine screening for [facility] 00:00:00 protein (procedure) Medical Center [code = 773956726] Future Scheduled 1974-02-01 DIABETIC EYE EXAM [code [facility] 00:00:00 = DIABETIC EYE EXAM] Medical Center Future Scheduled 1974-02-[address] [facility] Test 00:00:00 examination Medical Center (regime/therapy) [code = 076415734] Future Scheduled 1974-02-01 Urine screening for [facility] 00:00:00 protein (procedure) Medical Center [code = 790877462] Future Scheduled 1974-02-01 DIABETIC EYE EXAM [code [facility] 00:00:00 = DIABETIC EYE EXAM] Medical Center Future Scheduled 1974-02-[address] [facility] Test 00:00:00 examination Medical Center (regime/therapy) [code = 838738899] Future Scheduled 1974-02-01 Urine screening for [facility] 00:00:00 protein (procedure) Medical Center [code = 323829538] Future Scheduled 1974-02-01 DIABETIC EYE EXAM [code [facility] 00:00:00 = DIABETIC EYE EXAM] Medical Center Future Scheduled 1974-02-[address] [facility] Test 00:00:00 examination Medical Center (regime/therapy) [code = 576208437] Future Scheduled 1974-02-01 Urine screening for [facility] 00:00:00 protein (procedure) Medical Center [code = 248824297] Future Scheduled 1970-02-[address] [facility] 00:00:00 0-64 YRS (1 - PCV) Medical C enter [code = PNEUMOCOCCAL VACCINE 0-64 YRS (1 - PCV)] Future Scheduled 1970-02-[address] [facility] Test 00:00:00 0-64 YRS (1 - PCV) Medical C enter [code = PNEUMOCOCCAL VACCINE 0-64 YRS (1 - PCV)] Future Scheduled 1970-02-[address] [facility] Test 00:00:00 0-64 YRS (1 - PCV) Medical C enter [code = PNEUMOCOCCAL VACCINE 0-64 YRS (1 - PCV)] Future Scheduled 1970-02-[address] [facility] Test 00:00:00 0-64 YRS (1 - PCV) Medical C enter [code = PNEUMOCOCCAL VACCINE 0-64 YRS (1 - PCV)] Future Scheduled 1965 COVID-19 VACCINE (#1) [facility] 00:00:00 [code = COVID-[address] VACCINE (#1)] Future Scheduled 1965 COVID-19 VACCINE (#1) [facility] 00:00:00 [code = COVID-[address] VACCINE (#1)] Future Scheduled 1965 COVID-19 VACCINE (#1) [facility] 00:00:00 [code = COVID-[address] VACCINE (#1)] Future Scheduled 1965 COVID-19 VACCINE (#1) [facility] 00:00:00 [code = COVID-[address] VACCINE (#1)] Future Scheduled 1964 CT Colonography (combo) [facility] 00:00:00 [code = CT Colonography [facility] (combo)] Future Scheduled 1964 Screening for malignant [facility] 00:00:00 neoplasm of colon Medical Ce nter (procedure) [code = 566517822] Future Scheduled 1965 Sigmoidoscopy [code = [facility] Sigmoidoscopy] Medical Garrette r Future Scheduled 1964 CT Colonography (combo) [facility] 00:00:00 [code = CT Colonography [facility] (combo)] Future Scheduled 1964 Screening for malignant [facility] 00:00:00 neoplasm of colon Medical Ce nter (procedure) [code = 113570133] Future Scheduled 1965 Sigmoidoscopy [code = [facility] Sigmoidoscopy] Medical Cente r Future Scheduled 1964 CT Colonography (combo) [facility] 00:00:00 [code = CT Colonography [facility] (combo)] Future Scheduled 1964 Screening for malignant [facility] 00:00:00 neoplasm of colon Medical Ce nter (procedure) [code = 838160150] Future Scheduled 1965 Sigmoidoscopy [code = [facility] 00:[facility] Sigmoidoscopy] Medical Cente r Future Scheduled 1964 CT Colonography (combo) [facility] 00:00:00 [code = CT Colonography [facility] (combo)] Future Scheduled 1964 Screening for malignant [facility] 00:00:00 neoplasm of colon Medical Ce nter (procedure) [code = 746366317] Future Scheduled 1965 Sigmoidoscopy [code = [facility] 00:[facility] Sigmoidoscopy] Medical [place] Goal Plan of Care Note [code = 26692-2] Goal Plan of Care Note [code = 52308-5] Goal Plan of Care Note [code = 67058-3] Goal Plan of Care Note [code = 14030-8] Goal Plan of Care Note [code = 22580-0] Goal Plan of Care Note [code = 58833-3] Goal Plan of Care Note [code = 36378-2] Goal Plan of Care Note [code = 12317-2] Goal Plan of Care Note [code = 63616-8] Goal Plan of Care Note [code = 10808-2] Goal Plan of Care Note [code = 82230-8] Goal Plan of Care Note [code = 10465-3] Goal Plan of Care Note [code = 61217-5] Encounters Start End Encounter Admission Attending Care Care Encounter Source Date/Time Date/Time Type Type Clinicians Facility Department ID 2022-02-11 2022-02-11 Outpatient [facility] JOSÉ MIGUEL [id number] [id number] 10:17:04 10:17:04 [id number] F Frasnisco 2022-02-07 2022-02-07 Outpatient [facility] [id number] SLE 06:50:09 06:50:09 2022-01-23 2022-01-23 Outpatient [facility] [id number] SLE 08:13:44 08:13:44 2022-01-09 2022-01-09 Outpatient [facility] [id number] Darryl 09:14:27 09:14:27 [id number] F Fransisco 2022-01-09 2022-01-09 Outpatient [id number] 00:00:00 00:00:00 Visit [id number] 2021-12-19 2021-12-19 Outpatient [id number] 00:00:00 00:00:00 Visit [id number] 2021-12-10 2021-12-10 [place] [facility] [id number] [facility] 08:44:41 23:59:00 Encounter [facility] 2021-12-10 2021-12-10 [facility] [id number] 08:44:41 23:59:00 Encounter [facility] 2021-12-10 2021-12-10 Outpatient SLE SLE [id number] [facility] 08:44:41 23:59:00 2021-12-10 2021-12-10 Evaluation Jeffrae Rianna [facility] [id number] [facility] 14:30:00 15:00:00 [facility] 2021-12-10 2021-12-10 Evaluation Halie Rianna [facility] [id number] [facility] 14:30:00 15:00:00 [facility] 2021-12-10 2021-12-10 Outpatient EL [facility] [id number] SLE 10:40:58 10:40:58 2021-12-10 2021-12-10 Outpatient SLE SLE [id number] SLE 10:33:05 10:33:05 2021-12-10 2021-12-10 [facility] [id number] 09:30:00 09:45:00 Only [facility] 2021-12-10 2021-12-10 Orders [facility] [id number] 09:30:00 09:45:00 Only [facility] 2021-12-10 2021-12-10 Outpatient SLE SLE [id number] [facility] 08:25:44 08:25:44 2021-12-10 2021-12-10 Outpatient SLE SLE [id number] [facility] 00:00:00 00:00:00 2021-12-10 2021-12-10 Outpatient SLE SLE [id number] [facility] 00:00:00 00:00:00 2021-12-10 2021-12-10 Abstract Jenise Garcia [facility] [id number] 00:00[facility]00 00:00:00 [facility] 2021-12-10 2021-12-10 Travel [facility] [id number] [facility] 00:[facility]00 00:00:00 [facility] 2021-12-10 2021-12-10 Jenise Corona [facility] [id number] 00:00:00 00:00:00 [facility] 2021-12-10 2021-12-10 Travel [facility] [id number] [facility] 00:[facility]00 00:00:00 [facility] 2021-12-09 2021-12-09 Telephone Dmitri [facility] [id number] 00:00:00 00:00:00 [facility] 2021-12-09 2021-12-09 Telephone Dmitri [facility] [id number] 00:00:00 00:00:00 [facility] 2021-12-05 2021-12-05 Timmy Soriano [facility] [id number] [id number] 00:00:00 00:00:[address] [facility] 2021-12-05 2021-12-05 Timmy Soriano [facility] [id number] 00:00[facility]00 00:00:[address] [facility] 2021-12-04 2021-12-04 Timmy Hernandez [facility] [id number] [id number] 00:00[facility]00 00:00:00 [facility] 2021-12-04 2021-12-04 Timmy Hernandez [facility] [id number] [id number] 00:00:00 00:00:00 [facility] 2021-11-01 2021-11-01 Outpatient SLE SLE [id number] [facility] 08:24:19 08:24:19 2021-10-29 2021-10-29 Timmy Soriano [facility] [id number] 00:00:00 00:00:[address] [facility] 2021-10-29 2021-10-29 Timmy Soriano [facility] [id number] 00:00:00 00:00:[address] [facility] 2021-10-09 2021-10-09 Outpatient SLE SLE [id number] [facility] 09:10:49 09:10:49 2021-10-03 2021-10-03 Timmy Scales [facility] [id number] 00:00:00 00:00:00 ion [facility] 2021-10-03 2021-10-03 Timmy Scales [facility] [id number] 00:00:00 00:00:00 ion [facility] 2021-10-02 2021-10-02 Telephone Chin [facility] [id number] 00:00:00 00:00:00 [facility] 2021-10-02 2021-10-02 Telephone Chin [facility] [id number] 00:00:00 00:00:00 [facility] 2021-09-14 2021-09-14 Outside Willy [facility] [id number] 00:00:00 00:00:00 Orders [facility] 2021-09-14 2021-09-14 Outside Willy [facility] [id number] 00:00:00 00:00:00 Orders [facility] 2021-09-12 2021-09-12 [facility] Halie [facility] [id number] 23:59:00 23:59:[address] [facility] 2021-09-122021-09-12 [facility], [facility] [id number] 23:59:00 23:59:00 Encounter [facility] 2021-09-12 2021-09-12 [facility] [id number] 07:33:42 23:59:00 Encounter [facility] 2021-09-12 2021-09-12 [facility] [id number] 07:33:42 23:59:00 Encounter [facility] 2021-09-12 2021-09-12 Outpatient EL TIMMINS, [facility] [id number] [facility] 07:33:42 23:59:00 [facility] 2021-09-12 2021-09-12 Outpatient EL HALIE, [facility] [id number] [facility] 00:00:00 23:59:00 [facility] 2021-09-12 2021-[facility]-12 [facility] [id number] 12:00:00 12:15:00 Only [facility] 2021-09-12 2021-09-12 [facility], [facility] [id number] 12:00:00 12:15:00 Only [facility] 2021-09-12 2021-09-12 Outpatient EL [facility] [id number] SLE 10:57:23 10:57:23 2021-09-12 2021-09-12 Outpatient EL TIMMINS, [facility] SLE [id number] [facility] 07:41:42 07:32:00 [facility] 2021-09-12 2021-09-12 [facility] [id number] 07:00:00 07:32:00 Encounter [facility] 2021-09-12 2021-09-12 [facility] [id number] 07:00:00 07:32:00 Encounter [facility] 2021-09-12 2021-09-12 Outpatient EL SLEH SLEH [id number] [facility] 00:00:00 00:00:00 2021-09-12 2021-09-12 Outpatient EL SLEH SLEH [id number] [facility] 00:00:00 00:00:00 2021-09-11 2021-09-11 Timmy Scales [facility] [id number] 00:00:00 00:00:[address] [facility] 2021-09-11 2021-09-11 Timmy Scales [facility] [id number] 00:00:00 00:00:00 dorothy [facility] 2021-09-05 2021-09-05 Timmy Neely [facility] [id number] 00:[facility]00 00:00:00 [facility] 2021-09-05 2021-09-05 Timmy Neely [facility] [id number] 00:00[facility]00 00:00:00 [facility] 2021-09-05 2021-09-05 Timmy Neely [facility] [id number] 00:00[facility]00 00:00:00 [facility] 2021-09-05 2021-09-05 Timmy Neely [facility] [id number] 00:00[facility]00 00:00:00 [facility] 2021-09-03 2021-09-03 Outpatient SLE SLEH [id number] [facility] 09:42:24 09:42:24 2021-08-22 2021-08-22 Timmy Scales [facility] [id number] 00:00:00 00:00:[address] [facility] 2021-08-22 2021-08-22 Timmy Scales [facility] [id number] 00:00:00 00:00:[address] [facility] 2021-07-31 2021-07-31 Outpatient SLEH SLEH [id number] [facility] 09:00:15 09:00:15 2021-07-11 2021-07-11 Timmy Neely [facility] [id number] 00:00[facility]00 00:00:00 [facility] 2021-07-11 2021-07-11 Timmy Neely [facility] [id number] 00:00[facility]00 00:00:00 [facility] 2021-07-09 2021-07-09 Aditya Soriano [facility] [id number] 00:00:00 00:00:00 Only [facility] 2021-07-09 2021-07-09 Aditya Soriano [facility] [id number] 00:00:00 00:00:00 Only [facility] 2021-06-05 2021-06-05 Outpatient EL SLEH SLE [id number] [facility] 06:47:28 06:47:28 2021-06-04 2021-06-04 Social Rizvi [facility] [id number] 00:00:00 00:00:00 Work [facility] 2021-06-04 2021-06-04 Social Rizvi [facility] [id number] 00:00:00 00:00:00 Work [facility] 2021-05-30 2021-05-30 Outpatient EL SLEH SLEH [id number] [facility] 00:00:00 00:00:00 2021-05-30 2021-05-30 Outpatient EL SLEH SLEH [id number] [facility] 00:00:00 00:00:00 2021-05-30 2021-05-30 Outpatient EL SLEH SLEH [id number] [facility] 00:00:00 00:00:00 2021-05-30 2021-05-30 Outpatient EL HALIE, SLEH SLEH [id number] [facility] 00:00:00 00:00:00 RIANNA 2021-05-30 2021-05-30 Outpatient EL TIMMINS, SLEH SLEH [id number] [facility] 00:00:00 00:00:00 RIANNA 2021-05-30 2021-05-30 Outpatient EL TIMMINS, SLEH SLEH [id number] [facility] 00:00:00 00:00:00 RIANNA 2021-05-30 2021-05-30 Outpatient TIMMINS, SLEH SLEH [id number] [facility] 00:00:00 00:00:00 RIANNA 2021-05-28 2021-05-28 Aditya Soriano [facility] [id number] 00:00:00 00:00:00 Only [facility] 2021-05-28 2021-05-28 Aditya Soriano [facility] [id number] 00:00:00 00:00:00 Only [facility] 2021-05-14 2021-05-14 Outpatient SLEH SLEH [id number] [facility] 07:01:18 07:01:18 2021-04-23 2021-04-23 Outpatient EL SLEH SLEH [id number] [facility] 00:00:00 00:00:00 2021-04-23 2021-04-23 Outpatient EL SLEH SLEH [id number] [facility] 00:00:00 00:00:00 2021-04-23 2021-04-23 Outpatient EL SLEH SLEH [id number] [facility] 00:00:00 00:00:00 2021-04-23 2021-04-23 Outpatient EL TIMMINS, SLEH SLEH [id number] [facility] 00:00:00 00:00:00 RIANNA 2021-04-23 2021-04-23 Outpatient EL TIMMINS, SLEH SLEH [id number] [facility] 00:00:00 00:00:00 RIANNA 2021-03-19 2021-03-19 Aditya Soriano [facility] [id number] 00:00:00 00:00:00 Only [facility] 2021-03-19 2021-03-19 Ariella Neely [facility] [id number] 00:00:00 00:00:00 [facility] 2021-03-19 2021-03-19 Orders Ob, [facility] [id number] 00:00:00 00:00:00 Only [facility] 2021-03-19 2021-03-19 Orders Bo, [facility] [id number] 00:00:00 00:00:00 Only [facility] 2021-03-19 2021-03-19 Telephone Chin, [facility] [id number] 00:00:00 00:00:00 [facility] 2021-03-19 2021-03-19 Orders Bo, [facility] [id number] 00:00:00 00:00:00 Only [facility] 2021-03-14 2021-03-14 Telephone Chin, [facility] [id number] 00:00:00 00:00:00 [facility] 2021-03-14 2021-03-14 Telephone Chin, [facility] [id number] 00:00:00 00:00:00 [facility] 2021-03-12 2021-03-12 Documentat Chin, [facility] [id number] 00:00:00 00:00:00 [facility] 2021-03-12 2021-03-12 Documentat Chin, [facility] [id number] 00:00:00 00:00:00 [facility] 2021-03-11 2021-03-11 Documentat Chin, [facility] [id number] 00:00:00 00:00:00 [facility] 2021-03-11 2021-03-11 Telephone Chin, [facility] [id number] 00:00:00 00:00:00 [facility] 2021-03-11 2021-03-11 Documentat Chin, [facility] [id number] 00:00:00 00:00:00 dorothy [facility] 2021-03-11 2021-03-11 Telephone Chin, [facility] [id number] 00:00:00 00:00:00 [facility] 2021-03-07 2021-03-07 Outpatient EL SLEH SLEH [id number] [facility]H 00:00:00 00:00:00 2021-03-07 2021-03-07 Outpatient EL SLEH SLEH [id number] [facility]H 00:00:00 00:00:00 2021-03-07 2021-03-07 Outpatient EL SLEH SLEH [id number] [facility]H 00:00:00 00:00:00 2021-03-07 2021-03-07 Outpatient EL TIMMINS, SLEH SLEH [id number] [facility] 00:00:00 00:00:00 RIANNA 2021-03-07 2021-03-07 Outpatient EL TIMMINS, SLEH SLEH [id number] [facility] 00:00:00 00:00:00 RIANNA 2021-03-04 2021-03-04 Telephone Chin, [facility] [id number] 00:00:00 00:00:00 [facility] 2021-03-04 2021-03-04 Telephone Chin, [facility] [id number] 00:00:00 00:00:00 [facility] 2021-01-29 2021-01-29 Telephone Chin, [facility] [id number] 00:00:00 00:00:00 [facility] 2021-01-29 2021-01-29 Documentat Chin, [facility] [id number] 00:00:00 00:00:00 dorothy [facility] 2021-01-08 2021-01-08 Telephone Chin, [facility] [id number] 00:00:00 00:00:00 [facility] 2020-12-21 2020-12-21 [id number] [facility] 00:00:00 00:00:00 [facility] 2020-12-14 2020-12-14 Outpatient SLEH SLEH [id number] [facility] 00:00:00 00:00:00 2020-11-16 2020-11-16 Outpatient SLEH SLEH [id number] [facility]H 07:43:34 07:43:34 2020-09-12 2020-09-12 Outpatient SLEH SLEH [id number] [facility] 00:00:00 00:00:00 2020-08-03 2020-08-03 Outpatient SLEH SLEH [id number] [facility]H 08:25:45 08:25:45 2020-05-30 2020-05-30 Outpatient SLEH SLEH [id number] [facility] 00:00:00 00:00:00 2020-05-08 2020-05-08 Outpatient EL SLEH SLEH [id number] [facility]H 08:52:53 08:52:53 2020-03-14 2020-03-14 Outpatient SLEH SLEH [id number] [facility] 10:45:40 10:45:40 2020-02-07 2020-02-07 Outpatient SLEH SLEH [id number] [facility] 00:00:00 00:00:00 2020-01-10 2020-01-10 Outpatient VILLEDA, SLEH SLEH [id number] [facility] 00:00:00 00:00:00 HOLD[facility] 2020-01-10 2020-01-10 Outpatient EL CHRISTIANA, SLEH SLEH [id number] [facility]H 00:00:00 00:00:00 HOLDEN 2020-01-10 2020-01-10 Outpatient SLEH SLEH [id number] [facility] 00:00:00 00:00:00 2020-01-10 2020-01-10 Outpatient SLEH SLEH [id number] [facility] 00:00:00 00:00:00 2020-01-10 2020-01-10 Outpatient SLEH SLEH [id number] [facility] 00:00:00 00:00:00 2020-01-03 2020-01-03 Outpatient SLEH SLEH [id number] SLE 07:41:49 07:41:49 2019-11-24 2019-11-24 Outpatient CHRISTIANA [facility] [id number] SLE 00:00:00 00:00:00 HOLDEN 2019-11-24 2019-11-24 Outpatient EL CHRISTIANA [facility] [id number] SLEH 00:00:00 00:00:00 HOLDEN 2019-11-02 2019-11-02 Outpatient [facility] [id number] SLE 08:30:20 08:30:20 2019-10-10 2019-10-10 Outpatient [facility] [id number] SLE 15:19:26 15:19:26 2019-07-06 2019-07-06 Outpatient [facility] [id number] SLE 10:49:21 10:49:21 [id number] Results Test Description Test Time Test Comments Results Result Comments Source HEMOGLOBIN A1c 2021-12-21 03:57:05 Test Item Value Reference Range Interpretation Comme nts HEMOGLOBIN A1c (test code = 5.4 % 4.2-5.6 UNLESS OTHERWISE INDICATED, ALL 63691) TESTING PERFORM ED ATCLINICAL PATHOLOGY LABOR [facility] [address] [place] [address] DIRECTOR OF DESIGN: BHUPINDER FAN M.D. CLIA NUMBER [id number] CAP ACCREDITATION N O. [id number] COMPREHENSIVE METABOLIC [id number] 03:26:50 Test Item Value Reference Range Interpretation Comments GLUCOSE (test code = 63 MG/DL 70-99 L 2216) BUN (test code = 49 MG/DL 6-20 H 2207) CREATININE (test 8.78 MG/DL 0.80-1.40 H code = 2214) eGFR (2020 CKD-EPI) 6 ML/MIN/1.73 >60 L (test code = 04697) CALC BUN/CREAT (test 6 RATIO 6-28 code = 2235) SODIUM (test code = 143 MEQ/L 006-926 9749) POTASSIUM (test code 4.9 MEQ/L 3.5-5.4 = 2228) CHLORIDE (test code 105 MEQ/L 95-107 = 2215) CARBON DIOXIDE (test 23 MEQ/L 19-31 code = 2206) CALCIUM (test code = 9.5 MG/DL 8.5-10.5 2208) PROTEIN, TOTAL (test 6.9 G/DL 6.1-8.3 code = 2229) ALBUMIN (test code = 4.1 G/DL 3.5-5.2 2200) CALC GLOBULIN (test 2.8 G/DL 1.9-3.7 code = 2240) CALC A/G RATIO (test 1.5 RATIO 1.0-2.6 code = 2234) BILIRUBIN, TOTAL 0.6 MG/DL See_Comment [Automated message] (test code = 2207) The syste m which generated this result transmit jake reference range : <=1.2. The refe rence range was not u sed to interpret th is result as normal/abnormal . ALKALINE PHOSPHATASE 78 U/L 40-123 (test code = 2203) AST (test code = 13 U/L 9-50 2217) ALT (test code = 13 U/L 5-50 2218) LIPID [id number] 03:26:50 Test Item Value Reference Range Interpretation Comments CHOLESTEROL (test 96 MG/DL <200 code = 2210) TRIGLYCERIDES (test 73 MG/DL <150 code = 2232) HDL CHOLESTEROL (test 55 MG/DL >39 code = 2220) CALC LDL CHOL (test 26 MG/DL <100 NOTE: C ALCULATED LDL code = 2237) IS BASED ON MICHELLE-IBARRA METHOD WHICHINCLUDES ADJUSTABLE TRIGLYCERIDE:VL DL CHOLESTEROL RAT IO.THIS FACTOR VARIES B Y MEASURED TRIGLY CERIDE AND NON-HDLCHOL ESTEROL CONCENTRATIONS WITH INCREASED CALCU LATED LDL SEENIN HIGH ER TRIGLYCERIDE OR LOWER NON-HDL SPECIME NS. FOR MOREINFORMATION , SEE CLIENT ANNOUNCE MENT AT [email or web address] RATIO LDL/HDL 0.47 RATIO <3.55 (test code = 2238) CBC W/AUTO DIFF WITH [id number] 02:11:08 Test Item Value Reference Range Interpretation Comments WBC (test code = 5.7 K/UL 3.5-11.0 1001) RBC (test code = 2.95 M/UL 4.50-6.10 L 1002) HEMOGLOBIN (test code 9.8 G/DL 13.5-17.0 L = 1003) HEMATOCRIT (test code 29.4 % 40.0-51.0 L = 1004) MCV (test code = 99.7 fL 80.0-99.0 H 1005) MCH (test code = 33.2 PG 25.0-33.0 H 1006) MCHC (test code = 33.3 G/DL 31.0-36.0 1007) RDW (test code = 12.7 % 11.5-15.0 1038) NEUTROPHILS (test 65.4 % code = 1008) LYMPHOCYTES (test 14.2 % code = 1010) MONOCYTES (test code 10.8 % = 1011) EOSINOPHILS (test 8.0 % code = 1012) BASOPHILS (test code 1.2 % = 1013) IMMATURE GRANULOCYTES 0.4 % (test code = 1036) NUCLEATED RBCS (test 0.0 /100 WBC'S See_Comment [Aut omated code = 1065) message] The sy stem which generated this result transmitted reference range : 0.0. The refere nce range was not u sed to interpret th is result as normal/abnormal . PLATELET COUNT (test 148 K/UL 130-400 code = 1015) ABSOLUTE NEUTROPHILS 3.70 K/UL 1.50-7.50 (test code = 1066) ABSOLUTE LYMPHOCYTES 0.80 K/UL 1.00-4.00 L (test code = 1067) ABSOLUTE MONOCYTES 0.61 K/UL 0.20-1.00 (test code = 1068) ABSOLUTE EOSINOPHILS 0.45 K/UL 0.00-0.50 (test code = 1040) ABSOLUTE BASOPHILS 0.07 K/UL 0.00-0.20 (test code = 1069) ABS IMMATURE 0.02 K/UL 0.00-0.10 GRANULOCYTES (test code = 1020) ABS NUCLEATED RBCS 0.00 K/UL 0.00-0.11 (test code = 66480) CBC W/AUTO [id number] 00:00:00 Test Item Value Reference Range Interpretation Comments WBC (test code = 1001) 5.7 K/UL RBC (test code = 1002) 2.95 M/UL HEMOGLOBIN (test code = 1003) 9.8 G/DL HEMATOCRIT (test code = 1004) 29.4 % MCV (test code = 1005) 99.7 fL MCH (test code = 1006) 33.2 PG MCHC (test code = 1007) 33.3 G/DL RDW (test code = 1038) 12.7 % NEUTROPHILS (test code = 1008) 65.4 % LYMPHOCYTES (test code = 1010) 14.2 % MONOCYTES (test code = 1011) 10.8 % EOSINOPHILS (test code = 1012) 8.0 % BASOPHILS (test code = 1013) 1.2 % IMMATURE GRANULOCYTES (test 0.4 % code = 1036) NUCLEATED RBCS (test code = 0.0 /100WBC'S 1065) PLATELET COUNT (test code = 148 K/UL 1015) ABSOLUTE NEUTROPHILS (test code 3.70 K/UL = 1066) ABSOLUTE LYMPHOCYTES (test code 0.80 K/UL = 1067) ABSOLUTE MONOCYTES (test code = 0.61 K/UL 1068) ABSOLUTE EOSINOPHILS (test code 0.45 K/UL = 1040) ABSOLUTE BASOPHILS (test code = 0.07 K/UL 1069) ABS IMMATURE GRANULOCYTES (test 0.02 K/UL code = 1020) ABS NUCLEATED RBCS (test code = 0.00 K/UL 34916) CBC W/AUTO [id number] 00:00:00 Test Item Value Reference Range Interpretation Comments WBC (test code = 1001) 5.7 K/UL RBC (test code = 1002) 2.95 M/UL HEMOGLOBIN (test code = 1003) 9.8 G/DL HEMATOCRIT (test code = 1004) 29.4 % MCV (test code = 1005) 99.7 fL MCH (test code = 1006) 33.2 PG MCHC (test code = 1007) 33.3 G/DL RDW (test code = 1038) 12.7 % NEUTROPHILS (test code = 1008) 65.4 % LYMPHOCYTES (test code = 1010) 14.2 % MONOCYTES (test code = 1011) 10.8 % EOSINOPHILS (test code = 1012) 8.0 % BASOPHILS (test code = 1013) 1.2 % IMMATURE GRANULOCYTES (test 0.4 % code = 1036) NUCLEATED RBCS (test code = 0.0 /100WBC'S 1065) PLATELET COUNT (test code = 148 K/UL 1015) ABSOLUTE NEUTROPHILS (test code 3.70 K/UL = 1066) ABSOLUTE LYMPHOCYTES (test code 0.80 K/UL = 1067) ABSOLUTE MONOCYTES (test code = 0.61 K/UL 1068) ABSOLUTE EOSINOPHILS (test code 0.45 K/UL = 1040) ABSOLUTE BASOPHILS (test code = 0.07 K/UL 1069) ABS IMMATURE GRANULOCYTES (test 0.02 K/UL code = 1020) ABS NUCLEATED RBCS (test code = 0.00 K/UL 62170) CBC W/AUTO [id number] 00:00:00 Test Item Value Reference Range Interpretation Comments WBC (test code = 1001) 5.7 K/UL RBC (test code = 1002) 2.95 M/UL HEMOGLOBIN (test code = 1003) 9.8 G/DL HEMATOCRIT (test code = 1004) 29.4 % MCV (test code = 1005) 99.7 fL MCH (test code = 1006) 33.2 PG MCHC (test code = 1007) 33.3 G/DL RDW (test code = 1038) 12.7 % NEUTROPHILS (test code = 1008) 65.4 % LYMPHOCYTES (test code = 1010) 14.2 % MONOCYTES (test code = 1011) 10.8 % EOSINOPHILS (test code = 1012) 8.0 % BASOPHILS (test code = 1013) 1.2 % IMMATURE GRANULOCYTES (test 0.4 % code = 1036) NUCLEATED RBCS (test code = 0.0 /100WBC'S 1065) PLATELET COUNT (test code = 148 K/UL 1015) ABSOLUTE NEUTROPHILS (test code 3.70 K/UL = 1066) ABSOLUTE LYMPHOCYTES (test code 0.80 K/UL = 1067) ABSOLUTE MONOCYTES (test code = 0.61 K/UL 1068) ABSOLUTE EOSINOPHILS (test code 0.45 K/UL = 1040) ABSOLUTE BASOPHILS (test code = 0.07 K/UL 1069) ABS IMMATURE GRANULOCYTES (test 0.02 K/UL code = 1020) ABS NUCLEATED RBCS (test code = 0.00 K/UL 60467) COMPREHENSIVE METABOLIC [id number] 00:00:00 Test Item Value Reference Range Interpretation Comments GLUCOSE (test code = 2217) 63 MG/DL BUN (test code = 2208) 49 MG/DL CREATININE (test code = 2214) 8.78 MG/DL eGFR (2020 CKD-EPI) (test code 6 ML/MIN/1.73 = 02881) CALC BUN/CREAT (test code = 6 RATIO 2235) SODIUM (test code = 2231) 143 MEQ/L POTASSIUM (test code = 2228) 4.9 MEQ/L CHLORIDE (test code = 2215) 105 MEQ/L CARBON DIOXIDE (test code = 23 MEQ/L 2206) CALCIUM (test code = 2209) 9.5 MG/DL PROTEIN, TOTAL (test code = 6.9 G/DL 2228) ALBUMIN (test code = 2201) 4.1 G/DL CALC GLOBULIN (test code = 2.8 G/DL 2240) CALC A/G RATIO (test code = 1.5 RATIO 2234) BILIRUBIN, TOTAL (test code = 0.6 MG/DL 2206) ALKALINE PHOSPHATASE (test code 78 U/L = 220) AST (test code = 2218) 13 U/L ALT (test code = 2219) 13 U/L COMPREHENSIVE METABOLIC [id number] 00:00:00 Test Item Value Reference Range Interpretation Comments GLUCOSE (test code = 2217) 63 MG/DL BUN (test code = 2208) 49 MG/DL CREATININE (test code = 2214) 8.78 MG/DL eGFR (2020 CKD-EPI) (test code 6 ML/MIN/1.73 = 39223) CALC BUN/CREAT (test code = 6 RATIO 2235) SODIUM (test code = 2231) 143 MEQ/L POTASSIUM (test code = 2228) 4.9 MEQ/L CHLORIDE (test code = 2215) 105 MEQ/L CARBON DIOXIDE (test code = 23 MEQ/L 6) CALCIUM (test code = 2209) 9.5 MG/DL PROTEIN, TOTAL (test code = 6.9 G/DL 2228) ALBUMIN (test code = 2201) 4.1 G/DL CALC GLOBULIN (test code = 2.8 G/DL 2240) CALC A/G RATIO (test code = 1.5 RATIO 2234) BILIRUBIN, TOTAL (test code = 0.6 MG/DL 2206) ALKALINE PHOSPHATASE (test code 78 U/L = 2204) AST (test code = 2218) 13 U/L ALT (test code = 2219) 13 U/L LIPID [id number] 00:00:00 Test Item Value Reference Range Interpretation Comments CHOLESTEROL (test code = 2210) 96 MG/DL TRIGLYCERIDES (test code = 2232) 73 MG/DL HDL CHOLESTEROL (test code = 2220) 55 MG/DL CALC LDL CHOL (test code = 2237) 26 MG/DL RISK RATIO LDL/HDL (test code = 0.47 RATIO 2238) LIPID [id number] 00:00:00 Test Item Value Reference Range Interpretation Comments CHOLESTEROL (test code = 2210) 96 MG/DL TRIGLYCERIDES (test code = 2232) 73 MG/DL HDL CHOLESTEROL (test code = 2220) 55 MG/DL CALC LDL CHOL (test code = 2237) 26 MG/DL RISK RATIO LDL/HDL (test code = 0.47 RATIO 2238) HEMOGLOBIN [id number] 00:00:00 Test Item Value Reference Range Interpretation Comments HEMOGLOBIN A1c (test code = 47357) 5.4 % HEMOGLOBIN [id number] 00:00:00 Test Item Value Reference Range Interpretation Comments HEMOGLOBIN A1c (test code = 31181) 5.4 % HEMOGLOBIN [id number] 00:00:00 Test Item Value Reference Range Interpretation Comments HEMOGLOBIN A1c (test code = 23186) 5.4 % PET/CT, CARDIAC PERF REST AND [id number] 16:08:00Reason for Exam:- >preop assessment for non cardiac surgery [facility] : 1965 Sex: MFINAL REPORT PROCEDURE: MYOCARDIAL PERFUSION PET/CT IMAGING (Rest/Stress)CPT CODE:61723 INDICATION: Risk stratification prior to renal transplant CARDIOVASCULAR PROFILE:CAD History: NoneRisk Factors: Hypertension, diabetes, hyperlipidemia, ESRDBMI: 31.6Medications: Atorvastatin, carvedilol, glipizide STRESS PROTOCOL:Pharmacologic stress was achieved with a 10-second intravenous infusion of regadenoson 0.4 mg. The radiopharmaceutical was administered 30 seconds after the start of the regadenoson infusion. IMAGING PROTOCOL:Limited low-dose CT imaging was performed for attenuation correction. 40.1 mCi of Rb-82 chloride was injected intravenously at rest, and gated PET images were obtained. Then, 40.1 mCi of Rb-82 chloride was injected intravenously at peak stress, and gated PET images were obtained. Image quality is good. REST FINDINGS:HR: 80/minBP: 157/74 mmHgPrelim. EKG: Normalsinus rhythm, right bundle branch block.Perfusion: Normal.Wall Motion: Normal (LVEF 55-60%).LV Volume: Normal.RV Volume: Normal. STRESS FINDINGS:HR: 82/min (50% of MPHR)BP: 135/63 mmHgPrelim. EKG: No ischemic changes.Symptoms: Stomach discomfort, dyspnea (treatment not required).Perfusion: Normal.WallMotion: Normal (LVEF 55- 60%).LV Volume: Not significantly changed from rest. IMPRESSION:1. Normal serena dy.2. Normal myocardial perfusion. 3. Normal resting LVEF, which does not deteriorate with pharmacologic stress.4. Normal extracardiac tracer distribution.5. There is no prior study for comparison. Signed: Ivette Page MDReport Verified Date/Time: 12/10/2021 16:08:59 CYTOMEGALOVIRUS ANTIBODY, IGG 2021-09-13 08:41:26 Test Item Value Reference Range Interpretation Comments CYTOMEGALOVIRUS, IGG ([employer] SolutionsANGÉLICA) Negative Negative, Equivocal (test code = 3429) CMV IgG Result Interpretation: </= 0.8 Al Negative 0.9-1.0 Al Equivocal >/=1.1 Al PositiveHEMOGLOBIN [id number] 13:45:42 Test Item Value Reference Range Interpretation Comments HEMOGLOBIN A1C 5.3 % See_Comment [Automated m essage] ELECTROPHORESIS (CLEMENTE) The system which (test code = 3811) generated this result transmitted ref erence range: <=5.6%. The reference range was not used to int erpret this result as normal/abnormal . "The A1c is measured using a NGSP-certified method. HbA1c value equal to or greater than 6.5% as thediagnosis cutoff for diabetes. An HbA1c value of 5.7- 6.4% indicates increased risk for diabetes (prediabetes)."Cable Maker ID - ADMOperator ID - [id number] Echo W/Doppler(CW/PW/Color)2021-09-12 13:24:54Ejection FractionSLEH ECHO [facility] W/Doppler(CW/PW/Color)2021-09-12 13:24:54Ejection FractionSLEH ECHO [facility] W/Doppler(CW/PW/Color) 2021-09-12 13:24:54Ejection FractionSLEH ECHO [facility] W/Doppler(CW/PW/Color)2021-09-12 13:24:54Ejection [facility]SLEH [facility] HospitalHEPAT[facility]IS C [id number] 13:12:33 Test Item Value Reference Range Interpretation Comments HEPATITIS C ANTIBODY (BEAKER) Nonreactive Nonreactive (test code = 367) Cable Maker ID - DBHEPATITIS B CORE ANTIBODY, [id number] 13:12:33 Test Item Value Reference Range Interpretation Comments HEPATITIS B CORE TOTAL ANTIBODY Nonreactive Nonreactive (BEAKER) (test code = 497) Cable Maker ID - DBHIV-1 ANTIGEN WITH HIV-1/2 [id number] 13:12:33 Test Item Value Reference Range Interpretation Comments HIV-1 ANTIGEN WITH HIV 1\\T\\2 Nonreactive Nonreactive ANTIBODY (2) (BEAKER) (test code = 2586) Cable Maker ID - [id number] 13:12:28 Test Item Value Reference Range Interpretation Comments PROSTATE SPECIFIC ANTIGEN (BEAKER) 0.2 ng/mL 0.0-4.0 (test code = 844) Cable Maker ID - DBHEPATITIS B SURFACE [id number] 13:12:28 Test Item Value Reference Range Interpretation Comments HEPATITIS B SURFACE ANTIBODY 20.9 mIU/mL <8.0 H (BEAKER) (test code = 647) Cable Maker ID - DBU/S, ABDOMINAL, [id number] 11:01:00Assess for acquired renal cystic diseaseReason for Exam:->pre transplant evaluation for [facility] : 1965 Sex: MFINAL REPORT TECHNIQUE: Grayscale ultrasound of the abdomen. INDICATION: pre transplant evaluation for kidney transplant. COMPARISON: Ultrasound from 12/07/2018 FINDINGS: MIDLINE VASCULATURE: The visualized inferior vena cava is unremarkable. The maximum visualized aortic diameter is 2.3 cm. LIVER: Smooth liver contour. No focal lesions. The main portal vein is patent and measures 1 c m in diameter. BILIARY:Gallbladder: Surgically absentCommon bile duct measures 0.6 cm, within normallimits. No intrahepatic biliary ductal dilatation. PANCREAS: Not well visualized due to overlying bowel gas. SPLEEN: No splenomegaly. The spleen measures 11.9 cm in length. PERITONEUM: No free fluid. KIDNEYS: Normal in size bilaterally. No hydronephrosis. No sonographically evident solid mass lesion. IMPRESSION: This is a normal abdominal ultrasound. No renal cysts. Signed: Sourav Caraballo [facility] Verified Date/Time: 09/12/2021 11:01:08 PET/CT, CARDIAC PERF REST AND [id number] 14:32:00Reason for Exam:->renal tx eval; cadFINAL REPORT PROCEDURE: MYOCARDIAL PERFUSION PET/CT IMAGING (Rest/Stress)CPT CODE: 31234 INDICATION: Pre-operative evaluation for renal transplant, history [...] prior study for comparison. Signed: Ayan Ly MDReportVerified Date/Time: 01/10/2020 14:32:02 Reading Location: [address] Reading Room CYTOMEGALOVIRUS ANTIBODY, [id number] 14:19:00 Test Item Value Reference Range Interpretation Comments CYTOMEGALOVIRUS, IGG (BEAKER) Negative Negative, Equivocal (test code = 3429) CMV IgG Result Interpretation: </= 0.8 Al Negative 0.9-1.0 Al Equivocal >/=1.1 Al [id number] 13:20:00 Test Item Value Reference Range Interpretation Comments PROSTATE SPECIFIC ANTIGEN (BEAKER) 0.3 ng/mL 0.0-4.0 (test code = 844) Cable Maker ID - ROSIANGHEPATITIS C [id number] 13:20:00 Test Item Value Reference Range Interpretation Comments HEPATITIS C ANTIBODY (BEAKER) Nonreactive Nonreactive (test code = 367) Cable Maker ID - SAMANTHAGHIV-1 ANTIGEN WITH HIV-1/2 [id number] 13:20:00 Test Item Value Reference Range Interpretation Comments HIV-1 ANTIGEN WITH HIV 1\\T\\2 Nonreactive Nonreactive ANTIBODY (2) (CLEMENTE) (test code = 2586) Cable Maker ID - NILES, ABDOMEN, [id number] 11:16:00Esrd,on dialysis, awaiting kidney transplant. See ultrasound [...] Signed: Ottoniel Lee MDReport Verified Date/Time: 12/23/2018 11:16:06Reading Location: [address] Body Reading Room U/S, ABDOMINAL, [id number] 15:46:00Reason for Exam:- >pre transplant evaluation for [...] not visualized. The portal vein measures 11 mmin diameter and appears patent by Limited color [...] up to 10.1 x 3.7 x 4.7 cmin greatest dimensions. Left renal echogenicity appears normal. There are no visible cysts, stones or evidence for obstruction. The pancreas is not well seen secondary to overlying bowel gas. Aorta andIVC are unremarkable where visible. No ascites or [...] MDReport Verified Date/Time: 12/07/2018 15:46:25 Reading Location: [address] Radiology Reading Room TISSUE [id number] 19:11:00Surgical Pathology Report Case: [id number] Authorizing Provider: Nuria Harrison MD Collected: 09/23/2017 0918 Ordering Location: [facility] Endoscopy Received: 09/23/2017 1144 Services Pathologist:Andrea Faust MD Specimen: Polyp, Colon - Left/Descending, taken via hot snare COLON, LEFT/DESCENDING, POLYPECTOMY- TUBULAR ADENOMA (MULTIPLE PIECES) Signing Pathologist Direct Phone Line: [phone] signed by Andrea Faust MD on 09/24/2017 at 7:11 [id number] for colon cancer Left descending colon polyp The specimen is received in a formalin-filled container labeled with the patient's information and labeled "left descending colon polyp" and consists of a gann-red polyp measuring 0.5 cm in greatest dimension. The resection margin is inked blue. The specimen is bisected and submitted in A1. CG/ew There is no high grade dysplasia or carcinoma. [id number] 07:55:00 Test Item Value Reference Range Interpretation Comments POC-POTASSIUM 4.8 meq/L 3.6-5.5 TESTED AT [facility] C 6720 (BEAKER) (test code [facility] [address] = 1540) CYTOMEGALOVIRUS ANTIBODY, [id number] 08:36:00 Test Item Value Reference Range Interpretation Comments CYTOMEGALOVIRUS IGG ANTIBODY Negative (BEAKER) (test code = 790) CYTOMEGALOVIRUS ANTIBODY, [id number] 08:36:00 Test Item Value Reference Range Interpretation Comments CYTOMEGALOVIRUS IGM ANTIBODY Negative (BEAKER) (test code = 816) EBV-VCA ANTIBODY, [id number] 08:36:00 Test Item Value Reference Range Interpretation Comments LANETTE-CENTENO VCA IGG (BEAKER) (test Positive code = 983) EBV-VCA ANTIBODY, [id number] 08:36:00 Test Item Value Reference Range Interpretation Comments LANETTE-CENTENO VCA IGM (BEAKER) (test Positive code = 984) [id number] 02:48:00 Test Item Value Reference Range Interpretation Comments RPR SCREEN (BEAKER) (test code = Nonreactive Nonreactive 420) [id number] 15:45:00 Test Item Value Reference Range Interpretation Comments PROSTATE SPECIFIC ANTIGEN (BEAKER) 0.3 ng/mL 0.0-4.0 (test code = 844) HEPATITIS B SURFACE [id number] 15:43:00 Test Item Value Reference Range Interpretation Comments HEPATITIS B SURFACE ANTIGEN (2) Nonreactive Nonreactive (BEAKER) (test code = 2585) HEPATITIS B SURFACE [id number] 15:43:00 Test Item Value Reference Range Interpretation Comments HEPATITIS B SURFACE ANTIBODY 22.0 mIU/mL <8.0 H (BEAKER) (test code = 647) HEPATITIS B CORE ANTIBODY, [id number] 15:43:00 Test Item Value Reference Range Interpretation Comments HEPATITIS B CORE IGM ANTIBODY Nonreactive Nonreactive (BEAKER) (test code = 645) HEPATITIS C [id number] 15:43:00 Test Item Value Reference Range Interpretation Comments HEPATITIS C ANTIBODY (BEAKER) Nonreactive Nonreactive (test code = 367) HIV-1 ANTIGEN WITH HIV-1/2 [id number] 15:43:00 Test Item Value Reference Range Interpretation Comments HIV-1 ANTIGEN WITH HIV 1\\T\\2 Nonreactive Nonreactive ANTIBODY (2) (BEAKER) (test code = 2586) GAMMA GLUTAMYL TRANSFERASE (GGT)2017-09-01 15:21:00 Test Item Value Reference Range Interpretation Comments GAMMA GLUTAMYL TRANSFERASE (BEAKER) 53 U/L 9-64 (test code = 364) BASIC METABOLIC [id number] 11:03:00 Test Item Value Reference Range Interpretation [...] S NOT APPLICABLE FOR DIALYSIS PATIEN TS. [id number] 10:46:00 Test Item Value Reference Range Interpretation Comments PROTIME (BEAKER) (test code = 13.9 seconds 11.7-14.7 759) INR (BEAKER) (test code = 370) 1.1 <=5.9 PARTIAL THROMBOPLASTIN TIME 36.1 seconds 22.5-36.0 H (BEAKER) (test code = 760) RECOMMENDED COUMADIN/WARFARIN INR THERAPY RANGESSTANDARD DOSE: 2.0 - 3.0 Includes: PROPHYLAXIS for venous thrombosis, systemic embolization; TREATMENT for venous thrombosis and/or pulmonary embolus.HIGH RISK: Target INR is 2.5-3.5 for patients with mechanical heart valves.CBC W/PLT COUNT & AUTO [id number] 10:36:00 Test Item Value Reference Range Interpretation [...] = 2801) FLOW PRA CLASS I AND [id number] 09:50:00 Test Item Value Reference Range Interpretation Comments DATE OF SERUM (BEAKER) 5170405 (test code = 2289) SERUM # (BEAKER) (test 444817 code = 2290) FLOW PRA CLASS I AND II See Scanned Report (test code = 2421) HLA [id number] 13:18:00 Test Item Value Reference Range Interpretation [...] (BEAKER) (test code = 2583) OCCULT BLOOD, [id number] 16:23:00 Test Item Value Reference Range Interpretation Comments FECAL OCCULT BLOOD (BEAKER) (test Positive Negative A code = 618) OCCULT BLOOD, [id number] 16:14:00 Test Item Value Reference Range Interpretation Comments FECAL OCCULT BLOOD (BEAKER) (test Negative Negative code = 618) HEMOGLOBIN [id number] 15:13:00 Test Item Value Reference Range Interpretation Comments HEMOGLOBIN A1C (BEAKER) (test code = 7.1 % 4.3-6.1 H 368) GAMMA GLUTAMYL TRANSFERASE (GGT)2016-08-14 12:11:00 Test Item Value Reference Range Interpretation Comments GAMMA GLUTAMYL TRANSFERASE (BEAKER) 70 U/L 9-64 H (test code = 364) VARICELLA ZOSTER ANTIBODY, [id number] 17:30:00 Test Item Value Reference Range Interpretation Comments VARICELLA ZOSTER IGG (AL) (BEAKER) 6.3 Al (test code = 3197) VARICELLA ZOSTER RESULT INTERPRETATIONS: <=0.8 Al Nonreactive: Presumed non- immune to VZV 0.9-1.0Al Equivocal >=1.1 Al Reactive: Presumed immune to VZV
--- NOTE | 2022-03-02 20:17 | RAD REPORT ---
EXAM DESCRIPTION: RAD - Chest Single View - 03/02/2022 8:00 pm CLINICAL HISTORY: COUGH, altered mental status COMPARISON: Portable 08/21/2020 TECHNIQUE: AP portable chest image was obtained 03/02/2022 8:00 pm . FINDINGS: Lung volumes are low accentuating baseline interstitial pattern. This could mask a mild in terstitial edema or infiltrate. No focal consolidation or mass. Significant failure or volume overloa d are not suspected. Heart and vasculature are normal. No measurable pleural effusion and no pneumothorax. No acute bony abnormality seen. No acute aortic findings suspected. IMPRESSION: No acute cardiopulmonary process. Shallow inspiration and baseline interstitial pattern could mask mild edema or infiltrate.
[2022-03-02 20:21] LABS: Absolute Lymphocytes (CBC) 0.8 K/uL (0.7-4.9); Hematocrit 37.9 % (39.6-49.0); Lymphocytes % 10.6 % (15.3-44.8); MCV 102.8 fL (80-100); MPV 8.4 fL (7.6-11.3); RBC Red Blood Cell Count 3.69 M/uL (4.33-5.43)
[2022-03-02 20:36] LABS: Urine Blood 2+ (Negative); Urine Glucose Trace (Negative); Urine Protein 3+ (Negative); Urine Specific Gravity 1.025 (1.005-1.030); Urine pH 7.5 (5.0-7.0)
[2022-03-02 23:14] LABS: Albumin 3.5 g/dL (3.4-5.0); Bilirubin Total 0.7 mg/dL (0.2-1.0); Protein, Total 7.3 g/dL (6.4-8.2)
[2022-03-03] MEDS ORDERED: CALCIUM GLUC 10% INJ 4.65 MEQ in NA CHLORIDE 0.9% 100 ML IV ONE (00:26)
[2022-03-03] MEDS ORDERED: SOD POLYSTYREN SUL 15 GM/60 ML UCUP PO ONE (00:27)
[2022-03-03] MEDS ORDERED: ALBUTEROL 2.5 MG/3 ML NEB SOL NEB ONE (00:27)
[2022-03-03] MEDS ORDERED: INSULIN -REGULAR HUMAN 50 UNIT/0.5 ML ML ONE (00:27)
[2022-03-03] MEDS ORDERED: D50W 25 GM/50 ML SYRINGE IV ONE (00:28)
[2022-03-03] MEDS ORDERED: GLUCAGON 1 MG/VIAL IM PRN (00:28)
[2022-03-03] MEDS ORDERED: D50W 25 GM/50 ML SYRINGE IV PRN (00:28)
[2022-03-03] MEDS ORDERED: ALBUTEROL 2.5 MG/3 ML NEB SOL ONE (00:30)
--- NOTE | 2022-03-03 00:30 | EDPHYS ---
Physician Documentation [facility] Name: Art Trinidad Jr Age: 57 yrs Sex: Male : 1965 Arrival Date: 03/02/2022 Time: 19:21 Bed 16 Private MD: ED Physician Abran Perrin HPI: 03/02 19:41 This 57 yrs old Male presents to ER via EMS with complaints of Hypoglycemia. rt 19:41 Altered mental status. Onset: The symptoms/episode began/occurred at an unknown time. rt and improved. Severity of symptoms: At their worst the symptoms were moderate in the emergency department the symptoms have resolved. The patient has not experienced similar symptoms in the past. Patient presents to the ED with decreased responsiveness, significant hypoglycemic to the 20s, was given dextrose by EMS improving to 120s and resolving altered mental status. Patient states that he takes glipizide, 2.5 mg daily, states that he needs 2 meals per day typically. The patient states that he has no symptoms currently. States that he feels well. Denies other acute complaints at this time, symptoms are moderate in severity, no other aggravating alleviating factors.. Historical: - Allergies: 19:23 No Known Allergies; ke1 - PMHx: 19:23 Diabetes - NIDDM; Dialysis; End stage renal disease; Hypertension; ke1 - PSHx: 19:23 Left upper arm fistula; ke1 - Immunization history:: Adult Immunizations Client reports receiving the 2nd dose of the Covid vaccine. - Social history:: Smoking status: Patient denies any tobacco usage or history of. - Family history:: not pertinent. ROS: 19:41 Constitutional: Negative for fever, chills, and weight loss, Eyes: Negative for injury, rt pain, redness, and discharge, ENT: Negative for injury, pain, and discharge, Neck: Negative for injury, pain, and swelling, Cardiovascular: Negative for chest pain, palpitations, and edema, Respiratory: Negative for shortness of breath, cough, wheezing, and pleuritic chest pain, Abdomen/GI: Negative for abdominal pain, nausea, vomiting, diarrhea, and constipation, Back: Negative for injury and pain, MS/Extremity: Negative for injury and deformity, Skin: Negative for injury, rash, and discoloration, Psych: Negative for depression, anxiety, suicide ideation, homicidal ideation, and hallucinations. 19:41 Neuro: Positive for altered mental status, loss of consciousness, Negative for Exam: 19:41 Constitutional: This is a well developed, well nourished patient who is awake, alert, rt and in no acute distress. Head/Face: Normocephalic, atraumatic. Eyes: Pupils equal round and reactive to light, extra-ocular motions intact. Lids and lashes normal. Conjunctiva and sclera are non-icteric and not injected. Cornea within normal limits. Periorbital areas with no swelling, redness, or edema. ENT: Nares patent. No nasal discharge, no septal abnormalities noted. Tympanic membranes are normal and external auditory canals are clear. Oropharynx with no redness, swelling, or masses, exudates, or evidence of obstruction, uvula midline. Mucous membranes moist. Neck: Trachea midline, no thyromegaly or masses palpated, and no cervical lymphadenopathy. Supple, full range of motion without nuchal rigidity, or vertebral point tenderness. No Meningismus. Chest/axilla: Normal chest wall appearance and motion. Nontender with no deformity. No lesions are appreciated. Cardiovascular: Regular rate and rhythm with a normal S1 and S2. No gallops, murmurs, or rubs. Normal PMI, no JVD. No pulse deficits. Respiratory: Lungs have equal breath sounds bilaterally, clear to auscultation and percussion. No rales, rhonchi or wheezes noted. No increased work of breathing, no retractions or nasal flaring. Abdomen/GI: Soft, non-tender, with normal bowel sounds. No distension or tympany. No guarding or rebound. No evidence of tenderness throughout. Skin: Warm, dry with normal turgor. Normal color with no rashes, no lesions, and no evidence of cellulitis. MS/ Extremity: Pulses equal, no cyanosis. Neurovascular intact. Full, normal range of motion. Neuro: Awake and alert, GCS 15, oriented to person, place, time, and situation. Cranial nerves II-XII grossly intact. Motor strength 5/5 in all extremities. Sensory grossly intact. Cerebellar exam normal. Normal gait. Psych: Awake, alert, with orientation to person, place and time. Behavior, mood, and affect are within normal limits. 03/03 00:26 ECG was reviewed by the Attending Physician. rt Vital Signs: 03/02 19:24 BP 195 / 97; Pulse 67; Resp 16; Temp 96.6; Pulse Ox 98% ; Weight 82.5 kg; Height 5 ft. ke1 3 in. (160.02 cm); Pain 0/10; 20:20 BP 180 / 89; Pulse 71; Resp 17; Temp 97.2; Pulse Ox 98% ; Pain 0/10; ke1 21:59 BP 176 / 87; Pulse 68; Resp 17; Temp 97.2; Pulse Ox 98% on R/A; Pain 0/10; ke1 03/03 00:13 BP 173 / 86; Pulse 68; Resp 17; Temp 97.2; Pulse Ox 98% on R/A; Pain 0/10; ke1 01:27 BP 175 / 82; Pulse 65; Resp 19; Temp 97.4; Pulse Ox 98% ; Pain 0/10; ke1 03/02 19:24 Body Mass Index 32.22 (82.50 kg, 160.02 cm) ke1 MDM: 03/02 19:27 Patient medically screened. rt 03/03 00:26 Differential Diagnosis Hypoglycemia, sepsis, sulfonylurea use.. Data reviewed: vital rt signs, nurses notes, old medical records, lab test result(s), EKG, radiologic studies. ED course: Patient presents to the ED with a hypoglycemia. He is maintaining his blood sugar after being fed, given dextrose. He is asymptomatic in the ED. Patient is found to have a UTI, likely contributing. The patient is found to have hyperkalemia to 6 with EKG changes. I discussed the findings with his java portal developer, who recommends that hyperkalemic cocktail be given, patient to be discharged with dialysis first thing in the morning. This was discussed with patient who is in agreement this plan. Return precautions were discussed.. 03/02 19:27 Order name: Glucose, Ancillary Testing; Complete Time: 19:28 EDMS 03/02 19:33 Order name: CBC with Diff; Complete Time: 21:05 rt 03/02 19:33 Order name: CMP; Complete Time: 23:18 rt 03/02 19:33 Order name: UA MICROSCOPIC; Complete Time: 22:57 rt 03/02 20:36 Order name: Urine Dipstick-Ancillary; Complete Time: 21:05 EDMS 12/04 21:33 Order name: Glucose, Ancillary Testing; Complete Time: 22:57 EDMS 03/02 19:33 Order name: Chest Single View XRAY; Complete Time: 20:18 rt 03/02 21:41 Order name: Urine Culture EDMS 03/02 19:33 Order name: Urine Dipstick-Ancillary (obtain specimen); Complete Time: 21:58 rt 03/02 20:44 Order name: Labs - recollect needed: chemistry recollect needed; Complete Time: 21:58 mw2 03/02 23:18 Order name: EKG; Complete Time: 23:19 rt 03/02 23:18 Order name: EKG - Nurse/Tech; Complete Time: 00:22 rt EC:26 Rate is 69 beats/min. Rhythm is regular, Normal Sinus Rhythm. QRS [place] is Normal. VA rt interval is normal. QRS interval is normal. QT interval is normal. No Q waves. T waves are Peaked. Interpreted by me. Administered Medications: 00:00 Drug: D50W 50 ml Route: IVP; Site: right hand; ke1 01:32 Follow up: Response: No adverse reaction ke1 01:00 Drug: Calcium Gluconate 1 grams Route: IVPB; Infused Over: 15 mins; Site: right hand; ke1 01:15 Follow up: IV Status: Completed infusion ke1 01:00 Drug: Sodium Bicarbonate 1 amp Route: IVP; Site: right hand; ke1 01:33 Follow up: Response: No adverse reaction ke1 01:00 Drug: Kayexalate (polystyrene) 60 grams Route: PO; ke1 01:32 Follow up: Response: No adverse reaction ke1 01:00 Drug: Albuterol 10 mg Route: Inhalation; ke1 01:05 Drug: Insulin Regular Human 10 units {Co-Signature: aa9 (Lina Vail RN).} Route: IVP; ke1 Site: right upper arm; 01:32 Follow up: Response: No adverse reaction ke1 Disposition Summary: 03/03/22 00:29 Discharge Ordered Location: Home rt Problem: new rt Symptoms: are resolved rt Condition: Stable rt Diagnosis - Other hypoglycemia rt - Hyperkalemia rt - UTI/ Urinary tract infection, site not specified rt Followup: rt - With: Private Physician - When: Tomorrow - Reason: Discharge Instructions: - Discharge Summary Sheet rt - Hyperkalemia rt - Hypoglycemia rt Forms: - Medication Reconciliation Form rt - Thank You Letter rt - Antibiotic Education rt - Prescription Opioid Use rt Prescriptions: - KEFLEX 500 mg tab - take 1 tablet by ORAL route 4 times per day; 28 tablet; Refills: 0, Product rt Selection Permitted Signatures: Dispatcher [employer] Erin Patten mw2 Adolfo Butcher RN RN ke1 Abran Perrin MD MD rt Lina Vail RN aa9
--- NOTE | 2022-03-03 00:30 | ER ---
Nurse's Notes [facility] Name: Art Trinidad Jr Age: 57 yrs Sex: Male : 1965 Arrival Date: 03/02/2022 Time: 19:21 Bed 16 Private MD: Diagnosis: Other hypoglycemia;Hyperkalemia;UTI/ Urinary tract infection, site not specified Presentation: 03/02 19:22 Chief complaint: EMS states: Called because patient was barely responsive, diaphoretic ke1 on arrival with BGL 21 , administered D10 then increased at 122, patient regained consciousness. 19:29 Coronavirus screen: Vaccine status: Patient reports receiving the 2nd dose of the covid ke1 vaccine. Ebola Screen: Patient denies travel to an Ebola-affected area in the 21 days before illness onset. Initial Sepsis Screen: Does the patient meet any 2 criteria? Temp <36.0*C (96.8*F)) or > 38.3*C (100.9*F). Does the patient have a suspected source of infection? No. Patient's initial sepsis screen is negative. Risk Assessment: Do you want to hurt yourself or someone else? Patient reports no desire to harm self or others. Onset of symptoms was March 02, 2022 at 18:30. 19:29 Method Of Arrival: EMS ke1 19:29 Acuity: DIVINA 3 ke1 Triage Assessment: 19:30 General: Appears in no apparent distress. Behavior is appropriate for age. Pain: Denies ke1 pain. 20:13 General: Appears. ke1 Historical: - Allergies: 19:23 No Known Allergies; ke1 - PMHx: 19:23 Diabetes - NIDDM; Dialysis; End stage renal disease; Hypertension; ke1 - PSHx: 19:23 Left upper arm fistula; ke1 - Immunization history:: Adult Immunizations Client reports receiving the 2nd dose of the Covid vaccine. - Social history:: Smoking status: Patient denies any tobacco usage or history of. - Family history:: not pertinent. Screenin:13 Abuse screen: Denies threats or abuse. Nutritional screening: No deficits noted. ke1 Tuberculosis screening: No symptoms or risk factors identified. Fall Risk None identified. Assessment: 20:23 Reassessment: Patient is alert, oriented x 3, equal unlabored respirations, skin ke1 warm/dry/pink. 22:38 Reassessment: Patient states feeling better. Patient states symptoms have improved. ke1 03/03 01:31 Reassessment: Patient states feeling better. Patient states symptoms have improved. ke1 Vital Signs: 03/02 19:24 BP 195 / 97; Pulse 67; Resp 16; Temp 96.6; Pulse Ox 98% ; Weight 82.5 kg; Height 5 ft. ke1 3 in. (160.02 cm); Pain 0/10; 20:20 BP 180 / 89; Pulse 71; Resp 17; Temp 97.2; Pulse Ox 98% ; Pain 0/10; ke1 21:59 BP 176 / 87; Pulse 68; Resp 17; Temp 97.2; Pulse Ox 98% on R/A; Pain 0/10; ke1 03/03 00:13 BP 173 / 86; Pulse 68; Resp 17; Temp 97.2; Pulse Ox 98% on R/A; Pain 0/10; ke1 01:27 BP 175 / 82; Pulse 65; Resp 19; Temp 97.4; Pulse Ox 98% ; Pain 0/10; ke1 03/02 19:24 Body Mass Index 32.22 (82.50 kg, 160.02 cm) ke1 ED Course: 03/02 19:21 Patient arrived in ED. db 19:22 Adolfo Butcher, LISA is Primary Nurse. ke1 19:27 Abran Perrin MD is Attending Physician. rt 19:30 Triage completed. ke1 19:30 Arm band placed on left wrist. ke1 19:30 Bed in low position. Call light in reach. ke1 20:02 Chest Single View XRAY In Process Unspecified. EDMS 20:12 Missed attempt(s): 20 gauge in right antecubital area. ke1 20:12 Inserted saline lock: 20 gauge in right hand, using aseptic technique. ke1 20:13 CMP Sent. ke1 20:13 CBC with Diff Sent. ke1 23:18 Notified ED physician of a critical lab result(s). k 6 Crea 11.2. ke1 03/03 00:[address] Phillips from Nephrology. mw2 01:31 No provider procedures requiring assistance completed. IV discontinued. ke1 Administered Medications: 00:00 Drug: D50W 50 ml Route: IVP; Site: right hand; ke1 01:32 Follow up: Response: No adverse reaction ke1 01:00 Drug: Calcium Gluconate 1 grams Route: IVPB; Infused Over: 15 mins; Site: right hand; ke1 01:15 Follow up: IV Status: Completed infusion ke1 01:00 Drug: Sodium Bicarbonate 1 amp Route: IVP; Site: right hand; ke1 01:33 Follow up: Response: No adverse reaction ke1 01:00 Drug: Kayexalate (polystyrene) 60 grams Route: PO; ke1 01:32 Follow up: Response: No adverse reaction ke1 01:00 Drug: Albuterol 10 mg Route: Inhalation; ke1 01:05 Drug: Insulin Regular Human 10 units {Co-Signature: aa9 (Lina Vail RN).} Route: IVP; ke1 Site: right upper arm; 01:32 Follow up: Response: No adverse reaction ke1 Medication: 01:32 VIS not applicable for this client. ke1 Outcome: 00:29 Discharge ordered by MD. rt 01:32 Discharged to home via wheelchair. ke1 01:32 Condition: good 01:32 Discharge instructions given to patient. 01:33 Patient left the ED. ke1 Signatures: Dispatcher [employer] EDSD Erin Reyes mw2 Adolfo Butcher RN RN ke1 Aletha Lemus RN RN db Abran Perrin MD MD rt Lina Vail RN aa9 Corrections: (The following items were deleted from the chart) 03/02 20:12 20:12 Missed attempt(s): 20 gauge in left antecubital area. ke1 ke1
[2022-03-03] MEDS ORDERED: CALCIUM GLUCONATE 1 GM IVPB 1 GM/50 ML BAG IV ONE (00:31)
[2022-03-03] MEDS ORDERED: SOD POLYSTYREN SUL 15 GM/60 ML UCUP ONE (00:31)
[2022-03-03] MEDS ORDERED: D10W 250 ML IV ONE (00:42)
[2022-03-03] MEDS ORDERED: INSULIN -REGULAR HUMAN 50 UNIT/0.5 ML ML SQ ONE (01:30)
[2022-03-03 02:10] VITALS: O2SAT 98
[2022-03-03 02:15] VITALS: BP 175/82; TEMP 97.4
--- NOTE | 2022-03-03 13:44 | EKG ---
Test Date: 2022-03-03 Test Time: 00:11:22 Technical Support Intern: GONZALO MEASUREMENT RESULTS: Intervals: Rate: 69 MO: 178 QRSD: 146 QT: 446 QTc: 477 [place]: P: 60 MO: 178 QRS: 21 T: 53 INTERPRETIVE STATEMENTS: Normal sinus rhythm Right bundle branch block Abnormal ECG Compared to ECG 08/21/2020 16:24:22 Right bundle-branch block now present Incomplete right bundle-branch block no longer present Electronically Signed On 03-03-22 13:43:26 GEAR [employer]BER SET UP OPERATOR by Harry Webster
--- NOTE | 2022-03-03 13:44 | EKG ---
Test Date: 2022-03-03 Test Time: 00:08:17 Manager Creative: GONZALO MEASUREMENT RESULTS: Intervals: Rate: 69 CO: 178 QRSD: 146 QT: 446 QTc: 477 [place]: P: 59 CO: 178 QRS: 9 T: 52 INTERPRETIVE STATEMENTS: Normal sinus rhythm Right bundle branch block Abnormal ECG Compared to ECG 08/21/2020 16:24:22 Right bundle-branch block now present Incomplete right bundle-branch block no longer present Electronically Signed On 03-03-22 13:43:28 FOOD CRITIC by Harry Webster
== END 2022-03-03 01:33 | disposition home or self-care (01) ==
LOC: ER 19:06
DX: E11.649 Type 2 diabetes mellitus with hypoglycemia without coma (principal); E87.5 Hyperkalemia; N39.0 Urinary tract infection, site not specified; E11.22 Type 2 diabetes mellitus with diabetic chronic kidney disease; I12.0 Hypertensive chronic kidney disease with stage 5 chronic kidney disease or end stage renal disease; N18.6 End stage renal disease; Z99.2 Dependence on renal dialysis
CPT/HCPCS: 93005 ×2; 87088; 85025; 87086; 36415; 82947 ×3; 80053; 71045; 99284; J1815; J7613; J0610; 81003; 81015

== ENCOUNTER 2022-10-11 13:10 | Emergency (ER) | payer OTHER ==
--- OUTSIDE RECORDS SUMMARY | 2022-10-11 13:17 | XMS REPORT | Continuity of Care Document ---
:1965 Author Organization [facility] t Address [address] [facility] [address] [facility] [address] [place] [address] Care Team Providers Name Role Phone Pcp, Patient Does Not Have A Primary Care Physician [phone] RIANNA AMBROSE Attending Clinician Unavailable Chiqui Neely Attending Clinician Unavailable Javier Attending Clinician Unavailable Galina Soriano RN Attending Clinician Unavailable RENEE WEAVER Attending Clinician Unavailable Renee Weaver MD Attending Clinician Rianna Ambrose MD Attending Clinician Madalyn Hernandez Attending Clinician Unavailable Radha BRODERICK, August Attending Clinician RADHA AUGUST Attending Clinician Unavailable Hussein Rizvi LCSW Attending Clinician Unavailable Paula Scales Attending Clinician Unavailable Jey Aguilera Attending Clinician Unavailable VEE ROBERTS Attending Clinician Unavailable HOLDEN VILLEDA Attending Clinician Unavailable NURIA HARRISON Attending Clinician Unavailable TODD LOAIZA Attending Clinician Unavailable Javier Admitting Clinician Unavailable NURIA HARRISON Admitting Clinician Unavailable HOLDEN VILLEDA Admitting Clinician Unavailable Payers Payer Name Policy Type Policy Number Effective Date Expiration Date [facility] [place]/MEDICARE [id number] 2020 COMPLETE 00:00:00 [employer] ONLY [id number] 2020 MCR REPL 00:00:00 [facility] - MEDICARE [id number] COMPLETE (MEDICARE REPLACEMENT HMO) [facility] [id number] 2022 MEDICARE SUPPLEMENT 00:00:00 MEDICARE A B [id number] 2016 00:00:00 Problems Condition Condition Condition Status Onset Resolution Last Treating Co mments Source Name Details Category Date Date Treatment Clinician Date Hypertensi Hypertensi Disease Active Overview : Univers on on 08-29 Formattin ity of 00:00: g of this [place] 00 note Medical might be Branch different from the original. History of Coronary Coronary Disease Recurre [facility] artery artery nce 10-22 [facility] disease disease 00:00: Medical involving involving 00 Cent er [place] lions [place] lions heart with heart with angina angina pectoris, pectoris, unspecifie unspecifie d vessel d vessel or lesion or lesion type type ESRD (end ESRD (end Disease Recurre [facility] stage stage nce 10-21 kes renal renal 00:00: Medical disease) disease) 00 Center Hypertensi Hypertensi Disease Active [facility] on, on, 10-21 [facility] unspecifie unspecifie 00:00: Me dical d type d type 00 Center Other Other Disease Active [facility] specified specified 10-21 Luke s diabetes diabetes 00:00: Medica l mellitus mellitus 00 Center with with diabetic diabetic chronic chronic kidney kidney disease, disease, unspecifie unspecifie d CKD d CKD stage, stage, unspecifie unspecifie d 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 Nonobstruc Nonobstruc Disease Active 2016-03 U nivers tive tive 1-19 ity of athe[place] rosis of 00 Medica l coronary coronary Branch artery artery ESRD (end ESRD (end Disease Active 2016-03 Uni vers stage stage 1-19 ity of renal renal 00:00: [place] disease) disease) 00 Medica l on on Branch dialysis dialysis Pre-transp Pre-transp Disease Active 2016-[address] lant lant 0-17 [facility] evaluation evaluation 00:00: Me dical for ESRD for ESRD 00 Center (end stage (end stage renal renal disease) disease) Allergies, Adverse Reactions, Alerts Allergy Allergy Status Severity Reaction(s) Onset Inactive Treating Comm ents Source Name Type Date Date Clinician NO KNOWN Drug Active Univers ALLERGIE Class ity of [facility] NO KNOWN Allergy Active [facility] Family History Family Member Diagnosis Comments Start Date Stop Date Source Natural father Heart disease [facility] Natural mother Diabetes [facility] Natural mother Hypertension [facility] Other Liver disease [facility] Natural sister Diabetes [facility] Social History Social Habit Start Date Stop Date Quantity Comments Source Exposure to 2021-11-30 2021-12-10 Not sure [facility] SARS-CoV-2 00:00:00 08:13:00 [facility] (event) Alcohol intake 2021-12-05 2021-12-05 Current [facility] 00:00:00 00:00:00 non-drinker of Medical Ce nter alcohol (finding) Tobacco Comment 2017-09-15 2017-09-15 exposure to [facility] 00:00:00 00:00:00 second hand Medical Cente r smoke. Tobacco use and 2016-07-18 2016-07-18 Smokeless tobacco Un iversity of exposure 00:00:00 00:00:00 non-user [facility] History of 1985-12-07 1987-12-08 Current smoker [facility] tobacco use 00:00:00 00:00:00 Medical Cente r Sex Ass[birth year] At [birth year] [facility] 00:00:00 00:00:00 [facility] Center Smoking Status Start Date Stop Date Source Former smoker 2017-09-01 00:00:00 2017-09-01 00:00:00 [facility] Never smoked tobacco [facility] Medications Ordered Filled Start Stop Current Ordering Indication Dosage Frequency Signature Comments Components Source Medication Medication Date Date Medication? Clinician (SIG) Name Name maalox:diph 2022- No 15mL 15 mL, Uni vers enhydrAMINE 08-30 Oral ity of :lidocaine 04:57: 05:06 ([place] 2 % viscous 00 :00 Swallow), Med ical 1:1:1 ONCE, 1 Branch (FIRST-MOUT dose, On HWASH BLM) 08/30/22 oral at 0000, suspension JUSTYNA 15 mL ondansetron 2022-0 2022- No 4mg 4 mg, Slow Univers (ZOFRAN 08-29 IV Push, ity of (PF)) 06:15: 06:18 ONCE, 1 [place] injection 4 00 :00 dose, On Medi shraddha mg 08/29/22 Branch at 0115, JUSTYNA famotidine 2022-0 2022- No 20mg 20 mg, Univ ers (PEPCID 08-29 Slow IV ity of (PF)) 04:30: 05:05 Push, [place] injection 00 :00 ONCE, 1 Medical 20 mg dose, On Branch Jaylin 08/28/22 at 2330, JUSTYNA NaCl 0.9% 2022-0 2022- No 500mL at 999 Univ ers (NS) bolus 08-29 mL/hr, 500 it y of infusion 03:45: 05:04 mL, IV [place] 500 mL 00 :00 Infusion, Medical ONCE, 1 Branch dose, On Jaylin 08/28/22 at 2245, JUSTYNA ondansetron 2022-0 2022- No 4mg 4 mg, Slow Univers (ZOFRAN 08-29 IV Push, ity of (PF)) 03:00: 03:09 ONCE, 1 [place] injection 4 00 :00 dose, On Medi shraddha mg Jaylin 08/28/22 Branch at 2200, JUSTYNA sevelamer 2022-0 Yes 800mg Take 1 Unive rs 800 mg 6-01 tablet by ity of tablet 21:59: mouth in [place] [address] the Medical morning Branch and 1 tablet at noon and 1 tablet in the evening. carvediloL 3-0 Yes 6.25mg Take 1 Uni vers 6.25 mg 6-01 tablet by ity of tablet 21:59: mouth in [place] [address] the Medical morning Branch and 1 tablet in the evening. Take with meals. atorvastati 3-0 Yes 20mg Take 1 Univ ers n 20 mg 6-01 tablet by ity of tablet 21:59: mouth at [place] [address] bedtime. Medical Branch gabapentin 3-0 Yes 300mg Take 1 Univ ers 300 mg 6-01 capsule by ity of capsule 21:59: mouth in [place] 00 the Medical morning. Branch folic Yes 1{tbl} Take 1 Univers acid-vitami 6- tablet by ity of n b 21:59: mouth [place] complex-vit 00 every Medical keys morning. Branch c-selenium- zinc (DIALYVITE 3000) 3-70-15 mg-mcg-mg tablet lisinopriL Yes 10mg Take 1 Unive rs 10 mg - tablet by ity of tablet 21:59: mouth in [place] 00 the Medical morning. Branch calcium 2022-0 2022- No 3{tbl} Take 3 Unive rs carbonate 6-04 04- tablets by ity of (TUMS) 200 21:55: 00:00 mouth 2 Jonathan as mg calcium 40 :00 (two) Medical (500 mg) times Branch chewable daily. tablet CARVEDILOL 2021-0 No 12.5MG 9-21 Tablets 00:00: 00 AMLODIPINE 2021-0 No 5MG Tablets - 00:00: 00 CARVEDILOL 2021-0 No 12.5MG 9-21 Tablets 00:00: 00 AMLODIPINE 2021-0 No 5MG Tablets 9- 00:00: 00 carvedilol 2021-0 Yes 6.25mg Take 6.[address] (COREG) 9-13 mg by [facility]ukes 6.25 MG 15:05: mouth 2 Medical tablet 30 (two) Center times daily with breakfast and dinner. atorvastati 0 Yes 20mg QD Take [address] [facility] n (LIPITOR) 9-13 by mouth Luke s 20 MG 15:05: daily. Medical tablet 30 Center glipiZIDE 0 Yes 5mg Take [address] (GLUCOTROL) 9-13 by mouth 2 Jacinta kes 5 MG tablet 15:05: (two) Medic al 30 times Center daily before meals. sevelamer 2021-0 Yes 800mg Take [address] (RENAGEL) [...] b 15:05: mouth Medical complex-vit 30 daily. [place] keys c-selenium- zinc (DIALYTE) tablet carvedilol 0 Yes 6.25mg Take 6.[address] (COREG) 9-13 mg by Lukes 6.25 MG 15:05: mouth 2 Medical tablet 30 (two) Center times daily with breakfast and dinner. atorvastati 0 Yes 20mg QD Take [address] n (LIPITOR) 9-13 by mouth Luke s 20 MG 15:05: daily. Medical tablet 30 [place] glipiZIDE 0 Yes 5mg Take [address] (GLUCOTROL) 9-13 by mouth 2 Jacinta kes 5 MG tablet 15:05: (two) Medic al 30 times Center daily before meals. sevelamer 0 Yes 800mg Take [address] (RENAGEL) 9-13 mg by Lukes 800 MG 15:05: mouth 3 Medical tablet 30 (three) Center times daily with meals 3 tabs TId. gabapentin 0 Yes 300mg QD Take [address] (NEURONTIN) 9-13 mg by [facility]ukes 300 MG 15:05: mouth Medical capsule 30 daily. [place] folic Yes 1{tbl} QD Take [address] acid-vitami 9-13 tablet by Dusty es n b 15:05: mouth Medical complex-vit 30 daily. [place] keys c-selenium- zinc (DIALYTE) tablet carvedilol 0 Yes 6.25mg Take 6.[address] (COREG) 9-13 mg by Lukes 6.25 MG 15:05: mouth 2 Medical tablet 30 (two) Center times daily with breakfast and dinner. atorvastati 2021-0 Yes 20mg QD Take [address] n (LIPITOR) 9-13 by mouth Luke s 20 MG 15:05: daily. Medical tablet 30 [place] glipiZIDE 2021-0 Yes 5mg Take [address] (GLUCOTROL) 9-13 by mouth 2 Jacinta kes 5 MG tablet 15:05: (two) Medic al 30 times Center daily before meals. sevelamer 2021-0 Yes 800mg Take [address] (RENAGEL) 9-13 mg by Lukes 800 MG 15:05: mouth 3 Medical tablet 30 (three) Center times daily with meals 3 tabs TId. gabapentin 2021-0 Yes 300mg QD Take [address] (NEURONTIN) 9-13 mg by Lukes 300 MG 15:05: mouth Medical capsule 30 daily. [place] folic 0 Yes 1{tbl} QD Take [address] acid-vitami 9-13 tablet by Dusty es n b 15:05: mouth Medical complex-vit 30 daily. [place] keys c-selenium- zinc (DIALYTE) tablet carvedilol 2021-0 Yes 6.25mg Take 6.[address] (COREG) 9-13 mg by Lukes 6.25 MG 15:05: mouth 2 Medical tablet 30 (two) Center times daily with breakfast and dinner. atorvastati 0 Yes 20mg QD Take [address] n (LIPITOR) 9-13 by mouth Luke s 20 MG 15:05: daily. Medical tablet 30 [place] glipiZIDE 0 Yes 5mg Take [address] (GLUCOTROL) 9-13 by mouth 2 Jacinta kes 5 MG tablet 15:05: (two) Medic al 30 times Center daily before meals. sevelamer 0 Yes 800mg Take [address] (RENAGEL) 9-13 mg by Lukes 800 MG 15:05: mouth 3 Medical tablet 30 (three) Center times daily with meals 3 tabs TId. gabapentin 2021-0 Yes 300mg QD Take [address] (NEURONTIN) 9-13 mg by Lukes 300 MG 15:05: mouth Medical capsule 30 daily. [place] folic 0 Yes 1{tbl} QD Take [address] acid-vitami 9-13 tablet by Dusty es n b 15:05: mouth Medical complex-vit 30 daily. [place] keys c-selenium- zinc (DIALYTE) tablet carvedilol 2021-0 Yes 6.25mg Take 6.[address] (COREG) 9-13 mg by Lukes 6.25 MG 15:05: mouth 2 Medical tablet 30 (two) Center times daily with breakfast and dinner. atorvastati 2021-0 Yes 20mg QD Take [address] n (LIPITOR) 9-13 by mouth Luke s 20 MG 15:05: daily. Medical tablet 30 [place] glipiZIDE 0 Yes 5mg Take [address] (GLUCOTROL) 9-13 by mouth 2 Jacinta kes 5 MG tablet 15:05: (two) Medic al 30 times Center daily before meals. sevelamer 2021-0 Yes 800mg Take [address] (RENAGEL) 9-13 mg by Lukes 800 MG 15:05: mouth 3 Medical tablet 30 (three) Center times daily with meals 3 tabs TId. gabapentin 2021-0 Yes 300mg QD Take [address] (NEURONTIN) 9-13 mg by Lukes 300 MG 15:05: mouth Medical capsule 30 daily. [place] folic Yes 1{tbl} QD Take [address] acid-vitami 9-13 tablet by Dusty es n b 15:05: mouth Medical complex-vit 30 daily. [place] keys c-selenium- zinc (DIALYTE) tablet carvedilol Yes 6.25mg Take 6.[address] (COREG) 9-13 mg by Lukes 6.25 MG 15:05: mouth 2 Medical tablet 30 (two) Center times daily with breakfast and dinner. atorvastati Yes 20mg QD Take [address] n (LIPITOR) 9-13 by mouth Luke s 20 MG 15:05: daily. Medical tablet 30 [place] glipiZIDE Yes 5mg Take [address] (GLUCOTROL) 9-13 by mouth 2 Jacinta kes 5 MG tablet 15:05: (two) Medic al 30 times Center daily before meals. sevelamer 0 Yes 800mg Take [address] (RENAGEL) 9-13 mg by Lukes 800 MG 15:05: mouth 3 Medical tablet 30 (three) Center times daily with meals 3 tabs TId. gabapentin 2021-0 Yes 300mg QD Take [address] (NEURONTIN) 9-13 mg by Lukes 300 MG 15:05: mouth Medical capsule 30 daily. [place] folic Yes 1{tbl} QD Take [address] acid-vitami 9-13 tablet by Dusty es n b 15:05: mouth Medical complex-vit 30 daily. [place] keys c-selenium- zinc (DIALYTE) tablet aspirin 81 2018-0 Yes 81mg Take 81 mg U nivers mg chewable 5-29 by mouth ity of tablet 14:30: daily. [address] Vital Signs Vital Name Observation Time Observation Value Comments Source Systolic blood 2022-08-29 06:00:00 174 mm[Hg] Univer sity of pressure [facility] Diastolic blood 2022-08-29 06:00:00 76 mm[Hg] Unive rsity [facility] Heart rate 2022-08-29 06:00:00 84 /min [facility] [place] [facility] Respiratory rate 2022-08-29 06:00:00 21 /min [facility] Oxygen saturation in 2022-08-29 06:00:00 93 /min [facility] blood by [facility] Pulse oximetry Branch Body temperature 2022-08-29 02:15:00 37.39 [facility] height 2022-08-29 02:15:00 160 cm [facility] [place] [facility] Body weight 2022-08-29 02:15:00 75 kg [facility] BMI 2022-08-29 02:15:00 29.29 kg/m2 [facility] HEIGHT 2021-12-10 13:18:00 160 cm WEIGHT 2021-12-10 13:18:00 85.594 kg HEIGHT 2021-12-10 13:18:00 160 cm WEIGHT 2021-12-10 13:18:00 85.594 kg HEIGHT 2021-12-10 13:18:00 160 cm WEIGHT 2021-12-10 13:18:00 85.594 kg HEIGHT 2020-01-10 12:49:00 160 cm WEIGHT 2020-01-10 12:49:00 80.831 kg HEIGHT 2020-01-10 08:45:00 160 cm WEIGHT 2020-01-10 08:45:00 66.679 kg BP Systolic 2022-01-09 09:22:00 167 mm[Hg] [...] degrees Systolic blood 2021-12-10 13:18:00 159 mm[Hg] [facility] Diastolic blood 2021-12-10 13:18:00 91 mm[Hg] [facility] Heart rate 2021-12-10 13:18:00 80 /min [facility] Body temperature 2021-12-10 13:18:00 36.72 Roxane [facility] Respiratory rate 2021-12-10 13:18:00 18 /min [facility] Body height 2021-12-10 13:18:00 160 cm [facility] Body weight 2021-12-10 13:18:00 85.594 kg [facility] BMI 2021-12-10 13:18:00 33.43 kg/m2 [facility] Oxygen saturation in 2021-12-10 10:03:00 98 /min [facility] Arterial blood by Medical Ce nter Pulse oximetry Procedures Procedure Date / Time Performing Clinician Source Performed RAPID STREP SCREEN FOR 2022-08-29 05:05:00 Renee Weaver [facility] Medical Branch LIPASE 2022-08-29 03:09:00 Renee Weaver [facility] Medical Branch COMP. METABOLIC PANEL 2022-08-29 03:09:00 Renee Weaver [facility] ([id number]) Medical Branch CBC WITH DIFF 2022-08-29 03:09:00 Renee Weaver [facility] PROTHROMBIN TIME / INR 2022-08-29 03:09:00 [facility] 2022-08-29 03:09:00 Will Weaver [facility] URINALYSIS 2022-08-29 03:09:00 Renee Weaver [facility] NOTICE OF PRIVACY 2022-08-29 02:07:04 Doctor Unassigned, [facility] PRACTICES [facility] [place] CONSENT/REFUSAL FOR 2022-08-29 02:06:34 Doctor Unassigned, [facility] DIAGNOSIS AND TREATMENT [facility] [place] NM MYOCARDIAL PERFUSION 2021-12-10 10:12:00 Rianna Ambrose [facility] PET/CT (REST & STRESS) Center TREADMILL 2021-12-10 09:49:39 Unknown, Hl7 Doctor [facility] Medical TOLERANCE(NON-NUCLEAR Center TREADMILL) TREADMILL 2021-12-10 09:49:39 Unknown, Hl7 Doctor [facility] Medical TOLERANCE(NON-NUCLEAR Center TREADMILL) ECG 12-LEAD 2021-12-10 09:46:08 Unknown, Hl7 Doctor [facility] FLOW PRA CLASS I WITH 2021-12-10 08:37:00 TimRianna mcbride [facility] REFLEX TO ANTIBODY Center SPECIFICITY FLOW PRA CLASS II WITH 2021-12-10 08:37:00 Rianna Ambrose [facility] REFLEX TO ANTIBODY Center SPECIFICITY AB SPECIFICITY CLASS I 2021-12-10 08:37:00 TimRianna mcbride CH I [facility] AB SPECIFICITY CLASS II 2021-12-10 08:37:00 Rianna Ambrose [facility] CYTOMEGALOVIRUS ANTIBODY, 2021-09-12 11:06:00 Rianna Ambrose [facility] IGG Center T SPOT TB 2021-09-12 11:06:00 TimRianna mcbride [facility] Medical Center FLOW PRA CLASS I WITH 2021-09-12 11:06:00 TimRianna mcbride [facility] REFLEX TO ANTIBODY Center SPECIFICITY FLOW PRA CLASS II WITH 2021-09-12 11:06[facility]00 [facility] REFLEX TO ANTIBODY Center SPECIFICITY HC LAB HIV-1 AG W/HIV-1&2 2021-09-12 11:06:00 [facility] AB Center HEPATITIS C ANTIBODY 2021-09-12 11:06:00 [facility] HEMOGLOBIN A1C 2021-09-12 11:06:00 [facility] HEPATITIS B SURFACE 2021-09-12 11:06:00 [facility] ANTIBODY Center HEPATITIS B CORE ANTIBODY, 2021-09-12 11:06:00 [facility] TOTAL Center PSA 2021-09-12 11:06:00 [facility] AB SPECIFICITY CLASS I 2021-09-12 11:06:00 [facility] Rianna [facility] 2D ECHO W/ DOPPLER 2021-09-12 09:15:45 [facility] (CW/PW/COLOR) [place] US ABDOMEN COMPLETE 2021-09-12 08:28:00 [facility] Plan of Care Planned Activity Planned Date Details Comments Source Future Scheduled 2027-09-24 Screening for malignant [facility] Test 00:00:00 neoplasm of colon Medical Ce nter (procedure) [code = 531290612] Future Scheduled 2027-09-24 Screening for malignant [facility] Test 00:00:00 neoplasm of colon Medical Ce nter (procedure) [code = 319211291] Future Scheduled 2027-09-24 Screening for malignant [facility] Test 00:00:00 neoplasm of colon Medical Ce nter (procedure) [code = 110000533] Future Scheduled 2027-09-24 Screening for malignant [facility] Test 00:00:00 neoplasm of colon Medical Ce nter (procedure) [code = 875534595] Future Scheduled 2027-09-24 Screening for malignant [facility] Test 00:00:00 neoplasm of colon Medical Ce nter (procedure) [code = 607527515] Future Scheduled 2027-09-24 Screening for malignant [facility] Test 00:00:00 neoplasm of colon Medical Ce nter (procedure) [code = 225798387] Future Scheduled 2027-09-24 Screening for malignant [facility] Test 00:00:00 neoplasm of colon Medical Ce nter (procedure) [code = 506059107] Future Scheduled 2027-09-24 Screening for malignant [facility] Test 00:00:00 neoplasm of colon Medical Ce nter (procedure) [code = 461257041] Future Scheduled 2027-09-24 Screening for malignant [facility] Test 00:00:00 neoplasm of colon Medical Ce nter (procedure) [code = 711530647] Future Scheduled 2027-09-24 Screening for malignant [facility] Test 00:00:00 neoplasm of colon Medical Ce nter (procedure) [code = 112181939] Future Scheduled 2027-09-24 Screening for malignant [facility] Test 00:00:00 neoplasm of colon Medical Ce nter (procedure) [code = 056410810] Future Scheduled 2027-09-24 Screening for malignant [facility] Test 00:00:00 neoplasm of colon Medical Ce nter (procedure) [code = 460604444] Future Scheduled 2022-11-28 Influenza Vaccine (#1) [facility] 00:00:00 [code = Influenza Vaccine Me dical Center (#1)] Future Scheduled 2022-03-[address] [facility] Test 00:00:00 (12+) [code = DEPRESSION Med ical Center SCREENING (12+)] Future Scheduled 2021-11-28 INFLUENZA VACCINE (#1) [facility] 00:00:00 [code = INFLUENZA VACCINE Me dical Center (#1)] Future Scheduled 2021-11-28 INFLUENZA VACCINE (#1) [facility] 00:00:00 [code = INFLUENZA VACCINE Me dical Center (#1)] Future Scheduled 2021-11-28 INFLUENZA VACCINE (#1) [facility] 00:00:00 [code = INFLUENZA VACCINE Me dical Center (#1)] Future Scheduled 2021-11-28 INFLUENZA VACCINE (#1) [facility] 00:00:00 [code = INFLUENZA VACCINE Me dical Center (#1)] Future Scheduled 2021-11-28 INFLUENZA VACCINE (#1) [facility] 00:00:00 [code = INFLUENZA VACCINE Me dical Center (#1)] Future Scheduled 2021-05-01 MEDICARE ANNUAL WELLNESS [facility] Test 00:00:00 (YEAR 2 or FIRST YEAR if Med ical Center no IPPE) [code = MEDICARE ANNUAL WELLNESS (YEAR 2 or FIRST YEAR if no IPPE)] Future Scheduled 2021-05-01 MED[address]NUAL WELLNESS [facility] Test 00:00:00 (YEAR 2 or FIRST YEAR if Med ical Center no IPPE) [code = MEDICARE ANNUAL WELLNESS (YEAR 2 or FIRST YEAR if no IPPE)] Future Scheduled 2021-05-01 MED[address] ANNUAL WELLNESS [facility] Test 00:00:00 (YEAR 2 or FIRST YEAR if Med ical Center no IPPE) [code = MEDICARE ANNUAL WELLNESS (YEAR 2 or FIRST YEAR if no IPPE)] Future Scheduled 2021-05-01 MED[address]NUAL WELLNESS [facility] Test 00:00:00 (YEAR 2 or FIRST YEAR if Med ical Center no IPPE) [code = MEDICARE ANNUAL WELLNESS (YEAR 2 or FIRST YEAR if no IPPE)] Future Scheduled 2021-05-01 MED[address]NUAL WELLNESS [facility] Test 00:00:00 (YEAR 2 or FIRST YEAR if Med ical Center no IPPE) [code = MEDICARE ANNUAL WELLNESS (YEAR 2 or FIRST YEAR if no IPPE)] Future Scheduled 2021-05-01 MED[address] ANNUAL WELLNESS [facility] Test 00:00:00 (YEAR 2 or FIRST YEAR if Med ical Center no IPPE) [code = MEDICARE ANNUAL WELLNESS (YEAR 2 or FIRST YEAR if no IPPE)] Future Scheduled 2021-03-[address] [facility] 00:00:00 (12+) [code = DEPRESSION Med ical Center SCREENING (12+)] Future Scheduled 2021-03-[address] [facility] 00:00:00 (12+) [code = DEPRESSION Med ical Center SCREENING (12+)] Future Scheduled 2021-03-[address] [facility] 00:00:00 (12+) [code = DEPRESSION Med ical Center SCREENING (12+)] Future Scheduled 2021-03-[address] [facility] 00:00:00 (12+) [code = DEPRESSION Med ical Center SCREENING (12+)] Future Scheduled 2021-03-[address] [facility] 00:00:00 (12+) [code = DEPRESSION Med ical Center SCREENING (12+)] Future Scheduled 2019-05-06 Lipid panel (procedure) [facility] 00:00:00 [code = 47163285] Medical Ce nter Future Scheduled 2019-05-06 Lipid panel (procedure) [facility] 00:00:00 [code = 52700503] Medical Ce nter Future Scheduled 2019-05-06 Lipid panel (procedure) [facility] 00:00:00 [code = 75938734] Medical Ce nter Future Scheduled 2019-05-06 Lipid panel (procedure) [facility] 00:00:00 [code = 58471867] Medical Ce nter Future Scheduled 2019-05-06 Lipid panel (procedure) [facility] 00:00:00 [code = 53016150] Medical Ce nter Future Scheduled 2019-05-06 Lipid panel (procedure) [facility] Test 00:00:00 [code = 84190579] Medical Ce nter Future Scheduled 2017-10-[address] [facility] 00:00:00 measurement (procedure) [facility] [code = 50231250] Future Scheduled 2017-10-[address] [facility] 00:00:00 measurement (procedure) [facility]i [facility] Center [code = 30421050] Future Scheduled 2017-10-[address] [facility] Test 00:00:00 measurement (procedure) [facility]i [facility] Center [code = 61904665] Future Scheduled 2017-10-[address] [facility] Test 00:00:00 measurement (procedure) Medi [facility] Center [code = 26357855] Future Scheduled 2017-10-[address] [facility] 00:00:00 measurement (procedure) [facility] [code = 38812588] Future Scheduled 2017-10-[address] [facility] 00:00:00 measurement (procedure) [facility] [code = 35224299] Future Scheduled 2017-08-14 Screening for malignant [facility] 00:00:00 neoplasm of colon [facility] Ce [facility] (procedure) [code = 646522446] Future Scheduled 2017-08-14 Screening for malignant [facility] 00:00:00 neoplasm of colon [facility] Ce [facility] (procedure) [code = 846727663] Future Scheduled 2017-08-14 Screening for malignant [facility] 00:00:00 neoplasm of colon [facility] Ce [facility] (procedure) [code = 222713521] Future Scheduled 2017-08-14 Screening for malignant [facility] 00:00:00 neoplasm of colon [facility] (procedure) [code = 072041042] Future Scheduled 2017-08-14 Screening for malignant [facility] 00:00:00 neoplasm of colon [facility] Ce [facility] (procedure) [code = 286729024] Future Scheduled 2017-08-14 Screening for malignant [facility] 00:00:00 neoplasm of colon Medical Ce [facility]ter (procedure) [code = 135944482] Future Scheduled 2014-02-01 SHINGLES VACCINES ([address] [facility] 00:00:00 2) [code = [facility] VACCINES (1 of 2)] Future Scheduled 2014-02-01 SHINGLES VACCINES ([address] [facility] 00:00:00 2) [code = [facility] VACCINES (1 of 2)] Future Scheduled 2014-02-01 SHINGLES VACCINES ([address] [facility] 00:00:00 2) [code = [facility] VACCINES (1 of 2)] Future Scheduled 2014-02-01 SHINGLES VACCINES ([address] [facility] 00:00:00 2) [code = [facility] VACCINES (1 of 2)] Future Scheduled 2014-02-01 SHINGLES VACCINES ([address] [facility] 00:00:00 2) [code = [facility] VACCINES (1 of 2)] Future Scheduled 2014-02-01 SHINGLES VACCINES ([address] [facility] 00:00:00 2) [code = [facility] VACCINES (1 of 2)] Future Scheduled 1983-02-01 DTAP/TDAP/TD VACCINES ([address] [facility] 00:00:00 - Tdap) [code = Medical Cent er DTAP/TDAP/TD VACCINES (1 - Tdap)] Future Scheduled 1983-02-01 DTAP/TDAP/TD VACCINES ([address] [facility] 00:00:00 - Tdap) [code = Medical Cent er DTAP/TDAP/TD VACCINES (1 - Tdap)] Future Scheduled 1983-02-01 DTAP/TDAP/TD VACCINES ([address] [facility] 00:00:00 - Tdap) [code = Medical Cent er DTAP/TDAP/TD VACCINES (1 - Tdap)] Future Scheduled 1983-02-01 DTAP/TDAP/TD VACCINES ([address] [facility] 00:00:00 - Tdap) [code = Medical Cent er DTAP/TDAP/TD VACCINES (1 - Tdap)] Future Scheduled 1983-02-01 DTAP/TDAP/TD VACCINES ([address] [facility] 00:00:00 - Tdap) [code = Medical Cent er DTAP/TDAP/TD VACCINES (1 - Tdap)] Future Scheduled 1983-02-01 DTAP/TDAP/TD VACCINES ([address] [facility] 00:00:00 - Tdap) [code = Medical Cent er DTAP/TDAP/TD VACCINES (1 - Tdap)] Future Scheduled 1979-02-[address] Human [address] [facility]00 virus screening [facility] Cent er (procedure) [code = 302948279] Future Scheduled [address] [facility] 00:00:00 Counseling and Screening [facility] (12+) [code = Tobacco Cessation Counseling and Screening (12+)] Future Scheduled [address] [facility] 00:00:00 Counseling and Screening Med ical Center (12+) [code = Tobacco Cessation Counseling and Screening (12+)] Future Scheduled [address] [facility] 00:00:00 Counseling and Screening Med ical Center (12+) [code = Tobacco Cessation Counseling and Screening (12+)] Future Scheduled [address] [facility] 00:00:00 [facility] (12[facility] [code = Tobacco Cessation Counseling and Screening (12+)] Future Scheduled 1974-02-01 DIABETIC EYE EXAM [code = [facility] 00:00:00 DIABETIC EYE EXAM] Medical C enter Future Scheduled 1974-02-01 Diabetic foot examination [facility] 00:00:00 (regime/therapy) [code = [facility] [id number]] Future Scheduled 1974-02-01 Urine screening for [facility] 00:00:00 protein (procedure) [code [facility] = 240371133] Future Scheduled 1974-02-01 DIABETIC EYE EXAM [code = [facility] 00:00:00 DIABETIC EYE EXAM] Medical C enter Future Scheduled 1974-02-01 Diabetic foot examination [facility] 00:00:00 (regime/therapy) [code = [facility] 674159479] Future Scheduled 1974-02-01 Urine screening for [facility] 00:00:00 protein (procedure) [code [facility] = 341283788] Future Scheduled 1974-02-01 DIABETIC EYE EXAM [code = [facility] 00:00:00 DIABETIC EYE EXAM] Medical C enter Future Scheduled 1974-02-01 Diabetic foot examination [facility] 00:00:00 (regime/therapy) [code = [facility] 219622704] Future Scheduled 1974-02-01 Urine screening for [facility] 00:00:00 protein (procedure) [code [facility] = 794606100] Future Scheduled 1974-02-01 DIABETIC EYE EXAM [code = [facility] 00:00:00 DIABETIC EYE EXAM] Medical C enter Future Scheduled 1974-02-01 Diabetic foot examination [facility] 00:00:00 (regime/therapy) [code = [facility] 915488222] Future Scheduled 1974-02-01 Urine screening for [facility] 00:00:00 protein (procedure) [code [facility] = 440692226] Future Scheduled 1974-02-01 DIABETIC EYE EXAM [code = [facility] 00:00:00 DIABETIC EYE EXAM] Medical C enter Future Scheduled 1974-02-01 Diabetic foot examination [facility] 00:00:00 (regime/therapy) [code = [facility] 967093861] Future Scheduled 1974-02-01 Urine screening for [facility] 00:00:00 protein (procedure) [code [facility] = 507767404] Future Scheduled 1974-02-01 DIABETIC EYE EXAM [code = [facility] 00:00:00 DIABETIC EYE EXAM] Medical C enter Future Scheduled 1974-02-01 Diabetic foot examination [facility] 00:00:00 (regime/therapy) [code = [facility] Center 804362771] Future Scheduled 1974-02-01 Urine screening for [facility] 00:00:00 protein (procedure) [code [facility] = 571803838] Future Scheduled 1970-02-01 PNEUMOCOCCAL VACCINE 0-[address] [facility] 00:00:00 YRS (1 - PCV) [code = [facility] l Center PNEUMOCOCCAL VACCINE 0-64 YRS (1 - PCV)] Future Scheduled 1970-02-01 PNEUMOCOCCAL VACCINE 0-[address] [facility] 00:00:00 YRS (1 - PCV) [code = [facility]ica l Center PNEUMOCOCCAL VACCINE 0-64 YRS (1 - PCV)] Future Scheduled 1970-02-01 PNEUMOCOCCAL VACCINE 0-[address] [facility] 00:00:00 YRS (1 - PCV) [code = [facility]ica l Center PNEUMOCOCCAL VACCINE 0-64 YRS (1 - PCV)] Future Scheduled 1970-02-01 PNEUMOCOCCAL VACCINE 0-[address] [facility] 00:00:00 YRS (1 - PCV) [code = [facility] l Center PNEUMOCOCCAL VACCINE 0-64 YRS (1 - PCV)] Future Scheduled 1970-02-01 PNEUMOCOCCAL VACCINE 0-[address] [facility] 00:00:00 YRS (1 - PCV) [code = [facility]ica l Center PNEUMOCOCCAL VACCINE 0-64 YRS (1 - PCV)] Future Scheduled 1970-02-01 Pneumococcal Vaccine: [facility] 00:[facility]:00 0-64 Years (1 - PCV) Medical Center [code = Pneumococcal Vaccine: 0-64 Years (1 - PCV)] Future Scheduled 1964 COVID-19 VACCINE (#1[facility] [code = COVID-19 VACCINE Med ical Center (#1)] Future Scheduled 1964 COVID-19 VACCINE (#1[facility] [code = COVID-19 VACCINE Med ical Center (#1)] Future Scheduled 1964 COVID-19 VACCINE (#1[facility] [code = COVID-19 VACCINE Med ical Center (#1)] Future Scheduled 1964 COVID-19 VACCINE (#1[facility] [code = COVID-19 VACCINE [facility] ical Center (#1)] Future Scheduled 1964 COVID-19 VACCINE (#1[facility] [code = COVID-19 VACCINE Med ical Center (#1)] Future Scheduled 1964 COVID-19 VACCINE (#1[facility] [code = COVID-19 VACCINE Med ical Center (#1)] Future Scheduled 1964 CT Colonography (combo) [facility] 00:00:00 [code = CT [facility] ([facility])] Future Scheduled 1964 Screening for malignant [facility] 00:00:00 neoplasm of colon Medical Ce nter (procedure) [code = 411981084] Future Scheduled 1964 Sigmoidoscopy [code = [facility] Sigmoidoscopy] Medical Cente r Future Scheduled 1964 CT Colonography (combo) [facility] 00:00:00 [code = CT [facility] ([facility])] Future Scheduled 1964 Screening for malignant [facility] 00:00:00 neoplasm of colon Medical Ce nter (procedure) [code = 775818766] Future Scheduled 1964 Sigmoidoscopy [code = [facility] Sigmoidoscopy] Medical Cente r Future Scheduled 1964 CT Colonography (combo) [facility] 00:00:00 [code = CT [facility] ([facility]bo)] Future Scheduled 1964 Screening for malignant [facility] 00:00:00 neoplasm of colon Medical Ce nter (procedure) [code = 100385850] Future Scheduled 1964 Sigmoidoscopy [code = [facility] Sigmoidoscopy] Medical Cente r Future Scheduled 1964 CT Colonography (combo) [facility] 00:00:00 [code = CT [facility] ([facility])] Future Scheduled 1964 Screening for malignant [facility] 00:00:00 neoplasm of colon Medical Ce nter (procedure) [code = 757847381] Future Scheduled 1964 Sigmoidoscopy [code = [facility] Sigmoidoscopy] Medical Cente r Future Scheduled 1964 CT Colonography (combo) [facility] 00:00:00 [code = CT [facility] ([facility])] Future Scheduled 1964 Screening for malignant [facility] 00:00:00 neoplasm of colon Medical Ce nter (procedure) [code = 302542559] Future Scheduled 1964 Sigmoidoscopy [code = [facility] 00:[facility] Sigmoidoscopy] Medical Cente r Future Scheduled 1964 CT Colonography (combo) [facility] 00:00:00 [code = CT [facility] ([facility])] Future Scheduled 1964 Screening for malignant [facility] 00:00:00 neoplasm of colon Medical Ce nter (procedure) [code = 943821629] Future Scheduled 1964 Sigmoidoscopy [code = [facility] Sigmoidoscopy] Medical Cente r Goal Plan of Care Note [code = 41737-8] Goal Plan of Care Note [code = 09910-5] Goal Plan of Care Note [code = 18157-7] Goal Plan of Care Note [code = 33264-3] Goal Plan of Care Note [code = 54164-1] Goal Plan of Care Note [code = 12057-2] Goal Plan of Care Note [code = 03182-4] Goal Plan of Care Note [code = 69579-2] Goal Plan of Care Note [code = 18095-3] Goal Plan of Care Note [code = 14833-0] Goal Plan of Care Note [code = 52524-3] Goal Plan of Care Note [code = 55353-2] Goal Plan of Care Note [code = 62074-6] Encounters Start End Encounter Admission Attending Care Care Encounter Source Date/Time Date/Time Type Type Clinicians Facility Department ID 2022-12-30 2022-12-30 Outpatient [facility] [id number] [facility] 00:00:00 00:00:00 2022-12-30 2022-12-30 Outpatient EL SLE [facility] [id number] [facility] 00:00:00 00:00:00 2022-12-30 2022-12-30 Outpatient EL SLE SLE [id number] [facility] 00:00:00 00:00:00 2022-12-30 2022-12-30 Outpatient JULIA AMBROSE, SLE SLE [id number] [facility] 00:00:00 00:00:00 RIANNA 2022-12-30 2022-12-30 Outpatient JULIA AMBROSE, SLE SLE [id number] [facility] 00:00:00 00:00:00 RIANNA 2022-12-30 2022-12-30 Outpatient JULIA SLE SLE [id number] [facility] 00:00:00 00:00:00 2022-10-09 2022-10-09 Telephone Chin [facility] [id number] 00:[facility]00 00:00:00 [facility] 2022-10-09 2022-10-09 Documentat Chin [facility] [id number] 00:00:00 00:00:00 ion [facility] 2022-10-07 2022-10-07 Outpatient Willy_Mendez_SARA VFP VFP [id number] Village 00:00:00 00:00:00 ROSIE [id number] Family Practic e 2022-09-19 2022-09-19 Documentat Bo [facility] [id number] 00:00:00 00:00:00 ion [facility] 2022-08-28 2022-08-29 Emergency X [facility] ERT [id number] Univers 21:19:00 01:27:00 , RENEE miller [facility] 2022-08-28 2022-08-29 Emergency [facility] [id number] Univers 21:19:00 01:27:00 , Renee MCKEON [id number] i ty [facility] [id number] [facility] [id number] [place] [address] [place] 2022-08-20 2022-08-20 Orders Halie [facility] [id number] 08:00:00 08:15:00 Only [facility] 2022-08-20 2022-08-20 Outpatient SLEH SLEH [id number] [facility] 07:08:48 07:08:48 2022-07-23 2022-07-23 Orders [facility] [id number] 07:30:00 07:45:00 Only [facility] 2022-07-23 2022-07-23 Outpatient SLEH SLEH [id number] [facility]H 06:41:39 06:41:39 2022-05-06 2022-05-06 Outpatient EL [facility] [id number] [facility] 06:28:36 06:28:36 2022-04-18 2022-04-18 Documentat Mary [facility] [id number] 00:00:00 00:00:00 ion [facility] 2022-04-04 2022-04-04 Outpatient EL SLEH SLEH [id number] [facility] 10:48:22 10:48:22 2022-03-13 2022-03-13 Outpatient SFA SFA [id number] Darryl 08:59:21 08:59:21 F Fransisco 2022-02-11 2022-02-11 Outpatient SFA SFA [id number] Darryl 10:17:04 10:17:04 F Fransisco 2022-02-07 2022-02-07 Outpatient SLEH SLEH [id number] [facility] 06:50:09 06:50:09 2022-01-23 2022-01-23 Outpatient SLEH SLE[facility] [id number] [facility] 08:13:44 08:13:44 2022-01-09 2022-01-09 Outpatient SFA SFA [id number] Darryl 09:14:27 09:14:27 F Fransisco 2022-01-09 2022-01-09 Outpatient [id number] 00:00:00 00:00:00 Visit [id number]-93b [id number] 2021-12-19 2021-12-19 Outpatient [id number] 00:00:00 00:00:00 Visit [id number] [id number]-562f-5 -[id number] [id number] 2021-12-10 2021-12-10 Outpatient [facility] [id number] SLEH 08:44:41 23:59:00 2021-12-10 2021-12-10 [facility] [id number] 08:44:41 23:59:00 Encounter [facility] 2021-12-10 2021-12-10 [facility] [id number] 08:44:41 23:59:00 Encounter [facility] 2021-12-10 2021-12-10 Evaluation Lori Ambroseine [facility] [id number] 14:30:00 15:00:00 [facility] 2021-12-10 2021-12-10 Evaluation Maria M Ambroseherine [facility] [id number] 14:30:00 15:00:00 [facility] 2021-12-10 2021-12-10 Outpatient RADHA [facility] [id number] SLE 10:40:58 10:40:58 2021-12-10 2021-12-10 Outpatient [facility] [id number] SLE 10:33:05 10:33:05 2021-12-10 2021-12-10 Orders [facility] [id number] 09:30:00 09:45:00 Only [facility] 2021-12-10 2021-12-10 Orders [facility] [id number] 09:30:00 09:45:00 Only [facility] 2021-12-10 2021-12-10 Outpatient EL SLEH SLE [id number] SLEH 08:25:44 08:25:44 2021-12-10 2021-12-10 Outpatient EL [facility]H [id number] [facility] 00:00:00 00:00:00 2021-12-10 2021-12-10 Outpatient SLEH [facility] [id number] [facility] 00:00:00 00:00:00 2021-12-10 2021-12-10 Abstract Jenise Cosby [facility] [id number] 00:00:00 00:00:00 [facility] 2021-12-10 2021-12-10 Travel [facility] [id number] [facility] 00:[facility]00 00:00:00 [facility] 2021-12-10 2021-12-10 Abstract Jenise Cosby [facility] [id number] 00:00:00 00:00:00 [facility] 2021-12-10 2021-12-10 Travel [facility] [id number] [facility] 00:[facility]00 00:00:00 [facility] 2021-12-09 2021-12-09 Telephone Dmitri [facility] [id number] [id number] 00:00:00 00:00:00 [facility] 2021-12-09 2021-12-09 Telephone Dmitri [facility] [id number] 00:00:00 00:00:00 [facility] 2021-12-05 2021-12-05 Timmy Soriano [facility] [id number] [id number] 00:00:00 00:00:00 [facility] 2021-12-05 2021-12-05 Timmy Soriano [facility] [id number] [id number] 00:00:00 00:00:00 [facility] 2021-12-04 2021-12-04 Timmy Hernandez [facility] [id number] [id number] 00:00:00 00:00:00 ion [facility] 2021-12-04 2021-12-04 Documentat Mary [facility] [id number] 00:00:00 00:00:00 ion [facility] 2021-11-01 2021-11-01 Outpatient SLE SLE [id number] SLEH 08:24:19 08:24:19 2021-10-29 2021-10-29 Documentat Bo [facility] [id number] 00:00:00 00:00:00 [facility] 2021-10-29 2021-10-29 Documentat Bo [facility] [id number] 00:00:00 00:00:00 [facility] 2021-10-09 2021-10-09 Outpatient SLE SLE [id number] SLEH 09:10:49 09:10:49 2021-10-03 2021-10-03 Documentat Loyda [facility] [id number] 00:00:00 00:00:00 ion Paula Schuster [facility] 2021-10-02 2021-10-02 Telephone Chin [facility] [id number] 00:00:00 00:00:00 [facility] 2021-09-14 2021-09-14 Outside Willy [facility] [id number] 00:00:00 00:00:00 Orders Jey Earl [facility] 2021-09-12 2021-09-12 [facility] [id number] 23:59:00 23:59:00 Encounter Rianna [facility] 2021-09-12 2021-09-12 Outpatient HALIE [facility] SLE [id number] SLEH 07:33:42 23:59:00 RIANNA 2021-09-12 2021-09-12 [facility] [id number] 07:33:42 23:59:00 [facility] 2021-09-12 Outpatient EL HALIE, SLE SLE [id number] [facility] 00:00:00 23:59:00 RIANNA 2021-09-12 2021-09-12 Orders JULIA Ambrose, [facility] [id number] 12:00:00 12:15:00 Only [facility] 2021-09-12 2021-09-12 Outpatient EL SLEH SLEH [id number] [facility] 10:57:23 10:57:23 2021-09-12 2021-09-12 Outpatient EL HALIE, SLE SLE [id number] SLEH 07:41:42 07:32:00 [facility] 2021-09-12 2021-09-12 [facility] [id number] 07:00:00 07:32:00 Encounter [facility] 2021-09-12 2021-09-12 Outpatient EL SLEH SLE [id number] [facility] 00:00:00 00:00:00 2021-09-12 2021-09-12 Outpatient EL SLEH SLEH [id number] [facility] 00:00:00 00:00:00 2021-09-11 2021-09-11 Timmy Scales [facility] [id number] 00:00:00 00:00:00 dorothy Paula Schuster [facility] 2021-09-05 2021-09-05 Timmy Neely [facility] [id number] 00:00:00 00:00:00 dorothy [facility] 2021-09-05 2021-09-05 Timmy Neely [facility] [id number] 00:00:00 00:00:00 dorothy [facility] 2021-09-03 2021-09-03 Outpatient SLEH SLEH [id number] [facility] 09:42:24 09:42:24 2021-08-22 2021-08-22 Timmy Scales [facility] [id number] 00:00:00 00:00:00 ion Paula Schuster [facility] 2021-07-31 2021-07-31 Outpatient SLEH SLEH [id number] [facility] 09:00:15 09:00:15 2021-07-11 2021-07-11 Timmy Neely [facility] [id number] 00:00:00 00:00:00 ion [facility] 2021-07-09 2021-07-09 Aditya Bo [facility] [id number] 00:00:00 00:00:00 Only [facility] 2021-06-05 2021-06-05 Outpatient EL SLEH SLEH [id number] [facility]H 06:47:28 06:47:28 2021-06-04 2021-06-04 Social Rizvi [facility] [id number] 00:00:00 00:00:00 Work [facility] 2021-05-30 2021-05-30 Outpatient EL SLEH SLEH [id number] [facility] 00:00:00 00:00:00 2021-05-30 2021-05-30 Outpatient EL SLEH SLEH [id number] [facility] 00:00:00 00:00:00 2021-05-30 2021-05-30 Outpatient EL SLEH SLEH [id number] [facility] 00:00:00 00:00:00 2021-05-30 2021-05-30 Outpatient EL TIMMINS, SLEH SLEH [id number] [facility] 00:00:00 00:00:00 RIANNA 2021-05-30 2021-05-30 Outpatient EL TIMMINS, SLEH SLEH [id number] [facility] 00:00:00 00:00:00 RIANNA 2021-05-30 2021-05-30 Outpatient EL TIMMINS, SLEH SLEH [id number] [facility] 00:00:00 00:00:00 RIANNA 2021-05-30 2021-05-30 Outpatient TIMMINS, SLEH SLEH [id number] [facility] 00:00:00 00:00:00 RIANNA 2021-05-28 2021-05-28 Orders Bo [facility] [id number] 00:00:00 00:00:00 Only [facility] 2021-05-14 2021-05-14 Outpatient SLEH SLEH [id number] [facility] 07:01:18 07:01:18 2021-04-23 2021-04-23 Outpatient EL [facility] [id number] [facility] 00:00:00 00:00:00 2021-04-23 2021-04-23 Outpatient EL SLEH SLEH [id number] [facility] 00:00:00 00:00:00 2021-04-23 2021-04-23 Outpatient EL SLE[facility] SLEH [id number] [facility] 00:00:00 00:00:00 2021-04-23 2021-04-23 Outpatient EL TIMMINS, SLEH SLEH [id number] [facility] 00:00:00 00:00:00 RIANNA 2021-04-23 2021-04-23 Outpatient EL TIMMINS, SLEH SLEH [id number] [facility] 00:00:00 00:00:00 RIANNA 2021-03-19 2021-03-19 Orders Bo [facility] [id number] 00:00:00 00:00:00 Only [facility] 2021-03-19 2021-03-19 Telephone Chin [facility] [id number] 00:00:00 00:00:00 [facility] 2021-03-19 2021-03-19 Aditya Soriano [facility] [id number] 00:00:00 00:00:00 Only [facility] 2021-03-14 2021-03-14 Telephone Chin [facility] [id number] 00:00:00 00:00:00 [facility] 2021-03-12 2021-03-12 Documentat Chin [facility] [id number] 00:00:00 00:00:00 ion [facility] 2021-03-11 2021-03-11 Documentat Chin, [facility] [id number] 00:00:00 00:00:00 ion [facility] 2021-03-11 2021-03-11 Telephone Chin, [facility] [id number] 00:00:00 00:00:00 [facility] 2021-03-07 2021-03-07 Outpatient EL SLEH SLEH [id number] [facility] 00:00:00 00:00:00 2021-03-07 2021-03-07 Outpatient EL SLEH SLE[facility] [id number] [facility] 00:00:00 00:00:00 2021-03-07 2021-03-07 Outpatient EL SLEH [facility] [id number] [facility] 00:00:00 00:00:00 2021-03-07 2021-03-07 Outpatient EL TIMMINS, SLEH SLEH [id number] [facility] 00:00:00 00:00:00 RIANNA 2021-03-07 2021-03-07 Outpatient EL TIMMINS, SLEH SLEH [id number] [facility] 00:00:00 00:00:00 RIANNA 2021-03-04 2021-03-04 Telephone Chin, [facility] [id number] 00:00:00 00:00:00 [facility] 2021-01-29 2021-01-29 Telephone Chin, [facility] [id number] [facility] 00:00:00 00:00:00 [facility] 2021-01-29 2021-01-29 Documentat Chin, [facility] [id number] [facility] 00:00:00 00:00:00 [facility] 2021-01-08 2021-01-08 Telephone Chin, [facility] [id number] [facility] 00:00:00 00:00:00 [facility] 2020-12-21 2020-12-21 Aditya Soriano [facility] [id number] [facility]00 Only [facility] 2020-12-14 2020-12-14 Outpatient [facility] [id number] [facility] 00:00:00 00:00:00 2020-11-16 2020-11-16 Outpatient [facility] [id number] [facility] 07:43:34 07:43:34 2020-09-12 2020-09-12 Outpatient [facility] [id number] [facility] 00:00:00 00:00:00 2020-08-03 2020-08-03 Outpatient [facility] [id number] [facility] 08:25:45 08:25:45 2020-05-30 2020-05-30 Outpatient [facility] [id number] [facility] 00:00:00 00:00:00 2020-05-08 2020-05-08 Outpatient EL [facility] [id number] [facility] 08:52:53 08:52:53 2020-03-14 2020-03-14 Outpatient [facility] [id number] [facility] 10:45:40 10:45:40 2020-02-07 2020-02-07 Outpatient [facility] [id number] [facility] 00:00:00 00:00:00 2020-01-10 2020-01-10 Outpatient [facility] [id number] [facility] 00:00:00 00:00:00 2020-01-10 2020-01-10 Outpatient [facility] [id number] [facility] 00:00:00 00:00:00 2020-01-10 2020-01-10 Outpatient VILLEDA, [facility] [id number] [facility] 00:00:00 00:00:00 HOLDEN 2020-01-10 2020-01-10 Outpatient EL VILLEDA, [facility] [id number] [facility] 00:00:00 00:00:00 HOLDEN 2020-01-10 2020-01-10 Outpatient [facility] [id number] [facility] 00:00:00 00:00:00 2020-01-03 2020-01-03 Outpatient [facility] [id number] [facility] 07:41:49 07:41:49 2019-11-24 2019-11-24 Outpatient [facility] [id number] SLE 00:00:00 00:00:00 [place] 2019-11-24 2019-11-24 Outpatient EL [facility] [id number] SLE 00:00:00 00:00:00 [place] 2019-11-02 2019-11-02 Outpatient [facility] [id number] SLE 08:30:20 08:30:20 2019-10-10 2019-10-10 Outpatient [facility] [id number] [facility] 15:19:26 15:19:26 2019-07-06 2019-07-06 Outpatient [facility] [id number] [facility] 10:49:21 10:49:21 [id number] Results Test Description Test Time Test Comments Results Result Comments Source COMPREHENSIVE METABOLIC PANEL 2022-03-14 04:27:04 Test Item Value Reference Range Interpretation Comme nts GLUCOSE (test code = 2217) 103 MG/DL 70-99 H BUN (test code = 2208) 36 MG/DL 6-20 H CREATININE (test code = 8.32 MG/DL 0.80-1.40 H 2213) eGFR (2020 CKD-EPI) (test 7 ML/MIN/1.73 >60 L code = 07772) CALC BUN/CREAT (test code = 4 RATIO 6-28 L 2234) SODIUM (test code = 2231) 142 MEQ/L 133-146 POTASSIUM (test code = 2228) 5.3 MEQ/L 3.5-5.4 CHLORIDE (test code = 2215) 103 MEQ/L 95-107 CARBON DIOXIDE (test code = 24 MEQ/L 19-31 2205) CALCIUM (test code = 2209) 9.0 MG/DL 8.5-10.5 PROTEIN, TOTAL (test code = 6.8 G/DL 6.1-8.3 2228) ALBUMIN (test code = 2201) 4.3 G/DL 3.5-5.2 CALC GLOBULIN (test code = 2.5 G/DL 1.9-3.7 2239) CALC A/G RATIO (test code = 1.7 RATIO 1.0-2.6 2233) BILIRUBIN, TOTAL (test code 0.8 MG/DL See_Comment [Automated message] The = 2206) system which ge nerated this result transmit jake reference range: <=1.2. T he reference range was not u sed to interpret this result as normal/abnormal . ALKALINE PHOSPHATASE (test 82 U/L 40-123 code = 2204) AST (test code = 2218) 16 U/L 9-50 ALT (test code = 2219) 14 U/L 5-50 UNL ESS OTHERWISE INDICATED, ALL TESTING PER FORMED ATCLINICAL PATH OLOGY LABORATORIES, [facility]. [address] [address] LABORATORY DIRE CTOR: BHUPINDER FAN M.D. CLIA NUMBER [id number] [facility]. [id number] LIPID [id number] 04:27:04 Test Item Value Reference Range Interpretation Comments CHOLESTEROL (test 83 MG/DL <200 code = 2210) TRIGLYCERIDES (test 85 MG/DL <150 code = 2232) HDL CHOLESTEROL (test 46 MG/DL >39 code = 2220) CALC LDL CHOL (test 20 MG/DL <100 NOTE: C ALCULATED LDL code = 2237) IS BASED ON MICHELLE-IBARRA METHOD WHICHINCLUDES ADJUSTABLE TRIGLYCERIDE:VL DL CHOLESTEROL RAT IO.THIS FACTOR VARIES B Y MEASURED TRIGLY CERIDE AND NON-HDLCHOL ESTEROL CONCENTRATIONS WITH INCREASED CALCU LATED LDL SEENIN HIGH ER TRIGLYCERIDE OR LOWER NON-HDL SPECIME NS. FOR MOREINFORMATION , SEE CLIENT ANNOUNCE MENT AT [email or web address] RISK RATIO LDL/HDL 0.43 RATIO <3.55 (test code = 2238) HEMOGLOBIN [id number] 03:39:21 Test Item Value Reference Range Interpretation Comments HEMOGLOBIN A1c (test code = 95011) 5.3 % 4.2-5.6 CBC W/AUTO DIFF WITH [id number] 03:10:10 Test Item Value Reference Range Interpretation Comments WBC (test code = 5.8 K/UL 3.5-11.0 1001) RBC (test code = 3.79 M/UL 4.50-6.10 L 1002) HEMOGLOBIN (test code 12.5 G/DL 13.5-17.0 L = 1003) HEMATOCRIT (test code 37.5 % 40.0-51.0 L = 1004) MCV (test code = 98.9 fL 80.0-99.0 1005) MCH (test code = 33.0 PG 25.0-33.0 1006) MCHC (test code = 33.3 G/DL 31.0-36.0 1007) RDW (test code = 12.8 % 11.5-15.0 1038) NEUTROPHILS (test 70.4 % code = 1008) LYMPHOCYTES (test 14.1 % code = 1010) MONOCYTES (test code 9.1 % = 1011) EOSINOPHILS (test 4.8 % code = 1012) BASOPHILS (test code 1.4 % = 1013) IMMATURE GRANULOCYTES 0.2 % (test code = 1036) NUCLEATED RBCS (test 0.0 /100 WBC'S See_Comment [Aut omated code = 1065) message] The sy stem which generated this result transmitted reference range : 0.0. The refere nce range was not u sed to interpret th is result as normal/abnormal . PLATELET COUNT (test 155 K/UL 130-400 code = 1015) ABSOLUTE NEUTROPHILS 4.09 K/UL 1.50-7.50 (test code = 1066) ABSOLUTE LYMPHOCYTES 0.82 K/UL 1.00-4.00 L (test code = 1067) ABSOLUTE MONOCYTES 0.53 K/UL 0.20-1.00 (test code = 1068) ABSOLUTE EOSINOPHILS 0.28 K/UL 0.00-0.50 (test code = 1040) ABSOLUTE BASOPHILS 0.08 K/UL 0.00-0.20 (test code = 1069) ABS IMMATURE 0.01 K/UL 0.00-0.10 GRANULOCYTES (test code = 1020) ABS NUCLEATED RBCS 0.00 K/UL 0.00-0.11 (test code = 19190) HEMOGLOBIN [id number] 03:57:05 Test Item Value Reference Range Interpretation Comments HEMOGLOBIN A1c (test 5.4 % 4.2-5.6 UNLESS OTHERWISE code = 43616) INDICATED, ALL TESTING PERFORMED ATCLI NICAL PATHOLOGY [facility] [address] [place] [address] SIMBA JOSÉ DIRECTOR: BHUPINDER FAN M.D. CLIA NUMBER [id number] CAP ACCREDITATION N O. [id number] COMPREHENSIVE METABOLIC [id number] 03:26:50 Test Item Value Reference Range Interpretation Comments GLUCOSE (test code = 63 MG/DL 70-99 L 2217) BUN (test code = 49 MG/DL 6-20 H 2207) CREATININE (test 8.78 MG/DL 0.80-1.40 H code = 2213) eGFR (2020 CKD-EPI) 6 ML/MIN/1.73 >60 L (test code = 31440) CALC BUN/CREAT (test 6 RATIO 6-28 code = 223) SODIUM (test code = 143 MEQ/L 820-902 0029) POTASSIUM (test code 4.9 MEQ/L 3.5-5.4 = 2227) CHLORIDE (test code 105 MEQ/L 95-107 = 2214) CARBON DIOXIDE (test 23 MEQ/L 19-31 code = 2205) CALCIUM (test code = 9.5 MG/DL 8.5-10.5 2208) PROTEIN, TOTAL (test 6.9 G/DL 6.1-8.3 code = 2228) ALBUMIN (test code = 4.1 G/DL 3.5-5.2 2200) CALC GLOBULIN (test 2.8 G/DL 1.9-3.7 code = 2239) CALC A/G RATIO (test 1.5 RATIO 1.0-2.6 code = 223) BILIRUBIN, TOTAL 0.6 MG/DL See_Comment [Automated message] (test code = 2206) The syste m which generated this result transmit jake reference range : <=1.2. The refe rence range was not u sed to interpret th is result as normal/abnormal . ALKALINE PHOSPHATASE 78 U/L 40-123 (test code = 2203) AST (test code = 13 U/L 9-50 2217) ALT (test code = 13 U/L 5-50 2218) LIPID [id number] 03:26:50 Test Item Value Reference Range Interpretation [...] MOREINFORMATION , SEE CLIENT ANNOUNCE MENT AT [email or web address] RISK RATIO LDL/HDL 0.47 RATIO <3.55 (test code = 2238) CBC W/AUTO DIFF WITH [id number] 02:11:08 Test Item Value Reference Range Interpretation [...] RBCS 0.00 K/UL 0.00-0.11 (test code = 73194) HEMOGLOBIN [id number] 00:00:00 Test Item Value Reference Range Interpretation Comments HEMOGLOBIN A1c (test code = 57797) 5.4 % HEMOGLOBIN [id number] 00:00:00 Test Item Value Reference Range Interpretation Comments HEMOGLOBIN A1c (test code = 70406) 5.4 % CBC W/AUTO [id number] 00:00:00 Test Item Value Reference Range Interpretation [...] NUCLEATED RBCS (test code = 0.00 K/UL 57625) CBC W/AUTO [id number] 00:00:00 Test Item Value Reference Range Interpretation [...] NUCLEATED RBCS (test code = 0.00 K/UL 43802) CBC W/AUTO [id number] 00:00:00 Test Item Value Reference Range Interpretation [...] NUCLEATED RBCS (test code = 0.00 K/UL 60008) COMPREHENSIVE METABOLIC [id number] 00:00:00 Test Item Value Reference Range Interpretation Comments GLUCOSE (test code = 2217) 63 MG/DL BUN (test code = 2208) 49 MG/DL CREATININE (test code = 2214) 8.78 MG/DL eGFR (2020 CKD-EPI) (test code 6 ML/MIN/1.73 = 86257) CALC BUN/CREAT (test code = 6 RATIO [...] code = 2219) 13 U/L COMPREHENSIVE METABOLIC [id number] 00:00:00 Test Item Value Reference Range Interpretation Comments GLUCOSE (test code = 2217) 63 MG/DL BUN (test code = 2208) 49 MG/DL CREATININE (test code = 2214) 8.78 MG/DL eGFR (2020 CKD-EPI) (test code 6 ML/MIN/1.73 = 73015) CALC BUN/CREAT (test code = 6 RATIO 2235) SODIUM (test code = 2231) 143 MEQ/L POTASSIUM (test code = 2228) 4.9 MEQ/L CHLORIDE (test code = 2215) 105 MEQ/L CARBON DIOXIDE (test code = 23 MEQ/L 2205) CALCIUM (test code = 2209) 9.5 MG/DL PROTEIN, TOTAL (test code = 6.9 G/DL 2228) ALBUMIN (test code = 2201) 4.1 G/DL CALC GLOBULIN (test code = 2.8 G/DL 2239) CALC A/G RATIO (test code = 1.5 RATIO 223) BILIRUBIN, TOTAL (test code = 0.6 MG/DL 2206) ALKALINE PHOSPHATASE (test code 78 U/L = 2203) AST (test code = 2218) 13 U/L ALT (test code = 2219) 13 U/L LIPID [id number] 00:00:00 Test Item Value Reference Range Interpretation Comments CHOLESTEROL (test code = 2210) 96 MG/DL TRIGLYCERIDES (test code = 2232) 73 MG/DL HDL CHOLESTEROL (test code = 2220) 55 MG/DL CALC LDL CHOL (test code = 2237) 26 MG/DL RISK RATIO LDL/HDL (test code = 0.47 RATIO 2238) LIPID [id number] 00:00:00 Test Item Value Reference Range Interpretation Comments CHOLESTEROL (test code = 2210) 96 MG/DL TRIGLYCERIDES (test code = 2232) 73 MG/DL HDL CHOLESTEROL (test code = 2220) 55 MG/DL CALC LDL CHOL (test code = 2237) 26 MG/DL RISK RATIO LDL/HDL (test code = 0.47 RATIO 2238) HEMOGLOBIN [id number] 00:00:00 Test Item Value Reference Range Interpretation Comments HEMOGLOBIN A1c (test code = 34787) 5.4 % PET/CT, CARDIAC PERF REST AND [id number] 16:08:00Reason for Exam:- >preop assessment for non cardiac [facility] 1965 Sex: MFINAL REPORT PROCEDURE: MYOCARDIAL PERFUSION PET/CT IMAGING (Rest/Stress)CPT CODE:87929 INDICATION: Risk stratification prior to renal transplant [...] Value Reference Range Interpretation Comments CYTOMEGALOVIRUS, IGG (Push TechnologyAKER) Negative Negative, Equivocal (test code = 3429) CMV IgG Result Interpretation: </= 0.8 Al Negative 0.9-1.0 Al Equivocal >/=1.1 Al PositiveHEMOGLOBIN [id number] 13:45:42 Test Item Value Reference Range Interpretation Comments HEMOGLOBIN A1C 5.3 % See_Comment [Automated m essage] ELECTROPHORESIS ([facility]) The system which (test code = 3811) generated this result transmitted ref erence range: <=5.6%. The reference range was not used to int erpret this result as normal/abnormal . "The A1c is measured using a NGSP-certified method. HbA1c value equal to or greater than 6.5% as thediagnosis cutoff for diabetes. An HbA1c value of 5.7- 6.4% indicates increased risk for diabetes (prediabetes)."Sr. Merchandise Planner ID - ADMOperator ID - [id number] Echo W/Doppler(CW/PW/Color)2021-09-12 13:24:54Ejection FractionSLEH ECHO HEARTLAB [facility]2D Echo W/Doppler(CW/PW/Color)2021-09-12 13:24:54Ejection FractionSLEH ECHO HEARTLAB [facility] Echo W/Doppler(CW/PW/Color) 2021-09-12 13:24:54Ejection FractionSLEH ECHO HEARTLAB [facility] Echo W/Doppler(CW/PW/Color)2021-09-12 13:24:54Ejection FractionSLEH ECHO [facility]ARTLAB [facility] Echo W/Doppler(CW/PW/Color)2021-09-12 13:24:54Ejection FractionSLEH ECHO [facility] TOLEDOLAB [facility] C [id number] 13:12:33 Test Item Value Reference Range Interpretation Comments HEPATITIS C ANTIBODY (Push TechnologyAKER) Nonreactive Nonreactive (test code = 367) Sr. Merchandise Planner ID - DBHEPATITIS B CORE ANTIBODY, [id number] 13:12:33 Test Item Value Reference Range Interpretation Comments HEPATITIS B CORE TOTAL ANTIBODY Nonreactive Nonreactive (BEAKER) (test code = 497) Sr. Merchandise Planner ID - DBHIV-1 ANTIGEN WITH HIV-1/2 [id number] 13:12:33 Test Item Value Reference Range Interpretation Comments HIV-1 ANTIGEN WITH HIV 1\\T\\2 Nonreactive Nonreactive ANTIBODY (2) (CLEMENTE) (test code = 2586) Sr. Merchandise Planner ID - [id number] 13:12:28 Test Item Value Reference Range Interpretation Comments PROSTATE SPECIFIC ANTIGEN (CLEMENTE) 0.2 ng/mL 0.0-4.0 (test code = 844) Sr. Merchandise Planner ID - DBHEPATITIS B SURFACE [id number] 13:12:28 Test Item Value Reference Range Interpretation Comments HEPATITIS B SURFACE ANTIBODY 20.9 mIU/mL <8.0 H (CLEMENTE) (test code = 647) Sr. Merchandise Planner ID - DBU/S, ABDOMINAL, [id number] 11:01:00Assess for acquired renal cystic diseaseReason for Exam:->pre transplant [facility] : 1965 Sex: MFINAL REPORT TECHNIQUE: Grayscale [...] ultrasound. No renal cysts. Signed: Vishal Caraballo Verified Date/Time: 09/12/2021 11:01:08 PET/CT, CARDIAC PERF REST AND [id number] 14:32:00Reason for Exam:->renal tx eval; cadFINAL REPORT PROCEDURE: MYOCARDIAL PERFUSION PET/CT IMAGING (Rest/Stress)CPT CODE: 49003 INDICATION: Pre-operative evaluation for renal transplant, history [...] no prior study for comparison. Signed: Ayan LyortVerified Date/Time: 01/10/2020 14:32:02 Reading Location: [place] [id number] Reading Room CYTOMEGALOVIRUS ANTIBODY, [id number] 14:19:00 Test Item Value Reference Range Interpretation Comments CYTOMEGALOVIRUS, IGG (BEAKER) Negative Negative, Equivocal (test code = 3429) CMV IgG Result Interpretation: </= 0.8 Al Negative 0.9-1.0 Al Equivocal >/=1.1 Al [id number] 13:20:00 Test Item Value Reference Range Interpretation Comments PROSTATE SPECIFIC ANTIGEN (BEAKER) 0.3 ng/mL 0.0-4.0 (test code = 844) Sr. Merchandise Planner ID - SAMANTHAGHEPATITIS C [id number] 13:20:00 Test Item Value Reference Range Interpretation Comments HEPATITIS C ANTIBODY (BEAKER) Nonreactive Nonreactive (test code = 367) Sr. Merchandise Planner ID - SAMANTHAGHIV-1 ANTIGEN WITH HIV-1/2 [id number] 13:20:00 Test Item Value Reference Range Interpretation Comments HIV-1 ANTIGEN WITH HIV 1\\T\\2 Nonreactive Nonreactive ANTIBODY (2) (BEAKER) (test code = 2586) Sr. Merchandise Planner ID - SAMANTHAGCT, ABDOMEN, [id number] 11:16:00Esrd,on dialysis, awaiting kidney transplant. See ultrasound [...] Lee MDReport Verified Date/Time: 12/23/2018 11:16:06Reading Location: [facility] B1 C013Y CT Body Reading Room U/S, ABDOMINAL, [id number] 15:46:00Reason for Exam:- >pre transplant evaluation for [...] Incomplete evaluation of the pancreas. Signed: José Jacksoneport Verified Date/Time: 12/07/2018 15:46:25 Reading Location: [address] Radiology Reading Room TISSUE [id number] 19:11:00Surgical Pathology Report Case: [id number] Authorizing Provider: Nuria Harrison MD Collected: 09/23/2017917 Ordering Location: [facility] Endoscopy Received: 09/23/2017 1144 Services Pathologist: Andrea Faust MD Specimen: Polyp, Colon - Left/Descending, taken via hot snare COLON, LEFT/DESCENDING, POLYPECTOMY- TUBULAR ADENOMA (MULTIPLE PIECES) Signing Pathologist Direct Phone Line: [phone] signed by Andrea Faust MD on 09/24/2017 at 7:11 [id number] for colon cancer Left descending colon polyp The specimen is received in a formalin-filled container labeled with the patient's information and labeled "left descending colon polyp" and consists of a gann-red polyp measuring 0.5 cm in greatest dimension. The resection margin is inked blue. The specimen is bisected and submitted in A1. CG/ew There is no high grade dysplasia or carcinoma. [id number] 07:55:00 Test Item Value Reference Range Interpretation Comments POC-POTASSIUM 4.8 meq/L 3.6-5.5 TESTED AT [facility] C 6720 ([facility]) (test code [facility] 11231 = 1540) CYTOMEGALOVIRUS ANTIBODY, [id number] 08:36:00 Test Item Value Reference Range Interpretation Comments CYTOMEGALOVIRUS IGG ANTIBODY Negative ([facility]) (test code = 790) CYTOMEGALOVIRUS ANTIBODY, [id number] 08:36:00 Test Item Value Reference Range Interpretation Comments CYTOMEGALOVIRUS IGM ANTIBODY Negative ([facility]) (test code = 816) EBV-VCA ANTIBODY, [id number] 08:36:00 Test Item Value Reference Range Interpretation Comments LANETTE-CENTENO VCA IGG ([facility]) (test Positive code = 983) EBV-VCA ANTIBODY, [id number] 08:36:00 Test Item Value Reference Range Interpretation Comments LANETTE-CENTENO VCA IGM ([facility]) (test Positive code = 984) [id number] 02:48:00 Test Item Value Reference Range Interpretation Comments RPR SCREEN (BEAKER) (test code = Nonreactive Nonreactive 420) [id number] 15:45:00 Test Item Value Reference Range Interpretation Comments PROSTATE SPECIFIC ANTIGEN (BEAKER) 0.3 ng/mL 0.0-4.0 (test code = 844) HEPATITIS B SURFACE [id number] 15:43:00 Test Item Value Reference Range Interpretation Comments HEPATITIS B SURFACE ANTIGEN (2) Nonreactive Nonreactive (BEAKER) (test code = 2585) HEPATITIS B SURFACE [id number] 15:43:00 Test Item Value Reference Range Interpretation Comments HEPATITIS B SURFACE ANTIBODY 22.0 mIU/mL <8.0 H (BEAKER) (test code = 647) HEPATITIS B CORE ANTIBODY, [id number] 15:43:00 Test Item Value Reference Range Interpretation Comments HEPATITIS B CORE IGM ANTIBODY Nonreactive Nonreactive (BEAKER) (test code = 645) HEPATITIS C [id number] 15:43:00 Test Item Value Reference Range Interpretation Comments HEPATITIS C ANTIBODY (BEAKER) Nonreactive Nonreactive (test code = 367) HIV-1 ANTIGEN WITH HIV-1/2 [id number] 15:43:00 Test Item Value Reference Range Interpretation Comments HIV-1 ANTIGEN WITH HIV 1\\T\\2 Nonreactive Nonreactive ANTIBODY (2) (BEAKER) (test code = 2586) GAMMA GLUTAMYL TRANSFERASE (GGT)2017-09-01 15:21:00 Test Item Value Reference Range Interpretation Comments GAMMA GLUTAMYL TRANSFERASE (BEAKER) 53 U/L 9-64 (test code = 364) BASIC METABOLIC [id number] 11:03:00 Test Item Value Reference Range Interpretation [...] S NOT APPLICABLE FOR DIALYSIS PATIEN TS. [id number] 10:46:00 Test Item Value Reference Range Interpretation [...] mechanical heart valves.CBC W/PLT COUNT & AUTO [id number] 10:36:00 Test Item Value Reference Range Interpretation [...] = 2801) FLOW PRA CLASS I AND [id number] 09:50:00 Test Item Value Reference Range Interpretation Comments DATE OF SERUM (BEAKER) 5170405 (test code = 2289) SERUM # (BEAKER) (test 253039 code = 2290) FLOW PRA CLASS I AND II See Scanned Report (test code = 2421) HLA [id number] 13:18:00 Test Item Value Reference Range Interpretation Comments HLA RESULT (BEAKER) (test See Scanned Report code = 2311) HLA-A AG1 (BEAKER) (test code = 2521) HLA-A AG2 (BEAKER) (test code = 2522) HLA-B AG1 (BEAKER) (test code = 2523) HLA-B AG2 (BEAKER) (test code = 2524) HLA-C AG1 (BEAKER) (test code = 2525) HLA-C AG2 (BEAKER) (test code = 7976) HLA-DR AG1 (BEAKER) (test code = 2518) HLA-DR AG2 (BEAKER) (test code = 5619) HLA-DQ AG1 (BEAKER) (test code = 2514) HLA-DQ AG2 (BEAKER) (test code = 1195) HLA-DRW (BEAKER) (test code = 1903) OCCULT BLOOD, [id number] 16:23:00 Test Item Value Reference Range Interpretation Comments FECAL OCCULT BLOOD (BEAKER) (test Positive Negative A code = 618) OCCULT BLOOD, [id number] 16:14:00 Test Item Value Reference Range Interpretation Comments FECAL OCCULT BLOOD (BEAKER) (test Negative Negative code = 618) HEMOGLOBIN [id number] 15:13:00 Test Item Value Reference Range Interpretation Comments HEMOGLOBIN A1C (BEAKER) (test code = 7.1 % 4.3-6.1 H 368) GAMMA GLUTAMYL TRANSFERASE (GGT)2016-08-14 12:11:00 Test Item Value Reference Range Interpretation Comments GAMMA GLUTAMYL TRANSFERASE (BEAKER) 70 U/L 9-64 H (test code = 364) VARICELLA ZOSTER ANTIBODY, [id number] 17:30:00 Test Item Value Reference Range Interpretation Comments VARICELLA ZOSTER IGG (AL) (BEAKER) 6.3 Al (test code = 3197) VARICELLA ZOSTER RESULT INTERPRETATIONS: <=0.8 Al Nonreactive: Presumed non- immune to VZV 0.9-1.0Al Equivocal >=1.1 Al Reactive: Presumed immune to VZV
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
[2022-10-11 13:49] VITALS: BP 174/81; TEMP 98.6; O2SAT 96
== END 2022-10-11 13:34 | disposition home or self-care (01) ==
LOC: ER 13:10
DX: T23.271A Burn of second degree of right wrist, initial encounter (principal); T31.0 Burns involving less than 10% of body surface
CPT/HCPCS: 99283